=== PATIENT | female | born 1950 | race Hispanic/Latino ===

== ENCOUNTER 2017-06-06 16:29 | Inpatient (IN) | payer BC, OTHER ==
[2017-06-06 16:37] VITALS: BMI 44.8
--- NOTE | 2017-06-06 17:02 | ED PDOC ---
Arrival/HPI - General Chief Complaint: Lower Extremity Problem/Injury Time Seen by Provider: 06/06/17 16:31 Historian: Patient - History of Present Illness Narrative History of Present Illness (Text): 06/06/17 17:01 66 year old female whose past medical history includes chronic leg pain with chronic leg wounds and cellulitis presents to the emergency department with lower extremity pain b/L. She states she was receiving antibiotics at [facility] before going to rehab, from where she was recently released. Patient also reports fatigue, poor appetite, and intermittent diarrhea for the past few weeks. Denies fever, chest pain, shortness of breath, nausea, vomiting, or urinary symptoms. She reports that she is unable to care for herself at this time. Time/Duration: > week Symptom Onset: Gradual Symptom Course: Unchanged Modifying Factors (Text): None Past Medical History - Provider Review Nursing Documentation Reviewed: Yes - Infectious Disease Hx of Infectious Diseases: None - Tetanus Immunization Tetanus Immunization: Unknown - Cardiac Hx Cardiac Disorders: Yes Hx Hypertension: Yes Hx Peripheral Edema: Yes (weeping BLE) - Pulmonary Hx Respiratory Disorders: No - Neurological Hx Neurological Disorder: Yes - HEENT Hx HEENT Disorder: No - Renal Hx Renal Disorder: Yes - Endocrine/Metabolic Hx Endocrine Disorders: Yes Hx Hypothyroidism: Yes - Hematological/Oncological Hx Blood Disorders: Yes Hx AIDS: No - Integumentary Hx Dermatological Disorder: Yes - Musculoskeletal/Rheumatological Hx Musculoskeletal Disorders: Yes Hx Arthritis: Yes Hx Falls: No Hx Fractures: Yes - Gastrointestinal Hx Gastrointestinal Disorders: Yes Hx Gall Bladder Disease: Yes (gallstones) - Genitourinary/Gynecological Hx Genitourinary Disorders: Yes Hx Incontinence: Yes - Psychiatric Hx Psychophysiologic Disorder: Yes Hx Depression: Yes Hx Substance Use: No - Surgical History Hx Cholecystectomy: Yes Other/Comment: hernia repiar - Anesthesia Hx Anesthesia: Yes Hx Anesthesia Reactions: No Hx Malignant Hyperthermia: No - Suicidal Assessment Feels Threatened In Home Enviroment: No Family/Social History - Physician Review Nursing Documentation Reviewed: Yes Family/Social History: Unknown Family HX Smoking Status: Never Smoked Hx Alcohol Use: No Hx Substance Use: No Hx Substance Use Treatment: No Allergies/Home Meds Allergies/Adverse Reactions: Allergies ciprofloxacin [From Cipro] Allergy (Verified 06/06/17 16:40) RASH nubia Allergy (Verified 06/06/17 16:40) RASH latex Allergy (Verified 06/06/17 16:40) RASH Penicillins Allergy (Verified 06/06/17 16:41) RASH Sulfa (Sulfonamide Antibiotics) Allergy (Verified 06/06/17 16:40) RASH vancomycin Allergy (Verified 06/06/17 16:40) RASH roses Allergy (Uncoded 06/06/17 16:40) RASH Home Medications: Home Meds Medication Instructions Recorded Confirmed Gabapentin 200 mg PO BID 06/18/15 06/06/17 HYDROmorphone [Dilaudid] 2 mg PO PRN PRN 06/06/17 06/06/17 traMADol [Ultram] 50 mg PO PRN PRN 06/06/17 06/06/17 Review of Systems - Physician Review All systems were reviewed & negative as marked: Yes - Review of Systems Constitutional: absent: Fevers Respiratory: absent: SOB Cardiovascular: absent: Chest Pain Gastrointestinal: Diarrhea (intermittent for the past few weeks). absent: Nausea, Vomiting Genitourinary Female: absent: Dysuria, Frequency, Hematuria Physical Exam Vital Signs Reviewed: Yes Vital Signs Temp Pulse Resp BP Pulse Ox 06/06/17 19:15 97.6 F 74 16 131/65 100 06/06/17 16:38 98.0 F 76 16 154/77 H 98 Temperature: Afebrile Blood Pressure: Normal Pulse: Regular Respiratory Rate: Normal Appearance: Positive for: Non-Toxic, Other (morbidly obese) Pain Distress: Moderate Mental Status: Positive for: Alert and Oriented X 3 - Systems Exam Head: Present: Atraumatic, Normocephalic Pupils: Present: PERRL Conjunctiva: Present: Normal Mouth: Present: Moist Mucous Membranes Pharnyx: Present: Normal. No: ERYTHEMA, EXUDATE Neck: Present: Normal Range of Motion Respiratory/Chest: Present: Clear to Auscultation, Good Air Exchange. No: Respiratory Distress, Accessory Muscle Use Cardiovascular: Present: Regular Rate and Rhythm, Normal S1, S2. No: Murmurs Abdomen: Present: Normal Bowel Sounds. No: Tenderness, Distention, Peritoneal Signs Back: Present: Normal Inspection Upper Extremity: Present: Normal Inspection. No: Cyanosis, Edema Lower Extremity: Present: Tenderness, Erythema, Other (There are b/L weeping ulcerations of the LE ulcers with warmth). No: Swelling Neurological: Present: GCS=15, CN II-XII Intact, Speech Normal Skin: Present: Warm, Dry, Normal Color. No: Rashes Psychiatric: Present: Alert, Oriented x 3, Normal Insight, Normal Concentration Medical Decision Making ED Course and Treatment: Impression: 66 year old female whose past medical history includes chronic cellulitis presents to the emergency department with lower extremity pain. Differential Diagnosis include but are not limited to: DVT vs. infected ulcers b/L vs osteomyelitis Plan: -- US Duplex LE, Chest X-ray -- Labs -- Reassess and disposition Progress Notes: 06/06/17 20:12 Patient with findings concerning for infected leg wounds or possible osteomyelitis - will need wound/podiatry consult and iv antibiotics and admission. Will also need social work assessment for possible placement. LE dopplers limited but negative for DVT. - Lab Interpretations Lab Results: 06/06/17 16:20 06/06/17 16:20 Lab Results 06/06/17 16:20: Sodium 139, Potassium 4.2, Chloride 102, Carbon Dioxide 25, Anion Gap 16, BUN 20, Creatinine 0.9, Est GFR ( Amer) > 60, Est GFR (Non- Af Amer) > 60, Random Glucose 111 H, Calcium 9.8, Total Bilirubin 0.9, AST 37, ALT 71 H, Alkaline Phosphatase 124, NT-Pro-B Natriuret Pep 113, Total Protein 7.6, Albumin 4.0, Globulin 3.6, Albumin/Globulin Ratio 1.1, Amylase 36, Lipase 16 L 06/06/17 16:20: PT 11.3, INR 1.05, APTT 26.9 06/06/17 16:20: WBC 7.3 D, RBC 4.51, Hgb 13.4, Hct 39.7, MCV 88.0, MCH 29.7, MCHC 33.8, RDW 13.4, Plt Count 312, MPV 10.0, Gran % 72.9 H, Lymph % (Auto) 9.7 L, Atlantic % (Auto) 13.7 H, Eos % (Auto) 3.3, Baso % (Auto) 0.4, Gran # 5.29, Lymph # 0.7 L, Atlantic # 1.0 H, Eos # 0.2, Baso # 0.03 - RAD Interpretation Radiology Orders: 06/06/17 17:00 DUPLEX LOWER EXTRM VEIN BILAT [US] Stat 07/08/17 17:01 CHEST PORTABLE [RAD] Stat - Medication Orders Current Medication Orders: Discontinued Medications Hydromorphone HCl (Dilaudid) 1 mg IVP STAT STA Stop: 06/06/17 17:33 Last Admin: 06/06/17 17:39 Dose: 1 mg - Scribe Statement The provider has reviewed the documentation as recorded by the Armando Good Provider Scribe Attestation: All medical record entries made by the Armando were at my direction and personally dictated by me. I have reviewed the chart and agree that the record accurately reflects my personal performance of the history, physical exam, medical decision making, and the department course for this patient. I have also personally directed, reviewed, and agree with the discharge instructions and disposition. Disposition/Present on Arrival - Present on Arrival Any Indicators Present on Arrival: No History of DVT/PE: No History of Uncontrolled Diabetes: No Urinary Catheter: No History of Decub. Ulcer: No History Surgical Site Infection Following: None - Disposition Have Diagnosis and Disposition been Completed?: Yes Diagnosis: Lymphedema of both lower extremities, Cellulitis Disposition: HOSPITALIZED Disposition Time: 19:50 Patient Plan: Admission Patient Problems: Current Active Problems Problem Status Onset Cellulitis Acute Lymphedema of both lower extremities Acute Condition: FAIR Discharge Instructions (ExitCare): Cellulitis (ED) Referrals: Hung Wagner DO [Primary Care Provider] - Follow up with primary
[2017-06-06] MEDS ORDERED: HYDROmorphone 1 mg/ml ISec IVP STA (17:32)
[2017-06-06 17:57] LABS: ALB/GLOB RATIO 1.1 (1.1-1.8); ALT/SGPT 71 U/L (7-56); AMYLASE 36 U/L (35-125); AST/SGOT 37 U/L (15-39); BLOOD UREA NITROGEN 20 mg/dL (7-21); CALCIUM 9.8 mg/dL (8.4-10.5); GFR AFRICAN-AMERICAN > 60; GFR NON-AFRICAN AMERICAN > 60; LIPASE 16 U/L (23-300)
[2017-06-06 18:05] LABS: B-TYPE NATRIURETIC PEPTIDE 113 pg/mL (0-450)
[2017-06-06 18:28] LABS: BASO # 0.03 K/mm3 (0.0-2.0); BASO % 0.4 % (0.0-3.0); EOS # 0.2 (0.0-0.7); EOS % 3.3 % (1.5-5.0); GRAN # 5.29 (1.4-6.5); GRAN % 72.9 % (50.0-68.0); HEMOGLOBIN 13.4 gm/dL (12.0-16.0); LYMPH # 0.7 (1.2-3.4); LYMPH % 9.7 % (22.0-35.0); MEAN CORPUSCULAR HEMOGLOBIN 29.7 pg (25.0-35.0); MEAN CORPUSCULAR HGB CONC 33.8 g/dl (31.0-37.0); MONO % 13.7 % (1.0-6.0); PLATELET COUNT 312 10^3/uL (120.0-450.0); RBC 4.51 10^6/uL (3.5-6.1); RED CELL DISTRIBUTION WIDTH 13.4 % (11.5-14.5); WHITE BLOOD COUNT 7.3 10^3/ul (4.5-11.0)
[2017-06-06 18:42] LABS: INR 1.05 (0.93-1.08); PARTIAL THROMBOPLASTIN TIME 26.9 Seconds (23.7-30.8); PROTHROMBIN TIME 11.3 Seconds (9.9-11.8)
--- NOTE | 2017-06-06 22:59 | CP.PCM.HP ---
<MARVEL CHILEL - Last Filed: 06/07/17 01:54> History of Present Illness - History of Present Illness History of Present Illness: 66 yo F with pMHx of chronic b/l leg wounds/cellulitis, chronic leg pain, HTN, sciatica, and neuropathy c/o worsening b/l LE pain with sanguineous drainage. Pt states that b/l leg wounds started in 2010 and has since had multiple hospitalizations and rehab stints without resolution of her wounds. Pt states that she lives at home alone and has home health nurses come for wound care, but that they have been coming inconsistently. Pt takes PO dilaudid and tramadol at home for pain. Pt admits to poor appetite, fatigue, and intermittant diarrhea for several weeks. Pt denies n/v/f, CP, SOB, or abdominal pain. PMHx: Chronic b/l LE wounds, cellulitis, HTN, sciatica, neuropathy Surg: cholecystectomy, hernia repair FMHx: DE, CAD Social: denied tobacco, EtOH, or illicit drug use All: Ciprofloxacin, nubia, latex, penicillin, sulfa, vancomycin, roses Present on Admission - Present on Admission Any Indicators Present on Admission: No Review of Systems - Constitutional Constitutional: Fatigue. absent: Fever, Headache, Night Sweats, Weakness - EENT Eyes: absent: Change in Vision, Exophthalmos, Irritation, Photophobia Ears: absent: Abnormal Hearing Nose/Mouth/Throat: absent: Epistaxis, Nasal Congestion, Nasal Discharge - Cardiovascular Cardiovascular: absent: Chest Pain, Dyspnea, Rapid Heart Rate, Slow Heart Rate - Respiratory Respiratory: absent: Cough, Dyspnea, Wheezing - Gastrointestinal Gastrointestinal: Diarrhea. absent: Abdominal Pain, Change in Stool Character, Coffee Ground Emesis, Hematemesis - Genitourinary Genitourinary: absent: Dysuria, Hematuria, Pyuria - Musculoskeletal Musculoskeletal: absent: Neck Pain, Numbness - Integumentary Integumentary: Change in Nails, Erythema, Lesions, Non-Healing Lesions, Skin Pain, Wounds Additional comments: b/l LE - Neurological Neurological: absent: Dizziness, Numbness, Focal Weakness, Headaches, Paresthesias - Psychiatric Psychiatric: absent: Confusion - Endocrine Endocrine: Fatigue - Hematologic/Lymphatic Hematologic: As Per HPI Past Patient History - Infectious Disease Hx of Infectious Diseases: None - Tetanus Immunizations Tetanus Immunization: Unknown - Past Social History Smoking Status: Never Smoked - CARDIAC Hx Cardiac Disorders: Yes Hx Hypertension: Yes Hx Peripheral Edema: Yes (weeping BLE) - PULMONARY Hx Respiratory Disorders: No - NEUROLOGICAL Hx Neurological Disorder: Yes - HEENT Hx HEENT Problems: No - RENAL Hx Chronic Kidney Disease: Yes - ENDOCRINE/METABOLIC Hx Endocrine Disorders: Yes Hx Hypothyroidism: Yes - HEMATOLOGICAL/ONCOLOGICAL Hx Blood Disorders: Yes Hx AIDS: No - INTEGUMENTARY Hx Dermatological Problems: Yes - MUSCULOSKELETAL/RHEUMATOLOGICAL Hx Musculoskeletal Disorders: Yes Hx Arthritis: Yes Hx Falls: No Hx Fractures: Yes - GASTROINTESTINAL Hx Gastrointestinal Disorders: Yes Hx Gall Bladder Disease: Yes (gallstones) - GENITOURINARY/GYNECOLOGICAL Hx Genitourinary Disorders: Yes Hx Incontinence: Yes - PSYCHIATRIC Hx Psychophysiologic Disorder: Yes Hx Depression: Yes Hx Substance Use: No - SURGICAL HISTORY Hx Cholecystectomy: Yes Other/Comment: hernia repiar - ANESTHESIA Hx Anesthesia: Yes Hx Anesthesia Reactions: No Hx Malignant Hyperthermia: No Meds Allergies/Adverse Reactions: Allergies Allergy/AdvReac Type Severity Reaction Status Date / Time ciprofloxacin [From Cipro] Allergy RASH Verified 06/06/17 16:40 nubia Allergy RASH Verified 06/06/17 16:40 latex Allergy RASH Verified 06/06/17 16:40 Penicillins Allergy RASH Verified 06/06/17 16:41 Sulfa (Sulfonamide Allergy RASH Verified 06/06/17 16:40 Antibiotics) vancomycin Allergy RASH Verified 06/06/17 16:40 roses Allergy RASH Uncoded 06/06/17 16:40 Physical Exam - Constitutional Appears: Unkempt - Head Exam Head Exam: ATRAUMATIC, NORMOCEPHALIC - Eye Exam Eye Exam: EOMI, Normal appearance, PERRL - ENT Exam ENT Exam: Mucous Membranes Moist - Neck Exam Neck exam: Negative for: Lymphadenopathy, Tenderness, Thyromegaly - Respiratory Exam Respiratory Exam: Clear to Auscultation Bilateral. absent: Rales, Rhonchi, Wheezes - Cardiovascular Exam Cardiovascular Exam: RRR, +S1, +S2. absent: Gallop, Rubs, Systolic Murmur - GI/Abdominal Exam GI & Abdominal Exam: Soft. absent: Distended, Guarding, Tenderness - Extremities Exam Additional comments: B/l LE below the knee: brown crusting, erythematous wounds, serosanguineous drainage, tenderness, swelling/edema, foul odor - Neurological Exam Neurological exam: Alert, Oriented x3 - Psychiatric Exam Psychiatric exam: Normal Affect - Skin Skin Exam: Erythema Additional comments: b/l LE below the knee brown crusted wound with serosanguinous drainage Results - Vital Signs Recent Vital Signs: Last Vital Signs Temp 97.6 F 06/06/17 19:15 Pulse 77 06/06/17 21:05 Resp 16 06/06/17 21:05 BP 123/65 06/06/17 21:05 Pulse Ox 98 06/06/17 21:05 - Labs Result Diagrams: 06/06/17 16:20 06/06/17 16:20 Assessment & Plan - Assessment and Plan (Free Text) Assessment: 66 yo F with pMHx of chronic b/l LE wounds, HTN, and neuropathy presents with worsening b/l LE leg wounds and pain. Pt will be admitted for b/l LE cellulitis/ chronic leg wounds. 1. Cellultis/chronic leg wounds - b/l LE -ID consulted -Podiatry consulted -[facility]case management consulted -Ciprofloxacin 600 mg IVPB x1 -Defer further Abx therapy to ID due multiple drug allergies -Tramadol 50 PO PRN for breakthrough, then Morphine 4q4 PRN -LE US negative prelim read for DVT -CXR negative prelim read 2. Neuropathy -Continue neurontin 3. HTN -BP stable at this time, no meds indicated -Heart healthy diet, 2 gm Na 4. Hypothyroidism -Continue Synthroid 5. GI/DVT PPx -Lovenox 40 mg SC -Protonix 40 mg PO Pt was seen and discussed in detail with Dr. Riggs. <Nancy Riggs - Last Filed: 06/07/17 02:43> Results - Vital Signs Recent Vital Signs: Last Vital Signs Temp 97.6 F 06/06/17 19:15 Pulse 77 06/06/17 21:05 Resp 16 06/06/17 21:05 BP 123/65 06/06/17 21:05 Pulse Ox 98 06/06/17 21:05 - Labs Result Diagrams: 06/06/17 16:20 06/06/17 16:20 Attending/Attestation - Attestation I have personally seen and examined this patient.: Yes I have fully participated in the care of the patient.: Yes I have reviewed all pertinent clinical information: Yes Notes (Text): 06/07/17 02:43 Patient was seen when she was in bed # 568-02. Agree with history, physical examination, assessment and plan.
[2017-06-07] MEDS: Morphine 4 mg/ml ISec IVP PRN ×2 (01:01→06:40)
--- NOTE | 2017-06-07 05:37 | CP.PCM.PN ---
Subjective - Date & Time of Evaluation Date of Evaluation: 06/07/17 Time of Evaluation: 05:36 - Subjective Subjective: # 22 angiocath was inserted in right hand. Dx:Poor venous access. Objective - Vital Signs/Intake and Output Vital Signs (last 24 hours): Temp Pulse Resp BP Pulse Ox 97.6 F 77 16 123/65 98 06/06/17 19:15 06/06/17 21:05 06/06/17 21:33 06/06/17 21:05 06/06/17 21:05 - Medications Medications: Current Medications Enoxaparin Sodium (Lovenox) 40 mg SC DAILY CEM PRN Reason: Protocol Gabapentin (Neurontin) 200 mg PO BID CEM PRN Reason: Protocol Meropenem 1g/NS 100mL IVPB (Meropenem 1g/Ns 100ml Ivpb) 1 gm in 100 mls @ 100 mls/hr IVPB Q8 CEM PRN Reason: Protocol Stop: 06/14/17 06:01 Linezolid (Zyvox 600mg/300ml D5w) 600 mg in 300 mls @ 200 mls/hr IVPB Q12 CEM PRN Reason: Protocol Stop: 06/14/17 10:01 Levothyroxine Sodium (Synthroid) 25 mcg PO DAILY@0630 [facility] Morphine Sulfate (Morphine) 4 mg IVP Q4H PRN PRN Reason: Pain, moderate (4-7) Last Admin: 06/07/17 01:01 Dose: 4 mg Pantoprazole Sodium (Protonix Ec Tab) 40 mg PO 0600 [facility] - Labs Labs: PT 11.3 Seconds (9.9-11.8) 06/06/17 16:20 INR 1.05 (0.93-1.08) 06/06/17 16:20 APTT 26.9 Seconds (23.7-30.8) 06/06/17 16:20
[2017-06-07] MEDS: Levothyroxine 25 MCG TAB PO SCH (06:11)
[2017-06-07] MEDS: Pantoprazole 40 mg EC Tab PO SCH (06:11)
[2017-06-07] MEDS: Meropenem 1g/NS 100mL IVPB 1 GM/100 ML PIGGYBACK IVPB SCH ×3 (06:11→21:38)
[2017-06-07 07:31] LABS: ALT/SGPT 53 U/L (7-56); AST/SGOT 22 U/L (15-39); BLOOD UREA NITROGEN 18 mg/dL (7-21); CALCIUM 8.9 mg/dL (8.4-10.5); GFR AFRICAN-AMERICAN > 60; GFR NON-AFRICAN AMERICAN > 60
--- NOTE | 2017-06-07 08:55 | RAD ---
HISTORY: LE pain COMPARISON: 09/10/2015 FINDINGS: LUNGS: No active pulmonary disease. PLEURA: No significant pleural effusion identified, no pneumothorax apparent. CARDIOVASCULAR: Normal. OSSEOUS STRUCTURES: No significant abnormalities. VISUALIZED UPPER ABDOMEN: Normal. OTHER FINDINGS: None. IMPRESSION: No active disease.
[2017-06-07 09:04] LABS: HEMOGLOBIN 11.4 gm/dL (12.0-16.0); MEAN CELL VOLUME 89.6 fL (80.0-105.0); MEAN CORPUSCULAR HEMOGLOBIN 28.9 pg (25.0-35.0); MEAN CORPUSCULAR HGB CONC 32.3 g/dl (31.0-37.0); RBC 3.94 10^6/uL (3.5-6.1); WHITE BLOOD COUNT 5.9 10^3/ul (4.5-11.0)
[2017-06-07 09:05] LABS: MEAN PLATELET VOLUME 9.8 fl (7.0-11.0); RED CELL DISTRIBUTION WIDTH 13.4 % (11.5-14.5)
[2017-06-07] MEDS ORDERED: Morphine 4 mg/ml ISec IVP PRN (09:07)
--- NOTE | 2017-06-07 09:24 | CP.PCM.PN ---
Subjective - Date & Time of Evaluation Date of Evaluation: 06/07/17 Time of Evaluation: 08:00 - Subjective Subjective: not sure why CC given to the hospitalist service she has been my patient for years i have done house calls on her back from [address] again for severe tommy lower extremity cellulitis and after 1 week at home it got worse again and ended [place] [facility] [place] Objective - Vital Signs/Intake and Output Vital Signs (last 24 hours): Temp Pulse Resp BP Pulse Ox 98.2 F 75 18 110/57 L 95 06/07/17 07:36 06/07/17 07:36 06/07/17 07:36 06/07/17 07:36 06/07/17 07:36 - Medications Medications: Current Medications Enoxaparin Sodium (Lovenox) 40 mg SC DAILY CEM PRN Reason: Protocol Gabapentin (Neurontin) 200 mg PO BID CEM PRN Reason: Protocol Meropenem 1g/NS 100mL IVPB (Meropenem 1g/Ns 100ml Ivpb) 1 gm in 100 mls @ 100 mls/hr IVPB Q8 [facility]EM PRN Reason: Protocol Stop: 06/14/17 06:01 Last Admin: 06/07/17 06:11 Dose: 100 mls/hr Linezolid (Zyvox 600mg/300ml D5w) 600 mg in 300 mls @ 200 mls/hr IVPB Q12 [facility]EM PRN Reason: Protocol Stop: 06/14/17 10:01 Levothyroxine Sodium (Synthroid) 25 mcg PO DAILY@0630 [facility] Last Admin: 06/07/17 06:11 Dose: 25 mcg Morphine Sulfate (Morphine) 2 mg IVP Q4 PRN PRN Reason: Pain, moderate (4-7) Pantoprazole Sodium (Protonix Ec Tab) 40 mg PO 0600 [facility] Last Admin: 06/07/17 06:11 Dose: 40 mg - Labs Labs: 06/07/17 08:30 06/07/17 06:50 PT 11.3 Seconds (9.9-11.8) 06/06/17 16:20 INR 1.05 (0.93-1.08) 06/06/17 16:20 APTT 26.9 Seconds (23.7-30.8) 06/06/17 16:20 - Constitutional Appears: Unkempt - Head Exam Head Exam: ATRAUMATIC, NORMAL INSPECTION, NORMOCEPHALIC - ENT Exam ENT Exam: Mucous Membranes Moist - Neck Exam Neck Exam: Normal Inspection - Respiratory Exam Respiratory Exam: Decreased Breath Sounds, Clear to Ausculation Bilateral - Cardiovascular Exam Cardiovascular Exam: REGULAR RHYTHM - GI/Abdominal Exam GI & Abdominal Exam: Soft, Normal Bowel Sounds - Extremities Exam Additional comments: severe lower extremity venous stasis cellulitis ulcer oozing - Back Exam Back Exam: NORMAL INSPECTION - Neurological Exam Neurological Exam: Alert, CN II-XII Intact - Psychiatric Exam Psychiatric exam: Normal Affect - Skin Additional comments: severe long standing venous stasis cellulitis crusting redness oozing Assessment and Plan - Assessment and Plan (Free Text) Assessment: severe cellulitis tommy lower extremities venous stasis crusting oozing ulcers Plan: will need aggressive pod care iv abs as per id pain control pt
[2017-06-07] MEDS: Linezolid 600 mg in D5W 300 ml 600 MG/300 ML BAG IVPB SCH ×2 (10:14→22:17)
[2017-06-07] MEDS: Enoxaparin 40 mg Syringe SC SCH (10:15)
--- NOTE | 2017-06-07 12:07 | CP.PCM.CON ---
History of Present Illness - History of Present Illness History of Present Illness: 66 year old female with PMH of Morbid obesity with BMI 45, HTN, Hyperlipidemia, GERD, Depression, chronic lower extremity ulcerations and venous stasis came in to [facility] complaining of pain and swelling in both lower extremities associated with oozing ulcers. She has home health nurses coming to her house for wound care, but the visits have been inconsistent. She has some generalized weakness, decreased appetite, denies fever or chills, no nausea or vomiting, occasional loose bowel movement, no dysuria, no abdominal pain, no headache or dizziness, no chest pain, no SOB, no cough or colds. She denies soaking her legs in water, no animal contacts, no walking barefoot on soil, denies insect bites. Infectious Diseases consult is requested to further evaluate and manage. Review of Systems - Review of Systems All systems: reviewed and no additional remarkable complaints except (as per HPI ) Past Patient History - Infectious Disease Hx of Infectious Diseases: None - Tetanus Immunizations Tetanus Immunization: Unknown - Past Social History Smoking Status: Never Smoked - CARDIAC Hx Cardiac Disorders: Yes Hx Hypertension: Yes Hx Peripheral Edema: Yes (weeping BLE) - PULMONARY Hx Respiratory Disorders: No - NEUROLOGICAL Hx Neurological Disorder: Yes - HEENT Hx HEENT Problems: No - RENAL Hx Chronic Kidney Disease: Yes - ENDOCRINE/METABOLIC Hx Endocrine Disorders: Yes Hx Hypothyroidism: Yes - HEMATOLOGICAL/ONCOLOGICAL Hx Blood Disorders: Yes Hx AIDS: No - INTEGUMENTARY Hx Dermatological Problems: Yes - MUSCULOSKELETAL/RHEUMATOLOGICAL Hx Musculoskeletal Disorders: Yes Hx Arthritis: Yes Hx Falls: No Hx Fractures: Yes - GASTROINTESTINAL Hx Gastrointestinal Disorders: Yes Hx Gall Bladder Disease: Yes (gallstones) - GENITOURINARY/GYNECOLOGICAL Hx Genitourinary Disorders: Yes Hx Incontinence: Yes - PSYCHIATRIC Hx Psychophysiologic Disorder: Yes Hx Depression: Yes Hx Substance Use: No - SURGICAL HISTORY Hx Cholecystectomy: Yes Other/Comment: hernia repiar - ANESTHESIA Hx Anesthesia: Yes Hx Anesthesia Reactions: No Hx Malignant Hyperthermia: No Meds Allergies/Adverse Reactions: Allergies Allergy/AdvReac Type Severity Reaction Status Date / Time ciprofloxacin [From Cipro] Allergy RASH Verified 06/06/17 16:40 nubia Allergy RASH Verified 06/06/17 16:40 latex Allergy RASH Verified 06/06/17 16:40 Penicillins Allergy RASH Verified 06/06/17 16:41 Sulfa (Sulfonamide Allergy RASH Verified 06/06/17 16:40 Antibiotics) vancomycin Allergy RASH Verified 06/06/17 16:40 roses Allergy RASH Uncoded 06/06/17 16:40 - Medications Medications: Current Medications Enoxaparin Sodium (Lovenox) 40 mg SC DAILY CEM PRN Reason: Protocol Gabapentin (Neurontin) 200 mg PO BID CEM PRN Reason: Protocol Clindamycin Phosphate 600 mg/ (Sodium Chloride) 54 mls @ 108 mls/hr IVPB ONCE ONE PRN Reason: Protocol Stop: 06/07/17 05:29 Levothyroxine Sodium (Synthroid) 25 mcg PO DAILY@0630 [facility] Morphine Sulfate (Morphine) 4 mg IVP Q4H PRN PRN Reason: Pain, moderate (4-7) Last Admin: 06/07/17 01:01 Dose: 4 mg Pantoprazole Sodium (Protonix Ec Tab) 40 mg PO 0600 [facility] Tramadol HCl (Ultram) 50 mg PO BID PRN PRN Reason: Pain, moderate (4-7) Physical Exam - Constitutional Appears: Chronically Ill - Head Exam Head Exam: NORMAL INSPECTION - ENT Exam ENT Exam: Mucous Membranes Moist - Neck Exam Neck exam: Negative for: Lymphadenopathy, Meningismus - Respiratory Exam Respiratory Exam: Decreased Breath Sounds - Cardiovascular Exam Cardiovascular Exam: +S1, +S2 - GI/Abdominal Exam GI & Abdominal Exam: Soft. absent: Tenderness - Extremities Exam Additional comments: both lower extremities with chronic ulceration, swelling, with some oozing noted Results - Vital Signs Recent Vital Signs: Last Vital Signs Temp 97.6 F 06/06/17 19:15 Pulse 77 06/06/17 21:05 Resp 16 06/06/17 21:05 BP 123/65 06/06/17 21:05 Pulse Ox 98 06/06/17 21:05 - Labs Result Diagrams: 06/07/17 08:30 06/07/17 06:50 Assessment & Plan - Assessment and Plan (Free Text) Plan: Assessment bilateral lower extremity cellulitis in a patient with chronic venous stasis and ulcerations history of Pseudomonas osteomyelitis in 2012 Morbid obesity with BMI 45 HTN Hyperlipidemia GERD Depression Plan started patient Meropenem and Zyvox pending blood and wound cx; follow up ultrasound of the legs; follow up Podiatry evaluation
[2017-06-07] MEDS: Morphine 2 mg/ml ISec IVP PRN (14:16)
--- NOTE | 2017-06-07 14:37 | CP.PCM.CON ---
<Oz Berrios - Last Filed: 06/07/17 14:33> History of Present Illness - History of Present Illness History of Present Illness: 66 year old female with PMH chronic b/l leg wounds/cellulitis, chronic leg pain , HTN, sciatica, and neuropathy seen at bedside for painful b/l lower extremity cellulitis. Patient states that the wounds have been present since 2010 and that she receives at home nursing care. She has been to the hospital and outpatient rehab facilities multiple times for her wounds without healing. Patient states that her legs are extremely tender to touch and refuses application of lac hydrin ointment at this time. Pt denies any further pedal complaints at this time. Patient denies N/V/F/C/CP/SOB. Review of Systems - Review of Systems Review of Systems: ROS unremarkable outside of HPI Past Patient History - Infectious Disease Hx of Infectious Diseases: None - Tetanus Immunizations Tetanus Immunization: Unknown - Past Social History Smoking Status: Never Smoked - CARDIAC Hx Cardiac Disorders: Yes Hx Hypertension: Yes Hx Peripheral Edema: Yes (weeping BLE) - PULMONARY Hx Respiratory Disorders: No - NEUROLOGICAL Hx Neurological Disorder: Yes - HEENT Hx HEENT Problems: No - RENAL Hx Chronic Kidney Disease: Yes - ENDOCRINE/METABOLIC Hx Endocrine Disorders: Yes Hx Hypothyroidism: Yes - HEMATOLOGICAL/ONCOLOGICAL Hx Blood Disorders: Yes Hx AIDS: No - INTEGUMENTARY Hx Dermatological Problems: Yes - MUSCULOSKELETAL/RHEUMATOLOGICAL Hx Musculoskeletal Disorders: Yes Hx Arthritis: Yes Hx Falls: No Hx Fractures: Yes - GASTROINTESTINAL Hx Gastrointestinal Disorders: Yes Hx Gall Bladder Disease: Yes (gallstones) - GENITOURINARY/GYNECOLOGICAL Hx Genitourinary Disorders: Yes Hx Incontinence: Yes - PSYCHIATRIC Hx Psychophysiologic Disorder: Yes Hx Depression: Yes Hx Substance Use: No - SURGICAL HISTORY Hx Cholecystectomy: Yes Other/Comment: hernia repiar - ANESTHESIA Hx Anesthesia: Yes Hx Anesthesia Reactions: No Hx Malignant Hyperthermia: No Meds Allergies/Adverse Reactions: Allergies Allergy/AdvReac Type Severity Reaction Status Date / Time ciprofloxacin [From Cipro] Allergy RASH Verified 06/06/17 16:40 nubia Allergy RASH Verified 06/06/17 16:40 latex Allergy RASH Verified 06/06/17 16:40 Penicillins Allergy RASH Verified 06/06/17 16:41 Sulfa (Sulfonamide Allergy RASH Verified 06/06/17 16:40 Antibiotics) vancomycin Allergy RASH Verified 06/06/17 16:40 roses Allergy RASH Uncoded 06/06/17 16:40 - Medications Medications: Current Medications Enoxaparin Sodium (Lovenox) 40 mg SC DAILY [facility] PRN Reason: Protocol Last Admin: 06/07/17 10:15 Dose: 40 mg Gabapentin (Neurontin) 200 mg PO BID [facility] PRN Reason: Protocol Last Admin: 06/07/17 10:14 Dose: 200 mg Meropenem 1g/NS 100mL IVPB (Meropenem 1g/Ns 100ml Ivpb) 1 gm in 100 mls @ 100 mls/hr IVPB Q8 [facility] PRN Reason: Protocol Stop: 06/14/17 06:01 Last Admin: 06/07/17 06:11 Dose: 100 mls/hr Linezolid (Zyvox 600mg/300ml D5w) 600 mg in 300 mls @ 200 mls/hr IVPB Q12 [facility] PRN Reason: Protocol Stop: 06/14/17 10:01 Last Admin: 06/07/17 10:14 Dose: 200 mls/hr Lactic Acid (Lac-Hydrin 12% Cream (140 G)) 0 ea TOP QD5 [facility] Levothyroxine Sodium (Synthroid) 25 mcg PO DAILY@0630 [facility] Last Admin: 06/07/17 06:11 Dose: 25 mcg Morphine Sulfate (Morphine) 2 mg IVP Q4 PRN PRN Reason: Pain, moderate (4-7) Last Admin: 06/07/17 14:16 Dose: 2 mg Pantoprazole Sodium (Protonix Ec Tab) 40 mg PO 0600 [facility] Last Admin: 06/07/17 06:11 Dose: 40 mg Physical Exam - Constitutional Appears: Well, Non-toxic - Extremities Exam Additional comments: Lower extremity focused exam: Vasc: DP/PT pulses non-palpable due to edematous nature of LE. CFT < 3 seconds to digits 1-10. Neuro: Epicritic and protective sensation grossly intact b/l Derm: Extensive cellulitis noted to b/l LE from just proximal to knee to distal toes. Sloughing of skin, ulceration and lichenification of skin all noted extensively to b/l LE. Serous drainage is noted to both legs. Erythema noted extensively to both legs. Malodor present. No purulent drainage noted at this time MSK: Extensive POP noted to both legs making dressing changes difficult - Neurological Exam Neurological exam: Alert, Oriented x3 - Psychiatric Exam Psychiatric exam: Normal Affect Results - Vital Signs Recent Vital Signs: Last Vital Signs Temp 98.2 F 06/07/17 07:36 Pulse 75 06/07/17 07:36 Resp 18 06/07/17 07:36 BP 110/57 L 06/07/17 07:36 Pulse Ox 95 06/07/17 07:36 - Labs Result Diagrams: 06/07/17 08:30 06/07/17 06:50 Labs: Laboratory Results - last 24 hr 06/07/17 06/07/17 06/07/17 06:50 06:50 08:30 WBC 5.9 RBC 3.94 Hgb 11.4 L Hct 35.3 L MCV 89.6 MCH 28.9 MCHC 32.3 RDW 13.4 Plt Count 260 MPV 9.8 ESR 48 H Sodium 140 Potassium 3.6 Chloride 106 Carbon Dioxide 27 Anion Gap 11 BUN 18 Creatinine 0.8 Est GFR ( Amer) > 60 Est GFR (Non-Af Amer) > 60 Random Glucose 94 Calcium 8.9 Total Bilirubin 0.5 AST 22 ALT 53 Alkaline Phosphatase 99 C-React Prot High Sens > 15.00 H Total Protein 5.9 Albumin 3.0 Globulin 2.9 Albumin/Globulin Ratio 1.0 L Assessment & Plan - Assessment and Plan (Free Text) Assessment: 66 year old female with painful cellulitis with ulceration to b/l LE Plan: Patient seen and evaluated at bedside Labs, charts and vitals reviewed Plan discussed with attending Dr. Briones Patient refused application of Lac Hydrin due to pain Wound cultures taken Morphine given by nursing in order to carry out dressing changes Legs dressed with xeroform, gauze and kirlix Orders placed for b/l foot xrays and CASSI Continue with abx per ID Podiatry to continue to follow while in house Thank you for this consult, please consult again as needed in future - Date & Time Date: 06/07/17 Time: 14:48 <Maddison Briones - Last Filed: 06/07/17 19:59> Meds - Medications Medications: Current Medications Enoxaparin Sodium (Lovenox) 40 mg SC DAILY [facility] PRN Reason: Protocol Last Admin: 06/07/17 10:15 Dose: 40 mg Gabapentin (Neurontin) 200 mg PO BID [facility] PRN Reason: Protocol Last Admin: 06/07/17 17:10 Dose: 200 mg Meropenem 1g/NS 100mL IVPB (Meropenem 1g/Ns 100ml Ivpb) 1 gm in 100 mls @ 100 mls/hr IVPB Q8 [facility] PRN Reason: Protocol Stop: 06/14/17 06:01 Last Admin: 06/07/17 14:57 Dose: 100 mls/hr Linezolid (Zyvox 600mg/300ml D5w) 600 mg in 300 mls @ 200 mls/hr IVPB Q12 [facility] PRN Reason: Protocol Stop: 06/14/17 10:01 Last Admin: 06/07/17 10:14 Dose: 200 mls/hr Lactic Acid (Lac-Hydrin 12% Cream (140 G)) 0 ea TOP QD5 [facility] Last Admin: 06/07/17 17:09 Dose: 1 applic Levothyroxine Sodium (Synthroid) 25 mcg PO DAILY@0630 [facility] Last Admin: 06/07/17 06:11 Dose: 25 mcg Morphine Sulfate (Morphine) 2 mg IVP Q4 PRN PRN Reason: Pain, moderate (4-7) Last Admin: 06/07/17 14:16 Dose: 2 mg Pantoprazole Sodium (Protonix Ec Tab) 40 mg PO 0600 [facility] Last Admin: 06/07/17 06:11 Dose: 40 mg Results - Vital Signs Recent Vital Signs: Last Vital Signs Temp 98.1 F 06/07/17 17:16 Pulse 66 06/07/17 17:16 Resp 20 06/07/17 17:16 BP 125/50 L 06/07/17 17:16 Pulse Ox 98 06/07/17 17:16 - Labs Result Diagrams: 06/07/17 08:30 06/07/17 06:50 Labs: Laboratory Results - last 24 hr 06/07/17 06/07/17 06/07/17 06:50 06:50 08:30 WBC 5.9 RBC 3.94 Hgb 11.4 L Hct 35.3 L MCV 89.6 MCH 28.9 MCHC 32.3 RDW 13.4 Plt Count 260 MPV 9.8 ESR 48 H Sodium 140 Potassium 3.6 Chloride 106 Carbon Dioxide 27 Anion Gap 11 BUN 18 Creatinine 0.8 Est GFR ( Amer) > 60 Est GFR (Non-Af Amer) > 60 Random Glucose 94 Calcium 8.9 Total Bilirubin 0.5 AST 22 ALT 53 Alkaline Phosphatase 99 C-React Prot High Sens > 15.00 H Total Protein 5.9 Albumin 3.0 Globulin 2.9 Albumin/Globulin Ratio 1.0 L Attending/Attestation - Attestation I have personally seen and examined this patient.: No I have fully participated in the care of the patient.: Yes I have reviewed all pertinent clinical information: Yes Notes (Text): 06/07/17 19:59 I was in contact with the resident while he evaluated and treated the patient and I formulated the plan of care
--- NOTE | 2017-06-07 16:18 | RAD ---
PROCEDURE: Bilateral Feet Radiographs. HISTORY: b/l lower extremity wounds COMPARISON: None. FINDINGS: BONES: Right Foot: There is diffuse bony demineralization of both feet. There is no focal destruction Left Foot: As above JOINTS: Right Foot: Normal. No osteoarthritis. Left Foot: Normal. No osteoarthritis. SOFT TISSUES: Right Foot: Normal. Left Foot: Normal. OTHER FINDINGS: None. IMPRESSION: There is diffuse bony demineralization of both feet. There is no focal destruction
[2017-06-07] MEDS: Ammonium Lactate 12% Cream (140 g) TOP SCH (17:09)
--- NOTE | 2017-06-07 18:53 | US ---
HISTORY: Leg pain and swelling. Evaluate for DVT PHYSICIAN(S): Rogelio Cano MD. TECHNIQUE: Duplex sonography and color-flow Doppler with graded compression were used to evaluate the deep venous systems of both lower extremities. The exam is very limited by body habitus and edema. The inferior femoral veins and tibial veins are not adequately seen. FINDINGS: The visualized deep venous systems of both lower extremities are sonographically normal and compressible. Normal wave forms and augmentation are seen. There is no sonographic evidence for deep venous thrombosis in the visualized segments of both lower extremities. IMPRESSION: No sonographic evidence for deep venous thrombosis in the visualized segments of both lower extremities. Very limited study.
[2017-06-08] MEDS: Meropenem 1g/NS 100mL IVPB 1 GM/100 ML PIGGYBACK IVPB SCH ×3 (05:52→21:47)
[2017-06-08] MEDS: Pantoprazole 40 mg EC Tab PO SCH (05:53)
[2017-06-08] MEDS: Levothyroxine 25 MCG TAB PO SCH ×2 (05:53→05:58)
[2017-06-08 07:26] LABS: ALBUMIN 2.6 g/dL (3.0-4.8); ALT/SGPT 43 U/L (7-56); AST/SGOT 17 U/L (15-39); BLOOD UREA NITROGEN 12 mg/dL (7-21); CALCIUM 8.3 mg/dL (8.4-10.5); GFR AFRICAN-AMERICAN > 60; GFR NON-AFRICAN AMERICAN > 60
--- NOTE | 2017-06-08 07:51 | CP.PCM.PN ---
Subjective - Date & Time of Evaluation Date of Evaluation: 06/08/17 Time of Evaluation: 07:00 - Subjective Subjective: seen in bed slept poor aches and discomfort in legs eats well Objective - Vital Signs/Intake and Output Vital Signs (last 24 hours): Temp Pulse Resp BP Pulse Ox 98.1 F 66 20 125/50 L 98 06/07/17 17:16 06/07/17 17:16 06/07/17 17:16 06/07/17 17:16 06/07/17 17:16 - Medications Medications: Current Medications Enoxaparin Sodium (Lovenox) 40 mg SC DAILY [facility] PRN Reason: Protocol Last Admin: 06/07/17 10:15 Dose: 40 mg Gabapentin (Neurontin) 200 mg PO BID [facility] PRN Reason: Protocol Last Admin: 06/07/17 17:10 Dose: 200 mg Meropenem 1g/NS 100mL IVPB (Meropenem 1g/Ns 100ml Ivpb) 1 gm in 100 mls @ 100 mls/hr IVPB Q8 [facility] PRN Reason: Protocol Stop: 06/14/17 06:01 Last Admin: 06/08/17 05:52 Dose: 100 mls/hr Linezolid (Zyvox 600mg/300ml D5w) 600 mg in 300 mls @ 200 mls/hr IVPB Q12 [facility] PRN Reason: Protocol Stop: 06/14/17 10:01 Last Admin: 06/07/17 22:17 Dose: 200 mls/hr Lactic Acid (Lac-Hydrin 12% Cream (140 G)) 0 ea TOP QD5 [facility] Last Admin: 06/07/17 17:09 Dose: 1 applic Levothyroxine Sodium (Synthroid) 25 mcg PO DAILY@0630 [facility] Last Admin: 06/08/17 05:58 Dose: Not Given Morphine Sulfate (Morphine) 2 mg IVP Q4 PRN PRN Reason: Pain, moderate (4-7) Last Admin: 06/07/17 14:16 Dose: 2 mg Pantoprazole Sodium (Protonix Ec Tab) 40 mg PO 0600 [facility] Last Admin: 06/08/17 05:53 Dose: 40 mg - Labs Labs: 06/07/17 08:30 06/08/17 06:25 PT 11.3 Seconds (9.9-11.8) 06/06/17 16:20 INR 1.05 (0.93-1.08) 06/06/17 16:20 APTT 26.9 Seconds (23.7-30.8) 06/06/17 16:20 - Constitutional Appears: No Acute Distress - Head Exam Head Exam: ATRAUMATIC, NORMAL INSPECTION, NORMOCEPHALIC - Eye Exam Eye Exam: Normal appearance - ENT Exam ENT Exam: Normal Exam - Neck Exam Neck Exam: Normal Inspection - Respiratory Exam Respiratory Exam: Decreased Breath Sounds, Clear to Ausculation Bilateral - Cardiovascular Exam Cardiovascular Exam: REGULAR RHYTHM - GI/Abdominal Exam GI & Abdominal Exam: Soft, Normal Bowel Sounds - Extremities Exam Additional comments: severe venous stasis w/ redness cellulites crusting - Neurological Exam Neurological Exam: Alert, CN II-XII Intact, Oriented x3 - Psychiatric Exam Psychiatric exam: Normal Affect, Normal Mood - Skin Skin Exam: Erythema, Warm Additional comments: severe venous stasis cellulites crusting edema Assessment and Plan - Assessment and Plan (Free Text) Assessment: venous stasis cellulites crusting chf pain P neuropathy hypothyroid Plan: cont w/ iv abs as per id skin and wound care as per pod oob pt checking labs
[2017-06-08 07:53] LABS: HEMOGLOBIN 10.1 gm/dL (12.0-16.0); MEAN CORPUSCULAR HEMOGLOBIN 28.5 pg (25.0-35.0); MEAN PLATELET VOLUME 9.9 fl (7.0-11.0); RBC 3.55 10^6/uL (3.5-6.1); RED CELL DISTRIBUTION WIDTH 13.7 % (11.5-14.5); WHITE BLOOD COUNT 4.4 10^3/ul (4.5-11.0)
[2017-06-08] MEDS: Potassium Chloride 10 mEq ER Tab PO SCH (11:05)
[2017-06-08] MEDS: Enoxaparin 40 mg Syringe SC SCH (11:05)
[2017-06-08] MEDS: Linezolid 600 mg in D5W 300 ml 600 MG/300 ML BAG IVPB SCH ×2 (11:06→22:47)
--- NOTE | 2017-06-08 11:42 | CP.PCM.PN ---
Subjective - Date & Time of Evaluation Date of Evaluation: 06/08/17 Time of Evaluation: 10:55 - Subjective Subjective: Patient still has leg pain, no fevers overnight. Objective - Vital Signs/Intake and Output Vital Signs (last 24 hours): Temp Pulse Resp BP Pulse Ox 98.1 F 66 20 125/50 L 98 06/07/17 17:16 06/07/17 17:16 06/07/17 17:16 06/07/17 17:16 06/07/17 17:16 - Medications Medications: Current Medications Enoxaparin Sodium (Lovenox) 40 mg SC DAILY [facility] PRN Reason: Protocol Last Admin: 06/07/17 10:15 Dose: 40 mg Gabapentin (Neurontin) 200 mg PO BID [facility] PRN Reason: Protocol Last Admin: 06/07/17 17:10 Dose: 200 mg Meropenem 1g/NS 100mL IVPB (Meropenem 1g/Ns 100ml Ivpb) 1 gm in 100 mls @ 100 mls/hr IVPB Q8 [facility] PRN Reason: Protocol Stop: 06/14/17 06:01 Last Admin: 06/08/17 05:52 Dose: 100 mls/hr Linezolid (Zyvox 600mg/300ml D5w) 600 mg in 300 mls @ 200 mls/hr IVPB Q12 [facility] PRN Reason: Protocol Stop: 06/14/17 10:01 Last Admin: 06/07/17 22:17 Dose: 200 mls/hr Lactic Acid (Lac-Hydrin 12% Cream (140 G)) 0 ea TOP QD5 [facility] Last Admin: 06/07/17 17:09 Dose: 1 applic Levothyroxine Sodium (Synthroid) 25 mcg PO DAILY@0630 [facility] Last Admin: 06/08/17 05:58 Dose: Not Given Morphine Sulfate (Morphine) 2 mg IVP Q4 PRN PRN Reason: Pain, moderate (4-7) Last Admin: 06/07/17 14:16 Dose: 2 mg Pantoprazole Sodium (Protonix Ec Tab) 40 mg PO 0600 [facility] Last Admin: 06/08/17 05:53 Dose: 40 mg Potassium Chloride (Klor-Con 10) 10 meq PO BRK [facility] - Labs Labs: 06/08/17 06:25 06/08/17 06:25 PT 11.3 Seconds (9.9-11.8) 07/08/17 16:20 INR 1.05 (0.93-1.08) 06/06/17 16:20 APTT 26.9 Seconds (23.7-30.8) 06/06/17 16:20 - Constitutional Appears: Non-toxic, No Acute Distress - Head Exam Head Exam: NORMAL INSPECTION - ENT Exam ENT Exam: Mucous Membranes Moist - Neck Exam Neck Exam: absent: Lymphadenopathy, Meningismus - Respiratory Exam Respiratory Exam: Decreased Breath Sounds - Cardiovascular Exam Cardiovascular Exam: +S1, +S2 - GI/Abdominal Exam GI & Abdominal Exam: Soft. absent: Tenderness Assessment and Plan - Assessment and Plan (Free Text) Plan: Assessment bilateral lower extremity cellulitis in a patient with chronic venous stasis and ulcerations, growing gram positive cocci and gram negative bacilli history of Pseudomonas osteomyelitis in 2012 Morbid obesity with BMI 45 HTN Hyperlipidemia GERD Depression Plan continue Meropenem and Zyvox day 2 pending identification and sensitivities of the organisms from the wound; follow up ultrasound of the legs; reviewed Podiatry evaluation
--- NOTE | 2017-06-08 11:43 | CP.PCM.PN ---
<Leonora Schmid - Last Filed: 06/08/17 11:39> Subjective - Date & Time of Evaluation Date of Evaluation: 06/08/17 Time of Evaluation: 11:39 - Subjective Subjective: 66 year old female seen at bedside with attending, Dr. Briones for painful b/l lower extremity cellulitis. Patient states that her legs are very tender. She admits that in the past she was using bacitracin to her legs b/l. She denies any n/v/f/c/sob/cp. Objective - Vital Signs/Intake and Output Vital Signs (last 24 hours): Temp Pulse Resp BP Pulse Ox 98.1 F 66 20 125/50 L 98 06/07/17 17:16 06/07/17 17:16 06/07/17 17:16 06/07/17 17:16 06/07/17 17:16 - Medications Medications: Current Medications Enoxaparin Sodium (Lovenox) 40 mg SC DAILY [facility] PRN Reason: Protocol Last Admin: 06/08/17 11:05 Dose: 40 mg Gabapentin (Neurontin) 200 mg PO BID [facility] PRN Reason: Protocol Last Admin: 06/08/17 11:05 Dose: 200 mg Meropenem 1g/NS 100mL IVPB (Meropenem 1g/Ns 100ml Ivpb) 1 gm in 100 mls @ 100 mls/hr IVPB Q8 [facility] PRN Reason: Protocol Stop: 06/14/17 06:01 Last Admin: 06/08/17 05:52 Dose: 100 mls/hr Linezolid (Zyvox 600mg/300ml D5w) 600 mg in 300 mls @ 200 mls/hr IVPB Q12 [facility] PRN Reason: Protocol Stop: 06/14/17 10:01 Last Admin: 06/08/17 11:06 Dose: 200 mls/hr Lactic Acid (Lac-Hydrin 12% Cream (140 G)) 0 ea TOP QD5 [facility] Last Admin: 06/07/17 17:09 Dose: 1 applic Levothyroxine Sodium (Synthroid) 25 mcg PO DAILY@0630 [facility] Last Admin: 06/08/17 05:58 Dose: Not Given Morphine Sulfate (Morphine) 2 mg IVP Q4 PRN PRN Reason: Pain, moderate (4-7) Last Admin: 07/09/17 14:16 Dose: 2 mg Nystatin (Nystop Topical Powder) 0 gm TOP DAILY [facility] Pantoprazole Sodium (Protonix Ec Tab) 40 mg PO 0600 [facility] Last Admin: 06/08/17 05:53 Dose: 40 mg Potassium Chloride (Klor-Con 10) 10 meq PO BRK [facility] Last Admin: 06/08/17 11:05 Dose: 10 meq - Labs Labs: 06/08/17 06:25 06/08/17 06:25 PT 11.3 Seconds (9.9-11.8) 06/06/17 16:20 INR 1.05 (0.93-1.08) 06/06/17 16:20 APTT 26.9 Seconds (23.7-30.8) 06/06/17 16:20 - Constitutional Appears: No Acute Distress - Extremities Exam Additional comments: Lower extremity focused exam: Vasc: DP and PT pulses non-palpable due to LE edema. CFT < 3 seconds to digits 1 -10. Neuro: Gross sensation intact b/l Derm: Extensive cellulitis noted to b/l LE from just proximal to knee to distal toes with superfical ulcerations noted. Skin is macerated to b/l legs. Lichenification of skin all noted extensively to the left foot and ankle. Serous drainage is noted to both legs. Erythema noted extensively to both legs. Malodor present. No purulent drainage noted at this time Ortho: Pain on palpation to LE b/l. - Neurological Exam Neurological Exam: Alert, Awake, Oriented x3 - Psychiatric Exam Psychiatric exam: Normal Affect, Normal Mood Assessment and Plan - Assessment and Plan (Free Text) Assessment: 66 year old female with painful cellulitis with ulceration to b/l LE Plan: Patient examined and evaluated at bedside with attending, Dr. Briones Labs, charts and vitals reviewed;afebrile CASSI read pending Radiograph reviewed- no focal destruction Lotion applied to feet b/l Nystatin powered ordered for legs b/l Legs dressed with non-adherent gauze, ABD and kerlix Continue with abx per ID Podiatry to continue to follow while in house <Maddison Briones - Last Filed: 06/14/17 17:18> Objective - Vital Signs/Intake and Output Vital Signs (last 24 hours): Temp Pulse Resp BP Pulse Ox 98.4 F 66 18 125/65 96 06/11/17 16:00 06/11/17 16:00 06/11/17 16:00 06/11/17 16:00 06/11/17 16:00 - Labs Labs: 06/10/17 07:30 06/10/17 07:30 PT 11.3 Seconds (9.9-11.8) 06/06/17 16:20 INR 1.05 (0.93-1.08) 06/06/17 16:20 APTT 26.9 Seconds (23.7-30.8) 06/06/17 16:20 Attending/Attestation - Attestation I have personally seen and examined this patient.: Yes I have fully participated in the care of the patient.: Yes I have reviewed all pertinent clinical information, including history, physical exam and plan: Yes
[2017-06-08] MEDS: Nystatin 100,000 Units/gm Topical Pow(15 gm) TOP SCH (12:10)
--- NOTE | 2017-06-08 13:41 | US ---
PROCEDURE: Lower extremity AB. HISTORY: Peripheral vascular disease with pain and ulceration PHYSICIAN(S): Rogelio Cano MD. FINDINGS: The resting ABIs are abnormally elevated: , 1.48 and left, 1.44 The ankle and metatarsal PVR waveforms are normal and symmetric. IMPRESSION: 1. The ankle and metatarsal waveforms are normal and symmetric. 2. Abnormally elevated CASSI
[2017-06-08] MEDS: Ammonium Lactate 12% Cream (140 g) TOP SCH (18:05)
[2017-06-08] MEDS: Morphine 2 mg/ml ISec IVP PRN (21:46)
[2017-06-09] MEDS: Meropenem 1g/NS 100mL IVPB 1 GM/100 ML PIGGYBACK IVPB SCH ×3 (06:08→22:17)
[2017-06-09] MEDS: Pantoprazole 40 mg EC Tab PO SCH (06:09)
[2017-06-09] MEDS: Levothyroxine 25 MCG TAB PO SCH (06:09)
[2017-06-09 07:34] LABS: HEMOGLOBIN 10.2 gm/dL (12.0-16.0); MEAN CELL VOLUME 88.8 fL (80.0-105.0); MEAN CORPUSCULAR HEMOGLOBIN 28.5 pg (25.0-35.0); MEAN CORPUSCULAR HGB CONC 32.1 g/dl (31.0-37.0); MEAN PLATELET VOLUME 9.7 fl (7.0-11.0); RBC 3.58 10^6/uL (3.5-6.1); RED CELL DISTRIBUTION WIDTH 13.4 % (11.5-14.5); WHITE BLOOD COUNT 4.3 10^3/ul (4.5-11.0)
[2017-06-09 07:51] LABS: ALB/GLOB RATIO 1.1 (1.1-1.8); ALBUMIN 2.8 g/dL (3.0-4.8); ALT/SGPT 34 U/L (7-56); AST/SGOT 15 U/L (15-39); BLOOD UREA NITROGEN 13 mg/dL (7-21); CALCIUM 8.5 mg/dL (8.4-10.5); GFR AFRICAN-AMERICAN > 60; GFR NON-AFRICAN AMERICAN > 60
--- NOTE | 2017-06-09 08:30 | CP.PCM.PN ---
Subjective - Date & Time of Evaluation Date of Evaluation: 06/09/17 Time of Evaluation: 07:00 - Subjective Subjective: seen in nbed slept fair uncomfortable getting iv abs sat up in bed and dangled feet eats well Objective - Vital Signs/Intake and Output Vital Signs (last 24 hours): Temp Pulse Resp BP Pulse Ox 98.8 F 70 20 127/53 L 98 06/08/17 16:13 06/08/17 16:13 06/08/17 16:13 06/08/17 16:13 06/08/17 16:13 Intake and Output: 06/09/17 06/09/17 06:59 18:59 Intake Total 1080 Balance 1080 - Medications Medications: Current Medications Enoxaparin Sodium (Lovenox) 40 mg SC DAILY [facility] PRN Reason: Protocol Last Admin: 06/08/17 11:05 Dose: 40 mg Gabapentin (Neurontin) 200 mg PO BID [facility] PRN Reason: Protocol Last Admin: 06/08/17 18:05 Dose: 200 mg Meropenem 1g/NS 100mL IVPB (Meropenem 1g/Ns 100ml Ivpb) 1 gm in 100 mls @ 100 mls/hr IVPB Q8 [facility] PRN Reason: Protocol Stop: 06/14/17 06:01 Last Admin: 06/09/17 06:08 Dose: 100 mls/hr Linezolid (Zyvox 600mg/300ml D5w) 600 mg in 300 mls @ 200 mls/hr IVPB Q12 [facility] PRN Reason: Protocol Stop: 06/14/17 10:01 Last Admin: 06/08/17 22:47 Dose: 200 mls/hr Lactic Acid (Lac-Hydrin 12% Cream (140 G)) 0 ea TOP QD5 [facility] Last Admin: 06/08/17 18:05 Dose: 1 applic Levothyroxine Sodium (Synthroid) 25 mcg PO DAILY@0630 [facility] Last Admin: 06/09/17 06:09 Dose: Not Given Morphine Sulfate (Morphine) 2 mg IVP Q4 PRN PRN Reason: Pain, moderate (4-7) Last Admin: 06/08/17 21:46 Dose: 2 mg Nystatin (Nystop Topical Powder) 0 gm TOP DAILY [facility] Last Admin: 06/08/17 12:10 Dose: 1 appful Pantoprazole Sodium (Protonix Ec Tab) 40 mg PO 0600 [facility] Last Admin: 06/09/17 06:09 Dose: 40 mg Potassium Chloride (Klor-Con 10) 10 meq PO BRK [facility] Last Admin: 06/08/17 11:05 Dose: 10 meq - Labs Labs: 06/09/17 06:45 06/09/17 06:45 PT 11.3 Seconds (9.9-11.8) 06/06/17 16:20 INR 1.05 (0.93-1.08) 06/06/17 16:20 APTT 26.9 Seconds (23.7-30.8) 06/06/17 16:20 - Constitutional Appears: No Acute Distress - Head Exam Head Exam: ATRAUMATIC, NORMAL INSPECTION, NORMOCEPHALIC - ENT Exam ENT Exam: Mucous Membranes Moist - Neck Exam Neck Exam: Normal Inspection - Respiratory Exam Respiratory Exam: Clear to Ausculation Bilateral - Cardiovascular Exam Cardiovascular Exam: REGULAR RHYTHM - GI/Abdominal Exam GI & Abdominal Exam: Soft, Normal Bowel Sounds - Extremities Exam Additional comments: +3/4 pe w/ redness crusting all over tommy cellulites - Neurological Exam Neurological Exam: Alert, CN II-XII Intact, Oriented x3 - Psychiatric Exam Psychiatric exam: Normal Affect, Normal Mood - Skin Additional comments: severe cellulites tommy le Assessment and Plan - Assessment and Plan (Free Text) Assessment: tommy le cellulites pneuropathy venous stasis chronic pain hypothyroid Plan: cont w/ tmt and care iv abs pt skin care as per id checking labs tests
[2017-06-09] MEDS: Potassium Chloride 10 mEq ER Tab PO SCH (08:33)
[2017-06-09] MEDS: Enoxaparin 40 mg Syringe SC SCH (09:36)
[2017-06-09] MEDS: Nystatin 100,000 Units/gm Topical Pow(15 gm) TOP SCH (09:36)
--- NOTE | 2017-06-09 11:47 | CP.PCM.PN ---
Subjective - Date & Time of Evaluation Date of Evaluation: 06/09/17 Time of Evaluation: 10:30 - Subjective Subjective: Still with leg pain, no fevers. Objective - Vital Signs/Intake and Output Vital Signs (last 24 hours): Temp Pulse Resp BP Pulse Ox 98.6 F 64 20 137/48 L 97 06/09/17 07:30 06/09/17 07:30 06/09/17 07:30 06/09/17 07:30 06/09/17 07:30 Intake and Output: 06/09/17 06/09/17 06:59 18:59 Intake Total 1080 Balance 1080 - Medications Medications: Current Medications Enoxaparin Sodium (Lovenox) 40 mg SC DAILY [facility] PRN Reason: Protocol Last Admin: 06/08/17 11:05 Dose: 40 mg Gabapentin (Neurontin) 200 mg PO BID [facility] PRN Reason: Protocol Last Admin: 06/08/17 18:05 Dose: 200 mg Meropenem 1g/NS 100mL IVPB (Meropenem 1g/Ns 100ml Ivpb) 1 gm in 100 mls @ 100 mls/hr IVPB Q8 [facility] PRN Reason: Protocol Stop: 06/14/17 06:01 Last Admin: 06/09/17 06:08 Dose: 100 mls/hr Lactic Acid (Lac-Hydrin 12% Cream (140 G)) 0 ea TOP QD5 [facility] Last Admin: 06/08/17 18:05 Dose: 1 applic Levothyroxine Sodium (Synthroid) 25 mcg PO DAILY@0630 [facility] Last Admin: 06/09/17 06:09 Dose: Not Given Morphine Sulfate (Morphine) 2 mg IVP Q4 PRN PRN Reason: Pain, moderate (4-7) Last Admin: 06/08/17 21:46 Dose: 2 mg Nystatin (Nystop Topical Powder) 0 gm TOP DAILY [facility] Last Admin: 06/08/17 12:10 Dose: 1 appful Pantoprazole Sodium (Protonix Ec Tab) 40 mg PO 0600 [facility] Last Admin: 06/09/17 06:09 Dose: 40 mg Potassium Chloride (Klor-Con 10) 10 meq PO BRK [facility] Last Admin: 06/09/17 08:33 Dose: 10 meq - Labs Labs: 06/09/17 06:45 06/09/17 06:45 PT 11.3 Seconds (9.9-11.8) 06/06/17 16:20 INR 1.05 (0.93-1.08) 06/06/17 16:20 APTT 26.9 Seconds (23.7-30.8) 06/06/17 16:20 - Constitutional Appears: Non-toxic, No Acute Distress - Head Exam Head Exam: NORMAL INSPECTION - ENT Exam ENT Exam: Mucous Membranes Moist - Neck Exam Neck Exam: absent: Lymphadenopathy, Meningismus - Respiratory Exam Respiratory Exam: Decreased Breath Sounds - Cardiovascular Exam Cardiovascular Exam: +S1, +S2 - GI/Abdominal Exam GI & Abdominal Exam: Soft. absent: Tenderness Assessment and Plan - Assessment and Plan (Free Text) Plan: Assessment bilateral lower extremity cellulitis in a patient with chronic venous stasis and ulcerations, growing MSSA and Klebsiella history of Pseudomonas osteomyelitis in 2012 Morbid obesity with BMI 45 HTN Hyperlipidemia GERD Depression Plan continue Meropenem and d/c Zyvox day 3 - discussed with Dr. Briones
--- NOTE | 2017-06-09 12:05 | CP.PCM.PN ---
<Leonora Schmid - Last Filed: 06/09/17 12:01> Subjective - Date & Time of Evaluation Date of Evaluation: 06/09/17 Time of Evaluation: 12:01 - Subjective Subjective: 66 year old female seen at bedside for painful b/l lower extremity cellulitis. Patient states that her legs are very tender. Her dressing are intact to her LE B/l with serous drainage. She denies any n/v/f/c/sob/cp. Objective - Vital Signs/Intake and Output Vital Signs (last 24 hours): Temp Pulse Resp BP Pulse Ox 98.6 F 64 20 137/48 L 97 06/09/17 07:30 06/09/17 07:30 06/09/17 07:30 06/09/17 07:30 06/09/17 07:30 Intake and Output: 06/09/17 06/09/17 06:59 18:59 Intake Total 1080 Balance 1080 - Medications Medications: Current Medications Enoxaparin Sodium (Lovenox) 40 mg SC DAILY [facility] PRN Reason: Protocol Last Admin: 06/09/17 09:36 Dose: 40 mg Gabapentin (Neurontin) 200 mg PO BID [facility] PRN Reason: Protocol Last Admin: 06/09/17 09:35 Dose: 200 mg Meropenem 1g/NS 100mL IVPB (Meropenem 1g/Ns 100ml Ivpb) 1 gm in 100 mls @ 100 mls/hr IVPB Q8 [facility] PRN Reason: Protocol Stop: 06/14/17 06:01 Last Admin: 06/09/17 06:08 Dose: 100 mls/hr Lactic Acid (Lac-Hydrin 12% Cream (140 G)) 0 ea TOP QD5 [facility] Last Admin: 06/08/17 18:05 Dose: 1 applic Levothyroxine Sodium (Synthroid) 25 mcg PO DAILY@0630 [facility] Last Admin: 06/09/17 06:09 Dose: Not Given Morphine Sulfate (Morphine) 2 mg IVP Q4 PRN PRN Reason: Pain, moderate (4-7) Last Admin: 06/08/17 21:46 Dose: 2 mg Nystatin (Nystop Topical Powder) 0 gm TOP DAILY [facility] Last Admin: 06/09/17 09:36 Dose: 1 appful Pantoprazole Sodium (Protonix Ec Tab) 40 mg PO 0600 [facility] Last Admin: 06/09/17 06:09 Dose: 40 mg Potassium Chloride (Klor-Con 10) 10 meq PO BRK [facility] Last Admin: 06/09/17 08:33 Dose: 10 meq - Labs Labs: 06/09/17 06:45 06/09/17 06:45 PT 11.3 Seconds (9.9-11.8) 06/06/17 16:20 INR 1.05 (0.93-1.08) 06/06/17 16:20 APTT 26.9 Seconds (23.7-30.8) 06/06/17 16:20 - Constitutional Appears: No Acute Distress - Extremities Exam Additional comments: Lower extremity focused exam: Vasc: DP and PT pulses non-palpable due to LE edema. CFT < 3 seconds to digits 1 -10. Neuro: Gross sensation intact b/l Derm: Extensive cellulitis noted to b/l LE from just proximal to knee to distal toes with superfical ulcerations noted. Skin is mildly macerated to b/l legs. Lichenification of skin all noted extensively to the left foot and ankle. Serous drainage is noted to both legs. Erythema noted extensively to both legs. Moderate malodor present. No purulent drainage noted at this time Ortho: Pain on palpation to LE b/l. - Neurological Exam Neurological Exam: Alert, Awake, Oriented x3 - Psychiatric Exam Psychiatric exam: Normal Affect, Normal Mood Assessment and Plan - Assessment and Plan (Free Text) Assessment: 66 year old female with painful cellulitis with ulceration to b/l LE Plan: Patient examined and evaluated at bedside with attending, Dr. Briones Labs, charts and vitals reviewed;afebrile CASSI IMPRESSION:1. The ankle and metatarsal waveforms are normal and symmetric. 2. Abnormally elevated CASSI Radiograph reviewed- no focal destruction Lotion applied to feet b/l Legs dressed with nystatin powder non-adherent gauze, ABD and kerlix Continue with abx per ID Podiatry to continue to follow while in house <Maddison Briones - Last Filed: 06/14/17 17:20> Objective - Vital Signs/Intake and Output Vital Signs (last 24 hours): Temp Pulse Resp BP Pulse Ox 98.4 F 66 18 125/65 96 06/11/17 16:00 06/11/17 16:00 06/11/17 16:00 06/11/17 16:00 06/11/17 16:00 - Labs Labs: 06/10/17 07:30 06/10/17 07:30 PT 11.3 Seconds (9.9-11.8) 06/06/17 16:20 INR 1.05 (0.93-1.08) 06/06/17 16:20 APTT 26.9 Seconds (23.7-30.8) 06/06/17 16:20 Attending/Attestation - Attestation I have personally seen and examined this patient.: Yes I have fully participated in the care of the patient.: Yes I have reviewed all pertinent clinical information, including history, physical exam and plan: Yes
--- NOTE | 2017-06-09 17:20 | CP.PCM.PN ---
Subjective - Date & Time of Evaluation Date of Evaluation: 06/09/17 Time of Evaluation: 04:15 - Subjective Subjective: pt needs angiocath insertion . Objective - Vital Signs/Intake and Output Vital Signs (last 24 hours): Temp Pulse Resp BP Pulse Ox 98.6 F 64 20 137/48 L 97 06/09/17 07:30 06/09/17 07:30 06/09/17 07:30 06/09/17 07:30 06/09/17 07:30 Intake and Output: 06/09/17 06/09/17 06:59 18:59 Intake Total 1080 780 Balance 1080 780 - Medications Medications: Current Medications Enoxaparin Sodium (Lovenox) 40 mg SC DAILY [facility] PRN Reason: Protocol Last Admin: 06/09/17 09:36 Dose: 40 mg Gabapentin (Neurontin) 200 mg PO BID [facility] PRN Reason: Protocol Last Admin: 06/09/17 09:35 Dose: 200 mg Meropenem 1g/NS 100mL IVPB (Meropenem 1g/Ns 100ml Ivpb) 1 gm in 100 mls @ 100 mls/hr IVPB Q8 [facility] PRN Reason: Protocol Stop: 06/14/17 06:01 Last Admin: 06/09/17 14:15 Dose: 100 mls/hr Lactic Acid (Lac-Hydrin 12% Cream (140 G)) 0 ea TOP QD5 [facility] Last Admin: 06/08/17 18:05 Dose: 1 applic Levothyroxine Sodium (Synthroid) 25 mcg PO DAILY@0630 [facility] Last Admin: 06/09/17 06:09 Dose: Not Given Morphine Sulfate (Morphine) 2 mg IVP Q4 PRN PRN Reason: Pain, moderate (4-7) Last Admin: 06/08/17 21:46 Dose: 2 mg Nystatin (Nystop Topical Powder) 0 gm TOP DAILY [facility] Last Admin: 06/09/17 09:36 Dose: 1 appful Pantoprazole Sodium (Protonix Ec Tab) 40 mg PO 0600 [facility] Last Admin: 06/09/17 06:09 Dose: 40 mg Potassium Chloride (Klor-Con 10) 10 meq PO BRK [facility] Last Admin: 06/09/17 08:33 Dose: 10 meq - Labs Labs: 06/09/17 06:45 06/09/17 06:45 PT 11.3 Seconds (9.9-11.8) 06/06/17 16:20 INR 1.05 (0.93-1.08) 06/06/17 16:20 APTT 26.9 Seconds (23.7-30.8) 06/06/17 16:20 Assessment and Plan - Assessment and Plan (Free Text) Assessment: 24 guage angiocath inserted in rt hand.
[2017-06-09] MEDS: Ammonium Lactate 12% Cream (140 g) TOP SCH (17:33)
[2017-06-09] MEDS: Morphine 2 mg/ml ISec IVP PRN (22:54)
[2017-06-10] MEDS: Meropenem 1g/NS 100mL IVPB 1 GM/100 ML PIGGYBACK IVPB SCH ×3 (05:57→21:06)
[2017-06-10] MEDS: Pantoprazole 40 mg EC Tab PO SCH (05:58)
--- NOTE | 2017-06-10 07:36 | CP.PCM.PN ---
Subjective - Date & Time of Evaluation Date of Evaluation: 06/10/17 Time of Evaluation: 06:00 - Subjective Subjective: seen in bed slept fair uncomfortable not getting oob much discussed w/ her at length importance of pt oob eats well leg pains Objective - Vital Signs/Intake and Output Vital Signs (last 24 hours): Temp Pulse Resp BP Pulse Ox 98.6 F 64 20 137/48 L 97 06/09/17 07:30 06/09/17 07:30 06/09/17 07:30 06/09/17 07:30 06/09/17 07:30 Intake and Output: 06/10/17 06/10/17 06:59 18:59 Intake Total 900 Output Total 4 Balance 896 - Medications Medications: Current Medications Enoxaparin Sodium (Lovenox) 40 mg SC DAILY [facility] PRN Reason: Protocol Last Admin: 06/09/17 09:36 Dose: 40 mg Gabapentin (Neurontin) 200 mg PO BID [facility] PRN Reason: Protocol Last Admin: 06/09/17 17:33 Dose: 200 mg Meropenem 1g/NS 100mL IVPB (Meropenem 1g/Ns 100ml Ivpb) 1 gm in 100 mls @ 100 mls/hr IVPB Q8 [facility] PRN Reason: Protocol Stop: 06/14/17 06:01 Last Admin: 06/10/17 05:57 Dose: 100 mls/hr Lactic Acid (Lac-Hydrin 12% Cream (140 G)) 0 ea TOP QD5 [facility] Last Admin: 06/09/17 17:33 Dose: 1 applic Levothyroxine Sodium (Synthroid) 25 mcg PO DAILY@0630 [facility] Last Admin: 06/09/17 06:09 Dose: Not Given Morphine Sulfate (Morphine) 2 mg IVP Q4 PRN PRN Reason: Pain, moderate (4-7) Last Admin: 06/09/17 22:54 Dose: 2 mg Nystatin (Nystop Topical Powder) 0 gm TOP DAILY [facility] Last Admin: 06/09/17 09:36 Dose: 1 appful Pantoprazole Sodium (Protonix Ec Tab) 40 mg PO 0600 [facility] Last Admin: 06/10/17 05:58 Dose: 40 mg Potassium Chloride (Klor-Con 10) 10 meq PO BRK [facility] Last Admin: 06/09/17 08:33 Dose: 10 meq - Labs Labs: 06/09/17 06:45 06/09/17 06:45 PT 11.3 Seconds (9.9-11.8) 06/06/17 16:20 INR 1.05 (0.93-1.08) 06/06/17 16:20 APTT 26.9 Seconds (23.7-30.8) 06/06/17 16:20 - Constitutional Appears: No Acute Distress - Head Exam Head Exam: NORMAL INSPECTION - Eye Exam Eye Exam: Normal appearance - ENT Exam ENT Exam: Mucous Membranes Moist - Neck Exam Neck Exam: Normal Inspection - Respiratory Exam Respiratory Exam: Decreased Breath Sounds, Clear to Ausculation Bilateral - Cardiovascular Exam Cardiovascular Exam: REGULAR RHYTHM - GI/Abdominal Exam GI & Abdominal Exam: Soft, Normal Bowel Sounds - Extremities Exam Additional comments: severe venous stasis w/ redness cellulites crusting ulcers - Neurological Exam Neurological Exam: Alert, Awake, CN II-XII Intact, Oriented x3 - Psychiatric Exam Psychiatric exam: Flat Affect - Skin Skin Exam: Warm Additional comments: severe cellulites w/ ulcers crusting venous stasis
[2017-06-10 07:44] LABS: HEMOGLOBIN 10.4 gm/dL (12.0-16.0); MEAN CELL VOLUME 89.4 fL (80.0-105.0); MEAN CORPUSCULAR HEMOGLOBIN 28.3 pg (25.0-35.0); MEAN CORPUSCULAR HGB CONC 31.7 g/dl (31.0-37.0); MEAN PLATELET VOLUME 9.7 fl (7.0-11.0); RBC 3.67 10^6/uL (3.5-6.1); RED CELL DISTRIBUTION WIDTH 13.7 % (11.5-14.5); WHITE BLOOD COUNT 4.5 10^3/ul (4.5-11.0)
[2017-06-10 07:55] LABS: ALBUMIN 2.8 g/dL (3.0-4.8); ALT/SGPT 34 U/L (7-56); AST/SGOT 15 U/L (15-39); BLOOD UREA NITROGEN 14 mg/dL (7-21); CALCIUM 8.4 mg/dL (8.4-10.5); GFR AFRICAN-AMERICAN > 60; GFR NON-AFRICAN AMERICAN > 60
[2017-06-10] MEDS: Potassium Chloride 10 mEq ER Tab PO SCH (09:00)
[2017-06-10] MEDS: Enoxaparin 40 mg Syringe SC SCH (09:16)
[2017-06-10] MEDS: Nystatin 100,000 Units/gm Topical Pow(15 gm) TOP SCH (10:00)
--- NOTE | 2017-06-10 11:11 | CP.PCM.PN ---
Subjective - Date & Time of Evaluation Date of Evaluation: 06/10/17 Time of Evaluation: 10:15 - Subjective Subjective: Comfortable, not in distress, afebrile, less pain in the legs. Objective - Vital Signs/Intake and Output Vital Signs (last 24 hours): Temp Pulse Resp BP Pulse Ox 98.6 F 64 20 137/48 L 97 06/09/17 07:30 06/09/17 07:30 06/09/17 07:30 06/09/17 07:30 06/09/17 07:30 Intake and Output: 06/10/17 06/10/17 06:59 18:59 Intake Total 900 Output Total 4 Balance 896 - Medications Medications: Current Medications Enoxaparin Sodium (Lovenox) 40 mg SC DAILY [facility] PRN Reason: Protocol Last Admin: 06/09/17 09:36 Dose: 40 mg Gabapentin (Neurontin) 200 mg PO BID [facility] PRN Reason: Protocol Last Admin: 06/09/17 17:33 Dose: 200 mg Meropenem 1g/NS 100mL IVPB (Meropenem 1g/Ns 100ml Ivpb) 1 gm in 100 mls @ 100 mls/hr IVPB Q8 [facility] PRN Reason: Protocol Stop: 06/14/17 06:01 Last Admin: 06/10/17 05:57 Dose: 100 mls/hr Lactic Acid (Lac-Hydrin 12% Cream (140 G)) 0 ea TOP QD5 [facility] Last Admin: 06/09/17 17:33 Dose: 1 applic Levothyroxine Sodium (Synthroid) 25 mcg PO DAILY@0630 [facility] Last Admin: 06/09/17 06:09 Dose: Not Given Morphine Sulfate (Morphine) 2 mg IVP Q4 PRN PRN Reason: Pain, moderate (4-7) Last Admin: 06/09/17 22:54 Dose: 2 mg Nystatin (Nystop Topical Powder) 0 gm TOP DAILY [facility] Last Admin: 06/09/17 09:36 Dose: 1 appful Pantoprazole Sodium (Protonix Ec Tab) 40 mg PO 0600 [facility] Last Admin: 06/10/17 05:58 Dose: 40 mg Potassium Chloride (Klor-Con 10) 10 meq PO BRK [facility] Last Admin: 06/09/17 08:33 Dose: 10 meq - Labs Labs: 06/10/17 07:30 06/10/17 07:30 PT 11.3 Seconds (9.9-11.8) 06/06/17 16:20 INR 1.05 (0.93-1.08) 06/06/17 16:20 APTT 26.9 Seconds (23.7-30.8) 06/06/17 16:20 - Constitutional Appears: Non-toxic, No Acute Distress - Head Exam Head Exam: NORMAL INSPECTION - ENT Exam ENT Exam: Mucous Membranes Moist - Neck Exam Neck Exam: absent: Meningismus - Respiratory Exam Respiratory Exam: Decreased Breath Sounds - Cardiovascular Exam Cardiovascular Exam: +S1, +S2 - GI/Abdominal Exam GI & Abdominal Exam: Soft. absent: Tenderness - Extremities Exam Additional comments: both legs with dry dressings in place Assessment and Plan - Assessment and Plan (Free Text) Plan: Assessment bilateral lower extremity cellulitis in a patient with chronic venous stasis and ulcerations, growing MSSA and Klebsiella history of Pseudomonas osteomyelitis in 2012 Morbid obesity with BMI 45 HTN Hyperlipidemia GERD Depression Plan continue Meropenem day 4 - should complete 7-10 days of therapy will monitor clinically discussed with Dr. Wagner and Dr. Briones
--- NOTE | 2017-06-10 15:18 | CP.PCM.PN ---
<Leonora Schmid - Last Filed: 06/10/17 15:15> Subjective - Date & Time of Evaluation Date of Evaluation: 06/10/17 Time of Evaluation: 15:15 - Subjective Subjective: 66 year old female seen at bedside for painful b/l lower extremity cellulitis. Patient NAD. Patient states that she feels ok today. Her dressing are intact to her LE B/l with serous drainage. She denies any n/v/f/c/sob/cp. Objective - Vital Signs/Intake and Output Vital Signs (last 24 hours): Temp Pulse Resp BP Pulse Ox 98.5 F 56 L 20 95/34 L 96 06/10/17 07:30 06/10/17 07:30 06/10/17 07:30 06/10/17 07:30 06/10/17 07:30 Intake and Output: 06/10/17 06/10/17 06:59 18:59 Intake Total 900 780 Output Total 4 Balance 896 780 - Medications Medications: Current Medications Enoxaparin Sodium (Lovenox) 40 mg SC DAILY [facility] PRN Reason: Protocol Last Admin: 06/10/17 09:16 Dose: 40 mg Gabapentin (Neurontin) 200 mg PO BID [facility] PRN Reason: Protocol Last Admin: 06/10/17 09:16 Dose: 200 mg Meropenem 1g/NS 100mL IVPB (Meropenem 1g/Ns 100ml Ivpb) 1 gm in 100 mls @ 100 mls/hr IVPB Q8 [facility] PRN Reason: Protocol Stop: 06/14/17 06:01 Last Admin: 06/10/17 13:30 Dose: 100 mls/hr Lactic Acid (Lac-Hydrin 12% Cream (140 G)) 0 ea TOP QD5 [facility] Last Admin: 06/09/17 17:33 Dose: 1 applic Levothyroxine Sodium (Synthroid) 25 mcg PO DAILY@0630 [facility] Last Admin: 06/09/17 06:09 Dose: Not Given Morphine Sulfate (Morphine) 2 mg IVP Q4 PRN PRN Reason: Pain, moderate (4-7) Last Admin: 06/09/17 22:54 Dose: 2 mg Nystatin (Nystop Topical Powder) 0 gm TOP DAILY [facility] Last Admin: 06/10/17 10:00 Dose: 1 appful Pantoprazole Sodium (Protonix Ec Tab) 40 mg PO 0600 [facility] Last Admin: 06/10/17 05:58 Dose: 40 mg Potassium Chloride (Klor-Con 10) 10 meq PO BRK [facility] Last Admin: 06/10/17 09:00 Dose: 10 meq - Labs Labs: 06/10/17 07:30 06/10/17 07:30 PT 11.3 Seconds (9.9-11.8) 06/06/17 16:20 INR 1.05 (0.93-1.08) 06/06/17 16:20 APTT 26.9 Seconds (23.7-30.8) 06/06/17 16:20 - Constitutional Appears: Non-toxic, No Acute Distress - Extremities Exam Additional comments: Lower extremity focused exam: Vasc: DP and PT pulses non-palpable due to LE edema. CFT < 3 seconds to digits 1 -10. Edema noted to b/l LE Neuro: Gross sensation intact b/l Derm: Cellulitis-resolving to b/l LE from the proximal leg to distal toes with superfical ulcerations noted. Lichenification of skin all noted extensively to the left foot and ankle. Serous drainage is noted to both legs. Erythema noted to both legs. Mild malodor present. No purulent drainage noted at this time Ortho: Pain on palpation to LE b/l. - Neurological Exam Neurological Exam: Alert, Awake, Oriented x3 - Psychiatric Exam Psychiatric exam: Normal Affect, Normal Mood Assessment and Plan - Assessment and Plan (Free Text) Assessment: 66 year old female with painful cellulitis with ulceration to b/l LE Plan: Patient examined and evaluated Discussed with attending, Dr. Briones Labs, charts and vitals reviewed;afebrile, WBC 4.5 Lotion applied to feet b/l Legs dressed with nystatin powder non-adherent gauze, ABD and kerlix Continue with abx per ID Podiatry to continue to follow while in house <Maddison Briones - Last Filed: 06/14/17 17:24> Objective - Vital Signs/Intake and Output Vital Signs (last 24 hours): Temp Pulse Resp BP Pulse Ox 98.4 F 66 18 125/65 96 06/11/17 16:00 06/11/17 16:00 06/11/17 16:00 06/11/17 16:00 07/13/17 16:00 - Labs Labs: 06/10/17 07:30 06/10/17 07:30 PT 11.3 Seconds (9.9-11.8) 06/06/17 16:20 INR 1.05 (0.93-1.08) 06/06/17 16:20 APTT 26.9 Seconds (23.7-30.8) 06/06/17 16:20 Attending/Attestation - Attestation I have personally seen and examined this patient.: Yes I have fully participated in the care of the patient.: Yes I have reviewed all pertinent clinical information, including history, physical exam and plan: Yes
[2017-06-10] MEDS: Ammonium Lactate 12% Cream (140 g) TOP SCH (17:34)
[2017-06-10] MEDS: Morphine 2 mg/ml ISec IVP PRN (23:49)
[2017-06-11] MEDS: Morphine 2 mg/ml ISec IVP PRN (05:50)
[2017-06-11] MEDS: Levothyroxine 25 MCG TAB PO SCH (05:51)
[2017-06-11] MEDS: Pantoprazole 40 mg EC Tab PO SCH (05:51)
[2017-06-11] MEDS: Meropenem 1g/NS 100mL IVPB 1 GM/100 ML PIGGYBACK IVPB SCH ×2 (05:51→15:08)
--- NOTE | 2017-06-11 10:00 | CP.PCM.PN ---
<Leonora Schmid - Last Filed: 06/11/17 09:52> Subjective - Date & Time of Evaluation Date of Evaluation: 06/11/17 Time of Evaluation: 09:52 - Subjective Subjective: 66 year old female seen at bedside with attending, Dr. Briones for painful b/l lower extremity cellulitis. Patient states that her legs are very tender. Her dressing are intact to her LE B/l with serous drainage. She denies any n/v/f/c/ sob/cp. Objective - Vital Signs/Intake and Output Vital Signs (last 24 hours): Temp Pulse Resp BP Pulse Ox 98.1 F 64 21 126/54 L 100 06/11/17 07:42 06/11/17 07:42 06/11/17 07:42 06/11/17 07:42 06/11/17 07:42 Intake and Output: 06/11/17 06/11/17 06:59 18:59 Intake Total 2270 240 Output Total 0 Balance 2270 240 - Medications Medications: Current Medications Enoxaparin Sodium (Lovenox) 40 mg SC DAILY [facility] PRN Reason: Protocol Last Admin: 06/10/17 09:16 Dose: 40 mg Gabapentin (Neurontin) 200 mg PO BID [facility] PRN Reason: Protocol Last Admin: 06/10/17 17:34 Dose: 200 mg Meropenem 1g/NS 100mL IVPB (Meropenem 1g/Ns 100ml Ivpb) 1 gm in 100 mls @ 100 mls/hr IVPB Q8 [facility] PRN Reason: Protocol Stop: 06/14/17 06:01 Last Admin: 06/11/17 05:51 Dose: 100 mls/hr Lactic Acid (Lac-Hydrin 12% Cream (140 G)) 0 ea TOP QD5 [facility] Last Admin: 06/10/17 17:34 Dose: 1 applic Levothyroxine Sodium (Synthroid) 25 mcg PO DAILY@0630 [facility] Last Admin: 06/11/17 05:51 Dose: Not Given Nystatin (Nystop Topical Powder) 0 gm TOP DAILY [facility] Last Admin: 06/10/17 10:00 Dose: 1 appful Pantoprazole Sodium (Protonix Ec Tab) 40 mg PO 0600 [facility] Last Admin: 06/11/17 05:51 Dose: Not Given Potassium Chloride (Klor-Con 10) 10 meq PO BRK [facility] Last Admin: 06/10/17 09:00 Dose: 10 meq - Labs Labs: 06/10/17 07:30 06/10/17 07:30 PT 11.3 Seconds (9.9-11.8) 06/06/17 16:20 INR 1.05 (0.93-1.08) 06/06/17 16:20 APTT 26.9 Seconds (23.7-30.8) 06/06/17 16:20 - Constitutional Appears: Non-toxic, No Acute Distress - Extremities Exam Additional comments: Lower extremity focused exam: Vasc: DP and PT pulses non-palpable due to LE edema. CFT < 3 seconds to digits 1 -10. Neuro: Gross sensation intact b/l Derm: Cellulitis- resolving noted to b/l LE from just proximal to knee to distal toes with superfical ulcerations noted. Skin is dry, maceration has resolved. Lichenification of skin all noted extensively to the left foot and ankle. Serous drainage is noted to both legs. Erythema noted extensively to both legs. Moderate malodor present. No purulent drainage noted at this time Ortho: Pain on palpation to LE b/l. - Neurological Exam Neurological Exam: Alert, Awake, Oriented x3 - Psychiatric Exam Psychiatric exam: Normal Affect, Normal Mood Assessment and Plan - Assessment and Plan (Free Text) Assessment: 66 year old female with painful cellulitis with ulceration to b/l LE Plan: Patient examined and evaluated at bedside with attending, Dr. Broines Labs, charts and vitals reviewed;afebrile Lotion applied to feet b/l Legs dressed with non-adherent gauze, ABD and kerlix Continue with abx per ID Patient is stable for D/C per podiatry patient will need VNA for home dressing changes Podiatry to continue to follow while in house <Maddison Briones - Last Filed: 06/14/17 17:29> Objective - Vital Signs/Intake and Output Vital Signs (last 24 hours): Temp Pulse Resp BP Pulse Ox 98.4 F 66 18 125/65 96 06/11/17 16:00 06/11/17 16:00 06/11/17 16:00 06/11/17 16:00 06/11/17 16:00 - Labs Labs: 06/10/17 07:30 06/10/17 07:30 PT 11.3 Seconds (9.9-11.8) 06/06/17 16:20 INR 1.05 (0.93-1.08) 06/06/17 16:20 APTT 26.9 Seconds (23.7-30.8) 06/06/17 16:20 Attending/Attestation - Attestation I have personally seen and examined this patient.: Yes I have fully participated in the care of the patient.: Yes I have reviewed all pertinent clinical information, including history, physical exam and plan: Yes
[2017-06-11] MEDS: Enoxaparin 40 mg Syringe SC SCH (10:25)
[2017-06-11] MEDS: Potassium Chloride 10 mEq ER Tab PO SCH (10:26)
[2017-06-11] MEDS: Nystatin 100,000 Units/gm Topical Pow(15 gm) TOP SCH (10:26)
[2017-06-11 17:29] VITALS: BP 125/65; PULSE 66; RESP 18; TEMP 98.4; O2SAT 96
--- NOTE | 2017-06-12 09:14 | PN ---
SUBJECTIVE: The patient is seen earlier this morning. No fevers. No chills. The patient was seen in 568. PHYSICAL EXAMINATION VITAL SIGNS: Temperature is 98, blood pressure is 120/50, respiratory rate 21, heart rate of 56. HEENT: Unremarkable. NECK: Supple. HEART: Normal S1, S2. LUNGS: Decreased breath sounds. ABDOMEN: Soft. LABORATORY DATA: Examination reveals a white count of 4.5, hemoglobin of 10, sed rate is 48. Chemistry reveals BUN of 14, creatinine of 0.7. Microbiology reveals the leg culture is Staph aureus and Klebsiella pneumoniae. The blood cultures are no growth after 4 days. The Klebsiella is a relatively sensitive organism, pansensitive. Staph aureus is oxacillin-sensitive Staph aureus. MEDICATIONS: Review of the orders reveals the patient to be on meropenem. ASSESSMENT AND PLAN: A 66-year-old female with bilateral lower extremity cellulitis with a sensitive Staph aureus and sensitive Klebsiella, venostasis and ulceration, currently on meropenem day #5, will complete 7 to 10 days of therapy and case discussed with Dr. Briones. Giles Acosta MD
--- NOTE | 2017-06-12 09:17 | PN ---
SUBJECTIVE: I saw her resting comfortably in bed. She tells me she did not sleep well last night because of pain in the legs, just uncomfortable. She is eating. She is not doing much in therapy. She is getting IV antibiotics. She is being seen by Infectious Disease, Surgery, and Podiatry. PHYSICAL EXAMINATION VITAL SIGNS: 98.1 temp, 64 pulse, 126/54 blood pressure, 21 respiratory rate and 100% O2 sat on room air. HEENT: Head is atraumatic and normocephalic. Throat is moist. NECK: Supple. CARDIOPULMONARY: Heart is regular rate. LUNGS: Decrease breath sounds bilaterally, but clear to auscultation. ABDOMEN: Soft and nontender. Positive bowel sounds. Morbidly obese. EXTREMITIES: Extremities are wrapped, they are cellulitic, they are edematous with +1/4 pitting edema. There is crusting, redness, ulcers, and cellulitis. LABORATORY DATA: She has 4.5 white count, 10.4 hemoglobin, and 32.8 hematocrit, with 245 platelets. INR is 1.05. She has 141 sodium, potassium is 4, BUN is 14, creatinine is 0.7, GFR is greater than 60, sodium is 101, calcium is 3.4. AST is 15, ALT is 34, alkaline phosphatase is 87, and total protein is 5.6. ASSESSMENT AND PLAN: She has Klebsiella pneumoniae, Staphylococcus aureus in the wound. She is being seen by Infectious Disease, Surgery, and Podiatry. She has bilateral lower extremity cellulitis, chronic venous stasis with ulcerations growing methicillin-resistant Staphylococcus aureus and Klebsiella. She is 7 to 10 days of Merrem IV, I will discuss with case management if we could send her to a EMMA or a TCU to finish up the antibiotics before she goes home. I will check her labs, continue aggressive treatment and care. I asked her to get out of bed to chair and get physical therapy so she can start walking and not lose any more strength. We will continue with aggressive treatment and care. Hung Wagner DO
== END 2017-06-11 17:40 | DRG 603 ==
LOC: ED 16:29 → ERH 20:15 → 5RNO 23:46
PROVIDERS: ADMIT Internal Medicine; ATTEND Family Medicine
DX: L03.115 Cellulitis of right lower limb (principal); L97.819 Non-pressure chronic ulcer of other part of right lower leg with unspecified severity; I10 Essential (primary) hypertension; L97.829 Non-pressure chronic ulcer of other part of left lower leg with unspecified severity; Z68.42 Body mass index [BMI] 45.0-49.9, adult; L03.116 Cellulitis of left lower limb; G62.9 Polyneuropathy, unspecified; M54.30 Sciatica, unspecified side; K21.9 Gastro-esophageal reflux disease without esophagitis; F32.9 Major depressive disorder, single episode, unspecified; E78.5 Hyperlipidemia, unspecified; E66.01 Morbid (severe) obesity due to excess calories; I87.8 Other specified disorders of veins; E03.9 Hypothyroidism, unspecified; A49.01 Methicillin susceptible Staphylococcus aureus infection, unspecified site; B96.1 Klebsiella pneumoniae [K. pneumoniae] as the cause of diseases classified elsewhere; Z88.0 Allergy status to penicillin; Z88.2 Allergy status to sulfonamides; Z88.3 Allergy status to other anti-infective agents; Z91.040 Latex allergy status

== ENCOUNTER 2017-08-31 14:10 | Inpatient (IN) | payer BC, OTHER ==
[2017-08-31 14:11] VITALS: BMI 44.8
[2017-08-31] MEDS ORDERED: Meropenem 1g/NS 100mL IVPB 1 GM/100 ML PIGGYBACK IVPB STA (14:41)
--- NOTE | 2017-08-31 14:54 | ED PDOC ---
Arrival/HPI - General Chief Complaint: Lower Extremity Problem/Injury Time Seen by Provider: 08/31/17 14:32 Historian: Patient - History of Present Illness Narrative History of Present Illness (Text): 08/31/17 14:56 A 66 year old female, whose past medical history includes bilateral lower extremity cellulitis, presents to the emergency department complaining of worsening bilateral lower extremity redness, swelling and pain. Patient denies any other complaints at this time. Symptom Onset: Sudden Symptom Course: Unchanged Activities at Onset: Rest Context: Home Past Medical History - Provider Review Nursing Documentation Reviewed: Yes - Infectious Disease Hx of Infectious Diseases: None - Tetanus Immunization Tetanus Immunization: Unknown - Cardiac Hx Cardiac Disorders: Yes Hx Hypertension: Yes - Pulmonary Hx Respiratory Disorders: No - Neurological Hx Neurological Disorder: Yes - HEENT Hx HEENT Disorder: No - Renal Hx Renal Disorder: Yes - Endocrine/Metabolic Hx Hypothyroidism: Yes - Hematological/Oncological Hx Blood Disorders: Yes Hx AIDS: No - Integumentary Hx Dermatological Disorder: Yes - Musculoskeletal/Rheumatological Hx Arthritis: Yes - Gastrointestinal Hx Gastrointestinal Disorders: Yes Hx Gall Bladder Disease: Yes (gallstones) - Genitourinary/Gynecological Hx Genitourinary Disorders: Yes Hx Incontinence: Yes - Psychiatric Hx Psychophysiologic Disorder: Yes Hx Depression: Yes Hx Substance Use: No - Surgical History Hx Cholecystectomy: Yes Other/Comment: hernia repiar - Anesthesia Hx Anesthesia: Yes Hx Anesthesia Reactions: No Hx Malignant Hyperthermia: No - Suicidal Assessment Feels Threatened In Home Enviroment: No Family/Social History - Physician Review Nursing Documentation Reviewed: Yes Family/Social History: No Known Family HX Smoking Status: Never Smoked Hx Alcohol Use: No Hx Substance Use: No Hx Substance Use Treatment: No Allergies/Home Meds Allergies/Adverse Reactions: Allergies ciprofloxacin [From Cipro] Allergy (Verified 06/06/17 16:40) RASH nubia Allergy (Verified 06/06/17 16:40) RASH latex Allergy (Verified 06/06/17 16:40) RASH Penicillins Allergy (Verified 06/06/17 16:41) RASH Sulfa (Sulfonamide Antibiotics) Allergy (Verified 06/06/17 16:40) RASH vancomycin Allergy (Verified 06/06/17 16:40) RASH roses Allergy (Uncoded 06/06/17 16:40) RASH Home Medications: Home Meds Medication Instructions Recorded Confirmed Gabapentin 200 mg PO BID 06/18/15 06/06/17 HYDROmorphone [Dilaudid] 2 mg PO PRN PRN 06/06/17 06/06/17 traMADol [Ultram] 50 mg PO PRN PRN 06/06/17 06/06/17 Review of Systems - Physician Review All systems were reviewed & negative as marked: Yes Physical Exam - Physical Exam Narrative Physical Exam (Text): 08/31/17 14:55 - Review of Systems Constitutional: Normal. absent: Fatigue, Weight Change, Fevers Eyes: Normal ENT: denies sore throat, denies tristhmus Respiratory: Normal. absent: SOB, Cough, Sputum Cardiovascular: absent: Chest Pain, Palpitations, Syncope Gastrointestinal: Normal. absent: Abdominal Pain, Diarrhea, Nausea, Vomiting Genitourinary: Normal. absent: Dysuria, Frequency, Hematuria Musculoskeletal: bilateral lower extremity pain. absent: Arthralgias, Back Pain , Neck Pain Skin: bilateral lower extremity redness, swelling Neurological: absent: Focal Weakness Endocrine: Normal Hemo/Lymphatic: Normal Psychiatric: No suicidal or homicidal ideations Physical exam Patient appears age appropriate in no distress, speaking full sentences without difficulty - Systems Exam Head: Present: Atraumatic, Normocephalic Pupils: Present: PERRL Extroacular Muscles: Present: EOMI Conjunctiva: Present: Normal Mouth: Present: Moist Mucous Membranes Neck: Present: Normal Range of Motion. No: MIDLINE TENDERNESS, Paraspinal Tenderness Respiratory/Chest: Present: Clear to Auscultation, Good Air Exchange. No: Respiratory Distress, Accessory Muscle Use, Tachypneic Cardiovascular: Present: Regular Rate and Rhythm, Normal S1, S2, Peripheal Pulses Present. No: Murmurs Abdomen: Present: Normal Bowel Sounds. No: Tenderness, Distention, Peritoneal Signs, Rebound, Guarding Back: Present: Normal Inspection. No: Midline Tenderness, Paraspinal Tenderness Upper Extremity: Present: Normal Inspection. No: Cyanosis, Edema Lower Extremity: Present: bilateral lower extremity with foul smelling cellulitic changes, drainage, and weeping. No asymmetry Neurological: Present: GCS=15, Speech Normal, cranial nerves II through XII fully intact with no cerebellar abnormality, neurosensory fully intact. No focal neurological deficits. Skin: Present: Warm, Dry, Normal Color. No: Rashes Lymphatic: Present: OX3, NI, NC Psychiatric: Present: Alert, Oriented x 3, Normal Insight, Normal Concentration Vital Signs Reviewed: Yes Vital Signs Temp Pulse Resp Pulse Ox 08/31/17 14:15 97.4 F L 95 H 20 95 Temperature: Afebrile Pulse: Regular Respiratory Rate: Normal Appearance: Positive for: Well-Appearing, Non-Toxic, Comfortable Pain Distress: None Mental Status: Positive for: Alert and Oriented X 3 Medical Decision Making ED Course and Treatment: 08/31/17 14:51 Impression: A 66 year old female with bilateral lower extremity redness, swelling and pain. On physical exam, patient has bilateral lower extremity with foul smelling cellulitic changes, drainage, and weeping. Plan: -- EKG -- chest xray -- labs -- Meropenem Prior Visits: Notes and results from previous visits were reviewed. Patient was last seen in the emergency department on 06/06/17 for evaluation of bilateral lower extremity pain. Patient was admitted for lower extremity cellulitis. Patient has multiple antibiotic allergies as per previous ID note, patient was given meropenem. Progress Notes: 08/31/17 16:19 pt in no distress, agrees with being admitted to the hospital dw Dr. Wagner, accepted pt to his service, with Miguel Briones and Dave on consult - Lab Interpretations Lab Results: 08/31/17 15:25 08/31/17 15:25 Lab Results 08/31/17 15:25: Sodium 144, Potassium 4.3, Chloride 105, Carbon Dioxide 28, Anion Gap 15, BUN 28 H, Creatinine 0.9, Est GFR ( Amer) > 60, Est GFR ( Non-Af Amer) > 60, Random Glucose 130 H, Calcium 10.1, Total Bilirubin 0.8, AST 23, ALT 34, Alkaline Phosphatase 139 H, Total Protein 6.8, Albumin 3.7, Globulin 3.0, Albumin/Globulin Ratio 1.2 08/31/17 15:25: PT 12.2 H, INR 1.13 H, APTT 33.3 H 08/31/17 15:25: WBC 11.0 D, RBC 4.59, Hgb 13.2, Hct 39.9, MCV 86.9, MCH 28.8, MCHC 33.1, RDW 14.0, Plt Count 332, MPV 9.8, Gran % 81.4 H, Lymph % (Auto) 6.0 L , Ector % (Auto) 12.3 H, Eos % (Auto) 0.2 L, Baso % (Auto) 0.1, Gran # 8.91 H, Lymph # 0.7 L, Ector # 1.4 H, Eos # 0.0, Baso # 0.01 I have reviewed the lab results: Yes - RAD Interpretation Radiology Orders: 08/31/17 14:38 CHEST PORTABLE [RAD] Stat - EKG Interpretation Interpreted by ED Physician: Yes Type: 12 lead EKG - Medication Orders Current Medication Orders: Discontinued Medications Meropenem 1g/NS 100mL IVPB (Meropenem 1g/Ns 100ml Ivpb) 1 gm in 100 mls @ 100 mls/hr IVPB STAT STA PRN Reason: Protocol Stop: 08/31/17 15:40 Last Admin: 08/31/17 15:32 Dose: 100 mls/hr eMAR Start Stop Document 08/31/17 15:32 NH (Rec: 08/31/17 15:32 CO [id number]) Intravenous Solution Start Date 08/31/17 Start Time 15:32 End Date 08/31/17 End time 16:32 Total Infusion Time 60 - Scribe Statement The provider has reviewed the documentation as recorded by the Armando Webb Provider Scribe Attestation: All medical record entries made by the Scribsteffi were at my direction and personally dictated by me. I have reviewed the chart and agree that the record accurately reflects my personal performance of the history, physical exam, medical decision making, and the department course for this patient. I have also personally directed, reviewed, and agree with the discharge instructions and disposition. Disposition/Present on Arrival - Present on Arrival Any Indicators Present on Arrival: No History of DVT/PE: No History of Uncontrolled Diabetes: No Urinary Catheter: No History of Decub. Ulcer: No History Surgical Site Infection Following: None - Disposition Have Diagnosis and Disposition been Completed?: Yes Diagnosis: Cellulitis Disposition: HOSPITALIZED Disposition Time: 16:20 Patient Plan: Admission Condition: FAIR Discharge Instructions (ExitCare): Cellulitis (ED) Forms: [employer] ([place]i)
--- NOTE | 2017-08-31 15:13 | RAD ---
HISTORY: cough COMPARISON: No prior. FINDINGS: LUNGS: No active pulmonary disease. PLEURA: No significant pleural effusion identified, no pneumothorax apparent. CARDIOVASCULAR: Normal. OSSEOUS STRUCTURES: No significant abnormalities. VISUALIZED UPPER ABDOMEN: Normal. OTHER FINDINGS: None. IMPRESSION: No active disease.
[2017-08-31 15:53] LABS: BASO # 0.01 K/mm3 (0.0-2.0); BASO % 0.1 % (0.0-3.0); EOS % 0.2 % (1.5-5.0); GRAN # 8.91 (1.4-6.5); GRAN % 81.4 % (50.0-68.0); HEMATOCRIT 39.9 % (36.0-48.0); LYMPH # 0.7 (1.2-3.4); MEAN CELL VOLUME 86.9 fl (80.0-105.0); MEAN CORPUSCULAR HEMOGLOBIN 28.8 pg (25.0-35.0); MEAN CORPUSCULAR HGB CONC 33.1 g/dl (31.0-37.0); MEAN PLATELET VOLUME 9.8 fl (7.0-11.0); MONO # 1.4 (0.1-0.6); MONO % 12.3 % (1.0-6.0)
[2017-08-31 15:56] LABS: ALB/GLOB RATIO 1.2 (1.1-1.8); ALKALINE PHOSPHATASE 139 U/L (38-126); ALT/SGPT 34 U/L (7-56); AST/SGOT 23 U/L (14-36); BILIRUBIN,TOTAL 0.8 mg/dL (0.2-1.3); BLOOD UREA NITROGEN 28 mg/dL (7-21); CALCIUM 10.1 mg/dL (8.4-10.5); CARBON DIOXIDE 28 mmol/L (21-33); CHLORIDE 105 mmol/L (98-107); GFR AFRICAN-AMERICAN > 60; GLUCOSE,RANDOM 130 mg/dL (70-110); POTASSIUM 4.3 mmol/L (3.6-5.0); SODIUM 144 mmol/L (132-148); TOTAL PROTEIN 6.8 g/dL (5.8-8.3)
[2017-08-31 15:58] LABS: INR 1.13 (0.93-1.08); PARTIAL THROMBOPLASTIN TIME 33.3 Seconds (23.7-30.8)
[2017-08-31] MEDS: Morphine 2 mg/ml ISec IVP PRN (21:29)
--- NOTE | 2017-09-01 01:11 | CP.PCM.PN ---
Subjective - Date & Time of Evaluation Date of Evaluation: 09/01/17 Time of Evaluation: 01:10 - Subjective Subjective: Patient was seen at bedside. She complained of both legs burning pain. She received morphine 2 mg IV, still has burning pain. Has no other complaints. Medical record was reviewed. This 66 year old white woman was admitted with both legs swelling, Has PMH of HTN, arthritis, obesity, depression, cholelithiasis, cholecystectomy , herniorrhaphy. Objective - Vital Signs/Intake and Output Vital Signs (last 24 hours): Temp Pulse Resp BP Pulse Ox 97.4 F L 99 H 20 130/76 98 08/31/17 14:15 08/31/17 17:48 08/31/17 20:47 08/31/17 17:48 08/31/17 17:48 Intake and Output: 08/31/17 09/01/17 18:59 06:59 Intake Total 240 Balance 240 - Medications Medications: Current Medications Enoxaparin Sodium (Lovenox) 40 mg SC DAILY CEM PRN Reason: Protocol Gabapentin (Neurontin) 300 mg PO STAT CEM PRN Reason: Protocol Last Admin: 08/31/17 18:19 Dose: 300 mg Meropenem 1g/NS 100mL IVPB (Meropenem 1g/Ns 100ml Ivpb) 1 gm in 100 mls @ 100 mls/hr IVPB Q8 CEM PRN Reason: Protocol Stop: 09/08/17 06:01 Linezolid (Zyvox 600mg/300ml D5w) 600 mg in 300 mls @ 200 mls/hr IVPB Q12 CEM PRN Reason: Protocol Stop: 09/08/17 10:01 Morphine Sulfate (Morphine) 2 mg IVP Q6H PRN PRN Reason: Pain, moderate (4-7) Last Admin: 08/31/17 21:29 Dose: 2 mg Ondansetron HCl (Zofran Inj) 4 mg IVP Q6H PRN PRN Reason: Nausea/Vomiting - Labs Labs: PT 12.2 Seconds (9.9-11.8) H 08/31/17 15:25 INR 1.13 (0.93-1.08) H 08/31/17 15:25 APTT 33.3 Seconds (23.7-30.8) H 08/31/17 15:25 Laboratory Last Values WBC 11.0 10^3/ul (4.5-11.0) D 08/31/17 15:25 RBC 4.59 10^6/uL (3.5-6.1) 08/31/17 15:25 Hgb 13.2 g/dL (12.0-16.0) 08/31/17 15:25 Hct 39.9 % (36.0-48.0) 08/31/17 15:25 MCV 86.9 fl (80.0-105.0) 08/31/17 15:25 MCH 28.8 pg (25.0-35.0) 08/31/17 15:25 MCHC 33.1 g/dl (31.0-37.0) 08/31/17 15:25 RDW 14.0 % (11.5-14.5) 08/31/17 15:25 Plt Count 332 10^3/uL (120.0-450.0) 08/31/17 15:25 MPV 9.8 fl (7.0-11.0) 08/31/17 15:25 Gran % 81.4 % (50.0-68.0) H 08/31/17 15:25 Lymph % (Auto) 6.0 % (22.0-35.0) L 08/31/17 15:25 Swift % (Auto) 12.3 % (1.0-6.0) H 08/31/17 15:25 Eos % (Auto) 0.2 % (1.5-5.0) L 08/31/17 15:25 Baso % (Auto) 0.1 % (0.0-3.0) 08/31/17 15:25 Gran # 8.91 (1.4-6.5) H 08/31/17 15:25 Lymph # 0.7 (1.2-3.4) L 08/31/17 15:25 Swift # 1.4 (0.1-0.6) H 08/31/17 15:25 Eos # 0.0 (0.0-0.7) 08/31/17 15:25 Baso # 0.01 K/mm3 (0.0-2.0) 08/31/17 15:25 PT 12.2 Seconds (9.9-11.8) H 08/31/17 15:25 INR 1.13 (0.93-1.08) H 08/31/17 15:25 APTT 33.3 Seconds (23.7-30.8) H 08/31/17 15:25 Sodium 144 mmol/L (132-148) 08/31/17 15:25 Potassium 4.3 mmol/L (3.6-5.0) 08/31/17 15:25 Chloride 105 mmol/L (98-107) 08/31/17 15:25 Carbon Dioxide 28 mmol/L (21-33) 08/31/17 15:25 Anion Gap 15 (10-20) 08/31/17 15:25 BUN 28 mg/dL (7-21) H 08/31/17 15:25 Creatinine 0.9 mg/dL (0.5-1.4) 08/31/17 15:25 Est GFR ( Amer) > 60 08/31/17 15:25 Est GFR (Non-Af Amer) > 60 08/31/17 15:25 Random Glucose 130 mg/dL (70-110) H 08/31/17 15:25 Calcium 10.1 mg/dL (8.4-10.5) 08/31/17 15:25 Total Bilirubin 0.8 mg/dL (0.2-1.3) 08/31/17 15:25 AST 23 U/L (14-36) 08/31/17 15:25 ALT 34 U/L (7-56) 08/31/17 15:25 Alkaline Phosphatase 139 U/L (38-126) H 08/31/17 15:25 Total Protein 6.8 g/dL (5.8-8.3) 08/31/17 15:25 Albumin 3.7 g/dL (3.0-4.8) 08/31/17 15:25 Globulin 3.0 gm/dL 08/31/17 15:25 Albumin/Globulin Ratio 1.2 (1.1-1.8) 08/31/17 15:25 - Constitutional Appears: Well - Head Exam Head Exam: ATRAUMATIC, NORMAL INSPECTION, NORMOCEPHALIC Additional comments: Obese, not in distress. - Eye Exam Eye Exam: Normal appearance - ENT Exam ENT Exam: Normal External Ear Exam - Neck Exam Neck Exam: Normal Inspection - Respiratory Exam Respiratory Exam: NORMAL BREATHING PATTERN - Cardiovascular Exam Cardiovascular Exam: absent: JVD - GI/Abdominal Exam GI & Abdominal Exam: absent: Distended - Rectal Exam Rectal Exam: Deferred - Exam Additional comments: Deferred. - Extremities Exam Additional comments: Both legs swollen, erythematous. - Back Exam Back Exam: NORMAL INSPECTION - Neurological Exam Neurological Exam: Alert, Oriented x3 - Psychiatric Exam Psychiatric exam: Normal Affect, Normal Mood - Skin Additional comments: Legs skin, red, legs swollen. Assessment and Plan - Assessment and Plan (Free Text) Assessment: Bilateral leg cellulitis. Hypertension. Obesity. Arthritis. Plan: Toradol 30 mg IV stat. Continue present management.
[2017-09-01] MEDS: Meropenem 1g/NS 100mL IVPB 1 GM/100 ML PIGGYBACK IVPB SCH ×3 (06:28→21:24)
[2017-09-01] MEDS: Morphine 2 mg/ml ISec IVP PRN ×3 (08:16→19:14)
[2017-09-01 09:35] LABS: ALB/GLOB RATIO 1.1 (1.1-1.8); ALKALINE PHOSPHATASE 121 U/L (38-126); ALT/SGPT 32 U/L (7-56); AST/SGOT 26 U/L (14-36); BILIRUBIN,TOTAL 0.8 mg/dL (0.2-1.3); BLOOD UREA NITROGEN 27 mg/dL (7-21); CALCIUM 9.5 mg/dL (8.4-10.5); CARBON DIOXIDE 29 mmol/L (21-33); CHLORIDE 107 mmol/L (98-107); GFR AFRICAN-AMERICAN > 60; GLUCOSE,RANDOM 80 mg/dL (70-110); POTASSIUM 3.8 mmol/L (3.6-5.0); SODIUM 145 mmol/L (132-148); TOTAL PROTEIN 6.8 g/dL (5.8-8.3)
--- NOTE | 2017-09-01 09:44 | CARD ---
APPROVED REPORT EKG Measurement Heart [id number] <Conclusion> Normal sinus rhythm Nonspecific ST abnormality Abnormal ECG
--- NOTE | 2017-09-01 10:29 | CP.PCM.CON ---
<Liam Nelson - Last Filed: 09/01/17 10:19> History of Present Illness - History of Present Illness History of Present Illness: 66 year old female with PMH of morbid obesity, chronic painful leg wounds/ cellulitis, HTN, sciatica, and neuropathy was consulted for painful bilaterally wounds and cellulitis. She is seen at bedside alert and oriented. She appears to be in distress secondary to the painful bilaterally lower extremities. She describes the pain in her bilaterally legs as a burning pain. She reports her left heels being sensitive as well. She denies n/v/sob/cp/chills or f. Review of Systems - Review of Systems Review of Systems: except HPI Past Patient History - Infectious Disease Hx of Infectious Diseases: None - Tetanus Immunizations Tetanus Immunization: Unknown - Past Social History Smoking Status: Never Smoked - CARDIAC Hx Cardiac Disorders: Yes Hx Hypertension: Yes - PULMONARY Hx Respiratory Disorders: No - NEUROLOGICAL Hx Neurological Disorder: No - HEENT Hx HEENT Problems: No - RENAL Hx Chronic Kidney Disease: Yes - ENDOCRINE/METABOLIC Hx Hypothyroidism: Yes - HEMATOLOGICAL/ONCOLOGICAL Hx Anemia: Yes - INTEGUMENTARY Hx Dermatological Problems: Yes (cellulities to the bilateral lower extremities since 2010) - MUSCULOSKELETAL/RHEUMATOLOGICAL Hx Musculoskeletal Disorders: Yes (neuropathy) Hx Arthritis: Yes Hx Falls: Yes Hx Unsteady Gait: Yes - GASTROINTESTINAL Hx Gastrointestinal Disorders: Yes Hx Gall Bladder Disease: Yes (gallstones) - GENITOURINARY/GYNECOLOGICAL Hx Incontinence: Yes - PSYCHIATRIC Hx Psychophysiologic Disorder: Yes Hx Depression: Yes - SURGICAL HISTORY Hx Cholecystectomy: Yes Other/Comment: hernia repair - ANESTHESIA Hx Anesthesia: Yes Hx Anesthesia Reactions: No Hx Malignant Hyperthermia: No Meds Allergies/Adverse Reactions: Allergies Allergy/AdvReac Type Severity Reaction Status Date / Time ciprofloxacin [From Cipro] Allergy RASH Verified 06/06/17 16:40 nubia Allergy RASH Verified 06/06/17 16:40 latex Allergy RASH Verified 06/06/17 16:40 Penicillins Allergy RASH Verified 06/06/17 16:41 Sulfa (Sulfonamide Allergy RASH Verified 06/06/17 16:40 Antibiotics) vancomycin Allergy RASH Verified 06/06/17 16:40 roses Allergy RASH Uncoded 06/06/17 16:40 - Medications Medications: Current Medications Enoxaparin Sodium (Lovenox) 40 mg SC DAILY CEM PRN Reason: Protocol Furosemide (Lasix) 40 mg IVP DAILY CEM Gabapentin (Neurontin) 300 mg PO STAT CEM PRN Reason: Protocol Last Admin: 08/31/17 18:19 Dose: 300 mg Meropenem 1g/NS 100mL IVPB (Meropenem 1g/Ns 100ml Ivpb) 1 gm in 100 mls @ 100 mls/hr IVPB Q8 CEM PRN Reason: Protocol Stop: 09/08/17 06:01 Last Admin: 09/01/17 06:28 Dose: 100 mls/hr Linezolid (Zyvox 600mg/300ml D5w) 600 mg in 300 mls @ 200 mls/hr IVPB Q12 CEM PRN Reason: Protocol Stop: 09/08/17 10:01 Morphine Sulfate (Morphine) 2 mg IVP Q3H PRN PRN Reason: Pain, moderate (4-7) Nystatin (Nystop Topical Powder) 0 gm TOP BID CEM Ondansetron HCl (Zofran Inj) 4 mg IVP Q6H PRN PRN Reason: Nausea/Vomiting Tramadol HCl (Ultram) 50 mg PO Q6 PRN PRN Reason: Pain, moderate (4-7) Last Admin: 09/01/17 08:46 Dose: 50 mg Physical Exam - Constitutional Appears: Well, Non-toxic - Extremities Exam Additional comments: Vasc: DP and PT pulses non-palpable due to LE edema. CFT < 3 seconds to digits 1 -10, temperature gradient WNL Neuro: Gross sensation diminished b/l Derm: Venous stasis changes noted to the lower extremity with lichenification of skin all noted extensively to the left foot and ankle. Serous drainage is noted to lower extremity. Erythema noted extensively to both legs. Mild malodor present. No purulent drainage. Ortho: Severe pain on palpation to LE b/l. - Neurological Exam Neurological exam: Alert, Oriented x3 - Psychiatric Exam Psychiatric exam: Flat Affect, Normal Mood Results - Vital Signs Recent Vital Signs: Last Vital Signs Temp 98.7 F 09/01/17 07:30 Pulse 84 09/01/17 07:30 Resp 20 09/01/17 07:30 BP 130/60 09/01/17 07:30 Pulse Ox 95 09/01/17 07:30 - Labs Result Diagrams: 08/31/17 15:25 09/01/17 08:00 Labs: Laboratory Results - last 24 hr 09/01/17 09/01/17 06:39 08:00 ESR 89 H Sodium 145 Potassium 3.8 Chloride 107 Carbon Dioxide 29 Anion Gap 13 BUN 27 H Creatinine 0.9 Est GFR ( Amer) > 60 Est GFR (Non-Af Amer) > 60 Random Glucose 80 Calcium 9.5 Total Bilirubin 0.8 AST 26 ALT 32 Alkaline Phosphatase 121 Total Protein 6.8 Albumin 3.5 Globulin 3.3 Albumin/Globulin Ratio 1.1 Assessment & Plan - Assessment and Plan (Free Text) Assessment: 66 year old female with painful cellulitis with ulceration to b/l LE Plan: Patient seen and evaluated at bedside with attending Dr. Marinelli Labs, charts and vitals reviewed (afebrile, WBC=11) LE cleansed with saline and dressed with adaptic, gauze, ABD, and kerlix. Wound culture taken- pending results Continue with abx per ID Continue with pain management per primary team Podiatry to continue to follow while in house <Ton Marinelli - Last Filed: 09/02/17 07:35> Meds - Medications Medications: Current Medications Enoxaparin Sodium (Lovenox) 40 mg SC DAILY CEM PRN Reason: Protocol Last Admin: 09/01/17 10:41 Dose: 40 mg Furosemide (Lasix) 40 mg IVP DAILY [facility] Last Admin: 09/01/17 10:41 Dose: 40 mg Gabapentin (Neurontin) 300 mg PO STAT CEM PRN Reason: Protocol Last Admin: 09/01/17 17:23 Dose: 300 mg Meropenem 1g/NS 100mL IVPB (Meropenem 1g/Ns 100ml Ivpb) 1 gm in 100 mls @ 100 mls/hr IVPB Q8 CEM PRN Reason: Protocol Stop: 09/08/17 06:01 Last Admin: 09/02/17 06:12 Dose: 100 mls/hr Linezolid (Zyvox 600mg/300ml D5w) 600 mg in 300 mls @ 200 mls/hr IVPB Q12 CEM PRN Reason: Protocol Stop: 09/08/17 10:01 Last Admin: 09/01/17 22:43 Dose: 200 mls/hr Morphine Sulfate (Morphine) 2 mg IVP Q3H PRN PRN Reason: Pain, moderate (4-7) Last Admin: 09/01/17 19:14 Dose: 2 mg Nystatin (Nystop Topical Powder) 0 gm TOP BID CEM Last Admin: 09/01/17 17:24 Dose: 1 applic Ondansetron HCl (Zofran Inj) 4 mg IVP Q6H PRN PRN Reason: Nausea/Vomiting Tramadol HCl (Ultram) 50 mg PO Q6 PRN PRN Reason: Pain, moderate (4-7) Last Admin: 09/01/17 14:26 Dose: 50 mg Results - Vital Signs Recent Vital Signs: Last Vital Signs Temp 98.1 F 09/02/17 00:00 Pulse 73 09/02/17 00:00 Resp 20 09/02/17 00:00 BP 127/54 L 09/02/17 00:00 Pulse Ox 99 09/02/17 00:00 - Labs Result Diagrams: 09/02/17 06:36 09/02/17 06:36 Labs: Laboratory Results - last 24 hr 09/01/17 09/01/17 09/02/17 06:39 08:00 06:36 WBC 5.1 D RBC 3.65 Hgb 10.2 L D Hct 31.7 L MCV 86.8 MCH 27.9 MCHC 32.2 RDW 14.2 Plt Count 251 MPV 9.4 ESR 89 H Sodium 145 Potassium 3.8 Chloride 107 Carbon Dioxide 29 Anion Gap 13 BUN 27 H Creatinine 0.9 Est GFR ( Amer) > 60 Est GFR (Non-Af Amer) > 60 Random Glucose 80 Calcium 9.5 Total Bilirubin 0.8 AST 26 ALT 32 Alkaline Phosphatase 121 Total Protein 6.8 Albumin 3.5 Globulin 3.3 Albumin/Globulin Ratio 1.1 09/02/17 06:36 WBC RBC Hgb Hct MCV MCH MCHC RDW Plt Count MPV ESR Sodium 140 Potassium 3.4 L Chloride 103 Carbon Dioxide 30 Anion Gap 10 BUN 19 Creatinine 0.8 Est GFR ( Amer) > 60 Est GFR (Non-Af Amer) > 60 Random Glucose 101 Calcium 8.1 L Total Bilirubin 0.4 AST 20 ALT 34 Alkaline Phosphatase 94 Total Protein 5.5 L Albumin 2.7 L Globulin 2.8 Albumin/Globulin Ratio 1.0 L Attending/Attestation - Attestation I have personally seen and examined this patient.: Yes I have fully participated in the care of the patient.: Yes I have reviewed all pertinent clinical information: Yes
[2017-09-01] MEDS: Linezolid 600 mg in D5W 300 ml 600 MG/300 ML BAG IVPB SCH ×2 (10:40→22:43)
[2017-09-01] MEDS: Enoxaparin 40 mg Syringe SC SCH (10:41)
[2017-09-01] MEDS: Nystatin 100,000 Units/gm Topical Pow(15 gm) TOP SCH ×2 (10:42→17:24)
--- NOTE | 2017-09-01 18:49 | HP ---
HISTORY OF PRESENT ILLNESS: I know Luci very well from house calls and multiple admissions and subacute rehabilitations. She is a 66-year-old white female comes in with worsening leg cellulitis. She has been on IV antibiotics numerous times. It has been so bad down to the bone. It is now topical, but still red, inflamed and painful, difficult for her to walk, it is bilateral and with swelling. She tells me she was taking her medications at home and it just got worse. PAST MEDICAL HISTORY: She has hypertension. She has renal disease, hypothyroidism. She has chronic cellulitis of both lower extremities with venostasis. She has arthritis. She has gallstones. Incontinence of urine. She has depression, anxiety. She has cholecystectomy, hernia repair, multiple I&Ds of the lower extremity. FAMILY HISTORY: Hypertension and diabetes in the family. SOCIAL HISTORY: Never smoked. No alcohol. No drugs. ALLERGIES: SHE HAS ALLERGIES TO CIPRO, ERNIE, LATEX, PENICILLIN, SULFA, VANCOMYCIN AND ROSES. MEDICATIONS: She takes gabapentin, hydromorphone and tramadol at home. REVIEW OF SYSTEMS: She sees a patient management doctor also. No acute vision or hearing changes. No sore throat. No chest pain or palpitations. No shortness of breath or coughing. No sputum. No abdominal pain. No nausea, vomiting, constipation or diarrhea, but bilateral leg swelling, redness and inflammation. Not feeling well, got worse, could not stand or walk anymore with weakness. PHYSICAL EXAMINATION: VITAL SIGNS: She has a 98.6 temperature, 86 pulse, 130/57 blood pressure, 20 respiratory rate, 97% O2 sat on room air. HEENT: Her head is atraumatic, normocephalic. Extraocular muscles are intact. Throat is dry. NECK: Supple. HEART: Regular rate. Normal S1 and S2. LUNGS: Decreased breath sounds, but clear to auscultation. Poor inspiration. ABDOMEN: Soft, nontender. Positive bowel sounds. No guarding. No rebound. No CVA tenderness. Morbidly obese. EXTREMITIES: +4/4 pitting edema bilaterally. There is odor, redness, swelling and leg cellulitis of the foot all the way up to the knee. I saw her 2 to 3 weeks ago, it was healed, it was good, it looked good, was not so swollen and no redness, so a big change in 2 to 3 weeks from last time I saw her at her house. NEUROLOGIC: GCS is 15. Cranial nerves II through XII grossly intact. SKIN: Warm and dry. Alert and oriented x3. Thyroid midline. No palpable appreciable lymphadenopathy. LABORATORY DATA: She has 11 white count, 30.2 hemoglobin, 39.9 hematocrit with 332 platelets, INR is 1.13. She has 144 sodium, potassium 4.3, BUN 20, creatinine is 0.9. GFR is greater than 60. Sugar is 130. Calcium is 10.1. Total bilirubin is 0.8. AST is 23. ALT is 34. Alkaline phosphatase 139. Total protein 6.0. Albumin 3.7. Globulin 3.0. IMPRESSION AND PLAN: She will have consults with infectious disease and podiatry. She will be on IV Lasix, Lovenox, Merrem IV, morphine for pain, gabapentin, nystatin powder, tramadol, Zofran, and Zyvox. We will check her labs, physical therapy, continue with aggressive treatment and care for bilateral cellulitis. Hung Wagner DO
--- NOTE | 2017-09-01 21:57 | CON ---
CHIEF COMPLAINT: Lower extremity infection. HISTORY OF PRESENT ILLNESS: This is a 66-year-old female, who has past medical history significant for morbid obesity with BMI of 45, multiple hospitalization, hypertension, coronary artery disease, neuropathy, arthritis, hernia repair, cholecystectomy, varicose vein surgery, and who has had a history of MRSA of her lower extremity cellulitis. The patient also had a history of group G strep bacteremia. WAS ALLERGIC TO PENICILLIN, CIPRO, SULFA, AND VANCOMYCIN. Was admitted now in this admission with a diagnosis of cellulitis, infectious disease consultation requested. The patient was seen in the emergency room Dr. Sammy Oliva and was admitted with a diagnosis of cellulitis. REVIEW OF SYSTEMS: Reveals a low grade fevers. No chills. No nausea or vomiting. No chest pain. No abdominal pain, diarrhea or constipation. PAST MEDICAL HISTORY: Significant for morbid obesity with BMI of 45, hypertension, coronary artery disease, neuropathy, arthritis, MRSA of the lower extremities, and group G strep bacteremia. MEDICATIONS: At home reveals and gabapentin. PHYSICAL EXAMINATION: GENERAL: The patient is in bed. VITAL SIGNS: Temperature of 98, blood pressure is 130/60, respiratory rate is noted to be 20 and heart rate was up to 99. Examination of the blood pressure was 130/57 earlier. HEENT: Unremarkable. NECK: Supple. LUNGS: Decreased breath sounds. HEART: Normal S1 and S2. ABDOMEN: Soft, nontender. LOWER EXTREMITIES: When examined with Dr. Marinelli, significant erythema and edema in both bilateral lower extremities and exposed skin, chronic changes also present with acute changes. LABORATORY DATA: White count of 11,000, hemoglobin of 13 and platelets of 332. Sed rate is 89, coagulation is noted. BUN of 28, creatinine of 0.9. C-reactive protein is greater than 15. Microbiology reveals that the patient did have group G strep in the blood in previous admissions. The patient has Klebsiella pneumoniae species from May, and Staphylococcus aureus which is sensitive staph also from May. The patient had a chest x-ray, showed no active disease. Medications at home are reviewed. 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 Currently, we will treat the patient with Zyvox and meropenem pending culture results and workup results underlying osteomyelitis, vascular disease, and peripheral vascular disease. We will follow with you. Giles Acosta MD
[2017-09-02] MEDS: Meropenem 1g/NS 100mL IVPB 1 GM/100 ML PIGGYBACK IVPB SCH ×3 (06:12→21:30)
[2017-09-02 06:52] LABS: HEMATOCRIT 31.7 % (36.0-48.0); MEAN CELL VOLUME 86.8 fl (80.0-105.0); MEAN CORPUSCULAR HEMOGLOBIN 27.9 pg (25.0-35.0); MEAN CORPUSCULAR HGB CONC 32.2 g/dl (31.0-37.0); MEAN PLATELET VOLUME 9.4 fl (7.0-11.0); RED CELL DISTRIBUTION WIDTH 14.2 % (11.5-14.5); WHITE BLOOD COUNT 5.1 10^3/ul (4.5-11.0)
[2017-09-02 07:16] LABS: ALKALINE PHOSPHATASE 94 U/L (38-126); ALT/SGPT 34 U/L (7-56); AST/SGOT 20 U/L (14-36); BILIRUBIN,TOTAL 0.4 mg/dL (0.2-1.3); BLOOD UREA NITROGEN 19 mg/dL (7-21); CALCIUM 8.1 mg/dL (8.4-10.5); CARBON DIOXIDE 30 mmol/L (21-33); CHLORIDE 103 mmol/L (98-107); GFR AFRICAN-AMERICAN > 60; GLUCOSE,RANDOM 101 mg/dL (70-110); POTASSIUM 3.4 mmol/L (3.6-5.0); SODIUM 140 mmol/L (132-148); TOTAL PROTEIN 5.5 g/dL (5.8-8.3)
[2017-09-02] MEDS: Linezolid 600 mg in D5W 300 ml 600 MG/300 ML BAG IVPB SCH ×2 (09:31→22:42)
[2017-09-02] MEDS: Enoxaparin 40 mg Syringe SC SCH (09:31)
[2017-09-02] MEDS: Nystatin 100,000 Units/gm Topical Pow(15 gm) TOP SCH ×2 (09:34→17:25)
[2017-09-02] MEDS: Morphine 2 mg/ml ISec IVP PRN ×3 (09:46→20:38)
--- NOTE | 2017-09-02 11:01 | CP.PCM.PN ---
<Liam Nelson - Last Filed: 09/02/17 10:57> Subjective - Date & Time of Evaluation Date of Evaluation: 09/02/17 Time of Evaluation: 10:57 - Subjective Subjective: Podiatry Progress note for Dr. Marinelli 66 year old female with PMH of morbid obesity, chronic painful leg wounds/ cellulitis, HTN, sciatica, and neuropathy was consulted for painful bilaterally wounds and cellulitis. She is seen at bedside alert and oriented. She is in less distress today during dressing change. She was given dose of pain medication. She describes the pain in her bilaterally legs as a burning pain. She denies n/v/sob/cp/chills or f. Objective - Vital Signs/Intake and Output Vital Signs (last 24 hours): Temp Pulse Resp BP Pulse Ox 98.2 F 77 20 119/77 96 09/02/17 07:00 09/02/17 07:00 09/02/17 07:00 09/02/17 09:32 09/02/17 07:00 Intake and Output: 09/02/17 09/02/17 06:59 18:59 Intake Total 800 Balance 800 - Medications Medications: Current Medications Enoxaparin Sodium (Lovenox) 40 mg SC DAILY [facility] PRN Reason: Protocol Last Admin: 09/02/17 09:31 Dose: 40 mg Furosemide (Lasix) 40 mg IVP DAILY [facility] Last Admin: 09/02/17 09:32 Dose: 40 mg Gabapentin (Neurontin) 300 mg PO STAT [facility] PRN Reason: Protocol Last Admin: 09/01/17 17:23 Dose: 300 mg Meropenem 1g/NS 100mL IVPB (Meropenem 1g/Ns 100ml Ivpb) 1 gm in 100 mls @ 100 mls/hr IVPB Q8 [facility] PRN Reason: Protocol Stop: 09/08/17 06:01 Last Admin: 09/02/17 06:12 Dose: 100 mls/hr Linezolid (Zyvox 600mg/300ml D5w) 600 mg in 300 mls @ 200 mls/hr IVPB Q12 [facility] PRN Reason: Protocol Stop: 09/08/17 10:01 Last Admin: 09/02/17 09:31 Dose: 200 mls/hr Morphine Sulfate (Morphine) 2 mg IVP Q3H PRN PRN Reason: Pain, moderate (4-7) Last Admin: 09/02/17 09:46 Dose: 2 mg Nystatin (Nystop Topical Powder) 0 gm TOP BID [facility] Last Admin: 09/02/17 09:34 Dose: 1 applic Ondansetron HCl (Zofran Inj) 4 mg IVP Q6H PRN PRN Reason: Nausea/Vomiting Tramadol HCl (Ultram) 50 mg PO Q6 PRN PRN Reason: Pain, moderate (4-7) Last Admin: 09/02/17 10:38 Dose: 50 mg - Labs Labs: 09/02/17 06:36 09/02/17 06:36 PT 12.2 Seconds (9.9-11.8) H 08/31/17 15:25 INR 1.13 (0.93-1.08) H 08/31/17 15:25 APTT 33.3 Seconds (23.7-30.8) H 08/31/17 15:25 - Constitutional Appears: Well, Non-toxic - Extremities Exam Additional comments: Vasc: DP and PT pulses non-palpable due to LE edema. CFT < 3 seconds to digits 1 -10, temperature gradient WNL Neuro: Gross sensation diminished b/l Derm: Venous stasis changes noted to the lower extremity with lichenification of skin all noted extensively to the left foot and ankle. Serous drainage is noted to lower extremity. Erythema noted extensively to both legs. Mild malodor present. No purulent drainage. Ortho: Severe pain on palpation to LE b/l. - Neurological Exam Neurological Exam: Alert, Awake, Oriented x3 - Psychiatric Exam Psychiatric exam: Normal Affect, Normal Mood Assessment and Plan - Assessment and Plan (Free Text) Assessment: 66 year old female with painful cellulitis with ulceration to b/l LE Plan: Patient seen and evaluated at bedside with attending Dr. Marinelli Labs, charts and vitals reviewed (afebrile, WBC trending down =5.1 from 11.0 ) LE cleansed with saline and dressed with adaptic, gauze, ABD, and kerlix. Wound culture taken- pending results Continue with abx per ID Continue with pain management per primary team Patient is stable per podiatry Podiatry to continue to follow while in house Patient will followup in wound care once discharged <Ton Marinelli - Last Filed: 09/03/17 08:41> Objective - Vital Signs/Intake and Output Vital Signs (last 24 hours): Temp Pulse Resp BP Pulse Ox 98.1 F 69 20 115/41 L 99 09/03/17 07:26 09/03/17 07:26 09/03/17 07:26 09/03/17 07:26 09/03/17 07:26 Intake and Output: 09/03/17 09/03/17 06:59 18:59 Intake Total 1140 Balance 1140 - Medications Medications: Current Medications Enoxaparin Sodium (Lovenox) 40 mg SC DAILY [facility] PRN Reason: Protocol Last Admin: 09/02/17 09:31 Dose: 40 mg Furosemide (Lasix) 40 mg IVP DAILY [facility] Last Admin: 09/02/17 09:32 Dose: 40 mg Gabapentin (Neurontin) 300 mg PO TID [facility] PRN Reason: Protocol Last Admin: 09/02/17 17:58 Dose: 300 mg Meropenem 1g/NS 100mL IVPB (Meropenem 1g/Ns 100ml Ivpb) 1 gm in 100 mls @ 100 mls/hr IVPB Q8 [facility] PRN Reason: Protocol Stop: 09/08/17 06:01 Last Admin: 09/03/17 05:52 Dose: 100 mls/hr Linezolid (Zyvox 600mg/300ml D5w) 600 mg in 300 mls @ 200 mls/hr IVPB Q12 [facility] PRN Reason: Protocol Stop: 09/08/17 10:01 Last Admin: 09/02/17 22:42 Dose: 200 mls/hr Morphine Sulfate (Morphine) 2 mg IVP Q3H PRN PRN Reason: Pain, moderate (4-7) Last Admin: 09/03/17 01:53 Dose: 2 mg Nystatin (Nystop Topical Powder) 0 gm TOP BID [facility] Last Admin: 09/02/17 17:25 Dose: 1 applic Ondansetron HCl (Zofran Inj) 4 mg IVP Q6H PRN PRN Reason: Nausea/Vomiting Tramadol HCl (Ultram) 50 mg PO Q6 PRN PRN Reason: Pain, moderate (4-7) Last Admin: 09/02/17 17:24 Dose: 50 mg - Labs Labs: 09/03/17 06:00 09/03/17 06:00 PT 12.2 Seconds (9.9-11.8) H 08/31/17 15:25 INR 1.13 (0.93-1.08) H 08/31/17 15:25 APTT 33.3 Seconds (23.7-30.8) H 08/31/17 15:25 Attending/Attestation - Attestation I have personally seen and examined this patient.: Yes I have fully participated in the care of the patient.: Yes I have reviewed all pertinent clinical information, including history, physical exam and plan: Yes
--- NOTE | 2017-09-02 12:34 | PN ---
SUBJECTIVE: I saw the patient resting comfortably this morning in bed. She does not have much pain. She is sleeping well. She is eating okay. She tells me she does not want to leave [facility] or [facility] for rehab and further care. She is on Lasix IV, Lovenox, Merrem IV, morphine, Neurontin, nystatin powder, Ultram, Zofran, and Zyvox. PHYSICAL EXAMINATION: VITAL SIGNS: 98.1 temp, 73 pulse, 127/54 blood pressure, 20 respiratory rate, 99% O2 sat on room air. HEENT: Head is atraumatic and normocephalic. HEART: Regular rate. LUNGS: Decreased breath sounds with poor inspiration, but clear. ABDOMEN: Morbidly obese, soft, nontender, positive bowel sounds. EXTREMITIES: +4/4 pitting edema with scaling, redness, and ulcerations to the lower extremities with cellulitis and infection. LABORATORY DATA: She has 5.1 white count, 10.2 hemoglobin, 31.7 hematocrit with 251 platelets. She has a 140 sodium and potassium is 3.4, I replaced potassium. She has a 103 chloride; BUN is 19, creatinine 0.8, better; GFR is greater than 60; sugar is 101. Calcium is 8.1. Total bili is 0.4, AST is 20, ALT is 34, alk phos is 94. C-reactive protein is greater than 15, total protein is 5.5. ASSESSMENT AND PLAN: She has been seen by infectious disease and podiatry. She is on IV antibiotics, could be underlying osteomyelitis, we will see. Chest x-ray was normal. Also seen by podiatry, he is doing some cleansing of the wounds, he will see if he has to have I and D done and hopefully, she can go to a subacute rehab after 3 days here in the hospital. She is here for bad cellulitis and ulcers of the lower extremity without osteomyelitis. Hung Wagner DO
--- NOTE | 2017-09-02 15:45 | PN ---
DATE: 09/02/2017 SUBJECTIVE: The patient is seen early this morning. No fevers and no chills. PHYSICAL EXAMINATION: VITAL SIGNS: Temperature is 98, blood pressure is 119/70, respiratory rate of 16. HEENT: Unremarkable. NECK: Supple. LUNGS: Decreased breath sounds. HEART: Normal S1 and S2. ABDOMEN: Soft and nontender. LABORATORY EXAMINATION: Reveals a white count of 5.1, hemoglobin of 10 and chemistries reveals a BUN of 19, creatinine of 0.8. Microbiology reveals a Staphylococcus aureus and a Gram-negative junior from the culture. Review of orders reveals the patient to be on meropenem and Zyvox. ASSESSMENT AND PLAN: A 66-year-old with morbid obesity, body mass index of 45; hypertension; coronary artery disease; neuropathy; arthritis; methicillin-resistant Staphylococcus aureus of lower extremities by history, group G strep, bacteremia by history, lower extremity cellulitis and currently on Zyvox and meropenem. We are waiting for identification of sensitivity, should rule out underlying osteomyelitis. Giles Acosta MD
[2017-09-03] MEDS: Morphine 2 mg/ml ISec IVP PRN ×3 (01:53→21:01)
[2017-09-03] MEDS: Meropenem 1g/NS 100mL IVPB 1 GM/100 ML PIGGYBACK IVPB SCH ×3 (05:52→21:02)
[2017-09-03 06:31] LABS: HEMATOCRIT 32.7 % (36.0-48.0); MEAN CELL VOLUME 86.5 fl (80.0-105.0); MEAN CORPUSCULAR HGB CONC 32.4 g/dl (31.0-37.0); MEAN PLATELET VOLUME 9.5 fl (7.0-11.0); RED CELL DISTRIBUTION WIDTH 14.2 % (11.5-14.5); WHITE BLOOD COUNT 5.1 10^3/ul (4.5-11.0)
[2017-09-03 06:49] LABS: ALB/GLOB RATIO 0.9 (1.1-1.8); ALKALINE PHOSPHATASE 101 U/L (38-126); ALT/SGPT 33 U/L (7-56); AST/SGOT 20 U/L (14-36); BILIRUBIN,TOTAL 0.4 mg/dL (0.2-1.3); BLOOD UREA NITROGEN 14 mg/dL (7-21); CALCIUM 8.1 mg/dL (8.4-10.5); CARBON DIOXIDE 32 mmol/L (21-33); CHLORIDE 97 mmol/L (95-110); GFR AFRICAN-AMERICAN > 60; GLUCOSE,RANDOM 103 mg/dL (70-110); POTASSIUM 3.5 mmol/L (3.6-5.0); SODIUM 136 mmol/L (132-148); TOTAL PROTEIN 5.9 g/dL (5.8-8.3)
[2017-09-03] MEDS: Enoxaparin 40 mg Syringe SC SCH (09:49)
[2017-09-03] MEDS: Linezolid 600 mg in D5W 300 ml 600 MG/300 ML BAG IVPB SCH ×2 (09:50→21:02)
[2017-09-03] MEDS: Nystatin 100,000 Units/gm Topical Pow(15 gm) TOP SCH ×2 (09:57→17:12)
--- NOTE | 2017-09-03 09:57 | CP.PCM.PN ---
<Liam Nelson - Last Filed: 09/03/17 09:53> Subjective - Date & Time of Evaluation Date of Evaluation: 09/03/17 Time of Evaluation: 09:54 - Subjective Subjective: Podiatry Progress note for Dr. Marinelli 66 year old female with PMH of morbid obesity, chronic painful leg wounds/ cellulitis, HTN, sciatica, and neuropathy was consulted for painful bilaterally wounds and cellulitis. She is seen at bedside alert and oriented. She is in less distress today during dressing change. Patient was given dose of Morphine prior to dressing changes. She is tolerating dressing changes. She describes the pain in her bilaterally legs as a burning pain. Today she reports pain to her heels bilaterally. She denies n/v/sob/cp/chills or f. Objective - Vital Signs/Intake and Output Vital Signs (last 24 hours): Temp Pulse Resp BP Pulse Ox 98.1 F 69 20 115/41 L 99 09/03/17 07:26 09/03/17 07:26 09/03/17 07:26 09/03/17 07:26 09/03/17 07:26 Intake and Output: 09/03/17 09/03/17 06:59 18:59 Intake Total 1140 Balance 1140 - Medications Medications: Current Medications Enoxaparin Sodium (Lovenox) 40 mg SC DAILY [facility] PRN Reason: Protocol Last Admin: 09/02/17 09:31 Dose: 40 mg Furosemide (Lasix) 40 mg IVP DAILY [facility] Last Admin: 09/02/17 09:32 Dose: 40 mg Gabapentin (Neurontin) 300 mg PO TID [facility] PRN Reason: Protocol Last Admin: 09/02/17 17:58 Dose: 300 mg Meropenem 1g/NS 100mL IVPB (Meropenem 1g/Ns 100ml Ivpb) 1 gm in 100 mls @ 100 mls/hr IVPB Q8 [facility] PRN Reason: Protocol Stop: 09/08/17 06:01 Last Admin: 09/03/17 05:52 Dose: 100 mls/hr Linezolid (Zyvox 600mg/300ml D5w) 600 mg in 300 mls @ 200 mls/hr IVPB Q12 [facility] PRN Reason: Protocol Stop: 09/08/17 10:01 Last Admin: 09/02/17 22:42 Dose: 200 mls/hr Morphine Sulfate (Morphine) 2 mg IVP Q3H PRN PRN Reason: Pain, moderate (4-7) Last Admin: 09/03/17 01:53 Dose: 2 mg Nystatin (Nystop Topical Powder) 0 gm TOP BID [facility] Last Admin: 09/02/17 17:25 Dose: 1 applic Ondansetron HCl (Zofran Inj) 4 mg IVP Q6H PRN PRN Reason: Nausea/Vomiting Tramadol HCl (Ultram) 50 mg PO Q6 PRN PRN Reason: Pain, moderate (4-7) Last Admin: 09/02/17 17:24 Dose: 50 mg - Labs Labs: 09/03/17 06:00 09/03/17 06:00 PT 12.2 Seconds (9.9-11.8) H 08/31/17 15:25 INR 1.13 (0.93-1.08) H 08/31/17 15:25 APTT 33.3 Seconds (23.7-30.8) H 08/31/17 15:25 - Constitutional Appears: Well, Non-toxic, No Acute Distress - Extremities Exam Additional comments: Vasc: DP and PT pulses non-palpable due to LE edema. CFT < 3 seconds to digits 1 -10, temperature gradient WNL Neuro: Gross sensation diminished b/l Derm: Venous stasis changes noted to the lower extremity with lichenification of skin all noted extensively to the left foot and ankle. Serous drainage is noted to lower extremity. Erythema noted extensively to both legs, improving. Mild malodor present. No purulent drainage. Posterior heel no deep tissue injury , no ulcerations, no erythema to the heels bilaterally. Ortho: Severe pain on palpation to LE b/l. - Neurological Exam Neurological Exam: Awake, Oriented x3 - Psychiatric Exam Psychiatric exam: Flat Affect, Normal Mood Assessment and Plan - Assessment and Plan (Free Text) Assessment: 66 year old female with painful cellulitis with ulceration to b/l LE Plan: Patient seen and evaluated at bedside with attending Dr. Marinelli Labs, charts and vitals reviewed (afebrile, absent leukocytosis) LE cleansed with saline and dressed with adaptic, gauze, ABD, and kerlix. Wound culture results- + MRSA and Proteus Mirabilis Continue with abx per ID Continue with pain management per primary team Patient is stable per podiatry Podiatry to continue to follow while in house <Ton Marinelli - Last Filed: 09/06/17 11:24> Objective - Vital Signs/Intake and Output Vital Signs (last 24 hours): Temp Pulse Resp BP Pulse Ox 98.9 F 71 20 133/78 98 09/06/17 07:38 09/06/17 07:38 09/06/17 07:38 09/06/17 11:01 09/06/17 07:38 Intake and Output: 09/06/17 09/06/17 06:59 18:59 Intake Total 1620 Output Total 500 Balance 1120 - Medications Medications: Current Medications Enoxaparin Sodium (Lovenox) 40 mg SC DAILY [facility] PRN Reason: Protocol Last Admin: 09/06/17 10:52 Dose: 40 mg Furosemide (Lasix) 40 mg IVP DAILY [facility] Last Admin: 09/06/17 11:01 Dose: 40 mg Gabapentin (Neurontin) 300 mg PO TID [facility] PRN Reason: Protocol Last Admin: 09/06/17 10:52 Dose: 300 mg Meropenem 1g/NS 100mL IVPB (Meropenem 1g/Ns 100ml Ivpb) 1 gm in 100 mls @ 100 mls/hr IVPB Q8 [facility] PRN Reason: Protocol Stop: 09/08/17 06:01 Last Admin: 09/06/17 06:10 Dose: 100 mls/hr Linezolid (Zyvox 600mg/300ml D5w) 600 mg in 300 mls @ 200 mls/hr IVPB Q12 [facility] PRN Reason: Protocol Stop: 09/08/17 10:01 Last Admin: 09/06/17 10:53 Dose: 200 mls/hr Morphine Sulfate (Morphine) 2 mg IVP Q3H PRN PRN Reason: Pain, moderate (4-7) Last Admin: 09/05/17 16:44 Dose: 2 mg Nystatin (Nystop Topical Powder) 0 gm TOP BID [facility] Last Admin: 09/06/17 10:53 Dose: 1 applic Ondansetron HCl (Zofran Inj) 4 mg IVP Q6H PRN PRN Reason: Nausea/Vomiting Last Admin: 09/06/17 11:00 Dose: 4 mg Tramadol HCl (Ultram) 50 mg PO Q6 PRN PRN Reason: Pain, moderate (4-7) Last Admin: 09/05/17 11:34 Dose: 50 mg - Labs Labs: 09/04/17 06:30 09/04/17 06:30 PT 12.2 Seconds (9.9-11.8) H 08/31/17 15:25 INR 1.13 (0.93-1.08) H 08/31/17 15:25 APTT 33.3 Seconds (23.7-30.8) H 08/31/17 15:25 Attending/Attestation - Attestation I have personally seen and examined this patient.: Yes I have fully participated in the care of the patient.: Yes I have reviewed all pertinent clinical information, including history, physical exam and plan: Yes
--- NOTE | 2017-09-03 16:31 | PN ---
SUBJECTIVE: The patient seen in bed, in no acute distress, nontoxic. No fevers, no chills. PHYSICAL EXAMINATION VITAL SIGNS: Temperature is 98, blood pressure is 115/40, respiratory rate of 16. HEENT: Unremarkable. NECK: Supple. LUNGS: Have decreased breath sounds. HEART: Normal S1 and S2. ABDOMEN: Soft and nontender. LABORATORY EXAMINATION: Reveals a white count of 5.1, hemoglobin of 10, platelets of 274, coagulation is noted. Chemistry reveals a BUN of 14, creatinine of 0.7, C-reactive protein is greater than 15. Right leg, MRSA and Proteus mirabilis. ASSESSMENT AND PLAN: A 66-year-old with morbid obesity, BMI of 45; hypertension; coronary artery disease; neuropathy; arthritis; methicillin-resistant Staphylococcus aureus of lower extremities; also history of group G strep, bacteremia; history of lower extremity cellulitis, currently on Zyvox and meropenem. Microbiology reveals the patient has methicillin-resistant Staphylococcus aureus and Proteus. The Proteus is resistant to ceftriaxone, sensitive to meropenem and resistant to Cipro, resistant to cefepime, no ESBL was done, although it is a significantly resistant Proteus, methicillin-resistant Staphylococcus aureus ALEJANDRA for vancomycin is one. We will continue with Zyvox and meropenem. Case discussed with PMD. Giles Acosta MD
--- NOTE | 2017-09-03 19:12 | CON ---
HISTORY OF PRESENT ILLNESS: The patient is a 66-year-old female with not known previous psychiatric history. The patient has multiple medical issues. The patient was admitted to the medical side for bilateral lower extremity cellulitis. Psych consult was called for evaluation of mood symptoms as well as medical team raised concern about the patient depression and crying spells. The patient was seen and examined today. The patient presented to have flat affect, was tearful during the interview. The patient said that all immediate family members . She feels very lonely, hopeless and depressed. The patient said that time that she feels helpless and hopeless. The patient had passive wish to be and join her family, but denied any intent or plan to kill herself. The patient said that she does not feel anxious. She has difficulty to fall asleep and to stay asleep. The patient denied hearing voices, denied seeing things. Denied paranoid ideation. The patient denied any manic episode. The patient denied history of being evaluated by psychiatrist in the past. The patient denied history of suicidal attempt. PHYSICAL EXAMINATION: VITAL SIGNS: Stable. Temperature 98.1, pulse is 69, blood pressure 115/40, respirations 20 and oxygen saturations 99. MEDICATIONS: Reviewed. The patient is on Lovenox, Lasix, Neurontin, Zyvox, meropenem, morphine, Nystatin, ondansetron, and Ultram. LABORATORY DATA: Labs reviewed. Hemoglobin and hematocrit 10.6 and 32.7. Coagulation reviewed. Chemistry reviewed. Potassium was 3.5. AST and ALT within normal limits. C-reactive protein more than 15. Microbiology showed methicillin-resistant Staphylococcus aureus and Proteus mirabilis on the wound culture, the patient is in contact isolation right now. MENTAL STATUS EXAMINATION: The patient presented to be obese, much older than her chronological age, was tearful, flat affect. Mood described as depressed, "I miss my family." Affect was mood congruent. Thought process, the patient goal directed. Thought content, the patient denied visual, auditory, or tactile hallucinations. Denied paranoid ideation. The patient denied thoughts of harming herself or others, but has passive wish to be , severe hopelessness and helplessness. Insight and judgment are limited. Impulses are well controlled. IMPRESSION: Rule out major depressive disorder, rule out mood disorder due to general medical condition. The patient has multiple medical issues. The patient was found to have methicillin-resistant Staphylococcus aureus and Proteus mirabilis in her lower extremity wound. The patient has obesity and the patient has lower extremity cellulitis. PLAN: This process description writer offered the patient to start antidepressant, the patient became defensive, tearful, said that she does not want to take any medication in addition to what she has right now. This process description writer offered different medication. Risks, benefits, and alternatives explained to the patient, but the patient did not want to hear about that, became tearful and this process description writer terminated the interview. This process description writer will attempt to speak to the patient and advise about current medication, but this process description writer doubtful about successful of the interview. Whatever reason, the patient feels very resistant about medications. Meanwhile, supportive therapy was provided. We will follow up and advise accordingly. Should you have any questions, give me a call back. Thank you very much. Chuyita Rivera MD
--- NOTE | 2017-09-03 19:51 | DS ---
PROGRESS NOTE/DISCHARGE SUMMARY She is on lots of IV antibiotics, getting lots of good skin care to the wounds. Question is can she be discharged to a subacute rehab or further facility for further treatment. She is on Lasix, Lovenox, Merrem, morphine, Neurontin, nystatin topical powder, Ultram, Zofran, and Zyvox. She is uncomfortable in bed. The legs are itchy and painful and they change symptoms depending on the hour, but they are definitely, I think, starting to improve. PHYSICAL EXAMINATION: VITAL SIGNS: She has 98.1 temperature, 69 pulse, 115/41 blood pressure, 20 respirations rate, 99% O2 saturation on room air. HEENT: Head is atraumatic, normocephalic. HEART: Regular rate. LUNGS: Decreased breath sounds, poor inspiration, but clear. ABDOMEN: Morbidly obese, soft, nontender. EXTREMITIES: Have bandages and they are still oozing, but they are definitely less swollen and itchy. LABORATORY DATA: She has a 5.1 white count, 10.6 hemoglobin, 32.7 hematocrit with 274 platelets. She has 136 sodium, potassium 3.5, we will give her K-rider today. She has a BUN of 14, creatinine 0.7, much better than when she came in. GFR is greater than 62. Sugars 103. Calcium is 8.1, total bilirubin is 0.4. AST is 20, ALT is 32, alkaline phosphatase 101, and total protein is 5.9. ASSESSMENT AND PLAN: To be seen by Podiatry and Infectious Disease, start on antibiotics. She has hypertension, coronary artery disease, morbidly obese, neuropathy, arthritis, methicillin-resistant Staphylococcus aureus of lower extremities, group G streptococcus bacteremia by history, cellulitis. I am hoping we could possibility get her to a facility to continue this treatment. We will see what social research assistant and insurance would let us do. She is on Lasix, Lovenox, Merrem, morphine, gabapentin, nystatin, potassium, Ultram, Zofran, and Zyvox. Hung Wagner DO
[2017-09-04] MEDS: Meropenem 1g/NS 100mL IVPB 1 GM/100 ML PIGGYBACK IVPB SCH ×3 (05:46→23:24)
[2017-09-04 07:10] LABS: HEMATOCRIT 33.2 % (36.0-48.0); MEAN CELL VOLUME 86.9 fl (80.0-105.0); MEAN CORPUSCULAR HEMOGLOBIN 28.3 pg (25.0-35.0); MEAN CORPUSCULAR HGB CONC 32.5 g/dl (31.0-37.0); MEAN PLATELET VOLUME 9.2 fl (7.0-11.0); RED CELL DISTRIBUTION WIDTH 14.2 % (11.5-14.5)
[2017-09-04 07:24] LABS: ALKALINE PHOSPHATASE 102 U/L (38-126); ALT/SGPT 26 U/L (7-56); AST/SGOT 17 U/L (14-36); BILIRUBIN,TOTAL 0.2 mg/dL (0.2-1.3); BLOOD UREA NITROGEN 11 mg/dL (7-21); CALCIUM 8.3 mg/dL (8.4-10.5); CARBON DIOXIDE 34 mmol/L (21-33); CHLORIDE 100 mmol/L (98-107); GFR AFRICAN-AMERICAN > 60; GLUCOSE,RANDOM 112 mg/dL (70-110); POTASSIUM 3.7 mmol/L (3.6-5.0); SODIUM 139 mmol/L (132-148); TOTAL PROTEIN 5.9 g/dL (5.8-8.3)
[2017-09-04] MEDS: Morphine 2 mg/ml ISec IVP PRN (09:12)
[2017-09-04] MEDS: Enoxaparin 40 mg Syringe SC SCH (10:07)
[2017-09-04] MEDS: Linezolid 600 mg in D5W 300 ml 600 MG/300 ML BAG IVPB SCH ×2 (10:08→23:24)
--- NOTE | 2017-09-04 10:12 | PN ---
FOLLOWUP NOTE DATE: SUBJECTIVE: The patient is a 66-year-old female who was admitted for lower extremity cellulitis. Psych consult was called for evaluation of depressive symptoms. This patient was seen initially yesterday. Please see initial consultation note. The patient refused to be on any antidepressant because she does not want to take many medications. Despite the fact that this news writer educated the patient about benefits of the medications, the patient refused to take it. This news writer followed up on the patient today. The patient presented with improved mood, was not tearful, observed eating with a good appetite. This news writer educated the patient in case of the worsening of the symptoms or in case of suicidal ideation, she needs to call 911. I just bring herself back to the hospital. She verbalized understanding. The patient denied any thoughts of killing herself or others. OBJECTIVE: VITAL SIGNS: Stable. Temperature 98.4, pulse 71, blood pressure 129/53, respirations 20 and oxygen saturation is 95. MEDICATIONS: Reviewed. Lovenox, Lasix, Neurontin 300 mg three times a day, Zyvox, meropenem, morphine, nystatin, Zofran, tramadol. LABORATORY DATA: Reviewed most recent from today. Hemoglobin and hematocrit 10.8 and 33.2. Coagulation reviewed. Chemistry reviewed. Seems to be within normal limits. Albumin is 2.9. Microbiology showed wound culture positive for MRSA and Proteus mirabilis. MENTAL STATUS EXAMINATION: The patient presented to be alert and oriented, pleasant, cooperative, intermittent eye contact. Speech was under productive, low volume. Mood described as "I am depressed." Affect was constricted. Mood congruent. Thought process coherent and goal directed. Thought content, the patient denied visual or tactile hallucinations. Denied paranoid ideation. The patient denied thoughts of harming herself or others. The patient does not present to be psychotic. Insight and judgment fair. Impulses are well controlled. IMPRESSION: Rule out major depressive disorder, rule out mood disorder due to general medical condition, rule out adjustment disorder with depressed and anxious mood. PLAN: Continue current management. This news writer provided the patient with emotional support and empathic listening. This news writer offered the patient psychotropic medication for depression and insomnia. The patient refused to take any other medications than she is taking right now. The patient contracted for safety. The patient denied thoughts of harming herself or others. The patient was considered to pose no imminent danger to self or others. The patient was educated about safety plan and in case of the worsening of the symptoms, bring herself back to the hospital. The patient verbalized understanding. This news writer will sign off. Should you have any questions, give me a call back. Chuyita Rivera MD
--- NOTE | 2017-09-04 10:38 | CP.PCM.PN ---
<Liam Nelson - Last Filed: 09/04/17 10:34> Subjective - Date & Time of Evaluation Date of Evaluation: 09/04/17 Time of Evaluation: 10:34 - Subjective Subjective: Podiatry Progress note for Dr. Marinelli 66 year old female with PMH of morbid obesity, chronic painful leg wounds/ cellulitis, HTN, sciatica, and neuropathy was consulted for painful bilaterally wounds and cellulitis. Patient is alert and oriented. Patient was given stat dose of Morphine prior to dressing change. She describes the pain in her bilaterally legs as a burning pain. She reports the pain being less and she feels much better today,Today she reports pain to her heels bilaterally. She denies n/v/sob/cp/chills or f. Objective - Vital Signs/Intake and Output Vital Signs (last 24 hours): Temp Pulse Resp BP Pulse Ox 98.4 F 71 20 129/53 L 95 09/04/17 07:30 09/04/17 07:30 09/04/17 07:30 09/04/17 10:01 09/04/17 07:30 Intake and Output: 09/04/17 09/04/17 06:59 18:59 Intake Total 480 Output Total 1150 Balance -670 - Medications Medications: Current Medications Enoxaparin Sodium (Lovenox) 40 mg SC DAILY [facility] PRN Reason: Protocol Last Admin: 09/04/17 10:07 Dose: 40 mg Furosemide (Lasix) 40 mg IVP DAILY [facility] Last Admin: 09/04/17 10:01 Dose: 40 mg Gabapentin (Neurontin) 300 mg PO TID [facility] PRN Reason: Protocol Last Admin: 09/04/17 10:05 Dose: 300 mg Meropenem 1g/NS 100mL IVPB (Meropenem 1g/Ns 100ml Ivpb) 1 gm in 100 mls @ 100 mls/hr IVPB Q8 [facility] PRN Reason: Protocol Stop: 09/08/17 06:01 Last Admin: 09/04/17 05:46 Dose: 100 mls/hr Linezolid (Zyvox 600mg/300ml D5w) 600 mg in 300 mls @ 200 mls/hr IVPB Q12 [facility] PRN Reason: Protocol Stop: 09/08/17 10:01 Last Admin: 09/04/17 10:08 Dose: 200 mls/hr Morphine Sulfate (Morphine) 2 mg IVP Q3H PRN PRN Reason: Pain, moderate (4-7) Last Admin: 09/04/17 09:12 Dose: 2 mg Nystatin (Nystop Topical Powder) 0 gm TOP BID [facility] Last Admin: 09/03/17 17:12 Dose: 1 applic Ondansetron HCl (Zofran Inj) 4 mg IVP Q6H PRN PRN Reason: Nausea/Vomiting Tramadol HCl (Ultram) 50 mg PO Q6 PRN PRN Reason: Pain, moderate (4-7) Last Admin: 09/04/17 05:55 Dose: 50 mg - Labs Labs: 09/04/17 06:30 09/04/17 06:30 PT 12.2 Seconds (9.9-11.8) H 08/31/17 15:25 INR 1.13 (0.93-1.08) H 08/31/17 15:25 APTT 33.3 Seconds (23.7-30.8) H 08/31/17 15:25 - Constitutional Appears: Well, Non-toxic, No Acute Distress - Extremities Exam Additional comments: Vasc: DP and PT pulses non-palpable due to LE edema. CFT < 3 seconds to digits 1 -10, temperature gradient WNL Neuro: Gross sensation diminished b/l Derm: Venous stasis changes noted to the lower extremity with lichenification of skin all noted extensively to the left foot and ankle, improving. Serous sangious drainage is noted to lower extremity bilaterally. Erythema noted extensively to both legs, improving. Mild malodor present. No purulent drainage. Posterior heel no deep tissue injury, no ulcerations, no erythema to the heels bilaterally. Ortho: Severe pain on palpation to LE b/l. - Neurological Exam Neurological Exam: Alert, Awake, Oriented x3 - Psychiatric Exam Psychiatric exam: Flat Affect, Normal Mood Assessment and Plan - Assessment and Plan (Free Text) Assessment: 66 year old female with painful cellulitis with ulceration to b/l LE Plan: Patient seen and evaluated at bedside Labs, charts and vitals reviewed (afebrile, absent leukocytosis) Discussed plan in detail with attending Dr. Yves CHILEL cleansed with saline and dressed with adaptic, maxosorb, gauze, ABD, and kerlix. Wound culture results- + MRSA and Proteus Mirabilis Continue with abx per ID Continue with pain management per primary team Patient is stable per podiatry Podiatry to continue to follow while in house <Ton Marinelli - Last Filed: 09/06/17 11:26> Objective - Vital Signs/Intake and Output Vital Signs (last 24 hours): Temp Pulse Resp BP Pulse Ox 98.9 F 71 20 133/78 98 09/06/17 07:38 09/06/17 07:38 09/06/17 07:38 09/06/17 11:01 09/06/17 07:38 Intake and Output: 09/06/17 09/06/17 06:59 18:59 Intake Total 1620 Output Total 500 Balance 1120 - Medications Medications: Current Medications Enoxaparin Sodium (Lovenox) 40 mg SC DAILY [facility] PRN Reason: Protocol Last Admin: 09/06/17 10:52 Dose: 40 mg Furosemide (Lasix) 40 mg IVP DAILY [facility] Last Admin: 09/06/17 11:01 Dose: 40 mg Gabapentin (Neurontin) 300 mg PO TID [facility] PRN Reason: Protocol Last Admin: 09/06/17 10:52 Dose: 300 mg Meropenem 1g/NS 100mL IVPB (Meropenem 1g/Ns 100ml Ivpb) 1 gm in 100 mls @ 100 mls/hr IVPB Q8 [facility] PRN Reason: Protocol Stop: 09/08/17 06:01 Last Admin: 09/06/17 06:10 Dose: 100 mls/hr Linezolid (Zyvox 600mg/300ml D5w) 600 mg in 300 mls @ 200 mls/hr IVPB Q12 [facility] PRN Reason: Protocol Stop: 09/08/17 10:01 Last Admin: 09/06/17 10:53 Dose: 200 mls/hr Morphine Sulfate (Morphine) 2 mg IVP Q3H PRN PRN Reason: Pain, moderate (4-7) Last Admin: 09/05/17 16:44 Dose: 2 mg Nystatin (Nystop Topical Powder) 0 gm TOP BID [facility] Last Admin: 09/06/17 10:53 Dose: 1 applic Ondansetron HCl (Zofran Inj) 4 mg IVP Q6H PRN PRN Reason: Nausea/Vomiting Last Admin: 09/06/17 11:00 Dose: 4 mg Tramadol HCl (Ultram) 50 mg PO Q6 PRN PRN Reason: Pain, moderate (4-7) Last Admin: 09/05/17 11:34 Dose: 50 mg - Labs Labs: 09/04/17 06:30 09/04/17 06:30 PT 12.2 Seconds (9.9-11.8) H 08/31/17 15:25 INR 1.13 (0.93-1.08) H 08/31/17 15:25 APTT 33.3 Seconds (23.7-30.8) H 08/31/17 15:25 Attending/Attestation - Attestation I have personally seen and examined this patient.: Yes I have fully participated in the care of the patient.: Yes I have reviewed all pertinent clinical information, including history, physical exam and plan: Yes
[2017-09-04] MEDS: Nystatin 100,000 Units/gm Topical Pow(15 gm) TOP SCH ×2 (14:17→18:16)
--- NOTE | 2017-09-04 18:12 | CP.PCM.PN ---
Subjective - Date & Time of Evaluation Date of Evaluation: 09/04/17 Time of Evaluation: 11:50 - Subjective Subjective: Comfortable, not in distress, afebrile. Objective - Vital Signs/Intake and Output Vital Signs (last 24 hours): Temp Pulse Resp BP Pulse Ox 98.4 F 71 20 129/53 L 95 09/04/17 07:30 09/04/17 07:30 09/04/17 07:30 09/04/17 10:01 09/04/17 07:30 Intake and Output: 09/04/17 09/04/17 06:59 18:59 Intake Total 480 Output Total 1150 Balance -670 - Medications Medications: Current Medications Enoxaparin Sodium (Lovenox) 40 mg SC DAILY [facility] PRN Reason: Protocol Last Admin: 09/04/17 10:07 Dose: 40 mg Furosemide (Lasix) 40 mg IVP DAILY [facility] Last Admin: 09/04/17 10:01 Dose: 40 mg Gabapentin (Neurontin) 300 mg PO TID [facility] PRN Reason: Protocol Last Admin: 09/04/17 10:05 Dose: 300 mg Meropenem 1g/NS 100mL IVPB (Meropenem 1g/Ns 100ml Ivpb) 1 gm in 100 mls @ 100 mls/hr IVPB Q8 [facility] PRN Reason: Protocol Stop: 09/08/17 06:01 Last Admin: 09/04/17 05:46 Dose: 100 mls/hr Linezolid (Zyvox 600mg/300ml D5w) 600 mg in 300 mls @ 200 mls/hr IVPB Q12 [facility] PRN Reason: Protocol Stop: 09/08/17 10:01 Last Admin: 09/04/17 10:08 Dose: 200 mls/hr Morphine Sulfate (Morphine) 2 mg IVP Q3H PRN PRN Reason: Pain, moderate (4-7) Last Admin: 09/04/17 09:12 Dose: 2 mg Nystatin (Nystop Topical Powder) 0 gm TOP BID [facility] Last Admin: 09/03/17 17:12 Dose: 1 applic Ondansetron HCl (Zofran Inj) 4 mg IVP Q6H PRN PRN Reason: Nausea/Vomiting Tramadol HCl (Ultram) 50 mg PO Q6 PRN PRN Reason: Pain, moderate (4-7) Last Admin: 09/04/17 05:55 Dose: 50 mg - Labs Labs: 09/04/17 06:30 09/04/17 06:30 PT 12.2 Seconds (9.9-11.8) H 08/31/17 15:25 INR 1.13 (0.93-1.08) H 08/31/17 15:25 APTT 33.3 Seconds (23.7-30.8) H 08/31/17 15:25 - Constitutional Appears: Non-toxic, No Acute Distress - Head Exam Head Exam: NORMAL INSPECTION - Neck Exam Neck Exam: absent: Meningismus - Respiratory Exam Respiratory Exam: Decreased Breath Sounds - Cardiovascular Exam Cardiovascular Exam: +S1, +S2 - GI/Abdominal Exam GI & Abdominal Exam: Soft. 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 Wagner
[2017-09-05] MEDS: Meropenem 1g/NS 100mL IVPB 1 GM/100 ML PIGGYBACK IVPB SCH ×3 (05:43→21:46)
--- NOTE | 2017-09-05 08:18 | CP.PCM.PN ---
Subjective - Date & Time of Evaluation Date of Evaluation: 09/05/17 Time of Evaluation: 08:40 Objective - Vital Signs/Intake and Output Vital Signs (last 24 hours): Temp Pulse Resp BP Pulse Ox 98.4 F 73 18 125/53 L 94 L 09/05/17 07:53 09/05/17 07:53 09/05/17 07:53 09/05/17 07:53 09/05/17 07:53 Intake and Output: 09/05/17 09/05/17 06:59 18:59 Intake Total 1120 Output Total 600 Balance 520 - Medications Medications: Current Medications Enoxaparin Sodium (Lovenox) 40 mg SC DAILY [facility] PRN Reason: Protocol Last Admin: 09/04/17 10:07 Dose: 40 mg Furosemide (Lasix) 40 mg IVP DAILY [facility] Last Admin: 09/04/17 10:01 Dose: 40 mg Gabapentin (Neurontin) 300 mg PO TID [facility] PRN Reason: Protocol Last Admin: 09/04/17 18:16 Dose: 300 mg Meropenem 1g/NS 100mL IVPB (Meropenem 1g/Ns 100ml Ivpb) 1 gm in 100 mls @ 100 mls/hr IVPB Q8 [facility] PRN Reason: Protocol Stop: 09/08/17 06:01 Last Admin: 09/05/17 05:43 Dose: 100 mls/hr Linezolid (Zyvox 600mg/300ml D5w) 600 mg in 300 mls @ 200 mls/hr IVPB Q12 [facility] PRN Reason: Protocol Stop: 09/08/17 10:01 Last Admin: 09/04/17 23:24 Dose: 200 mls/hr Morphine Sulfate (Morphine) 2 mg IVP Q3H PRN PRN Reason: Pain, moderate (4-7) Last Admin: 09/04/17 09:12 Dose: 2 mg Nystatin (Nystop Topical Powder) 0 gm TOP BID [facility] Last Admin: 09/04/17 18:16 Dose: 1 applic Ondansetron HCl (Zofran Inj) 4 mg IVP Q6H PRN PRN Reason: Nausea/Vomiting Tramadol HCl (Ultram) 50 mg PO Q6 PRN PRN Reason: Pain, moderate (4-7) Last Admin: 09/04/17 05:55 Dose: 50 mg - Labs Labs: 09/04/17 06:30 09/04/17 06:30 PT 12.2 Seconds (9.9-11.8) H 08/31/17 15:25 INR 1.13 (0.93-1.08) H 08/31/17 15:25 APTT 33.3 Seconds (23.7-30.8) H 08/31/17 15:25
--- NOTE | 2017-09-05 10:28 | RAD ---
PROCEDURE: Radiographs of the right tibia and fibula. HISTORY: Please take high tib-fib to r/o OM COMPARISON: None available. TECHNIQUE: Frontal and lateral views obtained. FINDINGS: BONES: No evidence of osteomyelitis. JOINT SPACES: Unremarkable. OTHER FINDINGS: Diffuse lower extremity edema. IMPRESSION: Diffuse, fairly extensive Soft tissue swelling without acute articular or osseous abnormality. Please note: No preliminary report/ innterpretation of this examination provided by emergency department personnel.
[2017-09-05] MEDS: Enoxaparin 40 mg Syringe SC SCH (11:34)
[2017-09-05] MEDS: Linezolid 600 mg in D5W 300 ml 600 MG/300 ML BAG IVPB SCH ×2 (11:36→22:49)
[2017-09-05] MEDS: Nystatin 100,000 Units/gm Topical Pow(15 gm) TOP SCH ×2 (11:36→17:34)
--- NOTE | 2017-09-05 13:11 | NM ---
PROCEDURE: Whole Body Bone Scan HISTORY: rule out osteomyelitis of right leg COMPARISON: September 05, 2017. TECHNIQUE: Following administration of 25.0 miCu of Tc MDP multiplanar whole body images were obtained. FINDINGS: Flow component: Symmetrical flow to the ankles and feet Blood pool component: Intense accumulation of uptake left tibial plateau region and both patella Delayed images at 3:00: Retention of radionuclide left tibial plateau and lateral joint space region IMPRESSION: 1. No evidence of acute osseous process with respect to both ankles and feet. 2. Accumulation and retention of radionuclide in the left tibial plateau proximal tibial region. No plain film correlates are identified. 3. Diffuse bilateral lower extremity edema right lower extremity compared to the left.
--- NOTE | 2017-09-05 14:40 | CP.PCM.PN ---
Subjective - Date & Time of Evaluation Date of Evaluation: 09/05/17 Time of Evaluation: 12:00 - Subjective Subjective: No fevers, still with pain in the legs. Objective - Vital Signs/Intake and Output Vital Signs (last 24 hours): Temp Pulse Resp BP Pulse Ox 98.4 F 73 18 125/53 L 94 L 09/05/17 07:53 09/05/17 07:53 09/05/17 07:53 09/05/17 07:53 09/05/17 07:53 Intake and Output: 09/05/17 09/05/17 06:59 18:59 Intake Total 1120 Output Total 600 Balance 520 - Medications Medications: Current Medications Enoxaparin Sodium (Lovenox) 40 mg SC DAILY [facility] PRN Reason: Protocol Last Admin: 09/04/17 10:07 Dose: 40 mg Furosemide (Lasix) 40 mg IVP DAILY [facility] Last Admin: 09/04/17 10:01 Dose: 40 mg Gabapentin (Neurontin) 300 mg PO TID [facility] PRN Reason: Protocol Last Admin: 09/04/17 18:16 Dose: 300 mg Meropenem 1g/NS 100mL IVPB (Meropenem 1g/Ns 100ml Ivpb) 1 gm in 100 mls @ 100 mls/hr IVPB Q8 [facility] PRN Reason: Protocol Stop: 09/08/17 06:01 Last Admin: 09/05/17 05:43 Dose: 100 mls/hr Linezolid (Zyvox 600mg/300ml D5w) 600 mg in 300 mls @ 200 mls/hr IVPB Q12 [facility] PRN Reason: Protocol Stop: 09/08/17 10:01 Last Admin: 09/04/17 23:24 Dose: 200 mls/hr Morphine Sulfate (Morphine) 2 mg IVP Q3H PRN PRN Reason: Pain, moderate (4-7) Last Admin: 09/04/17 09:12 Dose: 2 mg Nystatin (Nystop Topical Powder) 0 gm TOP BID [facility] Last Admin: 09/04/17 18:16 Dose: 1 applic Ondansetron HCl (Zofran Inj) 4 mg IVP Q6H PRN PRN Reason: Nausea/Vomiting Tramadol HCl (Ultram) 50 mg PO Q6 PRN PRN Reason: Pain, moderate (4-7) Last Admin: 09/04/17 05:55 Dose: 50 mg - Labs Labs: 09/04/17 06:30 09/04/17 06:30 PT 12.2 Seconds (9.9-11.8) H 08/31/17 15:25 INR 1.13 (0.93-1.08) H 08/31/17 15:25 APTT 33.3 Seconds (23.7-30.8) H 08/31/17 15:25 - Constitutional Appears: Non-toxic, No Acute Distress - Head Exam Head Exam: NORMAL INSPECTION - ENT Exam ENT Exam: Mucous Membranes Moist - Neck Exam Neck Exam: absent: Meningismus - Respiratory Exam Respiratory Exam: Decreased Breath Sounds - Cardiovascular Exam Cardiovascular Exam: +S1, +S2 - GI/Abdominal Exam GI & Abdominal Exam: Soft. 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 Wagner previously
[2017-09-05] MEDS: Morphine 2 mg/ml ISec IVP PRN (16:44)
[2017-09-06 00:45] VITALS: RESP 20
[2017-09-06] MEDS: Meropenem 1g/NS 100mL IVPB 1 GM/100 ML PIGGYBACK IVPB SCH ×3 (06:10→21:08)
[2017-09-06] MEDS: Enoxaparin 40 mg Syringe SC SCH (10:52)
[2017-09-06] MEDS: Nystatin 100,000 Units/gm Topical Pow(15 gm) TOP SCH ×2 (10:53→18:12)
[2017-09-06] MEDS: Linezolid 600 mg in D5W 300 ml 600 MG/300 ML BAG IVPB SCH ×2 (10:53→22:54)
[2017-09-06] MEDS: Morphine 2 mg/ml ISec IVP PRN ×2 (12:20→21:41)
--- NOTE | 2017-09-06 17:26 | CP.PCM.PN ---
Subjective - Date & Time of Evaluation Date of Evaluation: 09/06/17 Time of Evaluation: 11:40 - Subjective Subjective: Still with pain in the legs, no fevers overnight. Objective - Vital Signs/Intake and Output Vital Signs (last 24 hours): Temp Pulse Resp BP Pulse Ox 98.9 F 71 20 145/90 98 09/06/17 07:38 09/06/17 07:38 09/06/17 07:38 09/06/17 07:38 09/06/17 07:38 Intake and Output: 09/06/17 09/06/17 06:59 18:59 Intake Total 1620 Output Total 500 Balance 1120 - Medications Medications: Current Medications Enoxaparin Sodium (Lovenox) 40 mg SC DAILY [facility] PRN Reason: Protocol Last Admin: 09/05/17 11:34 Dose: 40 mg Furosemide (Lasix) 40 mg IVP DAILY [facility] Last Admin: 09/05/17 11:37 Dose: 40 mg Gabapentin (Neurontin) 300 mg PO TID [facility] PRN Reason: Protocol Last Admin: 09/05/17 17:34 Dose: 300 mg Meropenem 1g/NS 100mL IVPB (Meropenem 1g/Ns 100ml Ivpb) 1 gm in 100 mls @ 100 mls/hr IVPB Q8 [facility] PRN Reason: Protocol Stop: 09/08/17 06:01 Last Admin: 09/06/17 06:10 Dose: 100 mls/hr Linezolid (Zyvox 600mg/300ml D5w) 600 mg in 300 mls @ 200 mls/hr IVPB Q12 [facility] PRN Reason: Protocol Stop: 09/08/17 10:01 Last Admin: 09/05/17 22:49 Dose: 200 mls/hr Morphine Sulfate (Morphine) 2 mg IVP Q3H PRN PRN Reason: Pain, moderate (4-7) Last Admin: 09/05/17 16:44 Dose: 2 mg Nystatin (Nystop Topical Powder) 0 gm TOP BID [facility] Last Admin: 09/05/17 17:34 Dose: 1 applic Ondansetron HCl (Zofran Inj) 4 mg IVP Q6H PRN PRN Reason: Nausea/Vomiting Tramadol HCl (Ultram) 50 mg PO Q6 PRN PRN Reason: Pain, moderate (4-7) Last Admin: 09/05/17 11:34 Dose: 50 mg - Labs Labs: 09/04/17 06:30 09/04/17 06:30 PT 12.2 Seconds (9.9-11.8) H 08/31/17 15:25 INR 1.13 (0.93-1.08) H 08/31/17 15:25 APTT 33.3 Seconds (23.7-30.8) H 08/31/17 15:25 - Constitutional Appears: Non-toxic, No Acute Distress - Head Exam Head Exam: NORMAL INSPECTION - ENT Exam ENT Exam: Mucous Membranes Moist - Neck Exam Neck Exam: absent: Meningismus - Respiratory Exam Respiratory Exam: Decreased Breath Sounds - Cardiovascular Exam Cardiovascular Exam: +S1, +S2 - GI/Abdominal Exam GI & Abdominal Exam: Soft. 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 Wagner previously
--- NOTE | 2017-09-06 19:06 | CP.PCM.PN ---
<Rosa Miller - Last Filed: 09/06/17 19:03> Subjective - Date & Time of Evaluation Date of Evaluation: 09/06/17 Time of Evaluation: 12:30 - Subjective Subjective: Podiatry Progress note for Dr. Marinelli 66 year old female with PMH of morbid obesity, chronic painful leg wounds/ cellulitis, HTN, sciatica, and neuropathy was consulted for painful bilaterally wounds and cellulitis. Patient is alert and oriented. Patient was given stat dose of Morphine prior to dressing change. She describes the pain in her bilaterally legs as a burning pain. She reports the leg pain is lower than previos week, though she still has focal pain to both her heels. She denies n/v/ sob/cp/chills or f. Objective - Vital Signs/Intake and Output Vital Signs (last 24 hours): Temp Pulse Resp BP Pulse Ox 98.2 F 67 20 116/60 90 L 09/06/17 16:14 09/06/17 16:14 09/06/17 16:14 09/06/17 16:14 09/06/17 16:14 Intake and Output: 09/06/17 09/07/17 18:59 06:59 Intake Total 650 Output Total 1400 Balance -750 - Medications Medications: Current Medications Enoxaparin Sodium (Lovenox) 40 mg SC DAILY [facility] PRN Reason: Protocol Last Admin: 09/06/17 10:52 Dose: 40 mg Furosemide (Lasix) 40 mg IVP DAILY [facility] Last Admin: 09/06/17 11:01 Dose: 40 mg Gabapentin (Neurontin) 300 mg PO TID [facility] PRN Reason: Protocol Last Admin: 09/06/17 18:15 Dose: 300 mg Meropenem 1g/NS 100mL IVPB (Meropenem 1g/Ns 100ml Ivpb) 1 gm in 100 mls @ 100 mls/hr IVPB Q8 [facility] PRN Reason: Protocol Stop: 09/08/17 06:01 Last Admin: 09/06/17 15:00 Dose: 100 mls/hr Linezolid (Zyvox 600mg/300ml D5w) 600 mg in 300 mls @ 200 mls/hr IVPB Q12 [facility] PRN Reason: Protocol Stop: 09/08/17 10:01 Last Admin: 09/06/17 10:53 Dose: 200 mls/hr Morphine Sulfate (Morphine) 2 mg IVP Q3H PRN PRN Reason: Pain, moderate (4-7) Last Admin: 09/06/17 12:20 Dose: 2 mg Nystatin (Nystop Topical Powder) 0 gm TOP BID [facility] Last Admin: 09/06/17 18:12 Dose: 1 applic Ondansetron HCl (Zofran Inj) 4 mg IVP Q6H PRN PRN Reason: Nausea/Vomiting Last Admin: 09/06/17 11:00 Dose: 4 mg Tramadol HCl (Ultram) 50 mg PO Q6 PRN PRN Reason: Pain, moderate (4-7) Last Admin: 09/05/17 11:34 Dose: 50 mg - Labs Labs: 09/04/17 06:30 09/04/17 06:30 PT 12.2 Seconds (9.9-11.8) H 08/31/17 15:25 INR 1.13 (0.93-1.08) H 08/31/17 15:25 APTT 33.3 Seconds (23.7-30.8) H 08/31/17 15:25 - Constitutional Appears: Well, Non-toxic, No Acute Distress - Extremities Exam Additional comments: Vasc: DP and PT pulses non-palpable due to LE edema. CFT < 3 seconds to digits 1 -10, temperature gradient WNL Neuro: Gross sensation diminished b/l Derm: Venous stasis changes noted to the lower extremity with lichenification of skin all noted extensively to the left foot and ankle, improving. Mild serous sangious drainage is noted to lower extremity bilaterally. Erythema noted extensively to both legs, improving. Mild malodor present. No purulent drainage. Posterior heel no deep tissue injury, no ulcerations, no erythema to the heels bilaterally. Ortho: Severe pain on palpation to LE b/l. Assessment and Plan - Assessment and Plan (Free Text) Assessment: 66 year old female with painful cellulitis with venous stasis ulcerations to b/ l LE Plan: Patient seen and evaluated at bedside Labs, charts and vitals reviewed (afebrile, absent leukocytosis) Discussed plan in detail with attending Dr. Yves HCILEL cleansed with saline and dressed with adaptic, maxosorb, gauze, ABD, and kerlix. Wound culture results- + MRSA and Proteus Mirabilis Continue with abx per ID Continue with pain management per primary team Patient is stable per podiatry Podiatry to continue to follow while in house <Ton Marinelli - Last Filed: 09/07/17 09:36> Objective - Vital Signs/Intake and Output Vital Signs (last 24 hours): Temp Pulse Resp BP Pulse Ox 97.9 F 88 20 158/88 H 97 09/07/17 07:30 09/07/17 07:30 09/07/17 07:30 09/07/17 09:18 09/07/17 07:30 Intake and Output: 09/07/17 09/07/17 06:59 18:59 Intake Total 840 Output Total 500 Balance 340 - Medications Medications: Current Medications Enoxaparin Sodium (Lovenox) 40 mg SC DAILY [facility] PRN Reason: Protocol Last Admin: 09/07/17 09:18 Dose: 40 mg Furosemide (Lasix) 40 mg IVP DAILY [facility] Last Admin: 09/07/17 09:18 Dose: 40 mg Gabapentin (Neurontin) 300 mg PO TID [facility] PRN Reason: Protocol Last Admin: 09/07/17 09:19 Dose: 300 mg Meropenem 1g/NS 100mL IVPB (Meropenem 1g/Ns 100ml Ivpb) 1 gm in 100 mls @ 100 mls/hr IVPB Q8 [facility] PRN Reason: Protocol Stop: 09/08/17 06:01 Last Admin: 09/07/17 06:50 Dose: 100 mls/hr Linezolid (Zyvox 600mg/300ml D5w) 600 mg in 300 mls @ 200 mls/hr IVPB Q12 [facility] PRN Reason: Protocol Stop: 09/08/17 10:01 Last Admin: 09/07/17 09:19 Dose: 200 mls/hr Morphine Sulfate (Morphine) 2 mg IVP Q3H PRN PRN Reason: Pain, moderate (4-7) Last Admin: 09/07/17 09:16 Dose: 2 mg Nystatin (Nystop Topical Powder) 0 gm TOP BID [facility] Last Admin: 09/07/17 09:19 Dose: 1 applic Ondansetron HCl (Zofran Inj) 4 mg IVP Q6H PRN PRN Reason: Nausea/Vomiting Last Admin: 09/07/17 09:18 Dose: 4 mg Tramadol HCl (Ultram) 50 mg PO Q6 PRN PRN Reason: Pain, moderate (4-7) Last Admin: 09/05/17 11:34 Dose: 50 mg - Labs Labs: 09/04/17 06:30 09/04/17 06:30 PT 12.2 Seconds (9.9-11.8) H 08/31/17 15:25 INR 1.13 (0.93-1.08) H 08/31/17 15:25 APTT 33.3 Seconds (23.7-30.8) H 08/31/17 15:25 Attending/Attestation - Attestation I have personally seen and examined this patient.: Yes I have fully participated in the care of the patient.: Yes I have reviewed all pertinent clinical information, including history, physical exam and plan: Yes
[2017-09-07] MEDS: Meropenem 1g/NS 100mL IVPB 1 GM/100 ML PIGGYBACK IVPB SCH ×3 (06:50→21:04)
--- NOTE | 2017-09-07 08:30 | PN ---
HISTORY OF PRESENT ILLNESS: She is resting comfortably in bed, still in some pain, but she is improving. She is currently on Lasix, Lovenox, Merrem, morphine, gabapentin, nystatin powder, potassium replacement, Ultram and Zofran. PHYSICAL EXAMINATION: VITAL SIGNS: Her vital signs are 98.4 temperature, 71 pulse, 129/52 blood pressure, 20 respiratory rate and 95% O2 sat on room air. HEENT: Head is atraumatic, normocephalic. Throat is moist. NECK: Supple. HEART: Regular rate. LUNGS: Decreased breath sounds, but clear. ABDOMEN: Soft, obese and nontender. EXTREMITIES: Wrapped up with definitely less swelling. Less inflammation and less smell. LABORATORY DATA: She has 5 white count, 10.8 hemoglobin, 33.2 hematocrit and 277 platelets. She has 139 sodium, potassium 3.7, BUN is 11, creatinine 0.7, much better. GFR is greater than 60 and sugar is 112. Calcium is 8.3. Total bilirubin is 0.2. AST is 17, ALT is 26, alkaline phosphatase is 102, and total protein is 5.9. She is being seen by Psychiatry, Infectious Disease and Podiatry. She is on IV antibiotic and hopefully we will know from Infectious Disease today how long she will need to be on the antibiotics. If it can be a week, I am hoping to get her to TCU. If it is longer, then we are going to have to get her to a subacute rehab at [facility] or [facility]. Recommendation is between So, we will see how she does with the Infectious Disease plan of IV antibiotics and we will take it from there, I am hoping to discharge her though today. Hung Wagner DO MTDD
[2017-09-07] MEDS: Morphine 2 mg/ml ISec IVP PRN (09:16)
[2017-09-07] MEDS: Enoxaparin 40 mg Syringe SC SCH (09:18)
[2017-09-07] MEDS: Nystatin 100,000 Units/gm Topical Pow(15 gm) TOP SCH ×2 (09:19→18:00)
[2017-09-07] MEDS: Linezolid 600 mg in D5W 300 ml 600 MG/300 ML BAG IVPB SCH ×2 (09:19→22:05)
--- NOTE | 2017-09-07 10:06 | CP.PCM.CON ---
Addendum entered and electronically signed by Liam Nelson DPM 09/07/17 10:08 : PLEASE DISREGARD "CONSULT NOTE". THIS IS MEANT TO BE A PROGRESS NOTE. THANK YOU Original Note: <Liam Nelson - Last Filed: 09/07/17 10:04> History of Present Illness - History of Present Illness History of Present Illness: Podiatry Progress note for Dr. Marinelli 66 year old female with PMH of morbid obesity, chronic painful leg wounds/ cellulitis, HTN, sciatica, and neuropathy was consulted for painful bilaterally wounds and cellulitis. Patient is alert and oriented. Patient was given stat dose of Morphine prior to dressing change. She describes the pain in her bilaterally legs as a burning pain. She reports the leg pain is lower than previos week, though she still has focal pain to both her heels. She denies n/v/ sob/cp/chills or f. Past Patient History - Infectious Disease Hx of Infectious Diseases: None - Tetanus Immunizations Tetanus Immunization: Unknown - Past Social History Smoking Status: Never Smoked - CARDIAC Hx Cardiac Disorders: Yes Hx Hypercholesterolemia: Yes Hx Hypertension: Yes - PULMONARY Hx Respiratory Disorders: No - NEUROLOGICAL Hx Neurological Disorder: No - HEENT Hx HEENT Problems: No - RENAL Hx Chronic Kidney Disease: Yes - ENDOCRINE/METABOLIC Hx Hypothyroidism: Yes - HEMATOLOGICAL/ONCOLOGICAL Hx Anemia: Yes - INTEGUMENTARY Hx Dermatological Problems: Yes (cellulities to the bilateral lower extremities since 2010) - MUSCULOSKELETAL/RHEUMATOLOGICAL Hx Arthritis: Yes - GASTROINTESTINAL Hx Gastrointestinal Disorders: Yes Hx Gall Bladder Disease: Yes (gallstones) - GENITOURINARY/GYNECOLOGICAL Hx Incontinence: Yes - PSYCHIATRIC Hx Psychophysiologic Disorder: Yes Hx Depression: Yes - SURGICAL HISTORY Hx Cholecystectomy: Yes Other/Comment: hernia repair - ANESTHESIA Hx Anesthesia: Yes Hx Anesthesia Reactions: No Hx Malignant Hyperthermia: No Meds Allergies/Adverse Reactions: Allergies Allergy/AdvReac Type Severity Reaction Status Date / Time ciprofloxacin [From Cipro] Allergy RASH Verified 06/06/17 16:40 nubia Allergy RASH Verified 06/06/17 16:40 latex Allergy RASH Verified 06/06/17 16:40 Penicillins Allergy RASH Verified 06/06/17 16:41 Sulfa (Sulfonamide Allergy RASH Verified 06/06/17 16:40 Antibiotics) vancomycin Allergy RASH Verified 06/06/17 16:40 roses Allergy RASH Uncoded 07/08/17 16:40 - Medications Medications: Current Medications Enoxaparin Sodium (Lovenox) 40 mg SC DAILY [facility] PRN Reason: Protocol Last Admin: 09/07/17 09:18 Dose: 40 mg Furosemide (Lasix) 40 mg IVP DAILY [facility] Last Admin: 09/07/17 09:18 Dose: 40 mg Gabapentin (Neurontin) 300 mg PO TID [facility] PRN Reason: Protocol Last Admin: 09/07/17 09:19 Dose: 300 mg Meropenem 1g/NS 100mL IVPB (Meropenem 1g/Ns 100ml Ivpb) 1 gm in 100 mls @ 100 mls/hr IVPB Q8 [facility] PRN Reason: Protocol Stop: 09/08/17 06:01 Last Admin: 09/07/17 06:50 Dose: 100 mls/hr Linezolid (Zyvox 600mg/300ml D5w) 600 mg in 300 mls @ 200 mls/hr IVPB Q12 [facility] PRN Reason: Protocol Stop: 09/08/17 10:01 Last Admin: 09/07/17 09:19 Dose: 200 mls/hr Morphine Sulfate (Morphine) 2 mg IVP Q3H PRN PRN Reason: Pain, moderate (4-7) Last Admin: 09/07/17 09:16 Dose: 2 mg Nystatin (Nystop Topical Powder) 0 gm TOP BID [facility] Last Admin: 09/07/17 09:19 Dose: 1 applic Ondansetron HCl (Zofran Inj) 4 mg IVP Q6H PRN PRN Reason: Nausea/Vomiting Last Admin: 09/07/17 09:18 Dose: 4 mg Tramadol HCl (Ultram) 50 mg PO Q6 PRN PRN Reason: Pain, moderate (4-7) Last Admin: 09/05/17 11:34 Dose: 50 mg Physical Exam - Constitutional Appears: Well, Non-toxic - Extremities Exam Additional comments: Vasc: DP and PT pulses non-palpable due to LE edema. CFT < 3 seconds to digits 1 -10, temperature gradient WNL Neuro: Gross sensation diminished b/l Derm: Venous stasis changes noted to the lower extremity with lichenification of skin all noted extensively to the left foot and ankle, improving. Mild serous sangious drainage is noted to lower extremity bilaterally. Erythema noted extensively to both legs, improving. Mild malodor present. No purulent drainage. Posterior heel no deep tissue injury, no ulcerations, no erythema to the heels bilaterally. Ortho: Severe pain on palpation to LE b/l. - Neurological Exam Neurological exam: Alert, Oriented x3 - Psychiatric Exam Psychiatric exam: Normal Affect, Normal Mood Results - Vital Signs Recent Vital Signs: Last Vital Signs Temp 97.9 F 09/07/17 07:30 Pulse 88 09/07/17 07:30 Resp 20 09/07/17 07:30 BP 158/88 H 09/07/17 09:18 Pulse Ox 97 09/07/17 07:30 - Labs Result Diagrams: 09/04/17 06:30 09/04/17 06:30 Assessment & Plan - Assessment and Plan (Free Text) Assessment: 66 year old female with painful cellulitis with venous stasis ulcerations to b/ l LE Plan: Patient seen and evaluated at bedside Labs, charts and vitals reviewed (afebrile, absent leukocytosis) Discussed plan in detail with attending Dr. Marinelli LE cleansed with saline and dressed with adaptic, gauze, ABD, and kerlix. Wound culture results- + MRSA and Proteus Mirabilis Continue with abx per ID Continue with pain management per primary team Patient is stable per podiatry Podiatry to continue to follow while in house <Ton Marinelli - Last Filed: 09/08/17 09:19> Meds - Medications Medications: Current Medications Enoxaparin Sodium (Lovenox) 40 mg SC DAILY [facility] PRN Reason: Protocol Last Admin: 09/07/17 09:18 Dose: 40 mg Furosemide (Lasix) 40 mg IVP DAILY [facility] Last Admin: 09/07/17 09:18 Dose: 40 mg Gabapentin (Neurontin) 300 mg PO TID [facility] PRN Reason: Protocol Last Admin: 09/07/17 17:13 Dose: 300 mg Linezolid (Zyvox 600mg/300ml D5w) 600 mg in 300 mls @ 200 mls/hr IVPB Q12 [facility] PRN Reason: Protocol Stop: 09/08/17 10:01 Last Admin: 09/07/17 22:05 Dose: 200 mls/hr Nystatin (Nystop Topical Powder) 0 gm TOP BID [facility] Last Admin: 09/07/17 18:00 Dose: 1 applic Ondansetron HCl (Zofran Inj) 4 mg IVP Q6H PRN PRN Reason: Nausea/Vomiting Last Admin: 09/07/17 09:18 Dose: 4 mg Tramadol HCl (Ultram) 50 mg PO Q6 PRN PRN Reason: Pain, moderate (4-7) Last Admin: 09/05/17 11:34 Dose: 50 mg Results - Vital Signs Recent Vital Signs: Last Vital Signs Temp 98.6 F 09/08/17 07:30 Pulse 63 09/08/17 07:30 Resp 20 09/08/17 07:30 BP 133/54 L 09/08/17 07:30 Pulse Ox 94 L 09/08/17 07:30 - Labs Result Diagrams: 09/08/17 07:10 09/08/17 07:10 Labs: Laboratory Results - last 24 hr 09/08/17 09/08/17 07:10 07:10 WBC 4.9 RBC 3.88 Hgb 10.9 L Hct 33.9 L MCV 87.4 MCH 28.1 MCHC 32.2 RDW 14.2 Plt Count 304 MPV 8.9 Gran % 51.5 Lymph % (Auto) 24.1 [place] % (Auto) 16.0 H Eos % (Auto) 8.0 H Baso % (Auto) 0.4 Gran # 2.52 Lymph # 1.2 [place] # 0.8 H Eos # 0.4 Baso # 0.02 Sodium 140 Potassium 3.9 Chloride 99 Carbon Dioxide 36 H Anion Gap 9 L BUN 13 Creatinine 0.8 Est GFR ( Amer) > 60 Est GFR (Non-Af Amer) > 60 Random Glucose 103 Calcium 9.0 Total Bilirubin 0.3 AST 26 ALT 34 Alkaline Phosphatase 99 Total Protein 6.0 Albumin 3.0 Globulin 3.1 Albumin/Globulin Ratio 1.0 L Attending/Attestation - Attestation I have personally seen and examined this patient.: Yes I have fully participated in the care of the patient.: Yes I have reviewed all pertinent clinical information: Yes
--- NOTE | 2017-09-07 13:45 | PN ---
SUBJECTIVE: The patient is seen and examined. She is currently tolerating IV antibiotics. Lying in bed. She states that she still has pain bilaterally; however, no chest pain, no shortness of breath, no nausea, no vomiting. PHYSICAL EXAMINATION: VITAL SIGNS: Blood pressure currently is 158/88, pulse rate of 88, temperature is 97.8, and O2 saturation is 99%. HEENT: Normocephalic and atraumatic. Pale conjunctivae. Anicteric sclerae. NECK: No JVD. No thyromegaly. CARDIOVASCULAR: Regular rate and rhythm. S1 and S2 appreciated. LUNGS: Bilateral air entry is positive. No wheezes or rhonchi. ABDOMEN: Nondistended and nontender. Positive bowel sounds. EXTREMITIES: Positive continued changes to the skin; however, the patient's legs are wrapped at this point, so I am unable to actually see and evaluate. LABORATORY DATA: WBC of 5.0, hemoglobin of 10.8, hematocrit of 33.8, and platelets of 277. Chemistry within normal limits except for a BUN of 9, which is on the low side. ASSESSMENT: 1. Bilateral cellulitis. 2. Hypertension. 3. Anemia. PLAN: At this time, we will continue her wound care treatment that she is receiving with the ditcher operator as well as IV Lasix. She is on IV antibiotics at this point as well as tramadol and Neurontin, and we will continue her Lovenox and work to get the patient over to the TCU. Kimo Biswas MD
--- NOTE | 2017-09-07 15:35 | CP.PCM.PN ---
Subjective - Date & Time of Evaluation Date of Evaluation: 09/07/17 Time of Evaluation: 11:40 - Subjective Subjective: Still having pain in the legs, no fevers overnight. Objective - Vital Signs/Intake and Output Vital Signs (last 24 hours): Temp Pulse Resp BP Pulse Ox 97.9 F 88 20 158/88 H 97 09/07/17 07:30 09/07/17 07:30 09/07/17 07:30 09/07/17 07:30 09/07/17 07:30 Intake and Output: 09/07/17 09/07/17 06:59 18:59 Intake Total 840 Output Total 500 Balance 340 - Medications Medications: Current Medications Enoxaparin Sodium (Lovenox) 40 mg SC DAILY [facility] PRN Reason: Protocol Last Admin: 09/06/17 10:52 Dose: 40 mg Furosemide (Lasix) 40 mg IVP DAILY [facility] Last Admin: 09/06/17 11:01 Dose: 40 mg Gabapentin (Neurontin) 300 mg PO TID [facility] PRN Reason: Protocol Last Admin: 09/06/17 18:15 Dose: 300 mg Meropenem 1g/NS 100mL IVPB (Meropenem 1g/Ns 100ml Ivpb) 1 gm in 100 mls @ 100 mls/hr IVPB Q8 [facility] PRN Reason: Protocol Stop: 09/08/17 06:01 Last Admin: 09/07/17 06:50 Dose: 100 mls/hr Linezolid (Zyvox 600mg/300ml D5w) 600 mg in 300 mls @ 200 mls/hr IVPB Q12 [facility] PRN Reason: Protocol Stop: 09/08/17 10:01 Last Admin: 09/06/17 22:54 Dose: 200 mls/hr Morphine Sulfate (Morphine) 2 mg IVP Q3H PRN PRN Reason: Pain, moderate (4-7) Last Admin: 09/06/17 21:41 Dose: 2 mg Nystatin (Nystop Topical Powder) 0 gm TOP BID [facility] Last Admin: 09/06/17 18:12 Dose: 1 applic Ondansetron HCl (Zofran Inj) 4 mg IVP Q6H PRN PRN Reason: Nausea/Vomiting Last Admin: 09/06/17 11:00 Dose: 4 mg Tramadol HCl (Ultram) 50 mg PO Q6 PRN PRN Reason: Pain, moderate (4-7) Last Admin: 09/05/17 11:34 Dose: 50 mg - Labs Labs: 09/04/17 06:30 09/04/17 06:30 PT 12.2 Seconds (9.9-11.8) H 08/31/17 15:25 INR 1.13 (0.93-1.08) H 08/31/17 15:25 APTT 33.3 Seconds (23.7-30.8) H 08/31/17 15:25 - Constitutional Appears: Non-toxic, No Acute Distress - Head Exam Head Exam: NORMAL INSPECTION - ENT Exam ENT Exam: Mucous Membranes Moist - Neck Exam Neck Exam: absent: Meningismus - Respiratory Exam Respiratory Exam: Decreased Breath Sounds - Cardiovascular Exam Cardiovascular Exam: +S1, +S2 - GI/Abdominal Exam GI & Abdominal Exam: Soft. absent: Tenderness - Extremities Exam Additional comments: both legs with dressings in place Assessment and Plan - Assessment and Plan (Free Text) Plan: Assessment right leg skin and skin structure infection with MRSA and multidrug-resistant PRoteus, no evidence of osteomyelitis on bone scan history of bilateral lower extremity cellulitis in a patient with chronic venous stasis and ulcerations, grew MSSA and Klebsiella history of Pseudomonas osteomyelitis in 2013 Morbid obesity with BMI 45 HTN Hyperlipidemia GERD Depression Plan continue Zyvox and Meropenem day 7 - should complete up to 2 weeks of antibiotics will continue to monitor clinically
[2017-09-08] MEDS: Meropenem 1g/NS 100mL IVPB 1 GM/100 ML PIGGYBACK IVPB SCH (05:34)
[2017-09-08 07:15] LABS: BASO # 0.02 K/mm3 (0.0-2.0); BASO % 0.4 % (0.0-3.0); EOS # 0.4 (0.0-0.7); GRAN # 2.52 (1.4-6.5); GRAN % 51.5 % (50.0-68.0); HEMATOCRIT 33.9 % (36.0-48.0); LYMPH # 1.2 (1.2-3.4); LYMPH % 24.1 % (22.0-35.0); MEAN CELL VOLUME 87.4 fl (80.0-105.0); MEAN CORPUSCULAR HEMOGLOBIN 28.1 pg (25.0-35.0); MEAN CORPUSCULAR HGB CONC 32.2 g/dl (31.0-37.0); MEAN PLATELET VOLUME 8.9 fl (7.0-11.0); MONO # 0.8 (0.1-0.6); RED CELL DISTRIBUTION WIDTH 14.2 % (11.5-14.5); WHITE BLOOD COUNT 4.9 10^3/ul (4.5-11.0)
[2017-09-08 07:23] LABS: ALKALINE PHOSPHATASE 99 U/L (38-126); ALT/SGPT 34 U/L (7-56); AST/SGOT 26 U/L (14-36); BILIRUBIN,TOTAL 0.3 mg/dL (0.2-1.3); BLOOD UREA NITROGEN 13 mg/dL (7-21); CARBON DIOXIDE 36 mmol/L (21-33); CHLORIDE 99 mmol/L (95-110); GFR AFRICAN-AMERICAN > 60; GLUCOSE,RANDOM 103 mg/dL (70-110); POTASSIUM 3.9 mmol/L (3.6-5.0); SODIUM 140 mmol/L (132-148)
[2017-09-08 07:42] VITALS: PULSE 63; TEMP 98.6; O2SAT 94
[2017-09-08] MEDS: Enoxaparin 40 mg Syringe SC SCH (10:05)
[2017-09-08 10:11] VITALS: BP 120/63
[2017-09-08] MEDS: Linezolid 600 mg in D5W 300 ml 600 MG/300 ML BAG IVPB SCH (10:33)
[2017-09-08] MEDS: Nystatin 100,000 Units/gm Topical Pow(15 gm) TOP SCH (10:55)
[2017-09-08] MEDS ORDERED: Linezolid 600 mg in D5W 300 ml 600 MG/300 ML BAG IVPB SCH (11:17)
--- NOTE | 2017-09-08 13:16 | PN ---
SUBJECTIVE: She is resting in bed. She is alert. She has got bad cellulitis of both lower extremities with skin issues and infection, on IV antibiotics and needs two more weeks of IV antibiotics and will need physical therapy and will be heading to any subacute rehab that will take her. She is being seen by Infectious Disease, Podiatry, Psychiatry, Vascular. PHYSICAL EXAMINATION: VITAL SIGNS: Vital signs are 98.6 temperature, 63 pulse, 133/54 blood pressure, 20 respiratory rate, 94% O2 saturation on room air. HEENT: Head is atraumatic, normocephalic. HEART: Regular rate. LUNGS: Clear to auscultation. ABDOMEN: Soft, obese, nontender. EXTREMITIES: A +2/4 pitting edema, all wrapped up with cellulitis and excoriation. MEDICATIONS: She is on Lasix, Lovenox, Neurontin, nystatin, Ultram, Zofran, and Zyvox IV. LABORATORY DATA: She has 140 sodium, 3.9 potassium, 13 BUN, creatinine 0.8, GFR is greater than 60, sugar 103, calcium 9. Total bilirubin is 0.3. AST is 26, ALT is 34, alkaline phosphatase 99, total protein is 6. White count is 4.9, hemoglobin 10.9, hematocrit 33.9 and platelets 304. ASSESSMENT AND PLAN: She is being seen by Infectious Disease and Podiatry. Hopefully, we can get her to a subacute rehab for physical therapy and IV antibiotics for her cellulitis and her inability to walk. Hugn Wagner DO
[2017-09-08] MEDS ORDERED: Meropenem 1g/NS 100mL IVPB 1 GM/100 ML PIGGYBACK IVPB SCH (14:00)
--- NOTE | 2017-09-08 14:03 | PN ---
DATE: 09/08/2017 SUBJECTIVE: The patient seen in 574, bed 1 early this morning. No fevers and no chills. PHYSICAL EXAMINATION: VITAL SIGNS: On exam, temperature is 98, blood pressure is 130/50, respiratory rate of 20, heart rate of 63. HEENT: Examination of HEENT is unremarkable. NECK: Supple. LUNGS: Have decreased breath sounds. HEART: Normal S1 and S2. ABDOMEN: Soft, nontender. LABORATORY EXAMINATION: Reveals a white count of 4.9, hemoglobin of 10, platelets of 304 and chemistries reveals a BUN of 13, creatinine of 0.8. Microbiology reveals the right leg with MRSA and Proteus mirabilis and sensitivity is noted. ASSESSMENT AND PLAN: A 66-year-old with right leg skin and skin soft tissue infection with multidrug resistant Proteus, no evidence of osteomyelitis on bone scan and on day #8 of Zyvox and meropenem and review of orders reveals meropenem and Zyvox has been discontinued by pharmacy. We will follow with you. Giles Acosta MD
--- NOTE | 2017-09-08 14:21 | CP.PCM.PN ---
<Liam Nelson - Last Filed: 09/08/17 14:17> Subjective - Date & Time of Evaluation Date of Evaluation: 09/08/17 Time of Evaluation: 14:17 - Subjective Subjective: Podiatry Progress note for Dr. Marinelli 66 year old female with PMH of morbid obesity, chronic painful leg wounds/ cellulitis, HTN, sciatica, and neuropathy was consulted for painful bilaterally wounds and cellulitis. Patient is alert and oriented. Patient was given Tramadol prior to dressing changes. She describes the pain in her bilaterally legs as a burning pain. She reports the leg pain is lower than previous week, though she still has focal pain to both her heels. She denies n/v/sob/cp/chills or f. Objective - Vital Signs/Intake and Output Vital Signs (last 24 hours): Temp Pulse Resp BP Pulse Ox 98.6 F 63 20 120/63 94 L 09/08/17 07:30 09/08/17 07:30 09/08/17 07:30 09/08/17 10:06 09/08/17 07:30 Intake and Output: 09/08/17 09/08/17 06:59 18:59 Intake Total 840 Output Total 352 Balance 488 - Medications Medications: Current Medications Doxycycline Hyclate (Doryx) 100 mg PO Q12 CEM PRN Reason: Protocol Stop: 09/15/17 22:01 Enoxaparin Sodium (Lovenox) 40 mg SC DAILY CEM PRN Reason: Protocol Last Admin: 09/08/17 10:05 Dose: 40 mg Furosemide (Lasix) 40 mg IVP DAILY CEM Last Admin: 09/08/17 10:06 Dose: 40 mg Gabapentin (Neurontin) 300 mg PO TID CEM PRN Reason: Protocol Last Admin: 09/08/17 10:05 Dose: 300 mg Meropenem 1g/NS 100mL IVPB (Meropenem 1g/Ns 100ml Ivpb) 1 gm in 100 mls @ 100 mls/hr IVPB Q8 CEM PRN Reason: Protocol Stop: 09/15/17 14:01 Nystatin (Nystop Topical Powder) 0 gm TOP BID CEM Last Admin: 09/08/17 10:55 Dose: 1 applic Ondansetron HCl (Zofran Inj) 4 mg IVP Q6H PRN PRN Reason: Nausea/Vomiting Last Admin: 09/07/17 09:18 Dose: 4 mg Tramadol HCl (Ultram) 50 mg PO Q6 PRN PRN Reason: Pain, moderate (4-7) Last Admin: 09/08/17 13:55 Dose: 50 mg - Labs Labs: 09/08/17 07:10 09/08/17 07:10 PT 12.2 Seconds (9.9-11.8) H 08/31/17 15:25 INR 1.13 (0.93-1.08) H 08/31/17 15:25 APTT 33.3 Seconds (23.7-30.8) H 08/31/17 15:25 - Constitutional Appears: Well, Non-toxic, No Acute Distress - Extremities Exam Additional comments: Vasc: DP and PT pulses non-palpable due to LE edema. CFT < 3 seconds to digits 1 -10, temperature gradient WNL Neuro: Gross sensation diminished b/l Derm: Venous stasis changes noted to the lower extremity with lichenification of skin all noted extensively to the left foot and ankle, significantly improved. Mild serous sangious drainage is noted to lower extremity bilaterally. Erythema noted extensively to both legs, improving. Mild malodor present. No purulent drainage. Posterior heel no deep tissue injury, no ulcerations, no erythema to the heels bilaterally. Ortho: Severe pain on palpation to LE b/l. - Neurological Exam Neurological Exam: Alert, Awake, Oriented x3 - Psychiatric Exam Psychiatric exam: Normal Affect, Normal Mood Assessment and Plan - Assessment and Plan (Free Text) Assessment: 66 year old female with painful cellulitis with venous stasis ulcerations to b/ l LE, improving Plan: Patient seen and evaluated at bedside Labs, charts and vitals reviewed (afebrile, absent leukocytosis WBC=4.9) Discussed plan in detail with attending Dr. Marinelli LE cleansed with saline and dressed with adaptic, gauze, ABD, and kerlix. Wound culture results- + MRSA and Proteus Mirabilis Continue with abx per ID Continue with pain management per primary team Patient is stable per podiatry Podiatry to continue to follow while in house <Ton Marinelli - Last Filed: 09/08/17 17:19> Objective - Vital Signs/Intake and Output Vital Signs (last 24 hours): Temp Pulse Resp BP Pulse Ox 98.6 F 63 20 120/63 94 L 09/08/17 07:30 09/08/17 07:30 09/08/17 07:30 09/08/17 10:06 09/08/17 07:30 Intake and Output: 09/08/17 09/08/17 06:59 18:59 Intake Total 840 480 Output Total 352 Balance 488 480 - Medications Medications: Current Medications Doxycycline Hyclate (Doryx) 100 mg PO Q12 CEM PRN Reason: Protocol Stop: 09/15/17 22:01 Enoxaparin Sodium (Lovenox) 40 mg SC DAILY CEM PRN Reason: Protocol Last Admin: 09/08/17 10:05 Dose: 40 mg Furosemide (Lasix) 40 mg IVP DAILY [facility] Last Admin: 09/08/17 10:06 Dose: 40 mg Gabapentin (Neurontin) 300 mg PO TID CEM PRN Reason: Protocol Last Admin: 09/08/17 14:17 Dose: 300 mg Meropenem 1g/NS 100mL IVPB (Meropenem 1g/Ns 100ml Ivpb) 1 gm in 100 mls @ 100 mls/hr IVPB Q8 CEM PRN Reason: Protocol Stop: 09/15/17 14:01 Last Admin: 09/08/17 14:17 Dose: 100 mls/hr Nystatin (Nystop Topical Powder) 0 gm TOP BID CEM Last Admin: 09/08/17 10:55 Dose: 1 applic Ondansetron HCl (Zofran Inj) 4 mg IVP Q6H PRN PRN Reason: Nausea/Vomiting Last Admin: 09/07/17 09:18 Dose: 4 mg Tramadol HCl (Ultram) 50 mg PO Q6 PRN PRN Reason: Pain, moderate (4-7) Last Admin: 09/08/17 13:55 Dose: 50 mg - Labs Labs: 09/08/17 07:10 09/08/17 07:10 PT 12.2 Seconds (9.9-11.8) H 08/31/17 15:25 INR 1.13 (0.93-1.08) H 08/31/17 15:25 APTT 33.3 Seconds (23.7-30.8) H 08/31/17 15:25 Attending/Attestation - Attestation I have personally seen and examined this patient.: Yes I have fully participated in the care of the patient.: Yes I have reviewed all pertinent clinical information, including history, physical exam and plan: Yes
== END 2017-09-08 18:20 | DRG 603 ==
LOC: ED 14:10 → ERH 16:20 → 5RNO 18:55 → 5RSO 09-05 19:13
PROVIDERS: ADMIT Family Medicine; ATTEND Family Medicine
DX: L03.115 Cellulitis of right lower limb (principal); L03.116 Cellulitis of left lower limb; L97.829 Non-pressure chronic ulcer of other part of left lower leg with unspecified severity; L97.819 Non-pressure chronic ulcer of other part of right lower leg with unspecified severity; Z68.42 Body mass index [BMI] 45.0-49.9, adult; I10 Essential (primary) hypertension; B95.62 Methicillin resistant Staphylococcus aureus infection as the cause of diseases classified elsewhere; B96.4 Proteus (mirabilis) (morganii) as the cause of diseases classified elsewhere; M19.90 Unspecified osteoarthritis, unspecified site; E66.01 Morbid (severe) obesity due to excess calories; I25.10 Atherosclerotic heart disease of native coronary artery without angina pectoris; E03.9 Hypothyroidism, unspecified; G62.9 Polyneuropathy, unspecified; I87.8 Other specified disorders of veins; E78.5 Hyperlipidemia, unspecified; K21.9 Gastro-esophageal reflux disease without esophagitis; F32.9 Major depressive disorder, single episode, unspecified; D64.9 Anemia, unspecified; Z16.24 Resistance to multiple antibiotics; Z88.0 Allergy status to penicillin; Z88.2 Allergy status to sulfonamides

== ENCOUNTER 2018-10-08 10:59 | Inpatient (IN) | payer MEDICARE, OTHER ==
[2018-10-08 11:27] VITALS: BMI 36.6
[2018-10-08] MEDS ORDERED: Morphine 2 mg/ml ISec IVP STA ×2 (11:36→19:18)
--- NOTE | 2018-10-08 12:03 | CP.PCM.CON ---
<Sylvia Camejo - Last Filed: 10/08/18 12:20> History of Present Illness - History of Present Illness History of Present Illness: Infectious Disease Consult for Brice Ochoa PGY3 This is a 67yo female with past medical history of obesity, HTN, CAD, PVD, cellulitis of LE + for MRSA, peripheral neuropathy for LE pain, swelling, for several weeks. She was given an antibiotic as outpatient by PMD, but does not remember the name. Patient states she has been having pain in those legs for a long time. In ED, patient was found to have maggots living in her legs. She denies chest pain, shortness of breath, nausea/vomiting/diarrhea, fever/chills, dysuria or hematuria. Past medical history: obesity, HTN, CAD, PVD, cellulitis of LE + for MRSA, peripheral neuropathy Past surgical history: cholecystectomy, hernia repair Home meds: Reviewed Allergies: Cipro-rash, PCN-rash, Vanco-rash Social history: Denies EtOH, drug or tobacco use Review of Systems - Review of Systems All systems: reviewed and no additional remarkable complaints except Review of Systems: 12 point ROS reviewed as per HPI and is otherwise negative. Past Patient History - Infectious Disease Hx of Infectious Diseases: None - Tetanus Immunizations Tetanus Immunization: Unknown - Past Social History Smoking Status: Never Smoked - CARDIAC Hx Cardiac Disorders: Yes Hx Hypercholesterolemia: Yes Hx Hypertension: Yes - PULMONARY Hx Respiratory Disorders: No - NEUROLOGICAL Hx Neurological Disorder: No - HEENT Hx HEENT Problems: No - RENAL Hx Chronic Kidney Disease: Yes - ENDOCRINE/METABOLIC Hx Hypothyroidism: Yes - HEMATOLOGICAL/ONCOLOGICAL Hx Anemia: Yes - INTEGUMENTARY Hx Dermatological Problems: Yes (cellulities to the bilateral lower extremities since 2010) - MUSCULOSKELETAL/RHEUMATOLOGICAL Hx Arthritis: Yes - GASTROINTESTINAL Hx Gastrointestinal Disorders: Yes Hx Gall Bladder Disease: Yes (gallstones) - GENITOURINARY/GYNECOLOGICAL Hx Incontinence: Yes - PSYCHIATRIC Hx Psychophysiologic Disorder: Yes Hx Depression: Yes - SURGICAL HISTORY Hx Cholecystectomy: Yes Other/Comment: hernia repair - ANESTHESIA Hx Anesthesia: Yes Hx Anesthesia Reactions: No Hx Malignant Hyperthermia: No Meds Allergies/Adverse Reactions: Allergies Allergy/AdvReac Type Severity Reaction Status Date / Time ciprofloxacin [From Cipro] Allergy RASH Verified 10/08/18 19:20 nubia Allergy RASH Verified 10/08/18 19:20 latex Allergy RASH Verified 10/08/18 19:20 Penicillins Allergy RASH Verified 10/08/18 19:20 Sulfa (Sulfonamide Allergy RASH Verified 10/08/18 19:20 Antibiotics) vancomycin Allergy RASH Verified 10/08/18 19:20 roses Allergy RASH Uncoded 10/08/18 19:20 - Medications Medications: Current Medications Sodium Chloride (Sodium Chloride 0.9%) 1,000 mls @ 100 mls/hr IV .Q10H CEM Physical Exam - Constitutional Appears: No Acute Distress - Head Exam Head Exam: ATRAUMATIC, NORMAL INSPECTION, NORMOCEPHALIC - Eye Exam Eye Exam: Normal appearance, PERRL Pupil Exam: NORMAL ACCOMODATION, PERRL - ENT Exam ENT Exam: Mucous Membranes Moist - Respiratory Exam Respiratory Exam: Clear to Auscultation Bilateral, NORMAL BREATHING PATTERN. absent: Rales, Rhonchi, Wheezes - Cardiovascular Exam Cardiovascular Exam: REGULAR RHYTHM, +S1, +S2. absent: Gallop, Rubs, Systolic Murmur - GI/Abdominal Exam GI & Abdominal Exam: Normal Bowel Sounds, Soft. absent: Mass, Rebound, Rigid, Tenderness - Extremities Exam Additional comments: diffuse bilateral leg swelling with crusting, purulent drainage and maggots. - Neurological Exam Neurological exam: Alert, CN II-XII Intact - Psychiatric Exam Psychiatric exam: Normal Affect, Normal Mood - Skin Skin Exam: Dry, Warm Results - Vital Signs Recent Vital Signs: Last Vital Signs Temp 98.1 F 10/08/18 11:00 Pulse 94 H 10/08/18 11:00 Resp 18 10/08/18 11:00 BP 152/62 H 10/08/18 11:00 Pulse Ox 100 10/08/18 11:00 Assessment & Plan - Assessment and Plan (Free Text) Assessment: 1. Bilateral LE purulent cellulitis - + for MRSA in past - multiple antibiotic allergies causing rash 2. HTN 3. CAD 4. Obesity 5. Peripheral neuropathy Plan: Recommend to obtain XR of bilateral LE to r/o osteo. Previous cultures reviewed. Will start Merrem and Zyvox. Wound cultures pending. Septic work up pending. Podiatry on consult. Will need debridement. Case seen, discussed and reviewed with Dr. Rizzo. Brice Camejo PGY3 <Andrea Rizzo - Last Filed: 10/08/18 21:57> Meds - Medications Medications: Current Medications Gabapentin (Neurontin) 600 mg PO TID CEM; Protocol Last Admin: 10/08/18 16:26 Dose: 600 mg Sodium Chloride (Sodium Chloride 0.9%) 1,000 mls @ 100 mls/hr IV .Q10H CEM Last Admin: 10/08/18 12:57 Dose: 100 mls/hr Meropenem (Merrem Iv 1 Gm Premix) 1 gm in 50 mls @ 100 mls/hr IVPB Q8 CEM; Protocol Stop: 10/15/18 22:01 Linezolid (Zyvox 600mg/300ml D5w) 600 mg in 300 mls @ 200 mls/hr IVPB Q12 CEM; Protocol Stop: 10/15/18 22:01 Morphine Sulfate (Morphine) 2 mg IVP Q4 PRN PRN Reason: Pain, moderate (4-7) Last Admin: 10/08/18 16:54 Dose: 2 mg Results - Vital Signs Recent Vital Signs: Last Vital Signs Temp 98 F 10/08/18 16:33 Pulse 84 10/08/18 16:33 Resp 17 10/08/18 19:21 BP 115/68 10/08/18 16:33 Pulse Ox 100 10/08/18 16:33 - Labs Result Diagrams: 10/08/18 12:51 10/08/18 12:51 Labs: Laboratory Results - last 24 hr 10/08/18 10/08/18 12:51 12:51 WBC 7.0 RBC 4.33 Hgb 11.7 L Hct 36.6 MCV 84.5 MCH 27.0 MCHC 32.0 RDW 14.7 H Plt Count 379 MPV 9.0 Gran % 77.3 H Lymph % (Auto) 10.0 L [place] % (Auto) 11.0 H Eos % (Auto) 1.3 L Baso % (Auto) 0.4 Gran # 5.42 Lymph # (Auto) 0.7 L [place] # (Auto) 0.8 H Eos # (Auto) 0.1 Baso # (Auto) 0.03 Sodium 144 Potassium 3.9 Chloride 108 H Carbon Dioxide 29 Anion Gap 12 BUN 17 Creatinine 0.7 Est GFR ( Amer) > 60 Est GFR (Non-Af Amer) > 60 Random Glucose 115 H Calcium 10.1 Total Bilirubin 0.4 AST 27 ALT 22 Alkaline Phosphatase 116 Lactate Dehydrogenase 304 L Total Creatine Kinase 70 Troponin I < 0.01 D Total Protein 8.1 Albumin 3.9 Globulin 4.2 Albumin/Globulin Ratio 0.9 L Assessment & Plan - Assessment and Plan (Free Text) Plan: Infectious Diseases Attending Physician Attestation Patient seen and examined, discussed with medical assistant. I have reviewed the patient's history of present illness, past medical, family and social histories, personal history, physical exam, lab findings and imaging studies. I agree with the above findings, assessment and plan. In addition, we have started Zvox and Merrem for this patient with lower extremity skin and skin structure infection . Patient with history of drug resistant bacteria from previous wounds. Follow up xray of the legs. Follow up Podiatry evaluation and further plans.
[2018-10-08] MEDS ORDERED: Linezolid 600 mg in D5W 300 ml 600 MG/300 ML BAG IVPB STA (12:09)
[2018-10-08] MEDS ORDERED: MEROPENEM 500 MG in NS 500 MG/50 ML BAG IVPB STA (12:25)
--- NOTE | 2018-10-08 12:34 | ED PDOC ---
Arrival/HPI - General Historian: Patient, Caregiver - History of Present Illness Narrative History of Present Illness (Text): This is a 67 year old female with PMH of bilateral lower extremity cellulitis, osteomyelitis, venous stasis, hypertension, depression, obesity who was BIBA due worsening pain, swelling, and warmth to the bilateral lower extremities for the past month. Pt has refused a dressing change to the bilateral lower extremities due to pain due to application of medihoney. She presents with her resident caregiver, who states that the lower extremities have had increased oozing lately. EMS stated that they noticed maggots coming from the dressing. Pt denies trauma to the legs, fever, chills, chest pain, sob, abdominal pain, weakness. PMD: Ariella Wagner PMH: bilateral lower extremity cellulitis, osteomyelitis, venous stasis, hypertension, depression, obesity PSH: hernia repair Meds: see MAR Allx: see MAR Time/Duration: > week Symptom Onset: Gradual Symptom Course: Worsening Quality: Other (pinching in the bilateral heels, with increased swelling and redness) <Rodger Cervantes - Last Filed: 10/08/18 20:13> <Rik Hughes DO - Last Filed: 10/08/18 20:20> - General Chief Complaint: Upper Extremity Problem/Injury Time Seen by Provider: 10/08/18 11:15 Past Medical History - Provider Review Nursing Documentation Reviewed: Yes - Infectious Disease Hx of Infectious Diseases: None - Tetanus Immunization Tetanus Immunization: Unknown - Cardiac Hx Cardiac Disorders: Yes Hx Hypertension: Yes - Pulmonary Hx Respiratory Disorders: No - Neurological Hx Neurological Disorder: No - HEENT Hx HEENT Disorder: No - Renal Hx Renal Disorder: Yes - Endocrine/Metabolic Hx Hypothyroidism: Yes - Hematological/Oncological Hx Anemia: Yes - Integumentary Hx Dermatological Disorder: Yes (cellulities to the bilateral lower extremities since 2010) - Musculoskeletal/Rheumatological Hx Arthritis: Yes - Gastrointestinal Hx Gastrointestinal Disorders: Yes Hx Gall Bladder Disease: Yes (gallstones) - Genitourinary/Gynecological Hx Incontinence: Yes - Psychiatric Hx Psychophysiologic Disorder: Yes Hx Depression: Yes Hx Substance Use: No - Surgical History Hx Cholecystectomy: Yes Other/Comment: hernia repair - Anesthesia Hx Anesthesia: Yes Hx Anesthesia Reactions: No Hx Malignant Hyperthermia: No - Suicidal Assessment Feels Threatened In Home Enviroment: No <Rodger Cervantes - Last Filed: 10/08/18 20:13> Family/Social History - Physician Review Nursing Documentation Reviewed: Yes Family/Social History: Unknown Family HX Smoking Status: Never Smoked Hx Alcohol Use: No Hx Substance Use: No Hx Substance Use Treatment: No <Rodger Cervantes - Last Filed: 10/08/18 20:13> Allergies/Home Meds <Rodger Cervantes - Last Filed: 10/08/18 20:13> <Rik Hughes DO - Last Filed: 10/08/18 20:20> Allergies/Adverse Reactions: Allergies ciprofloxacin [From Cipro] Allergy (Verified 10/08/18 19:20) RASH nubia Allergy (Verified 10/08/18 19:20) RASH latex Allergy (Verified 10/08/18 19:20) RASH Penicillins Allergy (Verified 10/08/18 19:20) RASH Sulfa (Sulfonamide Antibiotics) Allergy (Verified 10/08/18 19:20) RASH vancomycin Allergy (Verified 10/08/18 19:20) RASH roses Allergy (Uncoded 10/08/18 19:20) RASH Home Medications: Home Meds Medication Instructions Recorded Confirmed traMADol [Ultram] 100 mg PO PRN PRN 06/06/17 10/08/18 Fentanyl [Duragesic Patch] 1 each TOP PRN PRN 10/08/18 10/08/18 Gabapentin [Neurontin] 600 mg PO TID 10/08/18 10/08/18 Meclizine [Meclizine*] 25 mg PO DAILY 10/08/18 10/08/18 Meloxicam [Mobic] 7.5 mg PO DAILY 10/08/18 10/08/18 Review of Systems - Review of Systems Constitutional: Normal Eyes: Normal ENT: Normal Respiratory: Normal Cardiovascular: Normal Gastrointestinal: Normal Genitourinary Female: Normal Musculoskeletal: Normal Skin: Cellulitis (bilateral lower extremities) Neurological: Dizziness (pt's gabapentin dose was recently increased, pt reports dizzines from that) Endocrine: Normal Hemo/Lymphatic: Normal Psychiatric: Anxiety, Depression <Rodger Cervantes - Last Filed: 10/08/18 20:13> Physical Exam Vital Signs Reviewed: Yes Vital Signs Temp Pulse Resp BP Pulse Ox 10/08/18 11:00 98.1 F 94 H 18 152/62 H 100 Temperature: Afebrile Blood Pressure: Hypertensive Pulse: Regular Respiratory Rate: Normal Appearance: Positive for: Non-Toxic, Unkept, Uncomfortable Pain Distress: Moderate Mental Status: Positive for: Alert and Oriented X 3 - Systems Exam Head: Present: Atraumatic, Normocephalic Pupils: Present: PERRL Extroacular Muscles: Present: EOMI Mouth: Present: Moist Mucous Membranes Respiratory/Chest: Present: Clear to Auscultation Cardiovascular: Present: Regular Rate and Rhythm, Normal S1, S2. No: Tachycardic Abdomen: Present: Normal Bowel Sounds. No: Tenderness, Distention, Peritoneal Signs, Rebound, Guarding Upper Extremity: Present: Normal Inspection, NORMAL PULSES. No: Edema Lower Extremity: Present: Swelling (bilateral lower extremity swelling, with redness, TTP, venous stasis changes; dressing with oozing serous material, malodorous, small maggots noted on dressing), Capillary Refill < 2 s (in all toes). No: Temperature Abnormalties Neurological: Present: GCS=15 Skin: Present: Erythematous (see lower extremity examination). No: Cold, Pale Psychiatric: Present: Alert, Oriented x 3, Anxious <Rodger Cervantes - Last Filed: 10/08/18 20:13> Vital Signs Temp Pulse Resp BP Pulse Ox 10/08/18 11:00 98.1 F 94 H 18 152/62 H 100 <Rik Hughes DO - Last Filed: 10/08/18 20:20> Medical Decision Making ED Course and Treatment: 10/08/18 12:40 CBC, CMP, blood cultures, bilateral tibia/fibula x-rays, cardiac isomers, EKG. Morphine for pain, NS IVF bolus 1 L Attending discussed the case with Dr. Wagner who will accept the patient. Dr. Wagner requests Dr. Acosta and Dr. Briones for ID and Podiatry, respectively Attending discussed the case with resident for ID, who requests Linezolid and Meropenem. Antibiotics orders as per recommendations of ID. - EKG Interpretation EKG Interpretation (Text): EKG shows nsr at 96, nonspecific STTW changes; QTc is 469, IA is 150; as read by Emergency department attending Interpreted by ED Physician: Yes - Medication Orders Current Medication Orders: Sodium Chloride (Sodium Chloride 0.9%) 1,000 mls @ 100 mls/hr IV .Q10H CEM Linezolid (Zyvox 600mg/300ml D5w) 600 mg in 300 mls @ 200 mls/hr IVPB STAT STA; Protocol Stop: 10/08/18 13:38 Discontinued Medications Morphine Sulfate (Morphine) 2 mg IVP STAT STA Stop: 10/08/18 11:37 <Rodger Cervantes - Last Filed: 10/08/18 20:13> ED Course and Treatment: 10/08/18 12:57 67 year old female presenting to the emergency room for pain and swelling to bilateral lower extremities. In agreement with resident note, which includes further HPI details. Patient was seen and evaluated with resident, came up with plan and treatment together. - Lab Interpretations Lab Results: 10/08/18 12:51 10/08/18 12:51 Lab Results 10/08/18 12:51: WBC 7.0, RBC 4.33, Hgb 11.7 L, Hct 36.6, MCV 84.5, MCH 27.0, MCHC 32.0, RDW 14.7 H, Plt Count 379, MPV 9.0, Gran % 77.3 H, Lymph % (Auto) 10.0 L, [place] % (Auto) 11.0 H, Eos % (Auto) 1.3 L, Baso % (Auto) 0.4, Gran # 5.42, Lymph # (Auto) 0.7 L, [place] # (Auto) 0.8 H, Eos # (Auto) 0.1, Baso # (Auto) 0.03 10/08/18 12:51: Sodium 144, Potassium 3.9, Chloride 108 H, Carbon Dioxide 29, Anion Gap 12, BUN 17, Creatinine 0.7, Est GFR ( Amer) > 60, Est GFR (Non- Af Amer) > 60, Random Glucose 115 H, Calcium 10.1, Total Bilirubin 0.4, AST 27, ALT 22, Alkaline Phosphatase 116, Lactate Dehydrogenase 304 L, Total Creatine Kinase 70, Troponin I < 0.01 D, Total Protein 8.1, Albumin 3.9, Globulin 4.2, Albumin/Globulin Ratio 0.9 L - RAD Interpretation Radiology Orders: 10/08/18 12:33 TIBIA FIBULA BI [RAD] Routine - Medication Orders Current Medication Orders: Sodium Chloride (Sodium Chloride 0.9%) 1,000 mls @ 100 mls/hr IV .Q10H CEM Last Admin: 10/08/18 12:57 Dose: 100 mls/hr eMAR Start Stop Document 10/08/18 12:57 LA (Rec: 10/08/18 12:57 LA [id number]) Intravenous Solution Start Date 10/08/18 Start Time 12:57 Meropenem (Merrem Iv 1 Gm Premix) 1 gm in 50 mls @ 100 mls/hr IVPB Q8 CEM; Protocol Stop: 10/15/18 22:01 Linezolid (Zyvox 600mg/300ml D5w) 600 mg in 300 mls @ 200 mls/hr IVPB Q12 CEM; Protocol Stop: 10/15/18 22:01 Discontinued Medications Linezolid (Zyvox 600mg/300ml D5w) 600 mg in 300 mls @ 200 mls/hr IVPB STAT STA; Protocol Stop: 10/08/18 13:38 Last Admin: 10/08/18 14:24 Dose: 200 mls/hr eMAR Start Stop Document 10/08/18 14:24 LA (Rec: 10/08/18 14:24 [id number]) Intravenous Solution Start Date 10/08/18 Start Time 14:24 End Date 10/08/18 End time 15:54 Total Infusion Time 90 Meropenem/Sodium Chloride (Merrem Iv 500 Mg/Ns 50 Ml) 500 mg in 50 mls @ 100 mls/hr IVPB STAT STA; Protocol Stop: 10/08/18 12:54 Last Admin: 10/08/18 12:56 Dose: 100 mls/hr eMAR Start Stop Document 10/08/18 12:56 LA (Rec: 10/08/18 12:57 [id number]) Intravenous Solution Start Date 10/08/18 Start Time 12:56 End Date 10/08/18 End time 13:26 Total Infusion Time 30 Morphine Sulfate (Morphine) 2 mg IVP STAT STA Stop: 10/08/18 11:37 Last Admin: 10/08/18 12:48 Dose: 2 mg MAR Pain Assessment Document 10/08/18 12:48 LA (Rec: 10/08/18 12:56 [place] [facility] [place]-ER-20) Pain Reassessment Is this a pain reassessment? No Sleep Is patient sleeping during reassessment? No Presence of Pain Presence of Pain Yes Pain Scale Used Protocol: PSCALES Pain Scale Used Numeric Description Pain Behavior Crying IVP Administration Document 10/08/18 12:48 LA (Rec: 10/08/18 12:56 LA [facility] [place]-ER-20) Charges for Administration # of IVP Administrations 1 <Rik Hughes DO - Last Filed: 10/08/18 20:20> - PA / INSPECTOR PAWNSHOP DETAIL / Resident Statement / has reviewed & agrees with the documentation as recorded. / has examined the patient and agrees with the treatment plan. - Scribe Statement The provider has reviewed the documentation as recorded by the Scribsteffi Hollingsworth All medical record entries made by the Scribe were at my direction and personally dictated by me. I have reviewed the chart and agree that the record accurately reflects my personal performance of the history, physical exam, medical decision making, and the department course for this patient. I have also personally directed, reviewed, and agree with the discharge instructions and disposition. <Rik Hughes DO - Last Filed: 10/08/18 20:20> Disposition/Present on Arrival - Present on Arrival Any Indicators Present on Arrival: No History of DVT/PE: No History of Uncontrolled Diabetes: No Urinary Catheter: No History Surgical Site Infection Following: None - Disposition Have Diagnosis and Disposition been Completed?: Yes Disposition Time: 13:32 Isolation: Contact Patient Plan: Admission (med/surg) <Rodger Cervantes - Last Filed: 10/08/18 20:13> - Disposition Disposition Time: 11:45 <Rik Hughes DO - Last Filed: 10/08/18 20:20> - Disposition Diagnosis: Cellulitis, Lymphedema of both lower extremities, Stasis edema with ulcer of both lower extremities Disposition: HOSPITALIZED Patient Problems: Current Active Problems Problem Status Onset Cellulitis Acute Stasis edema with ulcer of both lower extremities Acute Lymphedema of both lower extremities Acute Condition: FAIR
[2018-10-08] MEDS: Sodium Chloride 0.9% 1,000 ML IV SCH ×2 (12:57→23:14)
[2018-10-08 13:13] LABS: BASO # 0.03 K/mm3 (0.0-2.0); BASO % 0.4 % (0.0-3.0); EOS # 0.1 (0.0-0.7); EOS % 1.3 % (1.5-5.0); GRAN # 5.42 (1.4-6.5); GRAN % 77.3 % (50.0-68.0); HEMOGLOBIN 11.7 g/dL (12.0-16.0); LYMPH # 0.7 (1.2-3.4); MEAN CELL VOLUME 84.5 fl (80.0-105.0); MONO # 0.8 (0.1-0.6); RBC 4.33 10^6/uL (3.5-6.1); RED CELL DISTRIBUTION WIDTH 14.7 % (11.5-14.5)
[2018-10-08 13:24] LABS: ALB/GLOB RATIO 0.9 (1.1-1.8); ALBUMIN 3.9 g/dL (3.0-4.8); ALT/SGPT 22 U/L (7-56); AST/SGOT 27 U/L (14-36); BLOOD UREA NITROGEN 17 mg/dL (7-21); CALCIUM 10.1 mg/dL (8.4-10.5); GFR NON-AFRICAN AMERICAN > 60
[2018-10-08 13:36] LABS: TROPONIN I < 0.01 ng/mL
--- NOTE | 2018-10-08 15:28 | CARD ---
APPROVED REPORT Date of service: 10/08/2018 EKG Measurement Heart [id number] <Conclusion> Poor data quality, interpretation may be adversely affected Normal sinus rhythm with sinus arrhythmia Nonspecific ST and T wave abnormality
[2018-10-08] MEDS: Morphine 2 mg/ml ISec IVP PRN (16:54)
[2018-10-08] MEDS ORDERED: Influenza Vaccine 60 mcg/0.5 mL SYR (4YR UP) IM ONE (20:11)
[2018-10-08] MEDS ORDERED: Pneumococcal 23-Valent Vaccine IM ONE (20:11)
--- NOTE | 2018-10-08 21:15 | CP.PCM.CON ---
History of Present Illness - History of Present Illness History of Present Illness: General Surgery Consult Note for Dr. Watson 67 year old female, past medical history of peripheral neuropathy, HTN, CAD, PVD, and MRSA of the lower extremities, presents with bilateral lower extremity cellulitis, ulcerations, with soft tissue necrosis and underlying maggots. General surgery was consulted to address the status of her current dressings which had not been changed by her home health nurse since 09/22/18. Patient sta henri she refused metahoney because it burned leading to a prolonged period of unchanged dressings. Patient is relatively bed bound and house bound due to her leg wounds. Presented to the ED today because her legs were becoming extremely tender. She denies fever, chills, nausea, vomiting, diarrhea, SOB, chest pain, abdominal pain, or urinary symptoms. PMH: see above PSH: cholecystectomy, ventral hernia repair x2 Soc: Denies tobacco, alcohol drugs ALL: cipro, sulfa, vanco, pcns, latex, nubia Meds: See MAR Supervisor Rolling Room: Dr. Briones Review of Systems - Constitutional Constitutional: absent: Chills, Fever - EENT Eyes: absent: Blurred Vision, Change in Vision - Cardiovascular Cardiovascular: absent: Chest Pain, Dyspnea - Respiratory Respiratory: absent: Cough, Dyspnea - Gastrointestinal Gastrointestinal: absent: Abdominal Pain, Diarrhea, Nausea, Vomiting - Genitourinary Genitourinary: absent: Change in Urinary Stream, Difficulty Urinating - Musculoskeletal Musculoskeletal: Limited Range of Motion, Tingling - Integumentary Integumentary: Bleeding Lesions, Change in Nails, Change in Pigmentation, Changing Lesions, Erythema, Lesions, Non-Healing Lesions, Rash, Skin Pain, Skin Ulcer, Swelling, Wounds - Neurological Neurological: absent: Confusion, Dizziness - Psychiatric Psychiatric: Anxiety. absent: Depression Past Patient History - Infectious Disease Hx of Infectious Diseases: None - Tetanus Immunizations Tetanus Immunization: Unknown - Past Social History Smoking Status: Never Smoked - CARDIAC Hx Cardiac Disorders: Yes Hx Hypertension: Yes - PULMONARY Hx Respiratory Disorders: No - NEUROLOGICAL Hx Neurological Disorder: No - HEENT Hx HEENT Problems: No - RENAL Hx Chronic Kidney Disease: Yes - ENDOCRINE/METABOLIC Hx Hypothyroidism: Yes - HEMATOLOGICAL/ONCOLOGICAL Hx Anemia: Yes - INTEGUMENTARY Hx Dermatological Problems: Yes (cellulities to the bilateral lower extremities since 2010) - MUSCULOSKELETAL/RHEUMATOLOGICAL Hx Arthritis: Yes - GASTROINTESTINAL Hx Gastrointestinal Disorders: Yes Hx Gall Bladder Disease: Yes (gallstones) - GENITOURINARY/GYNECOLOGICAL Hx Incontinence: Yes - PSYCHIATRIC Hx Psychophysiologic Disorder: Yes Hx Depression: Yes Hx Substance Use: No - SURGICAL HISTORY Hx Cholecystectomy: Yes Other/Comment: hernia repair - ANESTHESIA Hx Anesthesia: Yes Hx Anesthesia Reactions: No Hx Malignant Hyperthermia: No Meds Allergies/Adverse Reactions: Allergies Allergy/AdvReac Type Severity Reaction Status Date / Time ciprofloxacin [From Cipro] Allergy RASH Verified 10/08/18 19:20 nubia Allergy RASH Verified 10/08/18 19:20 latex Allergy RASH Verified 10/08/18 19:20 Penicillins Allergy RASH Verified 10/08/18 19:20 Sulfa (Sulfonamide Allergy RASH Verified 10/08/18 19:20 Antibiotics) vancomycin Allergy RASH Verified 10/08/18 19:20 roses Allergy RASH Uncoded 10/08/18 19:20 - Medications Medications: Current Medications Gabapentin (Neurontin) 600 mg PO TID CEM; Protocol Last Admin: 10/08/18 16:26 Dose: 600 mg Sodium Chloride (Sodium Chloride 0.9%) 1,000 mls @ 100 mls/hr IV .Q10H CEM Last Admin: 10/08/18 12:57 Dose: 100 mls/hr Meropenem (Merrem Iv 1 Gm Premix) 1 gm in 50 mls @ 100 mls/hr IVPB Q8 CEM; Protocol Stop: 10/15/18 22:01 Linezolid (Zyvox 600mg/300ml D5w) 600 mg in 300 mls @ 200 mls/hr IVPB Q12 CEM; Protocol Stop: 10/15/18 22:01 Morphine Sulfate (Morphine) 2 mg IVP Q4 PRN PRN Reason: Pain, moderate (4-7) Last Admin: 10/08/18 16:54 Dose: 2 mg Physical Exam - Constitutional Appears: Well, No Acute Distress, Unkempt - Head Exam Head Exam: ATRAUMATIC, NORMAL INSPECTION, NORMOCEPHALIC - Eye Exam Eye Exam: EOMI - ENT Exam ENT Exam: Mucous Membranes Dry - Respiratory Exam Respiratory Exam: NORMAL BREATHING PATTERN. absent: Accessory Muscle Use - Cardiovascular Exam Cardiovascular Exam: REGULAR RHYTHM - GI/Abdominal Exam GI & Abdominal Exam: Normal Bowel Sounds, Soft. absent: Tenderness - Expanded Lower Extremities Exam Left Lower Leg Exam: erythema, swelling, tenderness Ankle exam: swelling, tenderness Foot/Toe exam: erythema, nail avulsion - Neurological Exam Neurological exam: Alert, Oriented x3 - Psychiatric Exam Psychiatric exam: Anxious - Skin Additional comments: extensive lower extremity ulcerations with purulent discharge and maggots and soft tissue necrosis bilaterally/circumferential up to the knee tender to palpation, erythematous, excoriations present, edematous Results - Vital Signs Recent Vital Signs: Last Vital Signs Temp 98 F 10/08/18 16:33 Pulse 84 10/08/18 16:33 Resp 17 10/08/18 19:21 BP 115/68 10/08/18 16:33 Pulse Ox 100 10/08/18 16:33 - Labs Result Diagrams: 10/08/18 12:51 10/08/18 12:51 Labs: Laboratory Results - last 24 hr 10/08/18 10/08/18 12:51 12:51 WBC 7.0 RBC 4.33 Hgb 11.7 L Hct 36.6 MCV 84.5 MCH 27.0 MCHC 32.0 RDW 14.7 H Plt Count 379 MPV 9.0 Gran % 77.3 H Lymph % (Auto) 10.0 L Walker % (Auto) 11.0 H Eos % (Auto) 1.3 L Baso % (Auto) 0.4 Gran # 5.42 Lymph # (Auto) 0.7 L Walker # (Auto) 0.8 H Eos # (Auto) 0.1 Baso # (Auto) 0.03 Sodium 144 Potassium 3.9 Chloride 108 H Carbon Dioxide 29 Anion Gap 12 BUN 17 Creatinine 0.7 Est GFR ( Amer) > 60 Est GFR (Non-Af Amer) > 60 Random Glucose 115 H Calcium 10.1 Total Bilirubin 0.4 AST 27 ALT 22 Alkaline Phosphatase 116 Lactate Dehydrogenase 304 L Total Creatine Kinase 70 Troponin I < 0.01 D Total Protein 8.1 Albumin 3.9 Globulin 4.2 Albumin/Globulin Ratio 0.9 L Assessment & Plan - Assessment and Plan (Free Text) Assessment: 67F w/ extensive soft tissue ulcerations and necrosis in the lower extremities bilaterally Plan: Local wound care with hydrogen peroxide and irrigation with normal saline Xeroform gauze with kerlex and BIANKA bandages applied Podiatry will continue local wound care and dressing changes Further medical management per primary team No surgical intervention at this time Further recommendations per Dr. Walter Lamar PGY1
--- NOTE | 2018-10-08 21:26 | CP.PCM.CON ---
History of Present Illness - History of Present Illness History of Present Illness: Podiatry consult notes for attending Dr. Briones: 67 year old female patient with PMH of morbid obesity, chronic painful leg wounds/cellulitis, HTN, sciatica, and neuropathy seen and evaluated in the bedside for Stasis dermatitis, Maggots infestations, ulcerations and infection to b/l LE. Patient looks in discomfort in the bed. She is AAO X 3. Patient states that she has the leg edema and ulceration problem since 2010. She states that she went through multiple surgeries for her legs (grafts). She states that she used to follow up with Dr. Padilla in the wound care center but now she is following up with Dr. Marinelli who does home visits for her. patient states that she last saw him 3 weeks ago where her applied b/l leg dressing to her for her leg edema and ulcerations. She states that she lost to follow up since then. She states that the lady who helps her with the house came finally and when she saw her legs with maggots on it and smell the bad odor she told her to go to the ED. Patient states that she has sever tingling, numbness and burning sensations ain her legs due to her neuropathy. She denies any other pedal complaint at this time. She denies any sob/cp/chills or f. But she had episode of N/V yesterday PMH: morbid obesity, chronic painful leg wounds/cellulitis, HTN, sciatica, and neuropathyseen and evaluated in the bedside for Stasis dermatitis, Maggots infestations, ulcerations and infection to b/l LE. PSH: Hernioplasty. Cholecystectomy and LE grafts. Allergies: Ciprofloxacin, Kamila, Penicillins, Latex, Sulfa, Vancomycin and Roses allergy. Social HxL: Denies smokng, EtOH use and Illicit drug use Review of Systems - Review of Systems Review of Systems: As per HPI - Constitutional Constitutional: As Per HPI Past Patient History - Infectious Disease Hx of Infectious Diseases: None - Tetanus Immunizations Tetanus Immunization: Unknown - Past Social History Smoking Status: Never Smoked - CARDIAC Hx Cardiac Disorders: Yes Hx Hypertension: Yes - PULMONARY Hx Respiratory Disorders: No - NEUROLOGICAL Hx Neurological Disorder: No - HEENT Hx HEENT Problems: No - RENAL Hx Chronic Kidney Disease: Yes - ENDOCRINE/METABOLIC Hx Hypothyroidism: Yes - HEMATOLOGICAL/ONCOLOGICAL Hx Anemia: Yes - INTEGUMENTARY Hx Dermatological Problems: Yes (cellulities to the bilateral lower extremities since 2010) - MUSCULOSKELETAL/RHEUMATOLOGICAL Hx Arthritis: Yes - GASTROINTESTINAL Hx Gastrointestinal Disorders: Yes Hx Gall Bladder Disease: Yes (gallstones) - GENITOURINARY/GYNECOLOGICAL Hx Incontinence: Yes - PSYCHIATRIC Hx Psychophysiologic Disorder: Yes Hx Depression: Yes Hx Substance Use: No - SURGICAL HISTORY Hx Cholecystectomy: Yes Other/Comment: hernia repair - ANESTHESIA Hx Anesthesia: Yes Hx Anesthesia Reactions: No Hx Malignant Hyperthermia: No Meds Allergies/Adverse Reactions: Allergies Allergy/AdvReac Type Severity Reaction Status Date / Time ciprofloxacin [From Cipro] Allergy RASH Verified 10/08/18 19:20 kamila Allergy RASH Verified 10/08/18 19:20 latex Allergy RASH Verified 10/08/18 19:20 Penicillins Allergy RASH Verified 10/08/18 19:20 Sulfa (Sulfonamide Allergy RASH Verified 10/08/18 19:20 Antibiotics) vancomycin Allergy RASH Verified 10/08/18 19:20 roses Allergy RASH Uncoded 10/08/18 19:20 - Medications Medications: Current Medications Gabapentin (Neurontin) 600 mg PO TID CEM; Protocol Last Admin: 10/08/18 16:26 Dose: 600 mg Sodium Chloride (Sodium Chloride 0.9%) 1,000 mls @ 100 mls/hr IV .Q10H CEM Last Admin: 10/08/18 12:57 Dose: 100 mls/hr Meropenem (Merrem Iv 1 Gm Premix) 1 gm in 50 mls @ 100 mls/hr IVPB Q8 CEM; Protocol Stop: 10/15/18 22:01 Linezolid (Zyvox 600mg/300ml D5w) 600 mg in 300 mls @ 200 mls/hr IVPB Q12 CEM; Protocol Stop: 10/15/18 22:01 Morphine Sulfate (Morphine) 2 mg IVP Q4 PRN PRN Reason: Pain, moderate (4-7) Last Admin: 10/08/18 16:54 Dose: 2 mg Physical Exam - Constitutional Appears: No Acute Distress - Head Exam Head Exam: ATRAUMATIC, NORMOCEPHALIC - Extremities Exam Additional comments: B/L LE focused exam: Vasc: DP/PT pulses non-palpable due to LE edema. cap refill < 3 seconds to all digits, temperature gradient warm to warm. +3 edema on the right side and +2 pitting edema on the left side. Neuro: Gross and protective sensation diminished b/l Derm: Venous stasis changes noted to the lower extremity with lichenification of skin all noted extensively from the knee down to the left foot and ankle and wart like skin changes overlying it b/l. Multiple scattered superficial ulcerations noted b/l both anteriorly and posteriorly the largest is [id number] cm. This ulcer present in the R lower leg and the base is 100% necrotic. Sever malodor noted. Mild scattered patches of erythema noted. mild scattered serous and purulent drainage noted. Scattered farrows present along the leg b/l. Maggots noted allover the leg b/l. MSK: Severe pain on palpation to LE b/l. Couldn't assess muscle power and ROM of the joints due to guarding - Neurological Exam Neurological exam: Alert, Oriented x3 - Psychiatric Exam Psychiatric exam: Anxious Results - Vital Signs Recent Vital Signs: Last Vital Signs Temp 98 F 10/08/18 16:33 Pulse 84 10/08/18 16:33 Resp 17 10/08/18 19:21 BP 115/68 10/08/18 16:33 Pulse Ox 100 10/08/18 16:33 - Labs Result Diagrams: 10/08/18 12:51 10/08/18 12:51 Labs: Laboratory Results - last 24 hr 10/08/18 10/08/18 12:51 12:51 WBC 7.0 RBC 4.33 Hgb 11.7 L Hct 36.6 MCV 84.5 MCH 27.0 MCHC 32.0 RDW 14.7 H Plt Count 379 MPV 9.0 Gran % 77.3 H Lymph % (Auto) 10.0 L Imperial % (Auto) 11.0 H Eos % (Auto) 1.3 L Baso % (Auto) 0.4 Gran # 5.42 Lymph # (Auto) 0.7 L Imperial # (Auto) 0.8 H Eos # (Auto) 0.1 Baso # (Auto) 0.03 Sodium 144 Potassium 3.9 Chloride 108 H Carbon Dioxide 29 Anion Gap 12 BUN 17 Creatinine 0.7 Est GFR ( Amer) > 60 Est GFR (Non-Af Amer) > 60 Random Glucose 115 H Calcium 10.1 Total Bilirubin 0.4 AST 27 ALT 22 Alkaline Phosphatase 116 Lactate Dehydrogenase 304 L Total Creatine Kinase 70 Troponin I < 0.01 D Total Protein 8.1 Albumin 3.9 Globulin 4.2 Albumin/Globulin Ratio 0.9 L Assessment & Plan - Assessment and Plan (Free Text) Assessment: 67 year old female patient seen and evaluated in the bedside for Stasis dermatitis, Maggots infestations, ulcerations and infection to b/l LE Plan: Patient seen and evaluated at bedside Plan discussed in details with attending Dr. Briones. Labs, charts and vitals reviewed (afebrile, WBC=7) B/L Tib-fibula X-ray reviewed: Massive soft tissue swelling, Osteopenia and no other bone anomalies Wound culture taken and sent to lab- pending results ID consulted; Recommendations appreciated Ordered CASSI/PVR b/l Ordred bone scan to R/O Osteomyelitis. Ordered venous duplex b/l LE cleansed with peroxide and saline then dressed with xeroform gauze, ABD, and kerlix. Patient is on Zyvox 600 mg Q12 IV Continue with pain management per primary team Podiatry to continue to follow while in house - Date & Time Date: 10/08/18 Time: 21:27
[2018-10-08] MEDS: Meropenem IV 1 gm in NS 1 GM/50 ML BAG IVPB SCH (23:13)
[2018-10-08] MEDS: Linezolid 600 mg in D5W 300 ml 600 MG/300 ML BAG IVPB SCH (23:15)
--- NOTE | 2018-10-09 07:54 | HP ---
DATE OF EXAM: 10/08/2018 HISTORY OF PRESENT ILLNESS: I have known Luci for many years. She is in and out of the hospital numerous times. I have been doing house calls on her, I have not done a house call on her in the past month or so. She has not seen anybody in the home, no visiting nurses came, and now she has not had her wound bandages removed or changed in the past 3 weeks. She has not called anybody to help with this. There is a very bad smell. I have been telling her to go to the emergency room for a while now, at least 2 weeks, and she has been refusing. When friends have called and told us that there is a smell and oozing from her legs, and she would not go, finally get to a point where there is too much pain, even though she is on a Duragesic patch. This is a 67-year-old female with a past medical history of bilateral lower extremity cellulitis, necrosis, osteomyelitis, venous stasis, hypertension, depression and obesity with pain, who has been noncompliant over the past 5-6 years, on and off with antibiotics and care, who came in by ambulance with worsening pain, swelling, odor. Even the application of Medihoney made it painful, increasing oozing, and now she is in the ER. PAST MEDICAL HISTORY: She has a past medical history of bilateral lower leg cellulitis, osteomyelitis, venous stasis, hypertension, depression, obesity. She had a hernia repair and multiple debridements of the lower extremities. She is morbidly obese, hypertension, renal insufficiency, hypothyroid. She is dealing with cellulitis since 2010. She has arthritis, gallstone history, incontinence, depression, hernia repair. FAMILY HISTORY: Hypertension, diabetes in the family. SOCIAL HISTORY: No smoking. No drinking. No drugs. ALLERGIES: TO CIPRO, ERNIE, LATEX, PENICILLIN, SULFA, VANCOMYCIN. MEDICATIONS: She is on tramadol, Duragesic patch, Neurontin, meclizine, Mobic, on and off with antibiotics at home. REVIEW OF SYSTEMS: No acute vision or hearing changes. No shortness of breath or cough. No chest pain or palpitations. No nausea, vomiting, constipation, diarrhea. Incontinent of urine. She has cellulitis of both lower extremities, very edematous. She has dizziness. Her gabapentin was increased due to pain in lower extremities. She is anxious, depressed. PHYSICAL EXAMINATION: GENERAL: She is alert, in pain, uncomfortable, moderate distress, odor from the legs. Alert and oriented x3. VITAL SIGNS: She has a 98.1 temperature, 94 pulse, 18 respiratory rate, 152/62 blood pressure, 100% O2 sat. HEENT: Head is atraumatic, normocephalic. Extraocular muscles are intact. Pupils reactive to light and accommodation. Membranes are moist. NECK: Supple. HEART: Regular rate. Normal S1, S2. LUNGS: Decreased breath sounds bilaterally, but clear to auscultation. ABDOMEN: Soft, nontender. Positive bowel sounds. No guarding, rebound or CVA tenderness. EXTREMITIES: Have +4/4 pitting edema, swelling in bilateral lower extremities, redness, stasis dermatitis changes, oozing serous material, malodorous, small maggots noted on the dressing. NEUROLOGIC: GCS is 15. Cranial nerves II-XII grossly intact. Erythematous lower extremities. Anxious. LABORATORY DATA: She had multiple tests done in the ER. She has 144 sodium, potassium 3.9, BUN 17, creatinine 0.7, GFR is greater than 60, sugar is 115, calcium is 10.1, total bili is 0.4. AST is 27, ALT is 22, alk phos 116. Lactate dehydrogenase is 204, total creatine kinase is 70. Troponin-I is less than 0.01, total protein is 8.1, albumin is 3.9 and globulin is 4.2. White count is 7, hemoglobin 11.7, hematocrit 36.6, platelets of 379. She has a tib-fib that is pending. An EKG that shows normal sinus rhythm, sinus arrhythmia. She has consults already from Podiatry, Infectious Disease, and Surgery. This will need to be debrided, IV antibiotics. She is in very bad trouble with bilateral lower extremities cellulitis, maggot infestation, oozing, necrosis. She is on Zyvox, IV fluids, Neurontin, morphine for pain, Merrem IV. Hopefully, she will improve. Hung Wagner DO
[2018-10-09] MEDS: Morphine 2 mg/ml ISec IVP PRN (09:55)
--- NOTE | 2018-10-09 10:43 | RAD ---
Date of service: 10/08/2018 PROCEDURE: Radiographs of the bilateral Tibiae and Fibulae. HISTORY: r/o osteo COMPARISON: None available. TECHNIQUE: Frontal and lateral views obtained. FINDINGS: BONES: RIGHT TIBIA: No fracture or destructive lesion. Severe diffuse bone demineralization. LEFT TIBIA: No fracture. There are several lucencies in the distal tibia. Severe diffuse bone demineralization. JOINT SPACES: RIGHT TIBIA: Normal. LEFT TIBIA: Normal. SOFT TISSUES: RIGHT TIBIA: Mild periarticular soft tissue swelling. LEFT TIBIA: Moderate periarticular soft tissue swelling. OTHER FINDINGS: None. IMPRESSION: Diffuse bone demineralization. No radiographic evidence for right sided osteomyelitis. If there is a persistent clinical concern, correlation with MRI is recommended Several lucencies in the distal left tibia are nonspecific and could be related to osteoporosis however osteomyelitis cannot be excluded given severe periarticular soft tissue swelling which likely represents cellulitis. Correlation with MRI is recommended for further.
[2018-10-09] MEDS: Linezolid 600 mg in D5W 300 ml 600 MG/300 ML BAG IVPB SCH ×2 (11:30→22:18)
--- NOTE | 2018-10-09 12:09 | CP.PCM.PN ---
Subjective - Date & Time of Evaluation Date of Evaluation: 10/09/18 Time of Evaluation: 12:02 - Subjective Subjective: Podiatry progress notes for attending Dr. Briones: 67 year old female patient y seen and evaluated in the bedside for Stasis dermatitis, Maggots infestations, ulcerations and infection to b/l LE. Patient was resting in the bed and NAD today. She is AAO X 3. Patient states that she still has the sever burning pain specially when someone touches her legs and feet. She denies any other pedal complaint at this time. She denies any ov ernight sob/cp/chills/n/v or f. Objective - Vital Signs/Intake and Output Vital Signs (last 24 hours): Temp Pulse Resp BP Pulse Ox 99.5 F 78 18 133/96 H 97 10/09/18 06:00 10/09/18 06:00 10/09/18 06:00 10/09/18 06:00 10/09/18 06:00 - Medications Medications: Current Medications Gabapentin (Neurontin) 600 mg PO TID CEM; Protocol Last Admin: 10/08/18 16:26 Dose: 600 mg Sodium Chloride (Sodium Chloride 0.9%) 1,000 mls @ 100 mls/hr IV .Q10H CEM Last Admin: 10/08/18 23:14 Dose: 100 mls/hr Meropenem (Merrem Iv 1 Gm Premix) 1 gm in 50 mls @ 100 mls/hr IVPB Q8 CEM; Protocol Stop: 10/15/18 22:01 Last Admin: 10/08/18 23:13 Dose: 100 mls/hr Linezolid (Zyvox 600mg/300ml D5w) 600 mg in 300 mls @ 200 mls/hr IVPB Q12 CEM; Protocol Stop: 10/15/18 22:01 Last Admin: 10/08/18 23:15 Dose: 200 mls/hr Morphine Sulfate (Morphine) 2 mg IVP Q4 PRN PRN Reason: Pain, moderate (4-7) Last Admin: 10/09/18 09:55 Dose: 2 mg - Labs Labs: 10/08/18 12:51 10/08/18 12:51 - Constitutional Appears: Well, Non-toxic, No Acute Distress - Head Exam Head Exam: ATRAUMATIC, NORMOCEPHALIC - Extremities Exam Additional comments: B/L LE focused exam: Vasc: DP/PT pulses non-palpable due to LE edema. cap refill < 3 seconds to all digits, temperature gradient warm to warm. +3 edema on the right side and +2 pitting edema on the left side. Neuro: Gross and protective sensation diminished b/l Derm: Venous stasis changes noted to the lower extremity with lichenification of skin all noted extensively from the knee down to the left foot and ankle and wart like skin changes overlying it b/l. Multiple scattered superficial ulcerations noted b/l both anteriorly and posteriorly the largest is [id number]. This ulcer present in the R lower leg and the base is 100% necrotic. Malodor noted but less sever than yesterday. Mild scattered patches of erythema noted. mild scattered serous and purulent drainage noted. Scattered farrows present along the leg b/l. No Maggots noted today leg b/l. MSK: Severe pain on palpation to LE b/l specially at the heel L > R. Couldn't assess muscle power and ROM of the joints due to guarding and pain. - Neurological Exam Neurological Exam: Alert, Awake, Oriented x3 Assessment and Plan - Assessment and Plan (Free Text) Assessment: 67 year old female patient seen and evaluated in the bedside for Stasis dermatitis, Maggots infestations, ulcerations and infection to b/l LE Plan: Patient seen and evaluated at bedside Plan discussed in details with attending Dr. Briones. Labs, charts and vitals reviewed afebrile, WBC=7 (10/08) B/L Tib-fibula X-ray reviewed: Massive soft tissue swelling, Osteopenia B/L and several spots of radiolucincies noted on the L side might be due to osteopenia or due to osteomyelitis Wound culture taken and sent to lab- pending results ID consulted; Recommendations appreciated Ordered CASSI/PVR b/l. Patient went today to ultrasound but couldn't be done. Ordred bone scan to R/O Osteomyelitis. Ordered venous duplex b/l. Patient went today to ultrasound but couldn't be done. LE cleansed with peroxide and saline then dressed with xeroform gauze, ABD, and kerlix. Patient is on Zyvox 600 mg Q12 IV. Ordered multipodus boot. Patient to stay in the boot while she is on bed. Continue with pain management per primary team. Podiatry to continue to follow up the patient while in house
[2018-10-09] MEDS: Meropenem IV 1 gm in NS 1 GM/50 ML BAG IVPB SCH (13:41)
--- NOTE | 2018-10-09 14:55 | CP.PCM.PN ---
Subjective - Date & Time of Evaluation Date of Evaluation: 10/09/18 Time of Evaluation: 12:50 - Subjective Subjective: Comfortable in bed, no fevers but still having pain in the legs, no nausea, no diarrhea. Objective - Vital Signs/Intake and Output Vital Signs (last 24 hours): Temp Pulse Resp BP Pulse Ox 98 F 84 17 115/68 100 10/08/18 16:33 10/08/18 16:33 10/08/18 19:21 10/08/18 16:33 10/08/18 16:33 - Medications Medications: Current Medications Gabapentin (Neurontin) 600 mg PO TID CEM; Protocol Last Admin: 10/08/18 16:26 Dose: 600 mg Sodium Chloride (Sodium Chloride 0.9%) 1,000 mls @ 100 mls/hr IV .Q10H CEM Last Admin: 10/08/18 12:57 Dose: 100 mls/hr Meropenem (Merrem Iv 1 Gm Premix) 1 gm in 50 mls @ 100 mls/hr IVPB Q8 CEM; Protocol Stop: 10/15/18 22:01 Linezolid (Zyvox 600mg/300ml D5w) 600 mg in 300 mls @ 200 mls/hr IVPB Q12 CEM; Protocol Stop: 10/15/18 22:01 Morphine Sulfate (Morphine) 2 mg IVP Q4 PRN PRN Reason: Pain, moderate (4-7) Last Admin: 10/08/18 16:54 Dose: 2 mg - Labs Labs: 10/08/18 12:51 10/08/18 12:51 - Constitutional Appears: Chronically Ill - Head Exam Head Exam: NORMAL INSPECTION - Respiratory Exam Respiratory Exam: Decreased Breath Sounds - Cardiovascular Exam Cardiovascular Exam: +S1, +S2 - GI/Abdominal Exam GI & Abdominal Exam: Soft. 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
[2018-10-09] MEDS: Enoxaparin 40 mg Syringe SC SCH (17:52)
--- NOTE | 2018-10-09 21:01 | PN ---
DATE: 10/09/2018 SUBJECTIVE: I saw her last night and admitted her due to being a poor compliant patient. I do house calls on her. She has not had her legs checked or rewrapped. The same bandages have been on for 3 weeks that is very foul smelling. There are maggots in the wounds. There are wounds and possible gangrene in there with Podiatry and Surgery consults to debride these legs. Also, IV antibiotics by Infectious Disease, Merrem, morphine, Neurontin, IV fluid, and Zyvox. She is uncomfortable. She tells me the leg are burning. She is on pain medications that help. PHYSICAL EXAMINATION: VITAL SIGNS: She has a 99.5 temp, 133/96 blood pressure, 78 pulse, 18 respiratory rate, 97% O2 sat on room air. HEENT: Head is atraumatic, normocephalic. HEART: Regular rate. LUNGS: Decreased breath sounds but clear. ABDOMEN: Soft, obese, nontender. Positive bowel sounds. EXTREMITIES: Wrapped, extremely edematous. She is going to get some Lasix. She is on IV antibiotics. She has to have them checked up by Infectious Disease, Surgery, and Podiatry. LABORATORY DATA: She has a 7 white count, 11.7 hemoglobin, 36.6 hematocrit with 379 platelets. Sodium 144, potassium 3.9, BUN 17, creatinine 0.7, GFR is greater than 60, sugar is 115, calcium is 10.1. Total bili is 0.4, AST is 27, ALT is 22, alk phos 116, lactate dehydrogenase is 304, total creatinine kinase is 70, troponin I is less than 0.01, total protein is 8.1. ASSESSMENT AND PLAN: They are extremely oozing allover with swelling and stasis dermatitis, maggots infestation, ulcerations, infections, possible gangrene in there too that need to be debrided. They are very bad shaped. There was a tibia fibula x-ray, which shows diffuse bone demineralization. No evidence of osteomyelitis that was on the right, but on the left, osteomyelitis cannot be excluded. She might have osteomyelitis in the left leg. We could check her labs tomorrow. Continue with the aggressive treatment and care and debridement and antibiotics and hopefully she will improve. She might need to go for 6 weeks of IV antibiotics. I will discuss that with Infectious Disease. She is here for severe cellulitis, ulcers, foul-smelling maggot infestation, ulcers, may be some gangrene. Hung Wagner DO
[2018-10-09] MEDS: Sodium Chloride 0.9% 1,000 ML IV SCH (22:22)
[2018-10-10] MEDS: Meropenem IV 1 gm in NS 1 GM/50 ML BAG IVPB SCH ×5 (01:47→21:50)
[2018-10-10] MEDS: Morphine 2 mg/ml ISec IVP PRN (06:26)
[2018-10-10 08:14] LABS: HEMOGLOBIN 9.2 g/dL (12.0-16.0); MEAN CELL VOLUME 84.9 fl (80.0-105.0); MEAN CORPUSCULAR HEMOGLOBIN 26.3 pg (25.0-35.0); MEAN PLATELET VOLUME 9.3 fl (7.0-11.0); RBC 3.5 10^6/uL (3.5-6.1); RED CELL DISTRIBUTION WIDTH 15.2 % (11.5-14.5); WHITE BLOOD COUNT 6.7 10^3/uL (4.5-11.0)
[2018-10-10 08:55] LABS: ALB/GLOB RATIO 0.8 (1.1-1.8); ALBUMIN 2.4 g/dL (3.0-4.8); ALT/SGPT 23 U/L (7-56); AST/SGOT 16 U/L (14-36); BLOOD UREA NITROGEN 10 mg/dL (7-21); CALCIUM 8.1 mg/dL (8.4-10.5); GFR NON-AFRICAN AMERICAN > 60
[2018-10-10] MEDS: Enoxaparin 40 mg Syringe SC SCH (08:59)
[2018-10-10] MEDS: Linezolid 600 mg in D5W 300 ml 600 MG/300 ML BAG IVPB SCH ×2 (08:59→21:56)
[2018-10-10] MEDS ORDERED: Potassium Chloride 20 mEq ER Tab PO ONE (10:29)
[2018-10-10] MEDS: Morphine 2 mg/ml ISec IVP SCH ×4 (11:37→21:45)
--- NOTE | 2018-10-10 12:05 | CP.PCM.PN ---
Subjective - Date & Time of Evaluation Date of Evaluation: 10/10/18 Time of Evaluation: 11:57 - Subjective Subjective: Podiatry progress notes for attending Dr. Briones: 67 year old female patient seen and evaluated in the bedside for Stasis dermatitis, Maggots infestations, ulcerations and infection to b/l LE. Patient was resting in the bed and NAD today. She is AAO X 3. Patient states that she still has sever burning pain specially when someone touches her legs and feet. Patient states that she couldn't sleep last night due to her burning pain. She denies any other pedal complaint at this time. She denies any overnight sob/cp/chills/n/v or f. Objective - Vital Signs/Intake and Output Vital Signs (last 24 hours): Temp Pulse Resp BP Pulse Ox 99.6 F 69 18 122/52 L 94 L 10/10/18 06:00 10/10/18 06:00 10/10/18 06:00 10/10/18 11:36 10/10/18 06:00 Intake and Output: 10/10/18 10/10/18 06:59 18:59 Intake Total 240 Balance 240 - Medications Medications: Current Medications Enoxaparin Sodium (Lovenox) 40 mg SC DAILY CEM; Protocol Last Admin: 10/10/18 08:59 Dose: 40 mg Furosemide (Lasix) 20 mg IVP DAILY CEM Gabapentin (Neurontin) 600 mg PO QID CEM; Protocol Meropenem (Merrem Iv 1 Gm Premix) 1 gm in 50 mls @ 100 mls/hr IVPB Q8 CEM; Protocol Stop: 10/15/18 22:01 Last Admin: 10/10/18 06:27 Dose: 100 mls/hr Linezolid (Zyvox 600mg/300ml D5w) 600 mg in 300 mls @ 200 mls/hr IVPB Q12 CEM; Protocol Stop: 10/15/18 22:01 Last Admin: 10/10/18 08:59 Dose: 200 mls/hr Sodium Chloride (Sodium Chloride 0.9%) 1,000 mls @ 60 mls/hr IV .[id number] CEM Morphine Sulfate (Morphine) 2 mg IVP Q3 CEM Last Admin: 10/10/18 11:37 Dose: 2 mg - Labs Labs: 10/10/18 07:00 10/10/18 07:00 - Constitutional Appears: No Acute Distress - Head Exam Head Exam: ATRAUMATIC, NORMOCEPHALIC - Extremities Exam Additional comments: B/L LE focused exam: Vasc: DP/PT pulses non-palpable due to LE edema. cap refill < 3 seconds to all digits, temperature gradient warm to warm. +3 edema on the right side and +2 pitting edema on the left side. Neuro: Gross and protective sensation diminished b/l Derm: Venous stasis changes noted to the lower extremity with lichenification of skin all noted extensively from the knee down to the left foot and ankle and wart like skin changes overlying it b/l. Multiple scattered superficial ulc erations noted b/l both anteriorly and posteriorly the largest is [id number]. This ulcer present in the R lower leg and the base is 100% necrotic. another ulcer measures [id number] noted to the R upper leg. Malodor noted but less sever than yesterday. Mild scattered patches of erythema noted. mild scattered serous and purulent drainage noted. Scattered farrows present along the leg b/l. No Maggots noted today leg b/l. MSK: Severe pain on palpation to LE b/l specially at the heel L > R. Couldn't assess muscle power and ROM of the joints due to guarding and pain. - Neurological Exam Neurological Exam: Alert, Awake, Oriented x3 Assessment and Plan - Assessment and Plan (Free Text) Assessment: 67 year old female patient seen and evaluated in the bedside for Stasis dermatitis, Maggots infestations, ulcerations and infection to b/l LE Plan: Patient seen and evaluated at bedside Plan discussed in details with attending Dr. Briones. Labs, charts and vitals reviewed afebrile, WBC 6.7 B/L Tib-fibula X-ray reviewed: Massive soft tissue swelling, Osteopenia B/L and several spots of radiolucincies noted on the L side might be due to osteopenia or due to osteomyelitis. Wound culture Preliminary results: R leg : Gram negative rods and gram positive cocci. L leg : Gram negative rods, Gram negative rods #2 and gram positive cocci ID consulted; Recommendations appreciated Ordered CASSI/PVR b/l. Patient went yesterday to ultrasound but couldn't be done. Ordered bone scan to R/O Osteomyelitis. Ordered venous duplex b/l. Patient went yesterday to ultrasound but couldn't be done. LE cleansed with peroxide and saline then dressed with xeroform gauze, ABD, and kerlix. Patient is on Zyvox 600 mg Q12 IV, Meropinim 500 mg Q8 IV. Continue Abx as per primary team. Patient to continue staying in the multipodus boot while she is on bed. Continue with pain management per primary team. Podiatry to continue to follow up the patient while in house
--- NOTE | 2018-10-10 13:41 | CP.PCM.PN ---
Subjective - Date & Time of Evaluation Date of Evaluation: 10/10/18 Time of Evaluation: 12:00 - Subjective Subjective: Afebrile, not in distress but still with pain in the legs. Objective - Vital Signs/Intake and Output Vital Signs (last 24 hours): Temp Pulse Resp BP Pulse Ox 99.5 F 78 18 133/96 H 97 10/09/18 06:00 10/09/18 06:00 10/09/18 06:00 10/09/18 06:00 10/09/18 06:00 - Medications Medications: Current Medications Enoxaparin Sodium (Lovenox) 40 mg SC DAILY CEM; Protocol Furosemide (Lasix) 40 mg IVP DAILY CEM Gabapentin (Neurontin) 600 mg PO TID CEM; Protocol Last Admin: 10/09/18 13:41 Dose: 600 mg Sodium Chloride (Sodium Chloride 0.9%) 1,000 mls @ 100 mls/hr IV .Q10H CEM Last Admin: 10/08/18 23:14 Dose: 100 mls/hr Meropenem (Merrem Iv 1 Gm Premix) 1 gm in 50 mls @ 100 mls/hr IVPB Q8 CEM; Protocol Stop: 10/15/18 22:01 Last Admin: 10/09/18 13:41 Dose: 100 mls/hr Linezolid (Zyvox 600mg/300ml D5w) 600 mg in 300 mls @ 200 mls/hr IVPB Q12 CEM; Protocol Stop: 10/15/18 22:01 Last Admin: 10/09/18 11:30 Dose: 200 mls/hr Morphine Sulfate (Morphine) 2 mg IVP Q4 PRN PRN Reason: Pain, moderate (4-7) Last Admin: 10/09/18 09:55 Dose: 2 mg - Labs Labs: 10/08/18 12:51 10/08/18 12:51 - Constitutional Appears: Chronically Ill - Head Exam Head Exam: NORMAL INSPECTION - Respiratory Exam Respiratory Exam: Decreased Breath Sounds - Cardiovascular Exam Cardiovascular Exam: +S1, +S2 - GI/Abdominal Exam GI & Abdominal Exam: Soft. 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
[2018-10-10] MEDS: Sodium Chloride 0.9% 1,000 ML IV SCH (14:50)
[2018-10-11] MEDS: Morphine 2 mg/ml ISec IVP SCH ×7 (00:46→21:38)
[2018-10-11] MEDS: Sodium Chloride 0.9% 1,000 ML IV SCH ×2 (04:00→21:39)
[2018-10-11] MEDS: Meropenem IV 1 gm in NS 1 GM/50 ML BAG IVPB SCH ×3 (05:42→21:37)
[2018-10-11 07:53] LABS: HEMOGLOBIN 9.2 g/dL (12.0-16.0); MEAN CELL VOLUME 85.6 fl (80.0-105.0); MEAN CORPUSCULAR HEMOGLOBIN 26.4 pg (25.0-35.0); MEAN CORPUSCULAR HGB CONC 30.9 g/dl (31.0-37.0); MEAN PLATELET VOLUME 9.3 fl (7.0-11.0); RBC 3.48 10^6/uL (3.5-6.1); RED CELL DISTRIBUTION WIDTH 15.2 % (11.5-14.5); WHITE BLOOD COUNT 4.6 10^3/uL (4.5-11.0)
[2018-10-11 08:01] LABS: ALB/GLOB RATIO 0.8 (1.1-1.8); ALBUMIN 2.4 g/dL (3.0-4.8); ALT/SGPT 21 U/L (7-56); AST/SGOT 18 U/L (14-36); BLOOD UREA NITROGEN 11 mg/dL (7-21); CALCIUM 7.9 mg/dL (8.4-10.5); GFR NON-AFRICAN AMERICAN > 60
--- NOTE | 2018-10-11 08:39 | PN ---
DATE: 10/10/2018 SUBJECTIVE: I saw Luci resting in bed. She has been having a wound strain, she has excruciating pain, I am witnessing this as a bandage legs. I think the Lasix helped a lot. She wants her legs down to have the size edema. She is on IV antibiotics. They are trying to change the bandage and treat the wounds of her lower extremities. It is possible she is having osteomyelitis in that bones of the left leg. There is a bone scan ordered. She is on IV antibiotics and I am to increase the pain medications, I am going to probably decrease the Lasix. She is in pain despite local given. PHYSICAL EXAMINATION: GENERAL: She is crying. There is a very bad odor in the room from the legs and maggots are found in the legs. VITAL SIGNS: She has 99.6 temperature, 69 pulse, 122/52 blood pressure, 18 respiratory rate, 94% O2 sat on room air. HEENT: Head is atraumatic, normocephalic. HEART: Regular rate. LUNGS: Decreased breath sounds but clear. ABDOMEN: Soft, obese, nontender. EXTREMITIES: Still swollen, although they have the being wrapped. They are oozing and they are excoriated and might need to do an I and D of the legs the bad tissue. MEDICATIONS: She is potassium replacement for low potassium. We dropped the Lasix to 20 from 40 IV. She is on Lovenox; Merrem IV; morphine, I increased it to every 3 from every 4. I increased the gabapentin from 600 t.i.d. to 600 four times a day from the burning. IV fluids and Zyvox. I will decrease the IV fluid rate down to 60 mL an hour from 100. LABORATORY DATA: She has 138 sodium; potassium is 3.3, we replaced potassium; BUN 10; creatinine 0.7; GFR is greater than 60; sugar is 110. Calcium is 8.1, total bili is 0.3, AST is 16, ALT is 23, alk phos is 79, total protein is 5.5. White count is 6.7, hemoglobin 9.2, hematocrit 29.7, platelets of 251,000. She has Gram-negative rods, Gram-positive cocci and Gram-stain. ASSESSMENT AND PLAN: She is being seen by Infectious Disease, Podiatry, Surgery. I am hoping that she will improve. Luci Rodriguez has got severe cellulitis with ulcers, maggots, odor, possible gangrene and osteomyelitis of the lower extremities. Hung Wagner DO MTDYana
--- NOTE | 2018-10-11 09:24 | PN ---
DATE: 10/11/2018 SUBJECTIVE: I saw her this morning. She slept fairly well. Pain is still there, may be a little bit better. Also the odor in the room is much better. I am hoping that this means that the antibiotic is starting to work and she is starting to heal. MEDICATIONS: She is currently on Lasix, Lovenox, Merrem IV, morphine, Neurontin, IV fluids and Zyvox IV. PHYSICAL EXAMINATION: VITAL SIGNS: She has a 98.3 temp, 67 pulse, 114/48 blood pressure, 20 respiratory rate, 94% O2 sat on room air. HEENT: Head is atraumatic, normocephalic. HEART: Regular rate. LUNGS: Decreased breath sounds, but clear. ABDOMEN: Soft, obese, nontender. EXTREMITY: Both legs are wrapped. I could tell that she diuresed fairly well. They are not as swollen. There is very little ordered today, which is good. She had odor for the first couple of days, also a little bit less pain. Hopefully, this will continue and she will continue to improve. The oozing is also maybe a little bit better. We will see what Surgery and Podiatry have to say and we will continue with the antibiotics as per Infectious Disease. LABORATORY DATA: She has had a 4.6 white count, 9.2 hemoglobin, 29.8 hematocrit with 238 platelets. 139 sodium, potassium 3.6, BUN 11, creatinine 0.8, GFR is greater than 60, sugar is 104, calcium is 7.9, total bili is 0.2, AST is 18, ALT is 21, alk phos 72, total protein is 5.5. It grew up gram-negative rods, Streptococcus. ASSESSMENT AND PLAN: Being seen by Infectious Disease, Podiatry and surgery. We will continue aggressive treatment and care and skin care. Severe cellulitis and ulcers and necrotic tissue to the both lower extremities and possible osteomyelitis. Awaiting a bone scan. Hung Wagner DO [facility]
[2018-10-11] MEDS: Enoxaparin 40 mg Syringe SC SCH (09:37)
[2018-10-11] MEDS: Linezolid 600 mg in D5W 300 ml 600 MG/300 ML BAG IVPB SCH ×2 (09:39→21:38)
--- NOTE | 2018-10-11 11:31 | CP.PCM.PN ---
Subjective - Date & Time of Evaluation Date of Evaluation: 10/11/18 Time of Evaluation: 11:28 - Subjective Subjective: Podiatry progress note for Dr. Briones 67 yo female seen and evaluated at bedside with Dr. Briones. States she is in pain today but notes improvement since admission. Denies N/V/F/C/SOB/CP and denies any acute events overnight. States that the backs of her legs are the most painful where she has ulcerations. Objective - Vital Signs/Intake and Output Vital Signs (last 24 hours): Temp Pulse Resp BP Pulse Ox 98.3 F 65 20 112/50 L 96 10/11/18 06:00 10/11/18 06:00 10/11/18 06:00 10/11/18 09:36 10/11/18 06:00 Intake and Output: 10/11/18 10/11/18 06:59 18:59 Intake Total 240 Balance 240 - Medications Medications: Current Medications Clotrimazole (Lotrimin 1%) 10 gm TOP BID CEM Enoxaparin Sodium (Lovenox) 40 mg SC DAILY CEM; Protocol Last Admin: 10/11/18 09:37 Dose: 40 mg Furosemide (Lasix) 20 mg IVP DAILY CEM Last Admin: 10/11/18 09:36 Dose: Not Given Gabapentin (Neurontin) 600 mg PO QID CEM; Protocol Last Admin: 10/11/18 09:39 Dose: 600 mg Meropenem (Merrem Iv 1 Gm Premix) 1 gm in 50 mls @ 100 mls/hr IVPB Q8 CEM; Protocol Stop: 10/15/18 22:01 Last Admin: 10/11/18 05:42 Dose: 100 mls/hr Linezolid (Zyvox 600mg/300ml D5w) 600 mg in 300 mls @ 200 mls/hr IVPB Q12 CEM; Protocol Stop: 10/15/18 22:01 Last Admin: 10/11/18 09:39 Dose: 200 mls/hr Sodium Chloride (Sodium Chloride 0.9%) 1,000 mls @ 60 mls/hr IV .[id number] CEM Last Admin: 10/11/18 04:00 Dose: 60 mls/hr Morphine Sulfate (Morphine) 2 mg IVP Q3 CEM Last Admin: 10/11/18 11:20 Dose: 2 mg Multi-Ingredient Cream (Hydrocerin Cream) 10 ea TOP BID CEM - Labs Labs: 10/11/18 07:20 10/11/18 07:20 - Constitutional Appears: Well, Non-toxic, No Acute Distress - Head Exam Head Exam: ATRAUMATIC, NORMOCEPHALIC - Extremities Exam Additional comments: B/L LE focused exam: Vasc: DP/PT pulses non-palpable due to LE edema. cap refill < 3 seconds to all digits, temperature gradient warm to warm. +3 edema on the right side and +2 pitting edema on the left side. Neuro: Gross and protective sensation diminished b/l Derm: Venous stasis changes noted to the lower extremity with lichenification of skin all noted extensively from the knee down to the left foot and ankle and wart like skin changes overlying it b/l. Multiple scattered superficial ulcera tions noted b/l both anteriorly and posteriorly the largest is [id number]. This ulcer present in the R lower leg and the base is 100% necrotic. Malodor noted but less sever than yesterday. Mild scattered patches of erythema noted. mild scattered serous and purulent drainage noted. Scattered farrows present along the leg b/l MSK: Severe pain on palpation to LE b/l specially at the heel L > R. Couldn't assess muscle power and ROM of the joints due to guarding and pain. - Neurological Exam Neurological Exam: Alert, Awake, Oriented x3 - Psychiatric Exam Psychiatric exam: Normal Affect, Normal Mood Assessment and Plan - Assessment and Plan (Free Text) Assessment: 67 yo female with stasis dermatitis, maggot infestation, and infected ulceration to b/l lower extermities Plan: Patient seen and evaluated at bedside with Dr. Briones Plan discussed in details with attending Dr. Briones. Labs, charts and vitals reviewed: afebrile, absent leukocytosis B/L Tib-fibula X-ray reviewed: Massive soft tissue swelling, Osteopenia B/L and several spots of radiolucincies noted on the L side might be due to osteopenia or due to osteomyelitis Wound cx - Right: providencia rettgeri, group G strep; Left: provedencia rettgeri, group G strep, gram neg junior ID consulted; Recommendations appreciated Ordred bone scan to R/O Osteomyelitis. LE cleansed with peroxide and saline then dressed with xeroform gauze, ABD, and kerlix. Eucerin and lotrimin topical cream ordered Patient is on Zyvox 600 mg Q12 IV. Multipodus boots on at all times while in bed Continue with pain management per primary team Podiatry to continue to follow while in house
--- NOTE | 2018-10-11 17:09 | CP.PCM.PN ---
Subjective - Date & Time of Evaluation Date of Evaluation: 10/11/18 Time of Evaluation: 11:00 - Subjective Subjective: Legs feel a little better, no fevers. Objective - Vital Signs/Intake and Output Vital Signs (last 24 hours): Temp Pulse Resp BP Pulse Ox 99.6 F 69 18 122/52 L 94 L 10/10/18 06:00 10/10/18 06:00 10/10/18 06:00 10/10/18 11:36 10/10/18 06:00 Intake and Output: 10/10/18 10/10/18 06:59 18:59 Intake Total 240 Balance 240 - Medications Medications: Current Medications Enoxaparin Sodium (Lovenox) 40 mg SC DAILY CEM; Protocol Last Admin: 10/10/18 08:59 Dose: 40 mg Furosemide (Lasix) 20 mg IVP DAILY CEM Gabapentin (Neurontin) 600 mg PO QID CEM; Protocol Last Admin: 10/10/18 13:10 Dose: 600 mg Meropenem (Merrem Iv 1 Gm Premix) 1 gm in 50 mls @ 100 mls/hr IVPB Q8 CEM; Protocol Stop: 10/15/18 22:01 Last Admin: 10/10/18 13:10 Dose: 100 mls/hr Linezolid (Zyvox 600mg/300ml D5w) 600 mg in 300 mls @ 200 mls/hr IVPB Q12 CEM; Protocol Stop: 10/15/18 22:01 Last Admin: 10/10/18 08:59 Dose: 200 mls/hr Sodium Chloride (Sodium Chloride 0.9%) 1,000 mls @ 60 mls/hr IV .[id number] CEM Morphine Sulfate (Morphine) 2 mg IVP Q3 CEM Last Admin: 10/10/18 11:37 Dose: 2 mg - Labs Labs: 10/10/18 07:00 10/10/18 07:00 - Constitutional Appears: Chronically Ill - Head Exam Head Exam: NORMAL INSPECTION - Respiratory Exam Respiratory Exam: Decreased Breath Sounds - Cardiovascular Exam Cardiovascular Exam: +S1, +S2 - GI/Abdominal Exam GI & Abdominal Exam: Soft. 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 Briones and they will continue local wound care will continue to monitor clinically
--- NOTE | 2018-10-11 17:48 | NM ---
Date of service: 10/11/2018 PROCEDURE: Three-phase bone Scan HISTORY: B/L LE edema and infection, R/O OM. COMPARISON: 09/05/2017 three-phase bone scan attention ankles and feet. 10/08/2018 bilateral tibia and fibula. TECHNIQUE: Following administration of 25.8 miCu of Tc MDP three-phase bone scan performed. FINDINGS: Flow component: Symmetrical flow to the lower extremities. Blood pool component: Increased accumulation in soft tissues of both lower extremities from the knees to the feet. Delayed images at 3:00: Focus of increased uptake in the proximal left tibia, there is no plain film correlate on recent radiographs. This finding was not identified on the prior study. Other findings: Incompletely visualized findings in the tibial plateau region on the left IMPRESSION: Negative study for acute osseous process. Findings consistent with cellulitis. Nonspecific finding in the proximal left tibia.
[2018-10-11] MEDS: Hydrocerin(120 gm) TOP SCH (17:53)
[2018-10-11] MEDS ORDERED: Hydrocerin(120 gm) TOP SCH (18:00)
[2018-10-11] MEDS ORDERED: Clotrimazole 1% Cream(30 gm) TOP SCH (18:00)
--- NOTE | 2018-10-11 18:19 | US ---
HISTORY: Leg pain and swelling. Evaluate for DVT PHYSICIAN(S): Rogelio Cano MD. TECHNIQUE: Duplex sonography and color-flow Doppler with graded compression were used to evaluate the deep venous systems of both lower extremities. This is extremely limited study due to body habitus, edema, and pain. The lower femoral veins and tibial veins are not well seen. FINDINGS: The visualized deep venous systems of both lower extremities are sonographically normal and compressible. Normal wave forms and augmentation are seen. There is no sonographic evidence for deep venous thrombosis in the visualized segments of both lower extremities. IMPRESSION: No sonographic evidence for deep venous thrombosis in the visualized segments of both lower extremities. Very limited study.
[2018-10-11] MEDS: Clotrimazole 1% Cream(30 gm) TOP SCH (21:39)
[2018-10-12] MEDS: Morphine 2 mg/ml ISec IVP SCH ×2 (05:19→05:20)
[2018-10-12] MEDS: Meropenem IV 1 gm in NS 1 GM/50 ML BAG IVPB SCH ×3 (05:20→22:21)
--- NOTE | 2018-10-12 07:18 | CP.PCM.PN ---
<Sylvia Camejo - Last Filed: 10/12/18 11:14> Subjective - Date & Time of Evaluation Date of Evaluation: 10/12/18 Time of Evaluation: 07:00 - Subjective Subjective: Infectious Disease Progress note for Brice Ochoa PGY3 Patient seen and examined at bedside. She has no complaints at this time. She remains afebrile. Objective - Vital Signs/Intake and Output Vital Signs (last 24 hours): Temp Pulse Resp BP Pulse Ox 98.9 F 62 18 104/53 L 96 10/11/18 22:31 10/11/18 22:31 10/11/18 22:31 10/11/18 22:31 10/11/18 22:31 - Medications Medications: Current Medications Clotrimazole (Lotrimin 1%) 0 gm TOP BID [facility] Last Admin: 10/11/18 21:39 Dose: 1 applic Enoxaparin Sodium (Lovenox) 40 mg SC DAILY [facility]; Protocol Last Admin: 10/11/18 09:37 Dose: 40 mg Furosemide (Lasix) 20 mg IVP DAILY [facility] Last Admin: 10/11/18 09:36 Dose: Not Given Gabapentin (Neurontin) 600 mg PO QID [facility]; Protocol Last Admin: 10/11/18 21:38 Dose: 600 mg Meropenem (Merrem Iv 1 Gm Premix) 1 gm in 50 mls @ 100 mls/hr IVPB Q8 [facility]; Protocol Stop: 10/15/18 22:01 Last Admin: 10/12/18 05:20 Dose: 100 mls/hr Linezolid (Zyvox 600mg/300ml D5w) 600 mg in 300 mls @ 200 mls/hr IVPB Q12 [facility]; Protocol Stop: 10/15/18 22:01 Last Admin: 10/11/18 21:38 Dose: 200 mls/hr Sodium Chloride (Sodium Chloride 0.9%) 1,000 mls @ 60 mls/hr IV .[id number] [facility] Last Admin: 10/11/18 21:39 Dose: 60 mls/hr Morphine Sulfate (Morphine) 2 mg IVP Q3 [facility] Last Admin: 10/12/18 05:20 Dose: Not Given Multi-Ingredient Cream (Hydrocerin Cream) 0 ea TOP BID [facility] Last Admin: 10/11/18 17:53 Dose: 1 applic - Labs Labs: 10/11/18 07:20 10/11/18 07:20 - Constitutional Appears: No Acute Distress - Head Exam Head Exam: ATRAUMATIC, NORMAL INSPECTION, NORMOCEPHALIC - Eye Exam Eye Exam: Normal appearance, PERRL Pupil Exam: NORMAL ACCOMODATION, PERRL - ENT Exam ENT Exam: Mucous Membranes Moist - Respiratory Exam Respiratory Exam: Clear to Ausculation Bilateral, NORMAL BREATHING PATTERN. absent: Rales, Rhonchi, Wheezes - Cardiovascular Exam Cardiovascular Exam: REGULAR RHYTHM, +S1, +S2. absent: Gallop, Rubs, Murmur - GI/Abdominal Exam GI & Abdominal Exam: Soft, Normal Bowel Sounds. absent: Rigid, Tenderness, Mass, Rebound - Extremities Exam Extremities Exam: Pedal Edema Additional comments: bilateral crusting and swelling of LE with drainage - Neurological Exam Neurological Exam: Alert, Awake, CN II-XII Intact - Psychiatric Exam Psychiatric exam: Normal Affect, Normal Mood - Skin Skin Exam: Dry, Warm Assessment and Plan - Assessment and Plan (Free Text) Assessment: 1. Bilateral LE purulent cellulitis - + for group g strep, pseudomonas, and provendicia - multiple antibiotic allergies causing rash 2. Hx of R LE cellulitis + MRSA and multidrug resistant proteus 3. Hx of bilateral cellulitis + for MSSA and Klebisella 4. Hx of pseudomonas osteomyelitis in 5. HTN 6. CAD 7. Obesity 8. Peripheral neuropathy Plan: Cultures reviewed. Awaiting final sensitivity of all species identified. Bone scan negative for osteo bilaterally. Continue Zyvox and Merrem day #5. Continue wound care with podiatry. Will continue to monitor clinically Case seen, discussed and reviewed with Dr. So Camejo PGY3 <Andrea Rizzo - Last Filed: 10/12/18 19:53> Objective - Vital Signs/Intake and Output Vital Signs (last 24 hours): Temp Pulse Resp BP Pulse Ox 98.7 F 64 18 116/51 L 98 10/12/18 14:00 10/12/18 14:00 10/12/18 14:00 10/12/18 14:00 10/12/18 14:00 - Medications Medications: Current Medications Clotrimazole (Lotrimin 1%) 0 gm TOP BID [facility] Last Admin: 10/12/18 17:20 Dose: 1 applic Enoxaparin Sodium (Lovenox) 40 mg SC DAILY [facility]; Protocol Last Admin: 10/12/18 12:57 Dose: 40 mg Furosemide (Lasix) 20 mg IVP DAILY [facility] Last Admin: 10/12/18 13:04 Dose: Not Given Gabapentin (Neurontin) 600 mg PO QID [facility]; Protocol Last Admin: 10/12/18 17:20 Dose: 600 mg Meropenem (Merrem Iv 1 Gm Premix) 1 gm in 50 mls @ 100 mls/hr IVPB Q8 [facility]; Protocol Stop: 10/15/18 22:01 Last Admin: 10/12/18 13:05 Dose: 100 mls/hr Linezolid (Zyvox 600mg/300ml D5w) 600 mg in 300 mls @ 200 mls/hr IVPB Q12 [facility]; Protocol Stop: 10/15/18 22:01 Last Admin: 10/12/18 12:55 Dose: 200 mls/hr Sodium Chloride (Sodium Chloride 0.9%) 1,000 mls @ 60 mls/hr IV .[id number] [facility] Last Admin: 10/11/18 21:39 Dose: 60 mls/hr Morphine Sulfate (Morphine) 2 mg IVP Q4H PRN PRN Reason: Pain, moderate (4-7) Last Admin: 10/12/18 17:21 Dose: 2 mg Multi-Ingredient Cream (Hydrocerin Cream) 0 ea TOP BID [facility] Last Admin: 10/12/18 17:21 Dose: 1 applic - Labs Labs: 10/11/18 07:20 10/11/18 07:20 Assessment and Plan - Assessment and Plan (Free Text) Plan: Infectious Diseases Attending Physician Attestation Patient seen and examined, discussed with biomedical engineering technologist. I have reviewed the patient's history of present illness, past medical, family and social histories, personal history, physical exam, lab findings and imaging studies. I agree with the above findings, assessment and plan. In addition, continue Zyvox an Merrem Merrem for this patient with bilateral lower extremity skin / skin structure infection with necrosis. Follow up final cx results. Will need up to 2 weeks of antibiotics.
--- NOTE | 2018-10-12 10:50 | PN ---
DATE: 10/12/2018 SUBJECTIVE: She is doing a little bit better. She is more motivated today. She wants to get up and walk and get her legs fixed up, so I am happy about that. Less pain. She is on Hydrocerin cream, Lasix IV at 20 mg, Lotrimin cream, Lovenox, Merrem IV, morphine as pain, Neurontin, IV fluids and Zyvox. I definitely see an improvement, there is less smell, there is less swelling. PHYSICAL EXAMINATION: VITAL SIGNS: She has a 98.9 temperature, 62 pulse, 104/53 blood pressure, 18 respiratory rate and 96% O2 sat on room air. HEENT: Head is atraumatic and normocephalic. Throat is moist. NECK: Supple. HEART: Regular rate. LUNGS: Decreased breath sounds but clear. ABDOMEN: Soft and nontender. Positive bowel sounds. Obese. No guarding, no rebound or CVA tenderness. EXTREMITIES: Both lower extremities are wrapped with bandages, but they are much less swollen. No odor and I do think it is starting to improve with antibiotics. LABORATORY DATA: She has a 4.6 white count, 9.2 hemoglobin, 29.8 hematocrit with 238,000 platelets. Sodium 139, potassium 3.6, BUN 11, creatinine 0.8, GFR is greater than 60, sugars 104, calcium is 7.9, total bili is 0.2, AST is 18, ALT is 21 and alk phos 72. C-reactive protein was high, greater than 15 and total protein is 5.5. There is a bone scan which is negative. So the next plan is where do we send her to and how long does she needs the IV antibiotics for. For discharge planning, she is being seen by Infectious Disease and I will wait and talk to them about the length of time she needs the antibiotics. She will need skin care. On the chart it will be TCU versus Physical therapy has not seen her yet. I will reorder physical therapy for the recommendation and will see which way we can work for discharge planning now that there is no osteomyelitis. She is here for bilateral leg cellulitis. As per Infectious Disease, we will continue aggressive treatment and care for bilateral lower extremity cellulitis which has got some maggots when she came in with foul odor, ulcerations, excoriations and venous stasis. Hung Wagner DO Psychiatric # [id number] [place]
--- NOTE | 2018-10-12 11:36 | CP.PCM.PN ---
<Jose Aguila - Last Filed: 10/12/18 16:03> Subjective - Date & Time of Evaluation Date of Evaluation: 10/12/18 Time of Evaluation: 11:32 - Subjective Subjective: Podiatry progress note for Dr. Marinelli 67 yo seen and evaluated at bedside. Resting comfortably. No acute events overnight. States her legs are mildly painful and that they have improved on pain scale since admission. Denies N/V/F/C/SOB/CP and has no other pedal c omplaints today. Objective - Vital Signs/Intake and Output Vital Signs (last 24 hours): Temp Pulse Resp BP Pulse Ox 98.3 F 63 20 109/50 L 96 10/12/18 06:00 10/12/18 06:00 10/12/18 06:00 10/12/18 06:00 10/12/18 06:00 - Medications Medications: Current Medications Clotrimazole (Lotrimin 1%) 0 gm TOP BID [facility] Last Admin: 10/11/18 21:39 Dose: 1 applic Enoxaparin Sodium (Lovenox) 40 mg SC DAILY [facility]; Protocol Last Admin: 10/11/18 09:37 Dose: 40 mg Furosemide (Lasix) 20 mg IVP DAILY [facility] Last Admin: 10/11/18 09:36 Dose: Not Given Gabapentin (Neurontin) 600 mg PO QID [facility]; Protocol Last Admin: 10/11/18 21:38 Dose: 600 mg Meropenem (Merrem Iv 1 Gm Premix) 1 gm in 50 mls @ 100 mls/hr IVPB Q8 [facility]; Protocol Stop: 10/15/18 22:01 Last Admin: 10/12/18 05:20 Dose: 100 mls/hr Linezolid (Zyvox 600mg/300ml D5w) 600 mg in 300 mls @ 200 mls/hr IVPB Q12 [facility]; Protocol Stop: 10/15/18 22:01 Last Admin: 10/11/18 21:38 Dose: 200 mls/hr Sodium Chloride (Sodium Chloride 0.9%) 1,000 mls @ 60 mls/hr IV .[id number] [facility] Last Admin: 10/11/18 21:39 Dose: 60 mls/hr Morphine Sulfate (Morphine) 2 mg IVP Q3 [facility] Last Admin: 10/12/18 05:20 Dose: Not Given Multi-Ingredient Cream (Hydrocerin Cream) 0 ea TOP BID [facility] Last Admin: 10/11/18 17:53 Dose: 1 applic - Labs Labs: 10/11/18 07:20 10/11/18 07:20 - Constitutional Appears: Well, Non-toxic, No Acute Distress - Head Exam Head Exam: ATRAUMATIC, NORMOCEPHALIC - Extremities Exam Additional comments: B/L LE focused exam: Vasc: DP/PT pulses non-palpable due to LE edema. cap refill < 3 seconds to all digits, temperature gradient warm to warm. +3 edema on the right side and +2 pitting edema on the left side. Neuro: Gross and protective sensation diminished b/l Derm: Venous stasis changes noted to the lower extremity with lichenification of skin all noted extensively from the knee down to the left foot and ankle and wart like skin changes overlying it b/l. Multiple scattered superficial ulcerations noted b/l both anteriorly and posteriorly the largest is [id number], present in the R lower leg and the base is 100% necrotic. Malodor improving since admission. Mild scattered patches of erythema noted. mild scattered serous and purulent drainage noted. Scattered farrows present along the leg b/l MSK: Severe pain on palpation to LE b/l specially at the heel L > R. Couldn't assess muscle power and ROM of the joints due to guarding and pain. - Neurological Exam Neurological Exam: Alert, Awake, Oriented x3 - Psychiatric Exam Psychiatric exam: Normal Affect, Normal Mood Assessment and Plan - Assessment and Plan (Free Text) Assessment: 67 yo female with stasis dermatitis, maggot infestation, and infected ulceration to b/l lower extermities Plan: Patient seen and evaluated at bedside Plan discussed in details with attending Dr. Marinelli Labs, charts and vitals reviewed: afebrile, absent leukocytosis B/L Tib-fibula X-ray reviewed: Massive soft tissue swelling, Osteopenia B/L and several spots of radiolucincies noted on the L side might be due to osteopenia or due to osteomyelitis Wound cx - Right: providencia rettgeri, group G strep; Left: provedencia rettgeri, group G strep, gram neg junior ID consulted - Recommendations appreciated Bone scan - negative for acute osseous process LE cleansed with peroxide and saline, eucerin cream and nystatin powder applied b/l, then dressed with xeroform gauze, ABD, and kerlix. Patient is on Zyvox 600 mg Q12 IV, meropenem Q8 IV Multipodus boots on at all times while in bed Continue with pain management per primary team Patient stable for transfer to [facility], will need daily dressing changes and local wound care Podiatry to continue to follow while in house <Ton Marinelli - Last Filed: 10/13/18 09:41> Objective - Vital Signs/Intake and Output Vital Signs (last 24 hours): Temp Pulse Resp BP Pulse Ox 98.2 F 65 20 124/50 L 97 10/13/18 06:00 10/13/18 06:00 10/13/18 06:00 10/13/18 06:00 10/13/18 06:00 Intake and Output: 10/13/18 10/13/18 06:59 18:59 Intake Total 240 Balance 240 - Medications Medications: Current Medications Clotrimazole (Lotrimin 1%) 0 gm TOP BID [facility] Last Admin: 10/12/18 17:20 Dose: 1 applic Enoxaparin Sodium (Lovenox) 40 mg SC DAILY [facility]; Protocol Last Admin: 10/12/18 12:57 Dose: 40 mg Furosemide (Lasix) 20 mg IVP DAILY [facility] Last Admin: 10/12/18 13:04 Dose: Not Given Gabapentin (Neurontin) 600 mg PO QID [facility]; Protocol Last Admin: 10/12/18 22:20 Dose: 600 mg Meropenem (Merrem Iv 1 Gm Premix) 1 gm in 50 mls @ 100 mls/hr IVPB Q8 [facility]; Protocol Stop: 10/15/18 22:01 Last Admin: 10/13/18 05:04 Dose: 100 mls/hr Linezolid (Zyvox 600mg/300ml D5w) 600 mg in 300 mls @ 200 mls/hr IVPB Q12 [facility]; Protocol Stop: 10/15/18 22:01 Last Admin: 10/12/18 22:21 Dose: 200 mls/hr Sodium Chloride (Sodium Chloride 0.9%) 1,000 mls @ 60 mls/hr IV .[id number] [facility] Last Admin: 10/11/18 21:39 Dose: 60 mls/hr Morphine Sulfate (Morphine) 2 mg IVP Q4H PRN PRN Reason: Pain, moderate (4-7) Last Admin: 10/12/18 22:19 Dose: 2 mg Multi-Ingredient Cream (Hydrocerin Cream) 0 ea TOP BID [facility] Last Admin: 10/12/18 17:21 Dose: 1 applic - Labs Labs: 10/11/18 07:20 10/11/18 07:20 Attending/Attestation - Attestation I have personally seen and examined this patient.: Yes I have fully participated in the care of the patient.: Yes I have reviewed all pertinent clinical information, including history, physical exam and plan: Yes
[2018-10-12] MEDS: Linezolid 600 mg in D5W 300 ml 600 MG/300 ML BAG IVPB SCH ×2 (12:55→22:21)
[2018-10-12] MEDS: Enoxaparin 40 mg Syringe SC SCH (12:57)
[2018-10-12] MEDS: Clotrimazole 1% Cream(30 gm) TOP SCH ×2 (13:04→17:20)
[2018-10-12] MEDS: Hydrocerin(120 gm) TOP SCH ×2 (13:05→17:21)
[2018-10-12] MEDS: Morphine 2 mg/ml ISec IVP PRN ×2 (17:21→22:19)
[2018-10-12 22:31] VITALS: RESP 20
[2018-10-13] MEDS: Meropenem IV 1 gm in NS 1 GM/50 ML BAG IVPB SCH ×2 (05:04→13:37)
--- NOTE | 2018-10-13 07:04 | CP.PCM.PN ---
<Sylvia Camejo - Last Filed: 10/13/18 10:35> Subjective - Date & Time of Evaluation Date of Evaluation: 10/13/18 Time of Evaluation: 07:00 - Subjective Subjective: Infectious Disease Progress note for Brice Ochoa PGY3 Patient seen and examined at bedside. Patient is afebrile and resting comfortably in bed. She has no complaints at this time. Objective - Vital Signs/Intake and Output Vital Signs (last 24 hours): Temp Pulse Resp BP Pulse Ox 98.6 F 67 20 128/56 L 94 L 10/12/18 22:29 10/12/18 22:29 10/12/18 22:29 10/12/18 22:29 10/12/18 22:29 - Medications Medications: Current Medications Clotrimazole (Lotrimin 1%) 0 gm TOP BID [facility] Last Admin: 10/12/18 17:20 Dose: 1 applic Enoxaparin Sodium (Lovenox) 40 mg SC DAILY [facility]; Protocol Last Admin: 10/12/18 12:57 Dose: 40 mg Furosemide (Lasix) 20 mg IVP DAILY [facility] Last Admin: 10/12/18 13:04 Dose: Not Given Gabapentin (Neurontin) 600 mg PO QID [facility]; Protocol Last Admin: 10/12/18 22:20 Dose: 600 mg Meropenem (Merrem Iv 1 Gm Premix) 1 gm in 50 mls @ 100 mls/hr IVPB Q8 [facility]; Protocol Stop: 10/15/18 22:01 Last Admin: 10/13/18 05:04 Dose: 100 mls/hr Linezolid (Zyvox 600mg/300ml D5w) 600 mg in 300 mls @ 200 mls/hr IVPB Q12 [facility]; Protocol Stop: 10/15/18 22:01 Last Admin: 10/12/18 22:21 Dose: 200 mls/hr Sodium Chloride (Sodium Chloride 0.9%) 1,000 mls @ 60 mls/hr IV .[id number] [facility] Last Admin: 10/11/18 21:39 Dose: 60 mls/hr Morphine Sulfate (Morphine) 2 mg IVP Q4H PRN PRN Reason: Pain, moderate (4-7) Last Admin: 10/12/18 22:19 Dose: 2 mg Multi-Ingredient Cream (Hydrocerin Cream) 0 ea TOP BID [facility] Last Admin: 10/12/18 17:21 Dose: 1 applic - Labs Labs: 10/11/18 07:20 10/11/18 07:20 - Constitutional Appears: No Acute Distress - Head Exam Head Exam: ATRAUMATIC, NORMAL INSPECTION, NORMOCEPHALIC - Eye Exam Eye Exam: Normal appearance, PERRL Pupil Exam: NORMAL ACCOMODATION, PERRL - ENT Exam ENT Exam: Mucous Membranes Moist - Neck Exam Neck Exam: Normal Inspection - Respiratory Exam Respiratory Exam: Clear to Ausculation Bilateral, NORMAL BREATHING PATTERN. absent: Rales, Rhonchi, Wheezes - Cardiovascular Exam Cardiovascular Exam: REGULAR RHYTHM, +S1, +S2. absent: Gallop, Rubs, Murmur - GI/Abdominal Exam GI & Abdominal Exam: Soft, Normal Bowel Sounds. absent: Rigid, Tenderness, Mass, Rebound - Extremities Exam Extremities Exam: absent: Calf Tenderness, Pedal Edema Additional comments: bilateral crusting and swelling of LE with drainage - Neurological Exam Neurological Exam: Alert, Awake, CN II-XII Intact, Oriented x3 - Psychiatric Exam Psychiatric exam: Normal Affect, Normal Mood - Skin Skin Exam: Dry, Warm Assessment and Plan - Assessment and Plan (Free Text) Assessment: 1. Bilateral LE purulent cellulitis - + for group g strep, pseudomonas, and provendicia - multiple antibiotic allergies causing rash 2. Hx of R LE cellulitis + MRSA and multidrug resistant proteus 3. Hx of bilateral cellulitis + for MSSA and Klebisella 4. Hx of pseudomonas osteomyelitis in 5. HTN 6. CAD 7. Obesity 8. Peripheral neuropathy Plan: Continue Merrem #6. Will d/c Zyvox. Patient will need to complete 2 weeks of IV antibiotics. Bone scan negative for osteomyelitis. Continue local wound care and recommend to continue to follow up with podiatry. Will continue to monitor clinically. Case seen, discussed and reviewed with Dr. So Camejo PGY3 <Andrea Rizzo - Last Filed: 10/13/18 17:25> Objective - Vital Signs/Intake and Output Vital Signs (last 24 hours): Temp Pulse Resp BP Pulse Ox 98.0 F 60 20 118/49 L 97 10/13/18 14:38 10/13/18 14:38 10/13/18 14:38 10/13/18 14:38 10/13/18 14:38 Intake and Output: 10/13/18 10/13/18 06:59 18:59 Intake Total 240 Balance 240 - Medications Medications: Current Medications Clotrimazole (Lotrimin 1%) 0 gm TOP BID [facility] Last Admin: 10/13/18 10:35 Dose: 1 applic Enoxaparin Sodium (Lovenox) 40 mg SC DAILY [facility]; Protocol Last Admin: 10/13/18 10:34 Dose: 40 mg Furosemide (Lasix) 20 mg IVP DAILY [facility] Last Admin: 10/13/18 10:35 Dose: 20 mg Gabapentin (Neurontin) 600 mg PO QID [facility]; Protocol Last Admin: 10/13/18 13:36 Dose: 600 mg Meropenem (Merrem Iv 1 Gm Premix) 1 gm in 50 mls @ 100 mls/hr IVPB Q8 [facility]; Protocol Stop: 10/15/18 22:01 Last Admin: 10/13/18 13:37 Dose: 100 mls/hr Sodium Chloride (Sodium Chloride 0.9%) 1,000 mls @ 60 mls/hr IV .[id number] [facility] Last Admin: 10/13/18 13:38 Dose: 60 mls/hr Morphine Sulfate (Morphine) 2 mg IVP Q4H PRN PRN Reason: Pain, moderate (4-7) Last Admin: 10/12/18 22:19 Dose: 2 mg Multi-Ingredient Cream (Hydrocerin Cream) 0 ea TOP BID [facility] Last Admin: 10/13/18 10:35 Dose: 1 applic - Labs Labs: 10/11/18 07:20 10/11/18 07:20 Assessment and Plan - Assessment and Plan (Free Text) Plan: Infectious Diseases Attending Physician Attestation Patient seen and examined, discussed with hospital medical assistant. I have reviewed the patient's history of present illness, past medical, family and social histories, personal history, physical exam, lab findings and imaging studies. I agree with the above findings, assessment and plan. In addition, continue Merrem for this patient with bilateral lower extremity skin and skin structure infection with necrosis. Continue local wound care as per Podiatry. Will need 10-14 days of antibiotics (day 6 today).
[2018-10-13 07:54] VITALS: O2SAT 97
--- NOTE | 2018-10-13 09:10 | DS ---
HISTORY OF PRESENT ILLNESS: She came in with very bad cellulitis, edema, infection of both lower extremities with maggots and excoriation. She is currently on Hydrocerin cream, Lasix, Lotrisone cream, Lovenox, Merrem IV, morphine for pain, Neurontin, IV fluids. She is off the Zyvox right now. PHYSICAL EXAMINATION: VITAL SIGNS: She has a 98.2 temperature, 65 pulse, 124/50 blood pressure, 20 respiratory rate, 97% O2 sat on room air. HEENT: Head is atraumatic, normocephalic. HEART: Heart is regular rate with decreased breath sounds but clear. ABDOMEN: Soft, obese, nontender. EXTREMITIES: Both extremities are wrapped in bandages. They do look half as swelling when she came in, maybe a +1, +2/4 right now. She was huge when she came. The odor is now gone. No more smelling of the lower extremities. HOSPITAL COURSE: She is going to go today to [facility] for continued IV antibiotics and skin care. She showed Providencia rettgeri, Pseudomonas fluorescens and group D Streptococcus in the Gram stain. She was seen by Infectious Disease, Podiatry Surgery. She will have a bone scan. We are looking for osteomyelitis and it showed negative, so she will be on IV antibiotics I think for 2 more weeks as per Infectious Disease at [facility], also physical therapy. When she comes home, she knows to give me a call. I will continue doing house calls on her. Hopefully, she will be receptive to home nursing and care and home physical therapy and wound care. She is very noncompliant and that is how she got into this predicament. She understands that she will be discharged today. Hung Wagner DO
[2018-10-13] MEDS: Enoxaparin 40 mg Syringe SC SCH (10:34)
[2018-10-13] MEDS: Hydrocerin(120 gm) TOP SCH (10:35)
[2018-10-13] MEDS: Clotrimazole 1% Cream(30 gm) TOP SCH (10:35)
[2018-10-13] MEDS: Sodium Chloride 0.9% 1,000 ML IV SCH (13:38)
[2018-10-13 14:39] VITALS: BP 118/49; PULSE 60; TEMP 98
== END 2018-10-13 18:03 | DRG 603 ==
LOC: ED 10:59 → ERH 13:32 → 5RNO 17:21
PROVIDERS: ADMIT Family Medicine; ATTEND Family Medicine
DX: L03.116 Cellulitis of left lower limb (principal); L97.919 Non-pressure chronic ulcer of unspecified part of right lower leg with unspecified severity; L97.929 Non-pressure chronic ulcer of unspecified part of left lower leg with unspecified severity; B87.0 Cutaneous myiasis; L03.115 Cellulitis of right lower limb; B95.4 Other streptococcus as the cause of diseases classified elsewhere; B96.5 Pseudomonas (aeruginosa) (mallei) (pseudomallei) as the cause of diseases classified elsewhere; I12.9 Hypertensive chronic kidney disease with stage 1 through stage 4 chronic kidney disease, or unspecified chronic kidney disease; N18.9 Chronic kidney disease, unspecified; I73.9 Peripheral vascular disease, unspecified; I87.2 Venous insufficiency (chronic) (peripheral); I25.10 Atherosclerotic heart disease of native coronary artery without angina pectoris; G62.9 Polyneuropathy, unspecified; E03.9 Hypothyroidism, unspecified; I87.8 Other specified disorders of veins; I89.0 Lymphedema, not elsewhere classified; E78.00 Pure hypercholesterolemia, unspecified; F32.9 Major depressive disorder, single episode, unspecified; K21.9 Gastro-esophageal reflux disease without esophagitis; E78.5 Hyperlipidemia, unspecified; E66.01 Morbid (severe) obesity due to excess calories; Z68.36 Body mass index [BMI] 36.0-36.9, adult; Z74.01 Bed confinement status; Z91.19 Patient's noncompliance with other medical treatment and regimen; Z88.2 Allergy status to sulfonamides; Z88.0 Allergy status to penicillin; Z91.040 Latex allergy status

== ENCOUNTER 2018-12-12 22:38 | Inpatient (IN) | payer MEDICARE, OTHER ==
--- NOTE | 2018-12-12 23:00 | ED PDOC ---
Arrival/HPI - General Time Seen by Provider: 12/12/18 22:43 Historian: Patient - History of Present Illness Narrative History of Present Illness (Text): 12/12/18 22:59 Luci Rodriguez is a 68 year old female, whose past medical history includes bilateral lower extremity cellulitis with multiple debridements of the lower extremities, osteomyelitis, venous stasis, hypertension, depression, renal insufficiency, hypothyroidism, and obesity, who presents to the Emergency department brought in by EMS for bilateral lower extremity and left heel wound. Patient states she slid down while at home a few days prior and injured the back of her left heel. Patient now complaining of bilateral lower extremity pain and an open wound to the left heel with associated pain and some bleeding. Patient also notes some ulcers to the right lower extremity. Patient denies any fever, chills, chest pain, shortness of breath, nausea, vomiting, headache, dizziness, or any other complaints. Symptom Onset: Gradual Symptom Course: Unchanged Activities at Onset: Light Context: Home Past Medical History - Provider Review Nursing Documentation Reviewed: Yes - Infectious Disease Hx of Infectious Diseases: None - Tetanus Immunization Tetanus Immunization: Unknown - Cardiac Hx Cardiac Disorders: Yes Hx Hypertension: Yes - Pulmonary Hx Respiratory Disorders: No - Neurological Hx Neurological Disorder: No - HEENT Hx HEENT Disorder: No - Renal Hx Renal Disorder: Yes - Endocrine/Metabolic Hx Hypothyroidism: Yes - Hematological/Oncological Hx Anemia: Yes - Integumentary Hx Dermatological Disorder: Yes (cellulities to the bilateral lower extremities since 2010) - Musculoskeletal/Rheumatological Hx Arthritis: Yes - Gastrointestinal Hx Gastrointestinal Disorders: Yes Hx Gall Bladder Disease: Yes (gallstones) - Genitourinary/Gynecological Hx Incontinence: Yes - Psychiatric Hx Psychophysiologic Disorder: Yes Hx Depression: Yes Hx Substance Use: No - Surgical History Hx Cholecystectomy: Yes Other/Comment: hernia repair - Anesthesia Hx Anesthesia: Yes Hx Anesthesia Reactions: No Hx Malignant Hyperthermia: No - Suicidal Assessment Feels Threatened In Home Enviroment: No Family/Social History - Physician Review Nursing Documentation Reviewed: Yes Family/Social History: Unknown Family HX Smoking Status: Never Smoked Hx Alcohol Use: No Hx Substance Use: No Hx Substance Use Treatment: No Allergies/Home Meds Allergies/Adverse Reactions: Allergies ciprofloxacin [From Cipro] Allergy (Verified 12/12/18 23:13) RASH nubia Allergy (Verified 12/12/18 23:13) RASH latex Allergy (Verified 12/12/18 23:13) RASH Penicillins Allergy (Verified 12/12/18 23:13) RASH Sulfa (Sulfonamide Antibiotics) Allergy (Verified 12/12/18 23:13) RASH vancomycin Allergy (Verified 12/12/18 23:13) RASH roses Allergy (Uncoded 12/12/18 23:13) RASH Home Medications: Home Meds Medication Instructions Recorded Confirmed Meloxicam [Mobic] 7.5 mg PO DAILY 10/08/18 12/12/18 RX: Gabapentin [Neurontin] 600 mg PO TID 10/08/18 12/12/18 RX: Meclizine [Meclizine*] 25 mg PO DAILY 10/08/18 12/12/18 RX: Morphine [Morphine Immediate 2 mg PO PRN PRN 12/12/18 12/12/18 Release Tab] Review of Systems - Physician Review All systems were reviewed & negative as marked: Yes - Review of Systems Constitutional: Normal. absent: Fevers Eyes: Normal ENT: Normal Respiratory: Normal. absent: SOB, Cough Cardiovascular: Normal. absent: Chest Pain Gastrointestinal: Normal. absent: Abdominal Pain, Diarrhea, Nausea, Vomiting Genitourinary Female: Normal. absent: Dysuria, Frequency, Hematuria, Urine Output Changes Musculoskeletal: Normal. absent: Back Pain, Neck Pain Skin: Ulcer (+wound to left heel, +bilateral lower extremity pain) Neurological: Normal. absent: Headache, Dizziness Endocrine: Normal Hemo/Lymphatic: Normal Psychiatric: Normal Physical Exam Vital Signs Reviewed: Yes Temperature: Afebrile Blood Pressure: Normal Pulse: Regular Respiratory Rate: Normal Appearance: Positive for: Well-Appearing, Non-Toxic, Comfortable Pain Distress: None Mental Status: Positive for: Alert and Oriented X 3 - Systems Exam Head: Present: Atraumatic, Normocephalic Pupils: Present: PERRL Extroacular Muscles: Present: EOMI Conjunctiva: Present: Normal Mouth: Present: Moist Mucous Membranes Neck: Present: Normal Range of Motion Respiratory/Chest: Present: Clear to Auscultation, Good Air Exchange. No: Res piratory Distress, Accessory Muscle Use Cardiovascular: Present: Regular Rate and Rhythm, Normal S1, S2. No: Murmurs Abdomen: No: Tenderness, Distention, Peritoneal Signs Back: Present: Normal Inspection Upper Extremity: Present: Normal Inspection. No: Cyanosis, Edema Lower Extremity: Present: Erythema (Erythema to bilateral lower extremities with skin avulsion of the left heel, few scattered ulceration of the right lower leg), Other (extensive lichenfication of bilateral lower extremities) Neurological: Present: GCS=15, CN II-XII Intact, Speech Normal Skin: Present: Warm, Dry, Normal Color. No: Rashes Psychiatric: Present: Alert, Oriented x 3, Normal Insight, Normal Concentration Medical Decision Making ED Course and Treatment: 12/12/18 22:59 Impression: 68 year old female complaining of bilateral lower extremity pain, left heel open wound, and some ulcers to the right lower extremity. Plan: -- Labs, blood cultures, wound cultures/gram stain -- Merrem -- Reassess and disposition Prior Visits: Notes and results from previous visits were reviewed. Progress Notes: Wounds were covered in Bacitracin and sterile gauze. 12/13/18 01:[address] Wagner, who is aware and agrees with plan. Accepts pt in to his service. Pt will go to [facility] observation for cellulitis and skin avulsion. Requests Dr. Marinelli and Dr. Acosta on consult. - Lab Interpretations I have reviewed the lab results: Yes - Scribe Statement The provider has reviewed the documentation as recorded by the Armando Sheth Provider Scribe Attestation: All medical record entries made by the Scribe were at my direction and personally dictated by me. I have reviewed the chart and agree that the record accurately reflects my personal performance of the history, physical exam, medical decision making, and the department course for this patient. I have also personally directed, reviewed, and agree with the discharge instructions and disposition. Disposition/Present on Arrival - Present on Arrival Any Indicators Present on Arrival: No History of DVT/PE: No History of Uncontrolled Diabetes: No Urinary Catheter: No History of Decub. Ulcer: No History Surgical Site Infection Following: None - Disposition Have Diagnosis and Disposition been Completed?: Yes Diagnosis: Cellulitis, Avulsion of skin of left foot, Stasis edema with ulcer of both lower extremities Disposition: HOSPITALIZED Disposition Time: 01:45 Patient Problems: Current Active Problems Problem Status Onset Avulsion of skin of left foot Acute Cellulitis Acute Stasis edema with ulcer of both lower extremities Acute Condition: STABLE
[2018-12-12] MEDS ORDERED: Meropenem IV 1 gm in NS 1 GM/50 ML BAG IVPB ONE (23:18)
[2018-12-12] MEDS ORDERED: Linezolid 600 mg in D5W 300 ml 600 MG/300 ML BAG IVPB ONE (23:45)
[2018-12-13] MEDS ORDERED: Morphine 2 mg/ml ISec IVP STA (00:28)
[2018-12-13 00:33] LABS: MEAN CELL VOLUME 84.3 fl (80.0-105.0); MEAN PLATELET VOLUME 9.8 fl (7.0-11.0); RBC 4.6 10^6/uL (3.5-6.1); RED CELL DISTRIBUTION WIDTH 16.5 % (11.5-14.5); WHITE BLOOD COUNT 9.1 10^3/uL (4.5-11.0)
[2018-12-13 00:45] LABS: ALB/GLOB RATIO 1.1 (1.1-1.8); ALBUMIN 3.7 g/dL (3.0-4.8); ALT/SGPT 33 U/L (7-56); AST/SGOT 16 U/L (14-36); BLOOD UREA NITROGEN 19 mg/dL (7-21); CALCIUM 9.9 mg/dL (8.4-10.5); GFR NON-AFRICAN AMERICAN > 60; HEMOGLOBIN 12.4 g/dL (12.0-16.0)
[2018-12-13 05:11] VITALS: BMI 40.7
[2018-12-13] MEDS ORDERED: Morphine 2 mg/ml ISec IVP SCH (07:00)
[2018-12-13] MEDS ORDERED: Morphine 2 mg/ml ISec IVP PRN ×2 (07:03→10:40)
--- NOTE | 2018-12-13 10:05 | CP.PCM.APN ---
Subjective - Date & Time of Evaluation Date of Evaluation: 12/13/18 Time of Evaluation: 09:45 - Subjective Subjective: Pt seen and examined at bedside. C/O pain on bilateral lower extremities. In no respiratory distress. Objective - Vital Signs/Intake and Output Vital Signs (last 24 hours): Temp Pulse Resp BP Pulse Ox 98.1 F 70 18 118/56 L 94 L 12/13/18 06:00 12/13/18 06:00 12/13/18 06:00 12/13/18 06:00 12/13/18 06:00 - Medications Medications: Current Medications Diphenhydramine HCl (Benadryl) 25 mg PO Q6 PRN PRN Reason: Itching / Pruritus Gabapentin (Neurontin) 600 mg PO TID [facility]; Protocol Last Admin: 12/13/18 09:14 Dose: 600 mg Meclizine HCl (Antivert) 25 mg PO DAILY [facility] Last Admin: 12/13/18 09:14 Dose: 25 mg Morphine Sulfate (Morphine) 1 mg IVP Q3H PRN PRN Reason: Pain, moderate (4-7) Last Admin: 12/13/18 09:14 Dose: 1 mg Tramadol HCl (Ultram) 50 mg PO Q6 PRN PRN Reason: Pain, moderate (4-7) - Labs Labs: 12/12/18 23:40 12/12/18 23:40 - Constitutional Appears: Well, No Acute Distress - Head Exam Head Exam: ATRAUMATIC, NORMOCEPHALIC - Eye Exam Eye Exam: Normal appearance - ENT Exam ENT Exam: Normal Exam - Neck Exam Neck Exam: Full ROM - Respiratory Exam Respiratory Exam: Clear to Ausculation Bilateral, NORMAL BREATHING PATTERN - Cardiovascular Exam Cardiovascular Exam: REGULAR RHYTHM, +S1, +S2 - GI/Abdominal Exam GI & Abdominal Exam: Soft, Normal Bowel Sounds - Rectal Exam Rectal Exam: Deferred - Extremities Exam Additional comments: bilateral lower extremities with scaling/discoloration. L calf and heel w/ ulcer. - Neurological Exam Neurological Exam: Alert, Awake, Oriented x3 Assessment and Plan - Assessment and Plan (Free Text) Assessment: Pt is a 68 y.o. female w/ pmhx of bilateral lower extremity cellulitis with multiple debridements of the lower extremities, osteomyelitis, venous stasis, hypertension, depression, renal insufficiency, hypothyroidism, and obesity who was brought in by EMS for bilateral lower extremity/left heel wound w/ pain & bleeding. Plan: Wound care per podiatry recs ID and Podiatry on consult Meds per MAR Physical therapy pending Will continue to follow
[2018-12-13] MEDS: Morphine 2 mg/ml ISec IVP PRN ×2 (10:55→18:31)
--- NOTE | 2018-12-13 14:06 | CP.PCM.CON ---
<Abhinav Todd - Last Filed: 12/13/18 14:10> History of Present Illness - History of Present Illness History of Present Illness: ID Consult Note 67 year old female with past medical history of HTN, CAD, PVD, obesity and multiple admissions for cellulitis presents to the hospital for 3 day history of worsening bilateral leg pain and swelling. Patient states she slipped getting out of bed and hit her left heel. Patient states her pain has been mainly in the left leg. She states she stopped following with her network admin due to changes in her insurance. Patient states pain medication at home did not help her symptoms. Patient denies chest pain, shortness of breath, nausea, vomiting, diarrhea, fever, chills, dysuria. Medical Hx: HTN, CAD, PVD, obesity and multiple admissions for cellulitisy Surgical Hx: Cholecystectomy, hernia repair Social Hx: Denies alcohol, tobacco, or illicit drug use Medications: Reviewed, as per MAR Allergies: Ciprofloxacin, Penicillin, Vancomycin. All cause rash Review of Systems - Review of Systems Review of Systems: 12 point ROS as per HPI, otherwise negative Past Patient History - Infectious Disease Hx of Infectious Diseases: None - Tetanus Immunizations Tetanus Immunization: Unknown - Past Social History Smoking Status: Never Smoked - CARDIAC Hx Cardiac Disorders: Yes Hx Angina: No Hx Cardia Arrhythmia: No Hx Circulatory Problems: No Hx Congestive Heart Failure: No Hx Heart Murmur: No Hx Heart Transplant: No Hx Hypercholesterolemia: No Hx Hypertension: Yes Hx Internal Defibrillator: No Hx Mitral Valve Prolapse: No Hx Pacemaker: No Hx Peripheral Edema: No Hx Peripheral Vascular Disease: No - PULMONARY Hx Respiratory Disorders: No Hx Asthma: No Hx Bronchitis: No Hx Chronic Obstructive Pulmonary Disease (COPD): No Hx Emphysema: No Hx Pneumonia: No Hx Respiratory Aspiration: No Hx Respiratory Tract Infection: No Hx Sleep Apnea: No Hx Tuberculosis: No - NEUROLOGICAL Hx Neurological Disorder: No Hx Alzheimer's Disease: No HX Cerebrovascular Accident: No Hx Dementia: No Hx Dizziness: Yes Hx Meningitis: No Hx Migraine: No Hx Parkinson's Disease: No Hx Seizures: No Hx Transient Ischemic Attacks (TIA): No - HEENT Hx HEENT Problems: No Hx Blind: No Hx Cataracts: No Hx Deafness: No Hx Difficulty Chewing: No Hx Epistaxis: No Hx Glaucoma: No Hx Macular Degeneration: No - RENAL Hx Chronic Kidney Disease: Yes Hx Dialysis: No Hx Kidney Stones: No Hx Neurogenic Bladder: No Hx Pyelonephritis: No Hx Renal (Kidney) Cancer: No Hx Renal Failure: No - ENDOCRINE/METABOLIC Hx Endocrine Disorders: No Hx Adrenal Cancer: No Hx Diabetes Insipidus: No Hx Diabetes Mellitus Type 1: No Hx Diabetes Mellitus Type 2: No Hx Hyperthyroidism: No Hx Hypothyroidism: Yes Hx Systemic Lupus Erythematosus: No - HEMATOLOGICAL/ONCOLOGICAL Hx Blood Disorders: No Hx AIDS: No Hx Anemia: Yes Hx Cancer: No Hx Chemotherapy: No Hx Cirrhosis: No Hx Hemophilia: No Hx Hepatitis A: No Hx Hepatitis B: No Hx Hepatitis C: No Hx Human Immunodeficiency Virus (HIV): No Hx Metastesis: No Hx Shingles: No Hx Sickle Cell Disease: No Hx Unexplained Bleeding: No - INTEGUMENTARY Hx Dermatological Problems: Yes (cellulities to the bilateral lower extremities since 2010) Hx Basil Cell: No Hx Eczema: No Hx Melanoma: No Hx Psoriasis: No Hx Squamous Cell: No - MUSCULOSKELETAL/RHEUMATOLOGICAL Hx Musculoskeletal Disorders: No Hx Arthritis: Yes Hx Back Pain: No Hx Degenerative Joint Disease: No Hx Falls: Yes (Recent fall on 12/10) Hx Fractures: No Hx Gout: No Hx Herniated Disk: No Hx Myasthenia Gravis: No Hx Osteoarthritis: No Hx Osteomyelitis: No Hx Osteoporosis: No Hx Rhabdomyolysis: No Hx Spinal Stenosis: No Hx Unsteady Gait: No - GASTROINTESTINAL Hx Gastrointestinal Disorders: Yes Hx Colostomy: No Hx Crohn's Disease: No Hx Diverticulitis: No Hx Gall Bladder Disease: Yes (gallstones) Hx Gastroesophageal Reflux: No Hx Ileostomy: No Hx Liver Failure: No Hx Pancreatitis: No HX Swallowing Problems: No Hx Ulcer: No - GENITOURINARY/GYNECOLOGICAL Hx Genitourinary Disorders: No Hx Hematuria: No Hx Incontinence: Yes Hx Sexually Transmitted Disorders: No Hx Urinary Tract Infection: No - PSYCHIATRIC Hx Psychophysiologic Disorder: Yes Hx Anxiety: Yes Hx Bipolar Disorder: No Hx Depression: Yes Hx Emotional Abuse: No Hx Hallucinations: No Hx Panic Symptoms: No Hx Paranoia: No Hx Post Traumatic Stress Disorder: No Hx Psychosis: No Hx Physical Abuse: No Hx Schizophrenia: No Hx Sexual Abuse: No - SURGICAL HISTORY Hx Surgeries: Yes Hx Amputation: No Hx Appendectomy: No Hx Cardiac Catheterization: No Hx Cholecystectomy: Yes Hx Coronary Stent: No Hx Gastric Bypass Surgery: No Hx Hysterectomy: No Hx Joint Replacement: No Hx Kidney Transplant: No Hx Liver Transplant: No Hx Mastectomy: No Hx Musculoskeletal Surgery: No Hx Open Heart Surgery: No Hx Orthopedic Surgery: No Hx Splenectomy: No Hx Valve Replacement: No Other/Comment: hernia repair - ANESTHESIA Hx Anesthesia: Yes Hx Anesthesia Reactions: No Hx Malignant Hyperthermia: No Meds Allergies/Adverse Reactions: Allergies Allergy/AdvReac Type Severity Reaction Status Date / Time ciprofloxacin [From Cipro] Allergy RASH Verified 12/12/18 23:13 nubia Allergy RASH Verified 12/12/18 23:13 latex Allergy RASH Verified 12/12/18 23:13 Penicillins Allergy RASH Verified 12/12/18 23:13 Sulfa (Sulfonamide Allergy RASH Verified 12/12/18 23:13 Antibiotics) vancomycin Allergy RASH Verified 12/12/18 23:13 roses Allergy RASH Uncoded 12/12/18 23:13 - Medications Medications: Current Medications Diphenhydramine HCl (Benadryl) 25 mg PO Q6 PRN PRN Reason: Itching / Pruritus Gabapentin (Neurontin) 600 mg PO TID [facility]; Protocol Last Admin: 12/13/18 13:27 Dose: 600 mg Meclizine HCl (Antivert) 25 mg PO DAILY [facility] Last Admin: 12/13/18 09:14 Dose: 25 mg Morphine Sulfate (Morphine) 2 mg IVP Q3 PRN PRN Reason: Pain, severe (8-10) Last Admin: 12/13/18 10:55 Dose: 2 mg Tramadol HCl (Ultram) 50 mg PO Q6 PRN PRN Reason: Pain, moderate (4-7) Last Admin: 12/13/18 10:02 Dose: 50 mg Physical Exam - Constitutional Appears: Non-toxic, No Acute Distress - Head Exam Head Exam: ATRAUMATIC, NORMAL INSPECTION, NORMOCEPHALIC - ENT Exam ENT Exam: Mucous Membranes Moist - Respiratory Exam Respiratory Exam: Decreased Breath Sounds, NORMAL BREATHING PATTERN - Cardiovascular Exam Cardiovascular Exam: RRR, +S1, +S2 - GI/Abdominal Exam GI & Abdominal Exam: Normal Bowel Sounds, Soft. absent: Tenderness - Extremities Exam Additional comments: B/l lower extremities bandage to the knees. Erythematous and +1 edema - Neurological Exam Neurological exam: Alert, CN II-XII Intact, Oriented x3 - Psychiatric Exam Psychiatric exam: Normal Affect, Normal Mood - Skin Skin Exam: Intact, Normal Color, Warm Results - Vital Signs Recent Vital Signs: Last Vital Signs Temp 98.1 F 12/13/18 06:00 Pulse 70 12/13/18 06:00 Resp 18 12/13/18 06:00 BP 118/56 L 12/13/18 06:00 Pulse Ox 94 L 12/13/18 06:00 - Labs Result Diagrams: 12/12/18 23:40 12/12/18 23:40 Labs: Laboratory Results - last 24 hr 12/12/18 12/12/18 23:40 23:40 WBC 9.1 D RBC 4.60 Hgb 12.4 D Hct 38.8 MCV 84.3 MCH 27.0 MCHC 32.0 RDW 16.5 H Plt Count 458 H MPV 9.8 Sodium 143 Potassium 4.3 Chloride 110 H Carbon Dioxide 25 Anion Gap 12 BUN 19 Creatinine 0.8 Est GFR ( Amer) > 60 Est GFR (Non-Af Amer) > 60 Random Glucose 94 Calcium 9.9 Total Bilirubin 0.4 AST 16 ALT 33 Alkaline Phosphatase 102 Total Protein 7.3 Albumin 3.7 Globulin 3.5 Albumin/Globulin Ratio 1.1 Assessment & Plan - Assessment and Plan (Free Text) Plan: B/l lower extremity cellulitis Hx of HTN Hx of CAD Hx of purulent cellulitis positive for Group G strep, Pseudomonas, and Providencia Hx of Morbid Obesity Hx of Peripheral vascular disease Plan: Patient received dose of Merrem and Vancomycin in the ED. Will continue to monitor off of antibiotics at this time. Patient is afebrile with no leukocytosis. Patient will require a deep wound culture and will make recommendations based on results. Continue local wound care. Continue current medical regimen. Peyton, PGY-3 <Andrea Rizzo S - Last Filed: 12/13/18 18:12> Meds - Medications Medications: Current Medications Diphenhydramine HCl (Benadryl) 25 mg PO Q6 PRN PRN Reason: Itching / Pruritus Gabapentin (Neurontin) 600 mg PO TID [facility]; Protocol Last Admin: 12/13/18 13:27 Dose: 600 mg Lactic Acid (Lac-Hydrin 12% Cream (140 G)) 0 ea TOP Q1 CEM Meclizine HCl (Antivert) 25 mg PO DAILY [facility] Last Admin: 12/13/18 09:14 Dose: 25 mg Morphine Sulfate (Morphine) 2 mg IVP Q3 PRN PRN Reason: Pain, severe (8-10) Last Admin: 12/13/18 10:55 Dose: 2 mg Tramadol HCl (Ultram) 50 mg PO Q6 PRN PRN Reason: Pain, moderate (4-7) Last Admin: 12/13/18 10:02 Dose: 50 mg Results - Vital Signs Recent Vital Signs: Last Vital Signs Temp 98.5 F 12/13/18 14:00 Pulse 76 12/13/18 14:00 Resp 18 12/13/18 14:00 BP 129/58 L 12/13/18 14:00 Pulse Ox 93 L 12/13/18 14:00 - Labs Result Diagrams: 12/12/18 23:40 12/12/18 23:40 Labs: Laboratory Results - last 24 hr 12/12/18 12/12/18 23:40 23:40 WBC 9.1 D RBC 4.60 Hgb 12.4 D Hct 38.8 MCV 84.3 MCH 27.0 MCHC 32.0 RDW 16.5 H Plt Count 458 H MPV 9.8 Sodium 143 Potassium 4.3 Chloride 110 H Carbon Dioxide 25 Anion Gap 12 BUN 19 Creatinine 0.8 Est GFR ( Amer) > 60 Est GFR (Non-Af Amer) > 60 Random Glucose 94 Calcium 9.9 Total Bilirubin 0.4 AST 16 ALT 33 Alkaline Phosphatase 102 Total Protein 7.3 Albumin 3.7 Globulin 3.5 Albumin/Globulin Ratio 1.1 Assessment & Plan - Assessment and Plan (Free Text) Plan: Infectious diseases Attending Physician Attestation Patient seen and examined, discussed with medical research assistant. I have reviewed the patient's history of present illness, past medical, social, personal and family histories, pertinent physical exam findings, course so far in this hospital admission, pertinent laboratory and imaging results. I agree with the above findings, assessment and plan. In addition, hold off on antibiotics until we get deep cultures in this patient with bilateral lower extremity chronic wounds.
--- NOTE | 2018-12-13 14:26 | CP.PCM.CON ---
History of Present Illness - History of Present Illness History of Present Illness: Podiatry consult note for Dr. couch/ Hemanth marinelli 66 year old female with PMH of morbid obesity, chronic painful leg wounds/cellulitis, HTN, sciatica, and neuropathy was consulted for painful bilaterally wounds and cellulitis. She is seen at bedside alert and oriented. She appears to be in distress secondary to the painful bilaterally lower extremities. She describes the pain in her bilaterally legs as a burning pain. She reports her left heels being sensitive as well. She denies n/v/sob/cp/chills or f. Past Patient History - Infectious Disease Hx of Infectious Diseases: None - Tetanus Immunizations Tetanus Immunization: Unknown - Past Social History Smoking Status: Never Smoked - CARDIAC Hx Cardiac Disorders: Yes Hx Angina: No Hx Cardia Arrhythmia: No Hx Circulatory Problems: No Hx Congestive Heart Failure: No Hx Heart Murmur: No Hx Heart Transplant: No Hx Hypercholesterolemia: No Hx Hypertension: Yes Hx Internal Defibrillator: No Hx Mitral Valve Prolapse: No Hx Pacemaker: No Hx Peripheral Edema: No Hx Peripheral Vascular Disease: No - PULMONARY Hx Respiratory Disorders: No Hx Asthma: No Hx Bronchitis: No Hx Chronic Obstructive Pulmonary Disease (COPD): No Hx Emphysema: No Hx Pneumonia: No Hx Respiratory Aspiration: No Hx Respiratory Tract Infection: No Hx Sleep Apnea: No Hx Tuberculosis: No - NEUROLOGICAL Hx Neurological Disorder: No Hx Alzheimer's Disease: No HX Cerebrovascular Accident: No Hx Dementia: No Hx Dizziness: Yes Hx Meningitis: No Hx Migraine: No Hx Parkinson's Disease: No Hx Seizures: No Hx Transient Ischemic Attacks (TIA): No - HEENT Hx HEENT Problems: No Hx Blind: No Hx Cataracts: No Hx Deafness: No Hx Difficulty Chewing: No Hx Epistaxis: No Hx Glaucoma: No Hx Macular Degeneration: No - RENAL Hx Chronic Kidney Disease: Yes Hx Dialysis: No Hx Kidney Stones: No Hx Neurogenic Bladder: No Hx Pyelonephritis: No Hx Renal (Kidney) Cancer: No Hx Renal Failure: No - ENDOCRINE/METABOLIC Hx Endocrine Disorders: No Hx Adrenal Cancer: No Hx Diabetes Insipidus: No Hx Diabetes Mellitus Type 1: No Hx Diabetes Mellitus Type 2: No Hx Hyperthyroidism: No Hx Hypothyroidism: Yes Hx Systemic Lupus Erythematosus: No - HEMATOLOGICAL/ONCOLOGICAL Hx Blood Disorders: No Hx AIDS: No Hx Anemia: Yes Hx Cancer: No Hx Chemotherapy: No Hx Cirrhosis: No Hx Hemophilia: No Hx Hepatitis A: No Hx Hepatitis B: No Hx Hepatitis C: No Hx Human Immunodeficiency Virus (HIV): No Hx Metastesis: No Hx Shingles: No Hx Sickle Cell Disease: No Hx Unexplained Bleeding: No - INTEGUMENTARY Hx Dermatological Problems: Yes (cellulities to the bilateral lower extremities since 2010) Hx Basil Cell: No Hx Eczema: No Hx Melanoma: No Hx Psoriasis: No Hx Squamous Cell: No - MUSCULOSKELETAL/RHEUMATOLOGICAL Hx Musculoskeletal Disorders: No Hx Arthritis: Yes Hx Back Pain: No Hx Degenerative Joint Disease: No Hx Falls: Yes (Recent fall on 12/10) Hx Fractures: No Hx Gout: No Hx Herniated Disk: No Hx Myasthenia Gravis: No Hx Osteoarthritis: No Hx Osteomyelitis: No Hx Osteoporosis: No Hx Rhabdomyolysis: No Hx Spinal Stenosis: No Hx Unsteady Gait: No - GASTROINTESTINAL Hx Gastrointestinal Disorders: Yes Hx Colostomy: No Hx Crohn's Disease: No Hx Diverticulitis: No Hx Gall Bladder Disease: Yes (gallstones) Hx Gastroesophageal Reflux: No Hx Ileostomy: No Hx Liver Failure: No Hx Pancreatitis: No HX Swallowing Problems: No Hx Ulcer: No - GENITOURINARY/GYNECOLOGICAL Hx Genitourinary Disorders: No Hx Hematuria: No Hx Incontinence: Yes Hx Sexually Transmitted Disorders: No Hx Urinary Tract Infection: No - PSYCHIATRIC Hx Psychophysiologic Disorder: Yes Hx Anxiety: Yes Hx Bipolar Disorder: No Hx Depression: Yes Hx Emotional Abuse: No Hx Hallucinations: No Hx Panic Symptoms: No Hx Paranoia: No Hx Post Traumatic Stress Disorder: No Hx Psychosis: No Hx Physical Abuse: No Hx Schizophrenia: No Hx Sexual Abuse: No - SURGICAL HISTORY Hx Surgeries: Yes Hx Amputation: No Hx Appendectomy: No Hx Cardiac Catheterization: No Hx Cholecystectomy: Yes Hx Coronary Stent: No Hx Gastric Bypass Surgery: No Hx Hysterectomy: No Hx Joint Replacement: No Hx Kidney Transplant: No Hx Liver Transplant: No Hx Mastectomy: No Hx Musculoskeletal Surgery: No Hx Open Heart Surgery: No Hx Orthopedic Surgery: No Hx Splenectomy: No Hx Valve Replacement: No Other/Comment: hernia repair - ANESTHESIA Hx Anesthesia: Yes Hx Anesthesia Reactions: No Hx Malignant Hyperthermia: No Meds Allergies/Adverse Reactions: Allergies Allergy/AdvReac Type Severity Reaction Status Date / Time ciprofloxacin [From Cipro] Allergy RASH Verified 12/12/18 23:13 nubia Allergy RASH Verified 12/12/18 23:13 latex Allergy RASH Verified 12/12/18 23:13 Penicillins Allergy RASH Verified 12/12/18 23:13 Sulfa (Sulfonamide Allergy RASH Verified 12/12/18 23:13 Antibiotics) vancomycin Allergy RASH Verified 12/12/18 23:13 roses Allergy RASH Uncoded 12/12/18 23:13 - Medications Medications: Current Medications Diphenhydramine HCl (Benadryl) 25 mg PO Q6 PRN PRN Reason: Itching / Pruritus Gabapentin (Neurontin) 600 mg PO TID [facility]; Protocol Last Admin: 12/13/18 13:27 Dose: 600 mg Meclizine HCl (Antivert) 25 mg PO DAILY [facility] Last Admin: 12/13/18 09:14 Dose: 25 mg Morphine Sulfate (Morphine) 2 mg IVP Q3 PRN PRN Reason: Pain, severe (8-10) Last Admin: 12/13/18 10:55 Dose: 2 mg Tramadol HCl (Ultram) 50 mg PO Q6 PRN PRN Reason: Pain, moderate (4-7) Last Admin: 12/13/18 10:02 Dose: 50 mg Physical Exam - Constitutional Appears: Well, Non-toxic - Head Exam Head Exam: ATRAUMATIC, NORMOCEPHALIC - Eye Exam Eye Exam: Normal appearance Pupil Exam: NORMAL ACCOMODATION - ENT Exam ENT Exam: Mucous Membranes Moist - Respiratory Exam Respiratory Exam: NORMAL BREATHING PATTERN - Extremities Exam Additional comments: Vasc: DP and PT pulses non-palpable due to LE edema. CFT < 3 seconds x10, temperature gradient WNL Neuro: Gross sensation diminished b/l Derm: Venous stasis changes noted to the lower extremity with lichenification of skin all noted extensively to the left foot and ankle. Serous drainage is noted to lower extremity from posterior aspect of b/l leg. Erythema noted extensively to both legs. Mild malodor present. No purulent drainage. Multiple superficial ulcerations noted to b/l legs Superficial ulceration noted to the left heel with fibrogranular base, no tunneling or tracking noted, no probe tob one. Ortho: Severe pain on palpation to LE b/l. - Neurological Exam Neurological exam: Alert, Oriented x3 - Psychiatric Exam Psychiatric exam: Normal Affect Results - Vital Signs Recent Vital Signs: Last Vital Signs Temp 98.1 F 12/13/18 06:00 Pulse 70 12/13/18 06:00 Resp 18 12/13/18 06:00 BP 118/56 L 12/13/18 06:00 Pulse Ox 94 L 12/13/18 06:00 - Labs Result Diagrams: 12/12/18 23:40 12/12/18 23:40 Labs: Laboratory Results - last 24 hr 12/12/18 12/12/18 23:40 23:40 WBC 9.1 D RBC 4.60 Hgb 12.4 D Hct 38.8 MCV 84.3 MCH 27.0 MCHC 32.0 RDW 16.5 H Plt Count 458 H MPV 9.8 Sodium 143 Potassium 4.3 Chloride 110 H Carbon Dioxide 25 Anion Gap 12 BUN 19 Creatinine 0.8 Est GFR ( Amer) > 60 Est GFR (Non-Af Amer) > 60 Random Glucose 94 Calcium 9.9 Total Bilirubin 0.4 AST 16 ALT 33 Alkaline Phosphatase 102 Total Protein 7.3 Albumin 3.7 Globulin 3.5 Albumin/Globulin Ratio 1.1 Assessment & Plan - Assessment and Plan (Free Text) Assessment: 66 year old female with painful cellulitis with ulceration to b/l LE Plan: Patient seen and evaluated at bedside with attending Dr. Marinelli Labs, charts and vitals reviewed (afebrile, WBC=11) LE cleansed with saline and dressed with adaptic, gauze, ABD, and kerlix. Wound cultures pending Continue with abx per ID Patient to be in multipodus boots at all times Lac-hydrin ordered; to be applied while daily dressing changes Continue with pain management per primary team Podiatry to continue to follow while in house
[2018-12-13] MEDS ORDERED: Ammonium Lactate 12% Cream (140 g) TOP SCH (14:45)
--- NOTE | 2018-12-13 16:13 | HP ---
DATE OF EXAM: 12/13/2018 HISTORY OF PRESENT ILLNESS: She was sent to the emergency room by her caregiver with bilateral lower extremity redness, oozing, bleeding. By the caregiver, they could not stop the bleeding at home she is a 68-year-old white female I have known for years with chronic lower extremity cellulitis and ulcers, multiple debridements and hospitalizations, osteomyelitis, venous stasis, hypertension, depression, renal insufficiency, hypothyroid, and obesity who is now back again with cellulitis also of the lower extremities. She will be on IV antibiotics. She will be seen by Podiatry and Infectious Diseases. PAST MEDICAL HISTORY: She has renal disorders, hypothyroidism, anemia, history of cellulitis to bilateral lower extremities since 2010, arthritis, gallstones, GERD, incontinence, depression. PAST SURGICAL HISTORY: She has had hernia repair, cholecystectomy. FAMILY HISTORY: Unknown. SOCIAL HISTORY: Never smoked. No alcohol, no drugs. ALLERGIES: CIPRO, ERNIE, LATEX, PENICILLIN, SULFA, VANCOMYCIN, ROSES. MEDICATIONS: She is taking Mobic, Neurontin, meclizine. She morphine immediate-release tabs - last hospitalization that I was not involved in. REVIEW OF SYSTEMS: No acute vision or hearing changes. No shortness of breath, no cough, no chest pain, no palpitations, no sore throat. No nausea, vomiting, constipation, diarrhea. No problems urinating. She is incontinent. She is having pains throughout her body. She has wounds to the lower heel and bilateral lower extremity ulcers and oozing and pains. No headache, no dizziness. She understands why she is here. She is very upset that she is back in the hospital. PHYSICAL EXAMINATION VITAL SIGNS: She has 98.1 temperature, 70 pulse, 118/66 blood pressure, 18 respiratory rate, 94% O2 sat on room air. HEENT: Head is atraumatic, normocephalic. Extraocular muscles intact. Pupils equal, reactive to light and accommodation. HEART: Regular rate. LUNGS: Decreased breath sounds, though clear to auscultation. ABDOMEN: Soft, nontender. Positive bowel sounds. No guarding, no rebound, no CVA tenderness. EXTREMITIES: There is erythema in bilateral lower extremities. SKIN: Ulcers and excoriations and venous stasis. NEUROLOGIC: GCS is 15. Cranial nerves II through XII are grossly intact. Alert and oriented x3. LABORATORY DATA: She has 9.1 white count, 12.4 hemoglobin, 38.8 hematocrit with platelets. Sodium 142, potassium 4.3, BUN 19, creatinine 0.8. GFR greater than 60. Sugar is 94, calcium is 9.9. Total bili is 0.4, AST is 16, ALT is 13, alkaline phosphatase 102, total protein 7.3. ASSESSMENT AND PLAN: She will have consults with Infectious Diseases and Podiatry. She will be on possibly Merrem and Zyvox, she got that in the emergency room, some pain medications. Physical therapy, out of bed to chair and checking her labs. Hung Wagner DO MTDD
[2018-12-13] MEDS: Linezolid 600 mg in D5W 300 ml 600 MG/300 ML BAG IVPB SCH (21:39)
[2018-12-14 07:26] LABS: HEMOGLOBIN 9.7 g/dL (12.0-16.0); MEAN CELL VOLUME 84.9 fl (80.0-105.0); MEAN CORPUSCULAR HEMOGLOBIN 26.2 pg (25.0-35.0); MEAN CORPUSCULAR HGB CONC 30.9 g/dl (31.0-37.0); MEAN PLATELET VOLUME 9.1 fl (7.0-11.0); RBC 3.7 10^6/uL (3.5-6.1); RED CELL DISTRIBUTION WIDTH 16.6 % (11.5-14.5); WHITE BLOOD COUNT 5.6 10^3/uL (4.5-11.0)
[2018-12-14 07:50] LABS: ALB/GLOB RATIO 0.9 (1.1-1.8); ALBUMIN 2.8 g/dL (3.0-4.8); ALT/SGPT 21 U/L (7-56); AST/SGOT 16 U/L (14-36); BLOOD UREA NITROGEN 20 mg/dL (7-21); CALCIUM 8.4 mg/dL (8.4-10.5); GFR NON-AFRICAN AMERICAN > 60
[2018-12-14] MEDS: Linezolid 600 mg in D5W 300 ml 600 MG/300 ML BAG IVPB SCH ×2 (09:56→21:23)
--- NOTE | 2018-12-14 12:05 | CP.PCM.APN ---
Subjective - Date & Time of Evaluation Date of Evaluation: 12/14/18 Time of Evaluation: 10:15 - Subjective Subjective: Pt seen and examined at bedside. In no acute distress. Objective - Vital Signs/Intake and Output Vital Signs (last 24 hours): Temp Pulse Resp BP Pulse Ox 98.3 F 67 20 124/67 96 12/14/18 07:00 12/14/18 07:00 12/14/18 07:00 12/14/18 07:00 12/14/18 07:00 Intake and Output: 12/14/18 12/14/18 06:59 18:59 Intake Total 480 Balance 480 - Medications Medications: Current Medications Diphenhydramine HCl (Benadryl) 25 mg PO Q6 PRN PRN Reason: Itching / Pruritus Gabapentin (Neurontin) 600 mg PO TID [facility]; Protocol Last Admin: 12/14/18 09:56 Dose: 600 mg Linezolid (Zyvox 600mg/300ml D5w) 600 mg in 300 mls @ 200 mls/hr IVPB Q12 [facility]; Protocol Stop: 12/20/18 22:01 Last Admin: 12/14/18 09:56 Dose: 200 mls/hr Lactic Acid (Lac-Hydrin 12% Cream (140 G)) 0 ea TOP Q1 [facility] Meclizine HCl (Antivert) 25 mg PO DAILY [facility] Last Admin: 12/14/18 09:56 Dose: 25 mg Morphine Sulfate (Morphine) 2 mg IVP Q3 PRN PRN Reason: Pain, severe (8-10) Last Admin: 12/13/18 18:31 Dose: 2 mg - Labs Labs: 12/14/18 07:00 12/14/18 07:00 - Constitutional Appears: Well, No Acute Distress - Eye Exam Eye Exam: Normal appearance - Neck Exam Neck Exam: Full ROM - Respiratory Exam Respiratory Exam: Clear to Ausculation Bilateral, NORMAL BREATHING PATTERN - Cardiovascular Exam Cardiovascular Exam: REGULAR RHYTHM, +S1, +S2 - GI/Abdominal Exam GI & Abdominal Exam: Soft, Normal Bowel Sounds - Rectal Exam Rectal Exam: Deferred - Extremities Exam Additional comments: b/l lower ext with lichenification/scaling/discoloration - Neurological Exam Neurological Exam: Alert, Awake, Oriented x3 Assessment and Plan - Assessment and Plan (Free Text) Assessment: Pt is a 68 y.o. female admitted for b/l lower ext cellulitis. D/W Podiatry, no indication for deep tissue culture at this time & will need to continue local wound care. Plan: On Zyvox (need total of 7 days per ID) ID and podiatry on consult Meds per MAR Physical therapy SW/CM dc planning Will continue to follow
--- NOTE | 2018-12-14 12:12 | CP.PCM.PN ---
<Betzy Andrea - Last Filed: 12/14/18 15:07> Subjective - Date & Time of Evaluation Date of Evaluation: 12/14/18 Time of Evaluation: 12:06 - Subjective Subjective: Podiatry progress note for Dr. couch/ Hemanth marinelli 66 year old female with PMH of morbid obesity, chronic painful leg wounds/cellulitis, HTN, sciatica, and neuropathy seen at bedside for painful bilaterally wounds and cellulitis. She is seen at bedside alert and oriented. She appears to be in distress secondary to the painful bilaterally lower extremities. Denies acute overnight events. Denies any other pedal complains She denies n/v/sob/cp/chills or f. Objective - Vital Signs/Intake and Output Vital Signs (last 24 hours): Temp Pulse Resp BP Pulse Ox 98.3 F 67 20 124/67 96 12/14/18 07:00 12/14/18 07:00 12/14/18 07:00 12/14/18 07:00 12/14/18 07:00 Intake and Output: 12/14/18 12/14/18 06:59 18:59 Intake Total 480 Balance 480 - Medications Medications: Current Medications Diphenhydramine HCl (Benadryl) 25 mg PO Q6 PRN PRN Reason: Itching / Pruritus Gabapentin (Neurontin) 600 mg PO TID [facility]; Protocol Last Admin: 12/14/18 09:56 Dose: 600 mg Linezolid (Zyvox 600mg/300ml D5w) 600 mg in 300 mls @ 200 mls/hr IVPB Q12 [facility]; Protocol Stop: 12/20/18 22:01 Last Admin: 12/14/18 09:56 Dose: 200 mls/hr Lactic Acid (Lac-Hydrin 12% Cream (140 G)) 0 ea TOP Q1 [facility] Meclizine HCl (Antivert) 25 mg PO DAILY [facility] Last Admin: 12/14/18 09:56 Dose: 25 mg Morphine Sulfate (Morphine) 2 mg IVP Q3 PRN PRN Reason: Pain, severe (8-10) Last Admin: 12/13/18 18:31 Dose: 2 mg - Labs Labs: 12/14/18 07:00 12/14/18 07:00 - Constitutional Appears: Well, Non-toxic, No Acute Distress - Head Exam Head Exam: ATRAUMATIC, NORMOCEPHALIC - Eye Exam Eye Exam: Normal appearance Pupil Exam: NORMAL ACCOMODATION - ENT Exam ENT Exam: Mucous Membranes Moist - Cardiovascular Exam Cardiovascular Exam: REGULAR RHYTHM - Extremities Exam Additional comments: Vasc: DP and PT pulses non-palpable due to LE edema. CFT < 3 seconds x10, tempe rature gradient WNL Neuro: Gross sensation diminished b/l Derm: Venous stasis changes noted to the lower extremity with lichenification of skin all noted extensively to the left foot and ankle. Serous drainage is noted to lower extremity from posterior aspect of b/l leg. Erythema noted extensively to both legs. Mild malodor present. No purulent drainage. Multiple superficial ulcerations noted to b/l legs Superficial ulceration noted to the left heel with fibrogranular base, no tunneling or tracking noted, no probe tob one. Ortho: Severe pain on palpation to LE b/l. - Neurological Exam Neurological Exam: Alert, Awake Assessment and Plan - Assessment and Plan (Free Text) Assessment: 66 year old female with painful cellulitis with ulceration to b/l LE Plan: Patient seen and evaluated at bedside with attending Dr. Marinelli Labs, charts and vitals reviewed (afebrile, WBC=5.6) LE cleansed with saline and dressed with adaptic, gauze, ABD, and kerlix. Wound cultures pending Continue with abx per ID Patient to be in multipodus boots at all times Lac-hydrin ordered; to be applied while daily dressing changes Continue with pain management per primary team Podiatry to continue to follow while in house <Ton Marinelli - Last Filed: 12/14/18 17:55> Objective - Vital Signs/Intake and Output Vital Signs (last 24 hours): Temp Pulse Resp BP Pulse Ox 98.3 F 67 20 124/67 96 12/14/18 07:00 12/14/18 07:00 12/14/18 07:00 12/14/18 07:00 12/14/18 07:00 Intake and Output: 12/14/18 12/14/18 06:59 18:59 Intake Total 480 Balance 480 - Medications Medications: Current Medications Diphenhydramine HCl (Benadryl) 25 mg PO Q6 PRN PRN Reason: Itching / Pruritus Gabapentin (Neurontin) 600 mg PO TID [facility]; Protocol Last Admin: 12/14/18 15:51 Dose: 600 mg Linezolid (Zyvox 600mg/300ml D5w) 600 mg in 300 mls @ 200 mls/hr IVPB Q12 [facility]; Protocol Stop: 12/20/18 22:01 Last Admin: 12/14/18 09:56 Dose: 200 mls/hr Lactic Acid (Lac-Hydrin 12% Cream (140 G)) 0 ea TOP Q1 [facility] Meclizine HCl (Antivert) 25 mg PO DAILY [facility] Last Admin: 12/14/18 09:56 Dose: 25 mg Morphine Sulfate (Morphine) 2 mg IVP Q3 PRN PRN Reason: Pain, severe (8-10) Last Admin: 12/14/18 12:58 Dose: 2 mg - Labs Labs: 12/14/18 07:00 12/14/18 07:00 Attending/Attestation - Attestation I have personally seen and examined this patient.: Yes I have fully participated in the care of the patient.: Yes I have reviewed all pertinent clinical information, including history, physical exam and plan: Yes
--- NOTE | 2018-12-14 12:51 | PN ---
DATE: 12/14/2018 SUBJECTIVE: She is resting is bed. She slept very well last night told me. She is in pain in her legs. OBJECTIVE VITAL SIGNS: She has 98.3 temperature, 67 pulse, 124/67 blood pressure, 20 respiratory rate, 96% O2 sat on room air. HEENT: Head is atraumatic, normocephalic. HEART: Regular rate. LUNGS: Decreased breath sounds but clear. ABDOMEN: Soft, obese, nontender. EXTREMITIES: Less edematous, less red. These are bandaged from ulcers. I think the medicines are starting to work. MEDICATIONS: She is on Antivert, Benadryl, Lac-Hydrin, morphine, Neurontin, and Zyvox IV. LABORATORY DATA: She has 138 sodium, potassium of 4, BUN is 20, creatinine 0.9, GFR is greater than 60, sugar is 99. Calcium is 8.4. Total bili is 0.2, AST is 16, ALT is 21, alkaline phosphatase total protein is 5.9. White count 5.6, 9.7 hemoglobin, 31.4 hematocrit with 321 platelets. ASSESSMENT AND PLAN: Waiting for Physical Therapy to see her. She is being seen by Infectious Diseases who has her on Zyvox. She has done this before numerous times. She is also being seen by Podiatry. She has painful cellulitis with ulcerations of bilateral lower extremities. She has been on anttibiotics. Waiting for Physical Therapy to let me know if she needs services, subacute rehabilitation, or possible Transitional Care Unit to finish this off. I would like to see her in Transitional Care Unit. I think that would be a good place for her to finish the antibiotics, skin care, and then home. We will see what they say, but she is here for bilateral cellulitis. We will check all labs tomorrow as per Infectious Diseases and Podiatry. Hung Wagner DO MTDYana
[2018-12-14] MEDS: Morphine 2 mg/ml ISec IVP PRN (12:58)
--- NOTE | 2018-12-14 13:33 | CP.PCM.PN ---
<Abhinav Todd - Last Filed: 12/14/18 13:30> Subjective - Date & Time of Evaluation Date of Evaluation: 12/14/18 Time of Evaluation: 09:45 - Subjective Subjective: ID progress note Patient seen and examined. No acute events overnight. Patient admits to pain in left lower leg. Denies chest pain, shortness of breath, fever, chills. Objective - Vital Signs/Intake and Output Vital Signs (last 24 hours): Temp Pulse Resp BP Pulse Ox 98.3 F 67 20 124/67 96 12/14/18 07:00 12/14/18 07:00 12/14/18 07:00 12/14/18 07:00 12/14/18 07:00 Intake and Output: 12/14/18 12/14/18 06:59 18:59 Intake Total 480 Balance 480 - Medications Medications: Current Medications Diphenhydramine HCl (Benadryl) 25 mg PO Q6 PRN PRN Reason: Itching / Pruritus Gabapentin (Neurontin) 600 mg PO TID [facility]; Protocol Last Admin: 12/14/18 09:56 Dose: 600 mg Linezolid (Zyvox 600mg/300ml D5w) 600 mg in 300 mls @ 200 mls/hr IVPB Q12 [facility]; Protocol Stop: 12/20/18 22:01 Last Admin: 12/14/18 09:56 Dose: 200 mls/hr Lactic Acid (Lac-Hydrin 12% Cream (140 G)) 0 ea TOP Q1 [facility] Meclizine HCl (Antivert) 25 mg PO DAILY [facility] Last Admin: 12/14/18 09:56 Dose: 25 mg Morphine Sulfate (Morphine) 2 mg IVP Q3 PRN PRN Reason: Pain, severe (8-10) Last Admin: 12/13/18 18:31 Dose: 2 mg - Labs Labs: 12/14/18 07:00 12/14/18 07:00 - Constitutional Appears: Non-toxic, No Acute Distress - Head Exam Head Exam: ATRAUMATIC, NORMAL INSPECTION, NORMOCEPHALIC - ENT Exam ENT Exam: Mucous Membranes Moist - Respiratory Exam Respiratory Exam: Clear to Ausculation Bilateral, NORMAL BREATHING PATTERN - Cardiovascular Exam Cardiovascular Exam: RRR, +S1, +S2 - GI/Abdominal Exam GI & Abdominal Exam: Soft, Normal Bowel Sounds. absent: Tenderness - Extremities Exam Additional comments: b/l lower extremities bandaged up to the knee. No drainage, erythema, or edema. - Neurological Exam Neurological Exam: Alert, Awake, Oriented x3 - Psychiatric Exam Psychiatric exam: Normal Affect, Normal Mood - Skin Skin Exam: Intact, Normal Color, Warm Assessment and Plan - Assessment and Plan (Free Text) Plan: B/l lower extremity cellulitis Hx of HTN Hx of CAD Hx of purulent cellulitis positive for Group G strep, Pseudomonas, and Pro videncia Hx of Morbid Obesity Hx of Peripheral vascular disease Plan: Afebrile, no leukocytosis Continue Zyvox at this time Follow up wound culture results Blood cultures negative at this time Local wound care [place], PGY-3 <Andrea Rizzo - Last Filed: 12/14/18 17:57> Objective - Vital Signs/Intake and Output Vital Signs (last 24 hours): Temp Pulse Resp BP Pulse Ox 98.3 F 67 20 124/67 96 12/14/18 07:00 12/14/18 07:00 12/14/18 07:00 12/14/18 07:00 12/14/18 07:00 Intake and Output: 12/14/18 12/14/18 06:59 18:59 Intake Total 480 Balance 480 - Medications Medications: Current Medications Diphenhydramine HCl (Benadryl) 25 mg PO Q6 PRN PRN Reason: Itching / Pruritus Gabapentin (Neurontin) 600 mg PO TID [facility]; Protocol Last Admin: 12/14/18 15:51 Dose: 600 mg Linezolid (Zyvox 600mg/300ml D5w) 600 mg in 300 mls @ 200 mls/hr IVPB Q12 [facility]; Protocol Stop: 12/20/18 22:01 Last Admin: 12/14/18 09:56 Dose: 200 mls/hr Lactic Acid (Lac-Hydrin 12% Cream (140 G)) 0 ea TOP Q1 [facility] Meclizine HCl (Antivert) 25 mg PO DAILY [facility] Last Admin: 12/14/18 09:56 Dose: 25 mg Morphine Sulfate (Morphine) 2 mg IVP Q3 PRN PRN Reason: Pain, severe (8-10) Last Admin: 12/14/18 12:58 Dose: 2 mg - Labs Labs: 12/14/18 07:00 12/14/18 07:00 Assessment and Plan - Assessment and Plan (Free Text) Plan: Infectious diseases Attending Physician Attestation Patient seen and examined, discussed with chief medical director. I have reviewed the patient's history of present illness, past medical, social, personal and family histories, pertinent physical exam findings, course so far in this hospital admission, pertinent laboratory and imaging results. I agree with the above findings, assessment and plan. In addition, continue Zyvox for patient with bilateral lower extremity cellulitis. Follow up wound cx.
[2018-12-15 07:29] LABS: MEAN CELL VOLUME 85.6 fl (80.0-105.0); MEAN CORPUSCULAR HEMOGLOBIN 26.2 pg (25.0-35.0); MEAN CORPUSCULAR HGB CONC 30.7 g/dl (31.0-37.0); MEAN PLATELET VOLUME 9.3 fl (7.0-11.0); RBC 3.81 10^6/uL (3.5-6.1); RED CELL DISTRIBUTION WIDTH 16.6 % (11.5-14.5); WHITE BLOOD COUNT 5.4 10^3/uL (4.5-11.0)
[2018-12-15 07:57] LABS: ALB/GLOB RATIO 0.9 (1.1-1.8); ALT/SGPT 23 U/L (7-56); AST/SGOT 16 U/L (14-36); BLOOD UREA NITROGEN 18 mg/dL (7-21); CALCIUM 8.6 mg/dL (8.4-10.5); GFR NON-AFRICAN AMERICAN > 60
--- NOTE | 2018-12-15 09:54 | CP.PCM.PN ---
<Abhinav Todd - Last Filed: 12/15/18 13:17> Subjective - Date & Time of Evaluation Date of Evaluation: 12/15/18 Time of Evaluation: 09:00 - Subjective Subjective: ID progress note Patient seen and examine. Patient admits to pain in her both of her legs. No acute events overnight. Denies chest pain, shortness of breath, fever, chills. Objective - Vital Signs/Intake and Output Vital Signs (last 24 hours): Temp Pulse Resp BP Pulse Ox 98.4 F 56 L 18 120/52 L 93 L 12/15/18 06:00 12/15/18 06:00 12/15/18 06:00 12/15/18 06:00 12/15/18 06:00 Intake and Output: 12/15/18 12/15/18 06:59 18:59 Intake Total 660 Output Total 200 Balance 460 - Medications Medications: Current Medications Diphenhydramine HCl (Benadryl) 25 mg PO Q6 PRN PRN Reason: Itching / Pruritus Enoxaparin Sodium (Lovenox) 40 mg SC DAILY [facility]; Protocol Gabapentin (Neurontin) 600 mg PO TID [facility]; Protocol Last Admin: 12/14/18 15:51 Dose: 600 mg Linezolid (Zyvox 600mg/300ml D5w) 600 mg in 300 mls @ 200 mls/hr IVPB Q12 [facility]; Protocol Stop: 12/20/18 22:01 Last Admin: 12/14/18 21:23 Dose: 200 mls/hr Lactic Acid (Lac-Hydrin 12% Cream (140 G)) 0 ea TOP Q1 [facility] Meclizine HCl (Antivert) 25 mg PO DAILY [facility] Last Admin: 12/14/18 09:56 Dose: 25 mg Morphine Sulfate (Morphine) 2 mg IVP Q3 PRN PRN Reason: Pain, severe (8-10) Last Admin: 12/14/18 12:58 Dose: 2 mg - Labs Labs: 12/15/18 07:00 12/15/18 07:00 - Constitutional Appears: Non-toxic, No Acute Distress - Head Exam Head Exam: ATRAUMATIC, NORMAL INSPECTION, NORMOCEPHALIC - ENT Exam ENT Exam: Mucous Membranes Dry - Respiratory Exam Respiratory Exam: Clear to Ausculation Bilateral, NORMAL BREATHING PATTERN. absent: Rales, Rhonchi, Wheezes - Cardiovascular Exam Cardiovascular Exam: RRR, +S1, +S2 - GI/Abdominal Exam GI & Abdominal Exam: Soft, Normal Bowel Sounds. absent: Tenderness - Extremities Exam Additional comments: Bandaged b/l, no draining or erythema - Neurological Exam Neurological Exam: Alert, Awake, Oriented x3 - Psychiatric Exam Psychiatric exam: Normal Affect, Normal Mood - Skin Skin Exam: Dry, Intact, Warm Assessment and Plan - Assessment and Plan (Free Text) Plan: B/l lower extremity MRSA cellulitis Hx of HTN Hx of CAD Hx of purulent cellulitis positive for Group G strep, Pseudomonas, and Providencia Hx of Morbid Obesity Hx of Peripheral vascular disease Plan: Wound culture shows MRSA and gram negative rods Continue Zyvox for 7-10 days Blood cultures negative x 48 hours Local wound care Peyton, PGY-3 <Andrea Rizzo - Last Filed: 12/15/18 21:10> Objective - Vital Signs/Intake and Output Vital Signs (last 24 hours): Temp Pulse Resp BP Pulse Ox 98.4 F 56 L 18 120/52 L 93 L 12/15/18 06:00 12/15/18 06:00 12/15/18 06:00 12/15/18 06:00 12/15/18 06:00 - Medications Medications: Current Medications Diphenhydramine HCl (Benadryl) 25 mg PO Q6 PRN PRN Reason: Itching / Pruritus Enoxaparin Sodium (Lovenox) 40 mg SC DAILY [facility]; Protocol Last Admin: 12/15/18 12:06 Dose: 40 mg Gabapentin (Neurontin) 600 mg PO TID [facility]; Protocol Last Admin: 12/15/18 18:22 Dose: 600 mg Linezolid (Zyvox 600mg/300ml D5w) 600 mg in 300 mls @ 200 mls/hr IVPB Q12 [facility]; Protocol Stop: 12/20/18 22:01 Last Admin: 12/15/18 12:06 Dose: 200 mls/hr Lactic Acid (Lac-Hydrin 12% Cream (140 G)) 0 ea TOP Q1 [facility] Meclizine HCl (Antivert) 25 mg PO DAILY [facility] Last Admin: 12/15/18 12:06 Dose: 25 mg Morphine Sulfate (Morphine) 2 mg IVP Q3 PRN PRN Reason: Pain, severe (8-10) Last Admin: 12/15/18 12:12 Dose: 2 mg - Labs Labs: 12/15/18 07:00 12/15/18 07:00 Assessment and Plan - Assessment and Plan (Free Text) Plan: Infectious diseases Attending Physician Attestation Patient seen and examined, discussed with medical dosimetrist. I have reviewed the patient's history of present illness, past medical, social, personal and family histories, pertinent physical exam findings, course so far in this hospital admission, pertinent laboratory and imaging results. I agree with the above findings, assessment and plan. In addition, continue Zyvox for patient with bilateral lower extremity skin and skin structure infection with MRSA. Will need continued local wound care. Follow up further plans of Podiatry.
--- NOTE | 2018-12-15 11:10 | CP.PCM.PN ---
Subjective - Date & Time of Evaluation Date of Evaluation: 12/15/18 Time of Evaluation: 11:08 - Subjective Subjective: Podiatry progress note for Dr. couch/ Hemanth marinelli 66 year old female with PMH of morbid obesity, chronic painful leg wounds/cellulitis, HTN, sciatica, and neuropathy seen at bedside for painful bilaterally wounds and cellulitis. She is seen at bedside alert and oriented. Denies acute overnight events. Denies any other pedal complains She denies n/v/sob/cp/chills or f. Objective - Vital Signs/Intake and Output Vital Signs (last 24 hours): Temp Pulse Resp BP Pulse Ox 98.4 F 56 L 18 120/52 L 93 L 12/15/18 06:00 12/15/18 06:00 12/15/18 06:00 12/15/18 06:00 12/15/18 06:00 Intake and Output: 12/15/18 12/15/18 06:59 18:59 Intake Total 660 Output Total 200 Balance 460 - Medications Medications: Current Medications Diphenhydramine HCl (Benadryl) 25 mg PO Q6 PRN PRN Reason: Itching / Pruritus Enoxaparin Sodium (Lovenox) 40 mg SC DAILY [facility]; Protocol Gabapentin (Neurontin) 600 mg PO TID [facility]; Protocol Last Admin: 12/14/18 15:51 Dose: 600 mg Linezolid (Zyvox 600mg/300ml D5w) 600 mg in 300 mls @ 200 mls/hr IVPB Q12 [facility]; Protocol Stop: 12/20/18 22:01 Last Admin: 12/14/18 21:23 Dose: 200 mls/hr Lactic Acid (Lac-Hydrin 12% Cream (140 G)) 0 ea TOP Q1 [facility] Meclizine HCl (Antivert) 25 mg PO DAILY [facility] Last Admin: 12/14/18 09:56 Dose: 25 mg Morphine Sulfate (Morphine) 2 mg IVP Q3 PRN PRN Reason: Pain, severe (8-10) Last Admin: 12/14/18 12:58 Dose: 2 mg - Labs Labs: 12/15/18 07:00 12/15/18 07:00 - Constitutional Appears: Well, Non-toxic, No Acute Distress - Head Exam Head Exam: ATRAUMATIC - Eye Exam Eye Exam: Normal appearance Pupil Exam: NORMAL ACCOMODATION - ENT Exam ENT Exam: Mucous Membranes Moist - Cardiovascular Exam Cardiovascular Exam: REGULAR RHYTHM - Extremities Exam Additional comments: Vasc: DP and PT pulses non-palpable due to LE edema. CFT < 3 seconds x10, temperature gradient WNL Neuro: Gross sensation diminished b/l Derm: Venous stasis changes noted to the lower extremity with lichenification of skin all noted extensively to the left foot and ankle. Serous drainage is noted to lower extremity from posterior aspect of b/l leg. Erythema noted extensively to both legs. Mild malodor present. No purulent drainage. Multiple superficial ulcerations noted to b/l legs Superficial ulceration noted to the left heel with fibrogranular base, no flaco neling or tracking noted, no probe tob one. Ortho: Severe pain on palpation to LE b/l. Assessment and Plan - Assessment and Plan (Free Text) Assessment: 66 year old female with painful cellulitis with ulceration to b/l LE Plan: Patient seen and evaluated at bedside with attending Dr. Marinelli Labs, charts and vitals reviewed (afebrile, WBC=5.6) LE cleansed with saline and dressed with adaptic, gauze, ABD, and kerlix. Wound cultures: MRSA and gram negative junior Continue with abx per ID Patient to be in multipodus boots at all times Lac-hydrin ordered; to be applied while daily dressing changes MRI w/o contrast of the left lower extremity(ankle) ordered. Continue with pain management per primary team Podiatry to continue to follow while in house
--- NOTE | 2018-12-15 11:17 | CP.PCM.PCO ---
Physician Communication Note - Physician Communication Note Physician Communication Note: Per MD, if pt remains medically stable will clear for DC to [facility] in AM
[2018-12-15] MEDS: Enoxaparin 40 mg Syringe SC SCH (12:06)
[2018-12-15] MEDS: Linezolid 600 mg in D5W 300 ml 600 MG/300 ML BAG IVPB SCH ×2 (12:06→21:46)
[2018-12-15] MEDS: Morphine 2 mg/ml ISec IVP PRN (12:12)
--- NOTE | 2018-12-15 12:28 | PN ---
DATE: 12/15/2018 SUBJECTIVE: She is resting comfortably in bed. She actually slept fairly well. She is on IV antibiotics. She is on Antivert, Benadryl, Lac-Hydrin, morphine, Neurontin and Zyvox. She is eating okay. I have asked her to get out of bed to chair today. PHYSICAL EXAMINATION: VITAL SIGNS: She has 98.4 temperature, 56 pulse, 120/52 blood pressure, 18 respiratory rate and 92% O2 sat on room air. HEENT: Head is atraumatic and normocephalic. HEART: Regular rate. LUNGS: With decreased breath sounds, but clear. ABDOMEN: Soft, obese and nontender. EXTREMITIES: Wrapped up. LABORATORY DATA: She has a 5.4 white count, 10 hemoglobin, 32.6 hematocrit with 337 platelets. An 140 sodium, potassium 4.2, BUN 18, creatinine 0.9, GFR is greater than 60, sugar is 110, calcium is 8.6, total bili is 0.1, AST is 16, ALT is 23, alk phos 95, total protein 6.3 and albumin is 3. She is being seen by Infectious Disease, Podiatry. She has bilateral lower extremity cellulitis, on Zyvox, wound care by Podiatry eventually. I will continue with aggressive treatment and care. for physical therapy, continued wound care and IV antibiotics. Hung Wagner DO MTDD
[2018-12-16 07:09] LABS: HEMOGLOBIN 10.2 g/dL (12.0-16.0); MEAN CELL VOLUME 86.1 fl (80.0-105.0); MEAN CORPUSCULAR HEMOGLOBIN 26.8 pg (25.0-35.0); MEAN CORPUSCULAR HGB CONC 31.1 g/dl (31.0-37.0); MEAN PLATELET VOLUME 9.4 fl (7.0-11.0); RBC 3.81 10^6/uL (3.5-6.1); RED CELL DISTRIBUTION WIDTH 16.6 % (11.5-14.5); WHITE BLOOD COUNT 4.8 10^3/uL (4.5-11.0)
[2018-12-16 07:11] LABS: ALB/GLOB RATIO 0.9 (1.1-1.8); ALT/SGPT 27 U/L (7-56); AST/SGOT 19 U/L (14-36); BLOOD UREA NITROGEN 17 mg/dL (7-21); CALCIUM 8.7 mg/dL (8.4-10.5); GFR NON-AFRICAN AMERICAN > 60
[2018-12-16 08:04] VITALS: RESP 20
[2018-12-16] MEDS: Morphine 2 mg/ml ISec IVP PRN (09:52)
[2018-12-16] MEDS: Enoxaparin 40 mg Syringe SC SCH (09:54)
[2018-12-16] MEDS: Linezolid 600 mg in D5W 300 ml 600 MG/300 ML BAG IVPB SCH (09:55)
--- NOTE | 2018-12-16 09:59 | CP.PCM.PN ---
<Abhinav Todd - Last Filed: 12/16/18 12:45> Subjective - Date & Time of Evaluation Date of Evaluation: 12/16/18 Time of Evaluation: 09:00 - Subjective Subjective: ID Progress Note Patient seen and examined. Patient admits to pain in her b/l legs. Patient with no acute evens overnight. Denies chest pain, shortness of breath, nausea, vomiting, diarrhea, fever, chills. Objective - Vital Signs/Intake and Output Vital Signs (last 24 hours): Temp Pulse Resp BP Pulse Ox 99.5 F 55 L 20 125/56 L 94 L 12/16/18 06:00 12/16/18 06:00 12/16/18 06:00 12/16/18 06:00 12/16/18 06:00 - Medications Medications: Current Medications Diphenhydramine HCl (Benadryl) 25 mg PO Q6 PRN PRN Reason: Itching / Pruritus Enoxaparin Sodium (Lovenox) 40 mg SC DAILY [facility]; Protocol Last Admin: 12/15/18 12:06 Dose: 40 mg Gabapentin (Neurontin) 600 mg PO TID [facility]; Protocol Last Admin: 12/15/18 18:22 Dose: 600 mg Linezolid (Zyvox 600mg/300ml D5w) 600 mg in 300 mls @ 200 mls/hr IVPB Q12 [facility]; Protocol Stop: 12/20/18 22:01 Last Admin: 12/15/18 21:46 Dose: 200 mls/hr Lactic Acid (Lac-Hydrin 12% Cream (140 G)) 0 ea TOP Q1 [facility] Meclizine HCl (Antivert) 25 mg PO DAILY [facility] Last Admin: 12/15/18 12:06 Dose: 25 mg Morphine Sulfate (Morphine) 2 mg IVP Q3 PRN PRN Reason: Pain, severe (8-10) Last Admin: 12/15/18 12:12 Dose: 2 mg - Labs Labs: 12/16/18 06:15 12/16/18 06:15 - Constitutional Appears: Non-toxic, No Acute Distress - Head Exam Head Exam: ATRAUMATIC, NORMAL INSPECTION, NORMOCEPHALIC - ENT Exam ENT Exam: Mucous Membranes Moist - Respiratory Exam Respiratory Exam: Clear to Ausculation Bilateral, NORMAL BREATHING PATTERN - Cardiovascular Exam Cardiovascular Exam: RRR, +S1, +S2 - GI/Abdominal Exam GI & Abdominal Exam: Soft, Normal Bowel Sounds. absent: Tenderness - Extremities Exam Additional comments: B/l lower extremities bandaged. Chronic wounds and scabs - Neurological Exam Neurological Exam: Alert, Awake, Oriented x3 - Psychiatric Exam Psychiatric exam: Normal Affect, Normal Mood - Skin Skin Exam: Dry, Intact, Warm Assessment and Plan - Assessment and Plan (Free Text) Plan: B/l lower extremity MRSA cellulitis Hx of HTN Hx of CAD Hx of purulent cellulitis positive for Group G strep, Pseudomonas, and Providencia Hx of Morbid Obesity Hx of Peripheral vascular disease Plan: Ankle MRI pending Wound culture shows MRSA and gram negative rods Continue Zyvox for 7-10 days Blood cultures negative Local wound care Follow up with Podiatry Peyton, PGY-3 <Andrea Rizzo - Last Filed: 12/16/18 17:11> Objective - Vital Signs/Intake and Output Vital Signs (last 24 hours): Temp Pulse Resp BP Pulse Ox 98.4 F 56 L 20 133/66 98 12/16/18 14:00 12/16/18 14:00 12/16/18 14:00 12/16/18 14:00 12/16/18 14:00 - Medications Medications: Current Medications Diphenhydramine HCl (Benadryl) 25 mg PO Q6 PRN PRN Reason: Itching / Pruritus Enoxaparin Sodium (Lovenox) 40 mg SC DAILY [facility]; Protocol Last Admin: 12/16/18 09:54 Dose: 40 mg Gabapentin (Neurontin) 600 mg PO TID [facility]; Protocol Last Admin: 12/16/18 14:45 Dose: 600 mg Linezolid (Zyvox 600mg/300ml D5w) 600 mg in 300 mls @ 200 mls/hr IVPB Q12 [facility]; Protocol Stop: 12/20/18 22:01 Last Admin: 12/16/18 09:55 Dose: 200 mls/hr Lactic Acid (Lac-Hydrin 12% Cream (140 G)) 0 ea TOP Q1 [facility] Meclizine HCl (Antivert) 25 mg PO DAILY [facility] Last Admin: 12/16/18 09:54 Dose: 25 mg Morphine Sulfate (Morphine) 2 mg IVP Q3 PRN PRN Reason: Pain, severe (8-10) Last Admin: 12/16/18 09:52 Dose: 2 mg - Labs Labs: 12/16/18 06:15 12/16/18 06:15 Assessment and Plan - Assessment and Plan (Free Text) Plan: Infectious diseases Attending Physician Attestation Patient seen and examined, discussed with director medical economics. I have reviewed the patient's history of present illness, past medical, social, personal and family histories, pertinent physical exam findings, course so far in this hospital admission, pertinent laboratory and imaging results. I agree with the above findings, assessment and plan. In addition, continue Zyvox for patient with bilateral lower extremity cellulitis.
--- NOTE | 2018-12-16 09:59 | PN ---
DATE: 12/16/2018 SUBJECTIVE: I saw her resting comfortably in bed. She slept well. She is getting IV antibiotics. She has MRSA in her lower extremities. She is on IV medications. She is being seen by Infectious Disease and Podiatry. She tells me that she feels a little bit better. There is an ankle MRI pending from Podiatry, they are looking for an osteo. PHYSICAL EXAMINATION: VITAL SIGNS: She has a 99.5 temperature, 55 pulse, 125/56 blood pressure, 20 respiratory rate and 94% O2 sat on room air. HEENT: Head is atraumatic and normocephalic. HEART: Regular rate. LUNGS: Clear to auscultation. ABDOMEN: Soft and nontender. Positive bowel sounds. Obese. EXTREMITIES: Wrapped up, but they are less swollen. LABORATORY DATA: She has a 139 sodium, potassium 4.4, BUN 70, creatinine 0.9, GFR greater than 60, sugar is 103, calcium is 8.7, total bili is 0.2, AST is 19, ALT is 27, alk phos 86 and total protein 6.3. White count is 4.8, hemoglobin 10.2, hematocrit 32.8 and platelets are 335. She has MRSA in the wounds. She is on Antivert, Benadryl, Lac-Hydrin, Lovenox, morphine, Neurontin and Zyvox IV. I am hoping to get her to TCU if possible or subacute rehab which she has been too many times before and a recommendation has not been done yet by physical therapy. We will continue with the IV antibiotics for the MRSA in lower extremities. Hugn Wagner DO
--- NOTE | 2018-12-16 10:20 | CP.PCM.PN ---
Subjective - Date & Time of Evaluation Date of Evaluation: 12/16/18 Time of Evaluation: 10:18 - Subjective Subjective: Podiatry progress note for Dr. Briones 66 year old female with PMH of morbid obesity, chronic painful leg wounds/cellulitis, HTN, sciatica, and neuropathy seen at bedside for painful bilaterally wounds and cellulitis. She is seen at bedside alert and oriented. Denies acute overnight events. Denies any other pedal complains She denies n/v/sob/cp/chills or f. Objective - Vital Signs/Intake and Output Vital Signs (last 24 hours): Temp Pulse Resp BP Pulse Ox 99.5 F 55 L 20 125/56 L 94 L 12/16/18 06:00 12/16/18 06:00 12/16/18 06:00 12/16/18 06:00 12/16/18 06:00 - Medications Medications: Current Medications Diphenhydramine HCl (Benadryl) 25 mg PO Q6 PRN PRN Reason: Itching / Pruritus Enoxaparin Sodium (Lovenox) 40 mg SC DAILY [facility] BEDS AT [facility]; Protocol Last Admin: 12/16/18 09:54 Dose: 40 mg Gabapentin (Neurontin) 600 mg PO TID [facility]; Protocol Last Admin: 12/16/18 09:54 Dose: 600 mg Linezolid (Zyvox 600mg/300ml D5w) 600 mg in 300 mls @ 200 mls/hr IVPB Q12 [facility]; Protocol Stop: 12/20/18 22:01 Last Admin: 12/16/18 09:55 Dose: 200 mls/hr Lactic Acid (Lac-Hydrin 12% Cream (140 G)) 0 ea TOP Q1 [facility] Meclizine HCl (Antivert) 25 mg PO DAILY [facility] 234 B[facility]S AT [facility] Last Admin: 12/16/18 09:54 Dose: 25 mg Morphine Sulfate (Morphine) 2 mg IVP Q3 PRN PRN Reason: Pain, severe (8-10) Last Admin: 12/16/18 09:52 Dose: 2 mg - Labs Labs: 12/16/18 06:15 12/16/18 06:15 - Constitutional Appears: Non-toxic, No Acute Distress - Head Exam Head Exam: ATRAUMATIC, NORMOCEPHALIC - Extremities Exam Additional comments: Vasc: DP and PT pulses non-palpable due to LE edema. CFT < 3 seconds x10, temperature gradient WNL Neuro: Gross sensation diminished b/l Derm: Venous stasis changes noted to the lower extremity with lichenification of skin all noted extensively to the left foot and ankle. Serous drainage is noted to lower extremity from posterior aspect of b/l leg. Erythema noted extensively to both legs. Mild malodor present. No purulent drainage. Multiple superficial ulcerations noted to b/l legs Superficial ulceration noted to the left heel with fibrogranular base, no tunneling or tracking noted, no probe tob one. Ortho: Severe pain on palpation to LE b/l. - Neurological Exam Neurological Exam: Alert, Awake, Oriented x3 - Psychiatric Exam Psychiatric exam: Normal Affect, Normal Mood Assessment and Plan - Assessment and Plan (Free Text) Assessment: 66 year old female with painful cellulitis with ulceration to b/l LE Plan: Patient seen and evaluated at bedside with attending Dr. Briones Labs, charts and vitals reviewed (afebrile, WBC=5.6) LE cleansed with saline and dressed with adaptic, gauze, ABD, and kerlix. Wound cultures: MRSA and gram negative junior Continue with abx per ID Patient to be in multipodus boots at all times Lac-hydrin ordered; to be applied while daily dressing changes MRI w/o contrast of the left lower extremity(ankle) ordered. Continue with pain management per primary team Podiatry to continue to follow while in house
--- NOTE | 2018-12-16 14:32 | MRI ---
Date of service: 12/15/2018 PROCEDURE: MRI Right Ankle HISTORY: Pain. COMPARISON: None available. TECHNIQUE: Multiecho multiplanar sequences were performed through the right ankle without the use of intravenous contrast. FINDINGS: ANTERIOR EXTENSOR TENDONS: No acute tear identified.. MEDIAL FLEXOR TENDONS: No definite acute tear appreciated.. PERONEAL TENDONS: No acute tear appreciated.. ANTERIOR INFERIOR TIBIOFIBULAR (SYNDESMOSIS): Intact without acute tear. POSTERIOR INFERIOR TIBIOFIBULAR (SYNDESMOSIS): Intact without acute tear. ANTERIOR TALOFIBULAR LIGAMENT: Heterogeneous signal with local fluid collection may indicate sprain or partial tear. POSTERIOR TALOFIBULAR LIGAMENT: Intact without acute tear. PLANTAR FASCIA: Plantar fascia appears mildly thickened posteriorly and there is fluid at the dependent heel soft tissues in a pattern that may indicate fasciitis. Clinically correlate further.. SINUS TARSI: Normal. ACHILLES TENDON: Normal. DELTOID LIGAMENT COMPLEX - DEEP: Intact without acute tear. CALCANEOFIBULAR LIGAMENT: Intact without tear. SPRING (PLANTAR CALCANEO-NAVICULAR) LIGAMENT: Intact without tear. BONES: There is heterogeneous signal identified within the calcaneus which is nonspecific appearing. Could reflect posttraumatic contusions. No fracture plane is identified. The possibility. No definitive ulcer is appreciated with osteomyelitis line not favored but clinical correlation is recommended here. CARTILAGE: Diffuse cortical sclerosis and cortical thickening is seen at the tibiotalar and subtalar joints compatible with osteoarthritis with similar changes present at the talonavicular and calcaneal cuboidal joints as well as incidental capture of the visualized tarsotarsal joints. JOINT FLUID: Trace tibiotalar joint effusion is identified.. MUSCLES: Normal. OTHER FINDINGS: None . IMPRESSION: Heterogeneous signal intensity in the calcaneus may reflect contusions or even reflex sympathetic dystrophy with osteomyelitis not favored. No definite fracture plane identified. Clinically correlate further. Moderate osteoarthritis with limited tibiotalar joint effusion identified. Sprain or partial tear anterior talofibular ligament. Posterior splenic tear fasciitis in question.
--- NOTE | 2018-12-16 14:50 | MRI ---
Date of service: 12/16/2018 PROCEDURE: MRI Left Ankle HISTORY: Pain. COMPARISON: Bilateral feet radiographs 06/07/2017. TECHNIQUE: Multiecho multiplanar sequences were performed through the left ankle without the use of intravenous contrast. FINDINGS: ANTERIOR EXTENSOR TENDONS: No acute tear identified.. MEDIAL FLEXOR TENDONS: No acute tear identified.. PERONEAL TENDONS: No acute tear identified.. ANTERIOR INFERIOR TIBIOFIBULAR (SYNDESMOSIS): No acute tear identified.. POSTERIOR INFERIOR TIBIOFIBULAR (SYNDESMOSIS): No acute tear identified.. ANTERIOR TALOFIBULAR LIGAMENT: No tear identified.. POSTERIOR TALOFIBULAR LIGAMENT: No tear identified.. PLANTAR FASCIA: Intact without definite tear/thickening. SINUS TARSI: Normal. ACHILLES TENDON: Unremarkable appearing.. DELTOID LIGAMENT COMPLEX - DEEP: No definitive acute tear appreciable.. CALCANEOFIBULAR LIGAMENT: No tear identified.. SPRING (PLANTAR CALCANEO-NAVICULAR) LIGAMENT: No definite acute tear appreciated.. BONES: Mildly heterogeneous signal changes are identified at the calcaneus as well as the talus. Minimal similar changes suspected at the navicular and cuboid bones without fracture plane associated. Consider potential contusions though this is a nonspecific finding. This could reflect heterogeneity related to reactivation of red marrow or potential myeloproliferative process. The findings are somewhat less apparent than that seen at the right calcaneus. Reflex sympathetic dystrophy is a limited possibility though this is not apparent in prior bone scan 12/11/2017.. CARTILAGE: Chondral is appreciate throughout the joints of the midfoot and hindfoot as well as joint space narrowing and cortical sclerosis compatible osteoarthritis.. JOINT FLUID: Trace joint effusion noted.. MUSCLES: Normal. OTHER FINDINGS: Edema at the medial ankle and dorsal greater than plantar foot soft tissues suggests cellulitis. IMPRESSION: No definitive acute ligament or tendon tear appreciated left ankle. No fracture, subluxation or dislocation. Medial plantar soft tissue (subcutaneous) edema is appreciated this may indicate limited cellulitis but without prominent ligament or tendon tear evident. Nonspecific subtle marrow signal changes are identified primarily at the calcaneus and talus as well as lateral cuneiform bones which is nonspecific and could reflect small contusions though reactivation of red marrow is a possibility potential myeloproliferative process. Osteomyelitis is not favored, is particularly as bone scan from 12/11/2017 fails demonstrate suspicious pattern of such. Limited cellulitis pattern seen affecting the medial left ankle and dorsal greater than plantar foot soft tissues.
[2018-12-16 15:11] VITALS: BP 133/66; PULSE 56; TEMP 98.4; O2SAT 98
== END 2018-12-16 21:40 | DRG 603 ==
LOC: ED 22:38 → ERH 12-13 01:37 → 5RSO 12-13 03:14 → OBSVTOIN 12-13 09:01
PROVIDERS: ADMIT Family Medicine; ATTEND Family Medicine
DX: L03.116 Cellulitis of left lower limb (principal); L97.919 Non-pressure chronic ulcer of unspecified part of right lower leg with unspecified severity; L97.229 Non-pressure chronic ulcer of left calf with unspecified severity; L97.429 Non-pressure chronic ulcer of left heel and midfoot with unspecified severity; Z68.41 Body mass index [BMI] 40.0-44.9, adult; L03.115 Cellulitis of right lower limb; B95.62 Methicillin resistant Staphylococcus aureus infection as the cause of diseases classified elsewhere; I12.9 Hypertensive chronic kidney disease with stage 1 through stage 4 chronic kidney disease, or unspecified chronic kidney disease; N18.9 Chronic kidney disease, unspecified; I73.9 Peripheral vascular disease, unspecified; I25.10 Atherosclerotic heart disease of native coronary artery without angina pectoris; F32.9 Major depressive disorder, single episode, unspecified; E03.9 Hypothyroidism, unspecified; M54.30 Sciatica, unspecified side; G62.9 Polyneuropathy, unspecified; I87.8 Other specified disorders of veins; E66.01 Morbid (severe) obesity due to excess calories; K21.9 Gastro-esophageal reflux disease without esophagitis; Z88.0 Allergy status to penicillin; Z88.2 Allergy status to sulfonamides; Z91.040 Latex allergy status

== ENCOUNTER 2019-03-18 13:38 | Inpatient (IN) | payer MEDICARE, OTHER ==
[2019-03-18 13:56] VITALS: BMI 74.2
--- NOTE | 2019-03-18 14:23 | ED PDOC ---
Arrival/HPI - General Chief Complaint: Lower Extremity Problem/Injury Historian: Patient - History of Present Illness Narrative History of Present Illness (Text): 03/18/19 14:20 A 68 year old female, whose past medical history includes bilateral lower ex tremity cellulitis with multiple debridements of the lower extremities, osteomyelitis, venous stasis, hypertension, depression, renal insufficiency, hypothyroidism, and obesity, presents to the emergency department for further evaluation of her lower extremity cellulitis. The patient notes worsening cellulitis on legs. As per the patient, home care nurse noted purulence and weeping of her wounds today and advised her to come into the emergency department for further evaluation. The patient denies fevers, chills, headache, dizziness, chest pain, shortness of breath, dyspnea on exertion, cough, abdominal pain, nausea, vomiting, diarrhea, back pain, neck pain, urinary/bowel changes, or any other complaint. PMD: Dr. Wagner Tour Driver: Dr. Marinelli Time/Duration: Other (Today) Symptom Onset: Sudden Symptom Course: Unchanged Activities at Onset: Rest, Light Context: Home Past Medical History - Provider Review Nursing Documentation Reviewed: Yes - Infectious Disease Hx of Infectious Diseases: None - Tetanus Immunization Tetanus Immunization: Unknown - Cardiac Hx Cardiac Disorders: Yes Hx Congestive Heart Failure: No Hx Hypertension: Yes - Pulmonary Hx Chronic Obstructive Pulmonary Disease (COPD): No - Neurological HX Cerebrovascular Accident: No - HEENT Hx HEENT Disorder: No Hx Blind: No Hx Cataracts: No Hx Deafness: No Hx Difficulty Chewing: No Hx Epistaxis: No Hx Glaucoma: No Hx Macular Degeneration: No - Renal Hx Renal Failure: No - Endocrine/Metabolic Hx Diabetes Mellitus Type 1: No Hx Diabetes Mellitus Type 2: No Hx Hypothyroidism: Yes - Hematological/Oncological Hx Blood Disorders: No Hx AIDS: No Hx Anemia: Yes Hx Cancer: No Hx Chemotherapy: No Hx Cirrhosis: No Hx Hemophilia: No Hx Hepatitis A: No Hx Hepatitis B: No Hx Hepatitis C: No Hx Metastasis: No Hx Shingles: No Hx Sickle Cell Disease: No Hx Unexplained Bleeding: No - Integumentary Hx Dermatological Disorder: Yes (cellulities to the bilateral lower extremities since 2010) Hx Basal Cell Carcinoma: No Hx Eczema: No Hx Melanoma: No Hx Psoriasis: No Hx Squamous Cell Carcinoma: No - Musculoskeletal/Rheumatological Hx Arthritis: Yes - Gastrointestinal Hx Gastrointestinal Disorders: Yes Hx Colostomy: No Hx Crohn's Disease: No Hx Diverticulitis: No Hx Gall Bladder Disease: Yes (gallstones) Hx Gastroesophageal Reflux: No Hx Ileostomy: No Hx Liver Failure: No Hx Pancreatitis: No HX Swallowing Problems: No - Genitourinary/Gynecological Hx Genitourinary Disorders: No Hx Hematuria: No Hx Incontinence: Yes Hx Sexually Transmitted Diseases: No Hx Urinary Tract Infection: No - Psychiatric Hx Psychophysiologic Disorder: Yes Hx Anxiety: Yes Hx Bipolar Disorder: No Hx Depression: Yes Hx Emotional Abuse: No Hx Hallucinations: No Hx Panic Disorder: No Hx Post Traumatic Stress Disorder: No Hx Psychosis: No Hx Physical Abuse: No Hx Schizophrenia: No Hx Sexual Abuse: No Hx Substance Use: No - Surgical History Hx Amputation: No Hx Appendectomy: No Hx Cardiac Catheterization: No Hx Cholecystectomy: Yes Hx Coronary Stent: No Hx Gastric Bypass Surgery: No Hx Hysterectomy: No Hx Joint Replacement: No Hx Kidney Transplant: No Hx Liver Transplant: No Hx Mastectomy: No Hx Musculoskeletal Surgery: No Hx Open Heart Surgery: No Hx Orthopedic Surgery: No Hx Splenectomy: No Hx Valve Replacement: No Other/Comment: hernia repair - Anesthesia Hx Anesthesia: Yes Hx Anesthesia Reactions: No Hx Malignant Hyperthermia: No - Suicidal Assessment Feels Threatened In Home Enviroment: No Family/Social History - Physician Review Nursing Documentation Reviewed: Yes Family/Social History: No Known Family HX Smoking Status: Never Smoked Hx Alcohol Use: No Hx Substance Use: No Hx Substance Use Treatment: No Allergies/Home Meds Allergies/Adverse Reactions: Allergies ciprofloxacin [From Cipro] Allergy (Verified 03/18/19 13:56) RASH nubia Allergy (Verified 03/18/19 13:56) RASH latex Allergy (Verified 03/18/19 13:56) RASH Penicillins Allergy (Verified 03/18/19 13:56) RASH Sulfa (Sulfonamide Antibiotics) Allergy (Verified 03/18/19 13:56) RASH vancomycin Allergy (Verified 03/18/19 13:56) RASH roses Allergy (Uncoded 03/18/19 13:56) RASH Home Medications: Home Meds Medication Instructions Recorded Confirmed Gabapentin [Neurontin] 600 mg PO TID 10/08/18 12/12/18 Meclizine [Meclizine*] 25 mg PO DAILY 10/08/18 12/12/18 Review of Systems - Physician Review All systems were reviewed & negative as marked: Yes - Review of Systems Constitutional: absent: Fevers Respiratory: absent: SOB, Cough Cardiovascular: absent: Chest Pain, HYDE Gastrointestinal: absent: Abdominal Pain, Stool Changes, Diarrhea, Nausea, Vomiting Genitourinary Female: absent: Urine Output Changes Musculoskeletal: absent: Back Pain, Neck Pain Skin: Cellulitis (lower extremity) Neurological: absent: Headache, Dizziness Physical Exam Vital Signs Reviewed: Yes Vital Signs Temp Pulse Resp BP Pulse Ox 03/18/19 14:09 97.6 F 64 18 109/74 98 Temperature: Afebrile Blood Pressure: Normal Pulse: Regular Respiratory Rate: Normal Appearance: Positive for: Well-Appearing, Non-Toxic, Other (Tearful) Pain Distress: None Mental Status: Positive for: Alert and Oriented X 3 - Systems Exam Head: Present: Atraumatic, Normocephalic Pupils: Present: PERRL Extroacular Muscles: Present: EOMI Conjunctiva: Present: Normal Mouth: Present: Dry Neck: Present: Normal Range of Motion Respiratory/Chest: Present: Clear to Auscultation, Good Air Exchange. No: Respiratory Distress, Accessory Muscle Use Cardiovascular: Present: Regular Rate and Rhythm, Normal S1, S2. No: Murmurs Abdomen: Present: Other (Obese). No: Tenderness, Distention, Peritoneal Signs Back: Present: Normal Inspection Upper Extremity: Present: Normal Inspection. No: Cyanosis, Edema Lower Extremity: Present: Other (Dried thickened skin noted on the shins down to the feet. No active bleeding. Purulent discharge noted toward the feet. Some erythema noted in the interwebbed spaces of her feet. ) Neurological: Present: GCS=15, CN II-XII Intact, Speech Normal Skin: Present: Warm, Dry, Normal Color. No: Rashes Psychiatric: Present: Alert, Oriented x 3, Normal Insight, Normal Concentration, Other (Tearful on examination.) Medical Decision Making ED Course and Treatment: 03/18/19 14:25 Impression: A 68 year old female presents to the emergency department with a complaint of purulence and weeping from her lower extremity wounds. Plan: -- EKG -- Chest X-ray -- Left/ Right Foot/ Tibia/ Fibula X- Ray -- Labs -- Wound/ Blood Culture -- Reassess and disposition Prior Visits: Notes and results from previous visits were reviewed. Progress Notes: 03/18/19 14:20: Case discussed with Dr. Wagner 03/18/19 14:33: Case discussed in detail with podiatry resident. - Lab Interpretations I have reviewed the lab results: Yes - RAD Interpretation Narrative RAD Interpretations (Text): PROCEDURE: Radiographs of the right tibia and fibula Signed By: Hung Bowles MD Dictated Date/Time: 03/18/19 1529 Impression: Soft tissue swelling without acute articular or osseous abnormality. PROCEDURE: Radiographs of the left tibia and fibula Signed By: Hung Bowles MD Dictated Date/Time: 03/18/19 1528 Impression: Soft tissue swelling without acute articular or osseous abnormality. PROCEDURE: Right Foot Radiographs Signed By: Hung Bowles MD Dictated Date/Time: 03/18/19 1521 Impression: Soft tissue swelling without acute articular or osseous abnormality. PROCEDURE: Left Foot Radiographs Signed By: Hung Bowles MD Dictated Date/Time: 03/18/19 1531 Impression: Soft tissue swelling without acute articular or osseous abnormality. Chest X-ray Signed By: Hung Bowles MD Dictated Date/Time: 03/18/19 1516 Impression:No active disease. No significant interval change compared to the prior examination(s). Radiology Orders: 03/18/19 14:00 CHEST PORTABLE [RAD] Stat 03/18/19 14:17 FOOT LEFT 3 VIEWS ROUTINE [RAD] Stat FOOT RIGHT 3 VIEWS ROUTINE [RAD] Stat TIBIA FIBULA LEFT [RAD] Stat TIBIA FIBULA RIGHT [RAD] Stat - EKG Interpretation EKG Interpretation (Text): 03/18/19 14:52: EKG shows NSR at [address] deviations. No T wave inversions. Interpreted by ED Physician: Yes Type: 12 lead EKG - Scribe Statement The provider has reviewed the documentation as recorded by the Dilmaibsteffi Swanson Provider Scribe Attestation: All medical record entries made by the Scribe were at my direction and personally dictated by me. I have reviewed the chart and agree that the record accurately reflects my personal performance of the history, physical exam, medical decision making, and the department course for this patient. I have also personally directed, reviewed, and agree with the discharge instructions and disposition. Disposition/Present on Arrival - Present on Arrival History of DVT/PE: No History of Uncontrolled Diabetes: No Urinary Catheter: No History of Decub. Ulcer: No History Surgical Site Infection Following: None - Disposition
[2019-03-18 14:32] LABS: BASO # 0.03 K/mm3 (0.0-2.0); BASO % 0.3 % (0.0-3.0); EOS # 0.2 (0.0-0.7); EOS % 1.7 % (1.5-5.0); HEMOGLOBIN 16.2 g/dL (12.0-16.0); LYMPH # 1.4 (1.2-3.4); MEAN CELL VOLUME 88.1 fl (80.0-105.0); MEAN CORPUSCULAR HEMOGLOBIN 28.8 pg (25.0-35.0); MEAN CORPUSCULAR HGB CONC 32.7 g/dl (31.0-37.0); MEAN PLATELET VOLUME 10.4 fl (7.0-11.0); MONO % 10.5 % (1.0-6.0); RBC 5.63 10^6/uL (3.5-6.1); RED CELL DISTRIBUTION WIDTH 14.8 % (11.5-14.5); WHITE BLOOD COUNT 9.2 10^3/uL (4.5-11.0)
[2019-03-18 14:33] LABS: ALB/GLOB RATIO 1.1 (1.1-1.8); ALBUMIN 4.1 g/dL (3.0-4.8); BLOOD UREA NITROGEN 34 mg/dL (7-21); CALCIUM 10.1 mg/dL (8.4-10.5); GFR NON-AFRICAN AMERICAN > 60
[2019-03-18] MEDS ORDERED: Clindamycin 600mg/50ml D5W 600 MG/50 ML VIAL IVPB STA (14:36)
[2019-03-18 14:38] LABS: ALT/SGPT 19 U/L (7-56); AST/SGOT 23 U/L (14-36)
--- NOTE | 2019-03-18 15:20 | RAD ---
Date of service: 03/18/2019 HISTORY: fever COMPARISON: 08/31/2017. FINDINGS: LUNGS: No active pulmonary disease. PLEURA: No significant pleural effusion identified, no pneumothorax apparent. CARDIOVASCULAR: No atherosclerotic calcification present Normal. OSSEOUS STRUCTURES: No significant abnormalities. VISUALIZED UPPER ABDOMEN: Normal. OTHER FINDINGS: None. IMPRESSION: No active disease. No significant interval change compared to the prior examination(s).
--- NOTE | 2019-03-18 15:24 | RAD ---
Date of service: 2019-03-18 14:16:37 PROCEDURE: Right Foot Radiographs. HISTORY: cellulitis COMPARISON: None. TECHNIQUE: 3 views obtained. FINDINGS: BONES: No radiographic manifestations of acute osteomyelitis. JOINTS: Degenerative changes. Hammertoe deformities. SOFT TISSUES: Soft tissue swelling about the calf ankle and foot. OTHER FINDINGS: None. IMPRESSION: Soft tissue swelling without acute articular or osseous abnormality.
[2019-03-18 15:25] LABS: VENOUS BLOOD GAS BASE EXCESS -1.7 mmol/L (0.0-2.0); VENOUS BLOOD GAS PO2 25 mm/Hg (30-55); VENOUS BLOOD PH 7.26 (7.32-7.43)
--- NOTE | 2019-03-18 15:31 | RAD ---
Date of service: Exam is a 03/18/2019 PROCEDURE: Radiographs of the left tibia and fibula. HISTORY: cellulitis COMPARISON: None available. TECHNIQUE: Frontal and lateral views obtained. 2 views obtained. FINDINGS: BONES: No visible, acute osteomyelitis. JOINT SPACES: Unremarkable. OTHER FINDINGS: Extensive soft tissue swelling and ulcerations consistent with clinically suspected cellulitis. IMPRESSION: Soft tissue swelling without acute articular or osseous abnormality.
--- NOTE | 2019-03-18 15:33 | RAD ---
Date of service: 03/18/2019 PROCEDURE: Radiographs of the right tibia and fibula. HISTORY: cellulitis COMPARISON: None available TECHNIQUE: Frontal and lateral views obtained. 2 views obtained. FINDINGS: BONES: No acute radiographic findings. No radiographic evidence of acute osteomyelitis. JOINT SPACES: Degenerative changes about the knee. OTHER FINDINGS: Soft tissue swelling/evidence of cellulitis and ulcerations noted. IMPRESSION: Soft tissue swelling without acute articular or osseous abnormality.
--- NOTE | 2019-03-18 15:34 | RAD ---
Date of service: 03/18/2019 PROCEDURE: Left Foot Radiographs. HISTORY: cellultitis COMPARISON: None. TECHNIQUE: 3 views obtained. FINDINGS: BONES: No evidence of acute osteomyelitis. JOINTS: Extensive degenerative changes noted. This includes talotibial, talofibular and talar calcaneal joints. SOFT TISSUES: Soft tissue swelling particularly about the calcaneus and posterior aspect of the ankle. Ulcerations are suggested at and above the level of the calcaneus. OTHER FINDINGS: None. IMPRESSION: Soft tissue swelling without acute articular or osseous abnormality.
--- NOTE | 2019-03-18 19:29 | CP.PCM.CON ---
<Joi Sumner - Last Filed: 03/18/19 19:26> History of Present Illness - History of Present Illness History of Present Illness: Podiatry consult note for Dr. Briones/Yves 66 year old female with PMH of morbid obesity, chronic painful leg wounds/cellulitis, HTN, sciatica, and neuropathy was consulted for painful bilaterally wounds and cellulitis. She is seen at bedside alert and oriented. She appears to be in distress secondary to the painful bilaterally lower extremities. She describes the pain in her bilaterally legs as a burning pain. She reports her left heels being sensitive as well. She denies n/v/sob/cp/chills or f. Review of Systems - Review of Systems All systems: reviewed and no additional remarkable complaints except Review of Systems: As per HPI Past Patient History - Infectious Disease Hx of Infectious Diseases: None - Tetanus Immunizations Tetanus Immunization: Unknown - Past Social History Smoking Status: Never Smoked - CARDIAC Hx Cardiac Disorders: Yes Hx Congestive Heart Failure: No Hx Hypertension: Yes - PULMONARY Hx Chronic Obstructive Pulmonary Disease (COPD): No - NEUROLOGICAL HX Cerebrovascular Accident: No - HEENT Hx HEENT Problems: No Hx Blind: No Hx Cataracts: No Hx Deafness: No Hx Difficulty Chewing: No Hx Epistaxis: No Hx Glaucoma: No Hx Macular Degeneration: No - RENAL Hx Renal Failure: No - ENDOCRINE/METABOLIC Hx Diabetes Mellitus Type 1: No Hx Diabetes Mellitus Type 2: No Hx Hypothyroidism: Yes - HEMATOLOGICAL/ONCOLOGICAL Hx Blood Disorders: No Hx AIDS: No Hx Anemia: Yes Hx Cancer: No Hx Chemotherapy: No Hx Cirrhosis: No Hx Hemophilia: No Hx Hepatitis A: No Hx Hepatitis B: No Hx Hepatitis C: No Hx Metastesis: No Hx Shingles: No Hx Sickle Cell Disease: No Hx Unexplained Bleeding: No - INTEGUMENTARY Hx Dermatological Problems: Yes (cellulities to the bilateral lower extremities since 2010) Hx Basil Cell: No Hx Eczema: No Hx Melanoma: No Hx Psoriasis: No Hx Squamous Cell: No - MUSCULOSKELETAL/RHEUMATOLOGICAL Hx Arthritis: Yes - GASTROINTESTINAL Hx Gastrointestinal Disorders: Yes Hx Colostomy: No Hx Crohn's Disease: No Hx Diverticulitis: No Hx Gall Bladder Disease: Yes (gallstones) Hx Gastroesophageal Reflux: No Hx Ileostomy: No Hx Liver Failure: No Hx Pancreatitis: No HX Swallowing Problems: No - GENITOURINARY/GYNECOLOGICAL Hx Genitourinary Disorders: No Hx Hematuria: No Hx Incontinence: Yes Hx Sexually Transmitted Disorders: No Hx Urinary Tract Infection: No - PSYCHIATRIC Hx Psychophysiologic Disorder: Yes Hx Anxiety: Yes Hx Bipolar Disorder: No Hx Depression: Yes Hx Emotional Abuse: No Hx Hallucinations: No Hx Panic Symptoms: No Hx Post Traumatic Stress Disorder: No Hx Psychosis: No Hx Physical Abuse: No Hx Schizophrenia: No Hx Sexual Abuse: No Hx Substance Use: No - SURGICAL HISTORY Hx Amputation: No Hx Appendectomy: No Hx Cardiac Catheterization: No Hx Cholecystectomy: Yes Hx Coronary Stent: No Hx Gastric Bypass Surgery: No Hx Hysterectomy: No Hx Joint Replacement: No Hx Kidney Transplant: No Hx Liver Transplant: No Hx Mastectomy: No Hx Musculoskeletal Surgery: No Hx Open Heart Surgery: No Hx Orthopedic Surgery: No Hx Splenectomy: No Hx Valve Replacement: No Other/Comment: hernia repair - ANESTHESIA Hx Anesthesia: Yes Hx Anesthesia Reactions: No Hx Malignant Hyperthermia: No Meds Allergies/Adverse Reactions: Allergies Allergy/AdvReac Type Severity Reaction Status Date / Time ciprofloxacin [From Cipro] Allergy RASH Verified 03/18/19 13:56 nubia Allergy RASH Verified 03/18/19 13:56 latex Allergy RASH Verified 03/18/19 13:56 Penicillins Allergy RASH Verified 03/18/19 13:56 Sulfa (Sulfonamide Allergy RASH Verified 03/18/19 13:56 Antibiotics) vancomycin Allergy RASH Verified 03/18/19 13:56 roses Allergy RASH Uncoded 03/18/19 13:56 - Medications Medications: Current Medications Enoxaparin Sodium (Lovenox) 40 mg SC DAILY [facility]; Protocol Gabapentin (Neurontin) 600 mg PO TID [facility]EM; Protocol Morphine Sulfate (Morphine) 2 mg IVP Q4H PRN PRN Reason: Pain, moderate (4-7) Physical Exam - Constitutional Appears: Well, Non-toxic, No Acute Distress - Head Exam Head Exam: ATRAUMATIC, NORMOCEPHALIC - Extremities Exam Additional comments: Vasc: DP and PT pulses non-palpable due to LE edema. CFT < 3 seconds x10, temperature gradient WNL Neuro: Gross sensation diminished b/l Derm: Venous stasis changes noted to the lower extremity with lichenification of skin all noted extensively to the left foot and ankle. Serous drainage is noted to lower extremity from posterior aspect of b/l leg. Erythema noted extensively to both legs. Mild malodor present. No purulent drainage. Multiple superficial ulcerations noted to b/l legs Superficial ulceration noted to the left heel with fibrogranular base, no tunneling or tracking noted, no probe tob one. Ortho: Severe pain on palpation to LE b/l. - Neurological Exam Neurological exam: Alert, Oriented x3 - Psychiatric Exam Psychiatric exam: Normal Affect, Normal Mood Results - Vital Signs Recent Vital Signs: Last Vital Signs Temp 97.6 F 03/18/19 14:09 Pulse 64 03/18/19 14:09 Resp 18 03/18/19 14:09 BP 109/74 03/18/19 14:09 Pulse Ox 98 03/18/19 14:09 - Labs Result Diagrams: 03/18/19 14:00 03/18/19 14:00 Labs: Laboratory Results - last 24 hr 03/18/19 03/18/19 03/18/19 14:00 14:00 15:12 WBC 9.2 D RBC 5.63 Hgb 16.2 H D Hct 49.6 H MCV 88.1 MCH 28.8 MCHC 32.7 RDW 14.8 H Plt Count 309 MPV 10.4 Neut % (Auto) 72.5 H Lymph % (Auto) 15.0 L Nolan % (Auto) 10.5 H Eos % (Auto) 1.7 Baso % (Auto) 0.3 Lymph # (Auto) 1.4 Nolan # (Auto) 1.0 H Eos # (Auto) 0.2 Baso # (Auto) 0.03 Absolute Neuts (auto) 6.65 H pO2 25 L VBG pH 7.26 L VBG pCO2 59.0 VBG HCO3 26.5 VBG O2 Sat (Calc) 41.6 VBG Base Excess -1.7 L Sodium 143 Potassium 4.4 Chloride 106 Carbon Dioxide 24 Anion Gap 17 BUN 34 H Creatinine 0.9 Est GFR ( Amer) > 60 Est GFR (Non-Af Amer) > 60 Random Glucose 113 H Calcium 10.1 Total Bilirubin 0.5 AST 23 ALT 19 Alkaline Phosphatase 88 Total Protein 7.9 Albumin 4.1 Globulin 3.8 Albumin/Globulin Ratio 1.1 Assessment & Plan - Assessment and Plan (Free Text) Assessment: 66 year old female with painful cellulitis with ulceration to b/l LE Plan: Patient seen and evaluated at bedside Labs, charts and vitals reviewed (afebrile, WBC=9.2) LE cleansed with saline and dressed with xeroform, gauze, ABD, and kerlix. Wound cultures pending Continue with abx per ID Patient to be in multipodus boots at all times Continue with pain management per primary team Podiatry to continue to follow while in house - Date & Time Date: 03/18/19 Time: 19:29 <Ton Marinelli - Last Filed: 03/22/19 08:31> Meds - Medications Medications: Current Medications Enoxaparin Sodium (Lovenox) 40 mg SC DAILY [facility]; Protocol Last Admin: 03/21/19 10:09 Dose: 40 mg Gabapentin (Neurontin) 600 mg PO TID [facility]EM; Protocol Last Admin: 03/21/19 17:33 Dose: 600 mg Meropenem (Merrem Iv 1 Gm Premix) 1 gm in 50 mls @ 100 mls/hr IVPB Q8 [facility]; Protocol Last Admin: 03/22/19 06:55 Dose: 100 mls/hr Linezolid (Zyvox) 600 mg PO BID [facility]EM; Protocol Stop: 03/30/19 18:01 Last Admin: 03/21/19 17:33 Dose: 600 mg Morphine Sulfate (Morphine) 2 mg IVP Q4H PRN PRN Reason: Pain, moderate (4-7) Last Admin: 03/21/19 21:32 Dose: 2 mg Results - Vital Signs Recent Vital Signs: Last Vital Signs Temp 98.2 F 03/22/19 06:00 Pulse 57 L 03/22/19 06:00 Resp 18 03/22/19 06:00 BP 119/59 L 03/22/19 06:00 Pulse Ox 98 03/22/19 06:00 - Labs Result Diagrams: 03/22/19 07:00 03/22/19 07:00 Labs: Laboratory Results - last 24 hr 03/21/19 03/22/19 03/22/19 13:53 07:00 07:00 WBC 5.4 RBC 4.10 Hgb 11.6 L Hct 36.5 MCV 89.0 MCH 28.3 MCHC 31.8 RDW 14.7 H Plt Count 223 MPV 9.6 Sodium 137 Potassium 4.5 Chloride 103 Carbon Dioxide 29 Anion Gap 10 BUN 19 Creatinine 0.8 Est GFR ( Amer) > 60 Est GFR (Non-Af Amer) > 60 Random Glucose 94 Calcium 9.1 Total Bilirubin 0.3 AST 19 ALT 27 Alkaline Phosphatase 83 Total Protein 5.8 Albumin 2.9 L Globulin 2.9 Albumin/Globulin Ratio 1.0 L Stool Occult Blood Negative Attending/Attestation - Attestation I have personally seen and examined this patient.: Yes I have fully participated in the care of the patient.: Yes I have reviewed all pertinent clinical information: Yes
[2019-03-18] MEDS: Morphine 2 mg/ml ISec IVP PRN (22:09)
--- NOTE | 2019-03-18 23:13 | HP ---
DATE OF EXAM: 03/18/2019 HISTORY OF PRESENT ILLNESS: I have known Luci for many years, I do house calls on her. Also I have seen her in multiple facilities, at multiple hospitals. She has had a longstanding bilateral lower extremity ulcers with venous stasis, severe crusting and skin issues for many years. She refused to get bilateral BKA's 8 years ago. PAST MEDICAL HISTORY: She is a 68-year-old white female with bilateral lower extremity cellulitis with multiple ulcers in the lower extremity, osteomyelitis, venous stasis, hypertension, depression, renal insufficiency, hypothyroidism, morbidly obese. She had cellulitis and purulent deep wounds with weeping with pus and bleeding. She has been doing this on and off for years. She has heart failure, CHF, COPD, hypothyroid, anemia, cellulitis of both lower extremities, arthritis, chronic pain to the lower extremities, gallstones, gastroesophageal reflux disease, incontinency of urine, anxiety, depression, cholecystectomy, hernia repair. FAMILY HISTORY: No known family history. SOCIAL HISTORY: A nonsmoker. No drinking. No drugs. ALLERGIES: TO CIPRO, ERNIE, LATEX, PENICILLIN, SULFA, VANCOMYCIN, AND ROSES. CURRENT MEDICATIONS: She is on Neurontin and meclizine. REVIEW OF SYSTEMS: No acute fevers. No shortness of breath or cough. No pain or dyspnea on exertion. No chest pain. No abdominal pain, nausea, vomiting, constipation, or diarrhea. No problems urinating, incontinent. No back pain. No neck pain. There is cellulitis, oozing, weeping ulcers of bilateral lower extremities with severe venous stasis and thickening of the skin. No headache or dizziness. PHYSICAL EXAMINATION VITAL SIGNS: She has a 97.6 temperature, 64 pulse, 18 respiratory rate, 109/74 blood pressure and 98% O2 saturation. GENERAL: She is well-appearing, nontoxic, tearful, upset she is back in the hospital. Alert and oriented x3. HEENT: Head; atraumatic, normocephalic. Eyes; extraocular muscles are intact. Pupils equally react to light and accommodation. Throat is moist. NECK: Supple. HEART: Regular rate. Normal S1, S2. LUNGS: Decreased breath sounds bilaterally but no wheezes, rhonchi or rales. Poor inspiration. ABDOMEN: Soft, morbidly obese, nontender. Positive bowel sounds. No guarding, rebound or CVA tenderness. EXTREMITIES: There is +1/4 pitting edema. SKIN: There is thickening of the skin. It is dry. There are multiple ulcers with bleeding. Purulent discharge. Very poor smelling, oozing both lower extremities. Poor skin on both lower extremities up to the knees, from the toes to the knees. NEUROLOGIC: GCS is 15. Cranial nerves II through XII grossly intact. Normal speech. Alert and oriented x3. LYMPHATICS: Thyroid midline. No palpable appreciable lymphadenopathy. LABORATORY DATA: She had multiple tests done. There is a tib-fib foot x-rays, chest x-ray, all pending. She has a 143 sodium, potassium 4.4, BUN 34, creatinine 0.9, GFR is greater than 60, sugar is 113, calcium is 10.1, total bilirubin is 0.5. AST is 23, ALT is 19, alkaline phosphatase 88. Total protein is 7.9, albumin is 4.1. She has a white count of 9.2, hemoglobin 60.2, hematocrit 49.6, platelets of 309. ASSESSMENT AND PLAN: She will have a consult with Infectious Disease for intravenous antibiotics and also Podiatry. She will be on clindamycin, Lovenox, morphine and Neurontin. She is definitely in deep trouble. We will watch her closely. Antibiotics and skin care for her severe bilateral lower extremity venous stasis ulcers, bleeding, bruising and cellulitis. Hung Wagner DO
--- NOTE | 2019-03-19 03:07 | CARD ---
APPROVED REPORT Date of service: 03/18/2019 EKG Measurement Heart [id number] <Conclusion> Normal sinus rhythm Possible Anterior infarct, age undetermined Abnormal ECG
[2019-03-19] MEDS: Morphine 2 mg/ml ISec IVP PRN ×4 (04:19→18:38)
[2019-03-19] MEDS ORDERED: Morphine 2 mg/ml ISec IVP ONE (08:27)
[2019-03-19] MEDS: Enoxaparin 40 mg Syringe SC SCH (09:19)
[2019-03-19] MEDS: Linezolid 600 mg in D5W 300 ml 600 MG/300 ML BAG IVPB SCH ×2 (09:52→21:43)
--- NOTE | 2019-03-19 11:01 | CP.PCM.CON ---
History of Present Illness - History of Present Illness History of Present Illness: 66 year old female with PMH of Morbid obesity with BMI 45, HTN, Hyperlipidemia, GERD, Depression, chronic lower extremity ulcerations and venous stasis is back in [facility] because of worsening pain again of both lower extremities. She has had the wounds for many months and has been in-and-out of the hospital several times. She states having burning pain in the legs. She denies soaking her legs in water, denies animal contacts. She also denies fever or chills, no nausea or vomiting, no chest pain, no SOB, no headache or dizziness, no abdominal pain, no sore throat, no cough or rhinorrhea, no diarrhea, no dysuria. Infectiosu Diseases consult is requested to further evaluate and manage. Review of Systems - Review of Systems All systems: reviewed and no additional remarkable complaints except (as per HPI) Past Patient History - Infectious Disease Hx of Infectious Diseases: None - Tetanus Immunizations Tetanus Immunization: Unknown - Past Social History Smoking Status: Never Smoked - CARDIAC Hx Cardiac Disorders: Yes Hx Congestive Heart Failure: No Hx Hypertension: Yes - PULMONARY Hx Chronic Obstructive Pulmonary Disease (COPD): No - NEUROLOGICAL HX Cerebrovascular Accident: No - HEENT Hx HEENT Problems: No Hx Blind: No Hx Cataracts: No Hx Deafness: No Hx Difficulty Chewing: No Hx Epistaxis: No Hx Glaucoma: No Hx Macular Degeneration: No - RENAL Hx Renal Failure: No - ENDOCRINE/METABOLIC Hx Diabetes Mellitus Type 1: No Hx Diabetes Mellitus Type 2: No Hx Hypothyroidism: Yes - HEMATOLOGICAL/ONCOLOGICAL Hx Blood Disorders: No Hx AIDS: No Hx Anemia: Yes Hx Cancer: No Hx Chemotherapy: No Hx Cirrhosis: No Hx Hemophilia: No Hx Hepatitis A: No Hx Hepatitis B: No Hx Hepatitis C: No Hx Metastesis: No Hx Shingles: No Hx Sickle Cell Disease: No Hx Unexplained Bleeding: No - INTEGUMENTARY Hx Dermatological Problems: Yes (cellulities to the bilateral lower extremities since 2010) Hx Basil Cell: No Hx Eczema: No Hx Melanoma: No Hx Psoriasis: No Hx Squamous Cell: No - MUSCULOSKELETAL/RHEUMATOLOGICAL Hx Arthritis: Yes - GASTROINTESTINAL Hx Gastrointestinal Disorders: Yes Hx Colostomy: No Hx Crohn's Disease: No Hx Diverticulitis: No Hx Gall Bladder Disease: Yes (gallstones) Hx Gastroesophageal Reflux: No Hx Ileostomy: No Hx Liver Failure: No Hx Pancreatitis: No HX Swallowing Problems: No - GENITOURINARY/GYNECOLOGICAL Hx Genitourinary Disorders: No Hx Hematuria: No Hx Incontinence: Yes Hx Sexually Transmitted Disorders: No Hx Urinary Tract Infection: No - PSYCHIATRIC Hx Psychophysiologic Disorder: Yes Hx Anxiety: Yes Hx Bipolar Disorder: No Hx Depression: Yes Hx Emotional Abuse: No Hx Hallucinations: No Hx Panic Symptoms: No Hx Post Traumatic Stress Disorder: No Hx Psychosis: No Hx Physical Abuse: No Hx Schizophrenia: No Hx Sexual Abuse: No Hx Substance Use: No - SURGICAL HISTORY Hx Amputation: No Hx Appendectomy: No Hx Cardiac Catheterization: No Hx Cholecystectomy: Yes Hx Coronary Stent: No Hx Gastric Bypass Surgery: No Hx Hysterectomy: No Hx Joint Replacement: No Hx Kidney Transplant: No Hx Liver Transplant: No Hx Mastectomy: No Hx Musculoskeletal Surgery: No Hx Open Heart Surgery: No Hx Orthopedic Surgery: No Hx Splenectomy: No Hx Valve Replacement: No Other/Comment: hernia repair - ANESTHESIA Hx Anesthesia: Yes Hx Anesthesia Reactions: No Hx Malignant Hyperthermia: No Meds Allergies/Adverse Reactions: Allergies Allergy/AdvReac Type Severity Reaction Status Date / Time ciprofloxacin [From Cipro] Allergy RASH Verified 03/18/19 13:56 nubia Allergy RASH Verified 03/18/19 13:56 latex Allergy RASH Verified 03/18/19 13:56 Penicillins Allergy RASH Verified 03/18/19 13:56 Sulfa (Sulfonamide Allergy RASH Verified 03/18/19 13:56 Antibiotics) vancomycin Allergy RASH Verified 03/18/19 13:56 roses Allergy RASH Uncoded 03/18/19 13:56 - Medications Medications: Current Medications Enoxaparin Sodium (Lovenox) 40 mg SC DAILY [facility]; Protocol Gabapentin (Neurontin) 600 mg PO TID [facility]; Protocol Last Admin: 03/18/19 20:23 Dose: 600 mg Morphine Sulfate (Morphine) 2 mg IVP Q4H PRN PRN Reason: Pain, moderate (4-7) Last Admin: 03/18/19 22:09 Dose: 2 mg Physical Exam - Constitutional Appears: Non-toxic, No Acute Distress, Chronically Ill - Head Exam Head Exam: NORMAL INSPECTION - Respiratory Exam Respiratory Exam: Decreased Breath Sounds - Cardiovascular Exam Cardiovascular Exam: +S1, +S2 - GI/Abdominal Exam GI & Abdominal Exam: Soft. absent: Tenderness - Extremities Exam Additional comments: both lower extremities with dressings in place Results - Vital Signs Recent Vital Signs: Last Vital Signs Temp 97.6 F 03/18/19 20:51 Pulse 64 03/18/19 20:51 Resp 18 03/18/19 20:51 BP 122/63 03/18/19 20:51 Pulse Ox 100 03/18/19 20:51 - Labs Result Diagrams: 03/18/19 14:00 03/18/19 14:00 Labs: Laboratory Results - last 24 hr 03/18/19 03/18/19 03/18/19 14:00 14:00 15:12 WBC 9.2 D RBC 5.63 Hgb 16.2 H D Hct 49.6 H MCV 88.1 MCH 28.8 MCHC 32.7 RDW 14.8 H Plt Count 309 MPV 10.4 Neut % (Auto) 72.5 H Lymph % (Auto) 15.0 L [place] % (Auto) 10.5 H Eos % (Auto) 1.7 Baso % (Auto) 0.3 Lymph # (Auto) 1.4 [place] # (Auto) 1.0 H Eos # (Auto) 0.2 Baso # (Auto) 0.03 Absolute Neuts (auto) 6.65 H pO2 25 L VBG pH 7.26 L VBG pCO2 59.0 VBG HCO3 26.5 VBG O2 Sat (Calc) 41.6 VBG Base Excess -1.7 L Sodium 143 Potassium 4.4 Chloride 106 Carbon Dioxide 24 Anion Gap 17 BUN 34 H Creatinine 0.9 Est GFR ( Amer) > 60 Est GFR (Non-Af Amer) > 60 Random Glucose 113 H Calcium 10.1 Total Bilirubin 0.5 AST 23 ALT 19 Alkaline Phosphatase 88 Total Protein 7.9 Albumin 4.1 Globulin 3.8 Albumin/Globulin Ratio 1.1 Assessment & Plan - Assessment and Plan (Free Text) Plan: Assessment lower extremity skin and skin structure infection with necrosis, previously grew but awaiting current cultures history of right leg skin and skin structure 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
--- NOTE | 2019-03-19 11:36 | PN ---
DATE: 03/19/2019 SUBJECTIVE: She is resting in bed this morning. She has a little bit of pain in her legs that bandaged. There are multiple ulcers in both legs with severe thickening of the skin with venous stasis. MEDICATIONS: She is on Lovenox, Merrem IV, morphine, Neurontin, and Zyvox IV. She has been dealing with this about 8 years on and off, today is one of the worst day I have seen it. OBJECTIVE: VITAL SIGNS: Temperature is 97.4, pulse is 59, 109/59 blood pressure, 18 respiratory rate, 95% O2 sat. HEENT: Head is atraumatic, normocephalic. HEART: Regular rate. LUNGS: Decreased breath sounds. ABDOMEN: Soft, obese, nontender. EXTREMITIES: Both legs were wrapped up with ulcers and oozing and thickening skin. LABORATORY DATA: She has a 9.2 white count, 16.2 hemoglobin, 49.6 hematocrit with a 309 platelets. She has a 143 sodium, potassium 4.4, BUN 34, creatinine 0.9, GFR is greater than 60, sugar is 113, calcium is 10.1, total bili is 0.5. AST is 23, ALT is 19, alk phos 88, total protein 7.9, albumin is 4.1. She is being seen by Dr. Marinelli, Podiatry for the bad ulcers. She had Infectious Disease consult for infection and hopefully she will improve. Hung Wagner DO
[2019-03-19] MEDS: Meropenem IV 1 gm in NS 1 GM/50 ML BAG IVPB SCH ×2 (13:04→21:43)
[2019-03-20] MEDS: Morphine 2 mg/ml ISec IVP PRN ×3 (06:01→22:29)
[2019-03-20] MEDS: Meropenem IV 1 gm in NS 1 GM/50 ML BAG IVPB SCH ×3 (06:01→22:09)
[2019-03-20 07:15] LABS: HEMOGLOBIN 12.3 g/dL (12.0-16.0); MEAN CELL VOLUME 88.8 fl (80.0-105.0); MEAN CORPUSCULAR HEMOGLOBIN 27.5 pg (25.0-35.0); MEAN PLATELET VOLUME 10.1 fl (7.0-11.0); RBC 4.47 10^6/uL (3.5-6.1); RED CELL DISTRIBUTION WIDTH 14.7 % (11.5-14.5); WHITE BLOOD COUNT 6.4 10^3/uL (4.5-11.0)
[2019-03-20 07:46] LABS: ALBUMIN 2.9 g/dL (3.0-4.8); ALT/SGPT 47 U/L (7-56); AST/SGOT 46 U/L (14-36); BLOOD UREA NITROGEN 28 mg/dL (7-21); CALCIUM 8.3 mg/dL (8.4-10.5); GFR NON-AFRICAN AMERICAN > 60
[2019-03-20] MEDS: Enoxaparin 40 mg Syringe SC SCH (09:34)
[2019-03-20] MEDS: Linezolid 600 mg in D5W 300 ml 600 MG/300 ML BAG IVPB SCH ×2 (09:34→22:10)
--- NOTE | 2019-03-20 12:02 | CP.PCM.PN ---
<Oz Berrios - Last Filed: 03/20/19 11:48> Subjective - Date & Time of Evaluation Date of Evaluation: 03/20/19 Time of Evaluation: 11:48 - Subjective Subjective: Podiatry Progress Note for Dr. Marinelli/Anselmo 68F seen at bedside for b/l LE wounds and lichenification of skin. Patient is AAO x 3 and NAD. States that dressing changes are painful. Denies any acute overnight events or new pedal complaints. Denies any recent N/V/F/C/CP/SOB/D Objective - Vital Signs/Intake and Output Vital Signs (last 24 hours): Temp Pulse Resp BP Pulse Ox 98.4 F 69 18 128/57 L 98 03/20/19 06:00 03/20/19 06:00 03/20/19 06:00 03/20/19 06:00 03/20/19 06:00 Intake and Output: 03/20/19 03/20/19 06:59 18:59 Output Total 200 Balance -200 - Medications Medications: Current Medications Enoxaparin Sodium (Lovenox) 40 mg SC DAILY [facility]; Protocol Last Admin: 03/20/19 09:34 Dose: 40 mg Gabapentin (Neurontin) 600 mg PO TID [facility]; Protocol Last Admin: 03/20/19 09:34 Dose: 600 mg Meropenem (Merrem Iv 1 Gm Premix) 1 gm in 50 mls @ 100 mls/hr IVPB Q8 [facility]; Protocol Last Admin: 03/20/19 06:01 Dose: 100 mls/hr Linezolid (Zyvox 600mg/300ml D5w) 600 mg in 300 mls @ 200 mls/hr IVPB Q12 [facility]; Protocol Stop: 03/26/19 10:01 Last Admin: 03/20/19 09:34 Dose: 200 mls/hr Morphine Sulfate (Morphine) 2 mg IVP Q4H PRN PRN Reason: Pain, moderate (4-7) Last Admin: 03/20/19 06:01 Dose: 2 mg - Labs Labs: 03/20/19 07:00 03/20/19 07:00 - Constitutional Appears: Well, Non-toxic, No Acute Distress - Extremities Exam Additional comments: Vasc: DP and PT pulses non-palpable due to LE edema. CFT < 3 seconds x10, temperature gradient warm to warm from proximal to distal WNL Neuro: Epicritic and protective sensation grossly diminished b/l Derm: Venous stasis changes noted to the lower extremity with lichenification of skin all noted extensively to the left foot and ankle. Serous drainage is noted to lower extremity from posterior aspect of b/l leg. Erythema noted extensively to both legs. No malodor present. No purulent drainage. Multiple superficial ulcerations noted to b/l legs underlying lichenification Superficial ulceration noted to the left heel with fibrogranular base, no t unneling or tracking noted, no probe to bone. Ortho: Severe pain on palpation to LE b/l. ROM and MMT deferred secondary to guarding - Neurological Exam Neurological Exam: Alert, Awake, Oriented x3 - Psychiatric Exam Psychiatric exam: Normal Affect, Normal Mood Assessment and Plan - Assessment and Plan (Free Text) Assessment: 68F seen at bedside for b/l LE wounds and lichenification of skin Plan: Patient seen and evaluated Plan discussed with Dr. Marinelli Afebrile, absent leukocytosis Continue abx Wound cx b/: Proteus Mirabilis and MRSA Foot and tib/fib xray: Soft tissue swelling without acute articular or osseous abnormality Wounds cleansed with saline and dressed with xeroform, ABD, DSD No plan for surgical intervention at this time Podiatry will continue to follow while patient in house <Ton Marinelli - Last Filed: 03/22/19 08:25> Objective - Vital Signs/Intake and Output Vital Signs (last 24 hours): Temp Pulse Resp BP Pulse Ox 98.2 F 57 L 18 119/59 L 98 03/22/19 06:00 03/22/19 06:00 03/22/19 06:00 03/22/19 06:00 03/22/19 06:00 Intake and Output: 03/22/19 03/22/19 06:59 18:59 Intake Total 620 Output Total 850 Balance -230 - Medications Medications: Current Medications Enoxaparin Sodium (Lovenox) 40 mg SC DAILY [facility]; Protocol Last Admin: 03/21/19 10:09 Dose: 40 mg Gabapentin (Neurontin) 600 mg PO TID [facility]; Protocol Last Admin: 03/21/19 17:33 Dose: 600 mg Meropenem (Merrem Iv 1 Gm Premix) 1 gm in 50 mls @ 100 mls/hr IVPB Q8 [facility]; Protocol Last Admin: 03/22/19 06:55 Dose: 100 mls/hr Linezolid (Zyvox) 600 mg PO BID [facility]; Protocol Stop: 03/30/19 18:01 Last Admin: 03/21/19 17:33 Dose: 600 mg Morphine Sulfate (Morphine) 2 mg IVP Q4H PRN PRN Reason: Pain, moderate (4-7) Last Admin: 03/21/19 21:32 Dose: 2 mg - Labs Labs: 03/22/19 07:00 03/22/19 07:00 Attending/Attestation - Attestation I have personally seen and examined this patient.: Yes I have fully participated in the care of the patient.: Yes I have reviewed all pertinent clinical information, including history, physical exam and plan: Yes
--- NOTE | 2019-03-20 17:03 | PN ---
DATE: 03/20/2019 SUBJECTIVE: She is resting in bed. Both her legs are wrapped up. She is on Lovenox, Merrem IV, morphine, Neurontin and Zyvox IV. She has very bad ulcers and oozing from both her legs with thickened skin. PHYSICAL EXAMINATION: VITAL SIGNS: She has a 98.4 temperature, 69 pulse, 120/57 blood pressure, 18 respiratory rate, 90% O2 sat on room air. GENERAL: She is not any pain at this time. She could have been already given morphine already. Head: Atraumatic, normocephalic. She is eating okay. No sore throat. HEART: Regular rate. LUNGS: Decreased breath sounds, but clear. ABDOMEN: Soft, obese, nontender. EXTREMITIES: Wrapped up. LABORATORY DATA: She has a 6.4 white count, 12.3 hemoglobin, 39.7 hematocrit, 227, platelets. 136 sodium, potassium 4.2, BUN is 28, creatinine 0.8, GFR is greater than 60, sugar is 97, calcium 8.3, total bili is 0.3. AST is 46, ALT is 47, alk phos 87, total protein is 5.7. Proteus mirabilis methicillin-resistant staph aureus in the Gram stains. She is being seen by Infectious Disease, Podiatry. She is on Zyvox and Merrem, watching wound cultures. She had multiple x-rays, shows soft tissue swelling. There is very severe cellulitis and ulcers of the lower extremity, no apparent osteomyelitis. We will continue aggressive treatment and care with IV antibiotics, Podiatry care. Hung Wagner DO
--- NOTE | 2019-03-21 01:02 | PN ---
DATE: 03/20/2019 SUBJECTIVE: The patient is seen earlier today, in no acute distress, nontoxic. PHYSICAL EXAMINATION: VITAL SIGNS: Temperature is 98, blood pressure is 114/60, respiratory rate of 18. HEENT: Unremarkable. NECK: Supple. LUNGS: Have decreased breath sounds. HEART: Normal S1, S2. ABDOMEN: Soft. LABORATORY EXAMINATION: Reveals a white count of 6.4, hemoglobin of 28, creatinine 0.8. Microbiology is noted. ASSESSMENT AND PLAN: This is a 68-year-old with lower extremity skin and skin structure infection, necrosis. Currently on Zyvox and meropenem. Tolerating her medications well. Did have Proteus and methicillin-resistant Staphylococcus aureus. The Proteus is pansensitive. THE PATIENT IS ALLERGIC TO PENICILLIN. We will follow with you. Giles Acosta MD
[2019-03-21] MEDS: Meropenem IV 1 gm in NS 1 GM/50 ML BAG IVPB SCH ×3 (05:17→21:32)
[2019-03-21 07:30] LABS: HEMOGLOBIN 10.8 g/dL (12.0-16.0); MEAN CELL VOLUME 88.4 fl (80.0-105.0); MEAN CORPUSCULAR HEMOGLOBIN 27.8 pg (25.0-35.0); MEAN CORPUSCULAR HGB CONC 31.4 g/dl (31.0-37.0); MEAN PLATELET VOLUME 9.8 fl (7.0-11.0); RBC 3.89 10^6/uL (3.5-6.1); RED CELL DISTRIBUTION WIDTH 14.7 % (11.5-14.5); WHITE BLOOD COUNT 4.8 10^3/uL (4.5-11.0)
[2019-03-21 08:11] LABS: ALBUMIN 2.6 g/dL (3.0-4.8); ALT/SGPT 34 U/L (7-56); AST/SGOT 31 U/L (14-36); BLOOD UREA NITROGEN 25 mg/dL (7-21); CALCIUM 8.1 mg/dL (8.4-10.5); GFR NON-AFRICAN AMERICAN > 60
[2019-03-21] MEDS: Enoxaparin 40 mg Syringe SC SCH (10:09)
[2019-03-21] MEDS: Linezolid 600 mg in D5W 300 ml 600 MG/300 ML BAG IVPB SCH (10:09)
--- NOTE | 2019-03-21 11:25 | CP.PCM.APN ---
Subjective - Date & Time of Evaluation Date of Evaluation: 03/21/19 Time of Evaluation: 09:40 - Subjective Subjective: Pt seen and examined at bedside. In no acute distress. Objective - Vital Signs/Intake and Output Vital Signs (last 24 hours): Temp Pulse Resp BP Pulse Ox 98.5 F 58 L 18 116/56 L 95 03/21/19 06:00 03/21/19 06:00 03/21/19 06:00 03/21/19 06:00 03/21/19 06:00 Intake and Output: 03/21/19 03/21/19 06:59 18:59 Intake Total 210 Balance 210 - Medications Medications: Current Medications Enoxaparin Sodium (Lovenox) 40 mg SC DAILY [facility]; Protocol Last Admin: 03/21/19 10:09 Dose: 40 mg Gabapentin (Neurontin) 600 mg PO TID [facility]; Protocol Last Admin: 03/21/19 10:09 Dose: 600 mg Meropenem (Merrem Iv 1 Gm Premix) 1 gm in 50 mls @ 100 mls/hr IVPB Q8 [facility]; Protocol Last Admin: 03/21/19 05:17 Dose: 100 mls/hr Linezolid (Zyvox 600mg/300ml D5w) 600 mg in 300 mls @ 200 mls/hr IVPB Q12 [facility]; Protocol Stop: 03/26/19 10:01 Last Admin: 03/21/19 10:09 Dose: 200 mls/hr Morphine Sulfate (Morphine) 2 mg IVP Q4H PRN PRN Reason: Pain, moderate (4-7) Last Admin: 03/20/19 22:29 Dose: 2 mg - Labs Labs: 03/21/19 06:15 03/21/19 06:15 - Constitutional Appears: Well, No Acute Distress - Respiratory Exam Respiratory Exam: Clear to Ausculation Bilateral, NORMAL BREATHING PATTERN - Cardiovascular Exam Cardiovascular Exam: REGULAR RHYTHM, +S1, +S2 - GI/Abdominal Exam GI & Abdominal Exam: Soft, Normal Bowel Sounds - Rectal Exam Rectal Exam: Deferred - Extremities Exam Additional comments: tommy lower ext w/ dressing, c/d/i Assessment and Plan - Assessment and Plan (Free Text) Assessment: pt is a 66 y.o. female with PMH of morbid obesity, chronic painful leg wounds/cellulitis, HTN, sciatica, and neuropathy who presented in ED for tommy lower ext cellulitis. ITS Impressions Chest X-Ray 03/18/19 14:00 IMPRESSION: No active disease. No significant interval change compared to the prior examination(s). Foot X-Ray 03/18/19 14:17 IMPRESSION: Soft tissue swelling without acute articular or osseous abnormality. Foot X-Ray 03/18/19 14:17 IMPRESSION: Soft tissue swelling without acute articular or osseous abnormality. Tibia/Fibula X-Ray 03/18/19 14:17 IMPRESSION: Soft tissue swelling without acute articular or osseous abnormality. Tibia/Fibula X-Ray 03/18/19 14:17 IMPRESSION: Soft tissue swelling without acute articular or osseous abnormality. Plan: On IV Merrem/Zyvox per ID recs ID and Podiatry on consult Pending occult blood - trend h/h Meds per MAR Physical therapy recommends [facility] Will continue to follow
--- NOTE | 2019-03-21 11:38 | PN ---
DATE: 03/21/2019 SUBJECTIVE: I saw her resting comfortably in bed. She slept fairly well last night, not much pain. She is getting IV antibiotics for the bilateral leg ulcers and cellulitis. MEDICATIONS: She is on Lovenox, Merrem, morphine, Neurontin, and Zyvox. PHYSICAL EXAMINATION: VITAL SIGNS: She has 98.5 temperature, 58 pulse, 116/56 blood pressure, 18 respiratory rate, 95% O2 sat on room air. HEENT: Head is atraumatic, normocephalic. HEART: Regular rate. LUNGS: Decreased breath sounds, but clear. ABDOMEN: Soft, morbidly obese, nontender. Positive bowel sounds. No guarding, no rebound, no CVA tenderness. EXTREMITIES: Both of them are bandaged in Nimesh bandage. She has multiple ulcers in both legs with thickening of the skin. LABORATORY DATA: A 4.8 white count, 10.8 hemoglobin, 34.8 hematocrit with 209 platelets. When she came in she had 16.2 hemoglobin, went to 12, now it is 10. I will check some stools for occult blood. She has sodium 136, potassium 4.5, BUN 25, creatinine 0.7, GFR is greater than 60, sugar is 94, calcium is 8.1. Total bili is 0.2, AST is 31, ALT is 34, alk phos 77, total protein is 5.2. ASSESSMENT AND PLAN: She is having some issues. Podiatry is also on the case. We will check for occult blood. She might need if the hemoglobin dropped any further. We will continue with intravenous antibiotics. Hung Wagner DO MTDYana
--- NOTE | 2019-03-21 21:05 | PN ---
DATE: 03/21/2019 SUBJECTIVE: The patient is seen earlier today in 571, bed 1. No fevers. No chills. No nausea. PHYSICAL EXAMINATION: VITAL SIGNS: Temperature is 98, blood pressure is 130/70, respiratory rate of 18, heart rate of 58. HEENT: Unremarkable. NECK: Supple. LUNGS: Have decreased breath sounds. HEART: Normal S1 and S2. ABDOMEN: Soft. LABORATORY EXAMINATION: Reveals a white count of 4.8, hemoglobin of 10, platelets of 209, BUN of 25, creatinine of 0.7. Stool for occult is negative. Microbiology reveals Proteus mirabilis and MRSA. ASSESSMENT AND PLAN: This is a 68-year-old female who is super morbid obese with a body mass index of 74 soft tissue cellulitis with methicillin-resistant Staphylococcus aureus and Proteus. SHE WAS ALLERGIC TO PENICILLIN, QUINOLONES, SULFA, AND VANCOMYCIN. Currently on Zyvox, we will change to oral, also on meropenem. We will discuss with Podiatry. Follow closely with you. Giles Acosta MD
[2019-03-21] MEDS: Morphine 2 mg/ml ISec IVP PRN (21:32)
[2019-03-22] MEDS: Meropenem IV 1 gm in NS 1 GM/50 ML BAG IVPB SCH (06:55)
[2019-03-22 07:32] LABS: HEMOGLOBIN 11.6 g/dL (12.0-16.0); MEAN CORPUSCULAR HEMOGLOBIN 28.3 pg (25.0-35.0); MEAN CORPUSCULAR HGB CONC 31.8 g/dl (31.0-37.0); MEAN PLATELET VOLUME 9.6 fl (7.0-11.0); RBC 4.1 10^6/uL (3.5-6.1); RED CELL DISTRIBUTION WIDTH 14.7 % (11.5-14.5); WHITE BLOOD COUNT 5.4 10^3/uL (4.5-11.0)
[2019-03-22 08:00] LABS: ALBUMIN 2.9 g/dL (3.0-4.8); ALT/SGPT 27 U/L (7-56); AST/SGOT 19 U/L (14-36); BLOOD UREA NITROGEN 19 mg/dL (7-21); CALCIUM 9.1 mg/dL (8.4-10.5); GFR NON-AFRICAN AMERICAN > 60
[2019-03-22] MEDS: Enoxaparin 40 mg Syringe SC SCH (09:21)
--- NOTE | 2019-03-22 10:49 | CP.PCM.PCO ---
Additional Comments - Additional Comments Additional Comments: D/W ID, can discontinue antibiotics today. Per Podiatry, pt is cleared for DC to [facility]. Discussed with PMD, ok to discharge today to [facility].
--- NOTE | 2019-03-22 11:34 | PN ---
DATE: 03/22/2019 SUBJECTIVE: She is resting comfortably in bed. She actually slept fairly well last night. She is in pretty good spirits. MEDICATIONS: She is on Lovenox, meropenem, morphine, Neurontin and Zyvox p.o. OBJECTIVE: GENERAL: No pain this morning, the legs are wrapped up. VITAL SIGNS: She has a 98.2 temperature, 57 pulse, 119/59 blood pressure, 18 respiratory rate, 98% O2 sat on room air. HEENT: Head is atraumatic, normocephalic. Throat is moist. NECK: Supple. HEART: Regular rate. LUNGS: Decreased breath sounds, but clear. No wheezes, no rhonchi, no rales. ABDOMEN: Soft, nontender, positive bowel sounds, morbidly obese. EXTREMITIES: All wrapped up by Podiatry with bandages and Nimesh bandages. She has severe ulcers in both legs with severe thickening of her skin. LABORATORY DATA: She has a white count 5.4, hemoglobin 11.6, hematocrit 36.5, platelets of 223. 137 sodium, potassium 4.5, BUN 19, creatinine 0.8, better. GFR is greater than 60, sugar is 94, calcium is 9.1, total bili is 0.3. AST is 19, ALT is 27, alk phos 83, total protein is 5.8. Stool occult blood was negative. She grew MRSA out of the skin. ASSESSMENT AND PLAN: She is being seen by Infectious Disease and Podiatry. The plan will be to go to for IV antibiotics and continued treatment. We will see when case management and social service can arrange that and we will discharge her to for IV antibiotics, skin care and physical therapy. severe cellulitis and ulcers of both lower extremities with methicillin-resistant Staphylococcus aureus. Hung Wagner DO MTD[facility]ana
--- NOTE | 2019-03-22 12:09 | CP.PCM.PN ---
<Joi Sumner - Last Filed: 03/22/19 12:07> Subjective - Date & Time of Evaluation Date of Evaluation: 03/22/19 Time of Evaluation: 12:07 - Subjective Subjective: Podiatry Progress Note for Dr. Marinelli/Anselmo 68F seen at bedside for b/l LE wounds and lichenification of skin. Patient is AAO x 3 and NAD. States that dressing changes are painful. Denies any acute overnight events or new pedal complaints. Denies any recent N/V/F/C/CP/SOB/D Objective - Vital Signs/Intake and Output Vital Signs (last 24 hours): Temp Pulse Resp BP Pulse Ox 98.2 F 57 L 18 119/59 L 98 03/22/19 06:00 03/22/19 06:00 03/22/19 06:00 03/22/19 06:00 03/22/19 06:00 Intake and Output: 03/22/19 03/22/19 06:59 18:59 Intake Total 620 Output Total 850 Balance -230 - Medications Medications: Current Medications Enoxaparin Sodium (Lovenox) 40 mg SC DAILY [facility]; Protocol Last Admin: 03/22/19 09:21 Dose: 40 mg Gabapentin (Neurontin) 600 mg PO TID [facility]; Protocol Last Admin: 03/22/19 09:21 Dose: 600 mg Morphine Sulfate (Morphine) 2 mg IVP Q4H PRN PRN Reason: Pain, moderate (4-7) Last Admin: 03/21/19 21:32 Dose: 2 mg - Labs Labs: 03/22/19 07:00 03/22/19 07:00 - Constitutional Appears: Well, Non-toxic, No Acute Distress - Head Exam Head Exam: ATRAUMATIC, NORMOCEPHALIC - Extremities Exam Additional comments: Vasc: DP and PT pulses non-palpable due to LE edema. CFT < 3 seconds x10, temperature gradient warm to warm from proximal to distal WNL Neuro: Epicritic and protective sensation grossly diminished b/l Derm: Venous stasis changes noted to the lower extremity with lichenification of skin all noted extensively to the left foot and ankle. Serous drainage is noted to lower extremity from posterior aspect of b/l leg. Erythema noted extensively to both legs. No malodor present. No purulent drainage. Multiple superficial ulcerations noted to b/l legs underlying lichenification Superficial ulceration noted to the left heel with fibrogranular base, no tunneling or tracking noted, no probe to bone. Ortho: Severe pain on palpation to LE b/l. ROM and MMT deferred secondary to guarding - Neurological Exam Neurological Exam: Alert, Awake, Oriented x3 - Psychiatric Exam Psychiatric exam: Normal Affect, Normal Mood Assessment and Plan - Assessment and Plan (Free Text) Assessment: 68F seen at bedside for b/l LE wounds and lichenification of skin Plan: Patient seen and evaluated Plan discussed with Dr. Marinelli Afebrile, absent leukocytosis Continue abx Wound cx b/: Proteus Mirabilis and MRSA Foot and tib/fib xray: Soft tissue swelling without acute articular or osseous abnormality Wounds cleansed with saline and dressed with xeroform, ABD, DSD No plan for surgical intervention at this time Patient stable for discharge from podiatric standpoint Podiatry will continue to follow while patient in house <Ton Marinelli - Last Filed: 03/22/19 17:33> Objective - Vital Signs/Intake and Output Vital Signs (last 24 hours): Temp Pulse Resp BP Pulse Ox 98.2 F 57 L 18 119/59 L 98 03/22/19 06:00 03/22/19 06:00 03/22/19 06:00 03/22/19 06:00 03/22/19 06:00 Intake and Output: 03/22/19 03/22/19 06:59 18:59 Intake Total 620 360 Output Total 850 Balance -230 360 - Medications Medications: Current Medications Enoxaparin Sodium (Lovenox) 40 mg SC DAILY [facility]; Protocol Last Admin: 03/22/19 09:21 Dose: 40 mg Gabapentin (Neurontin) 600 mg PO TID [facility]; Protocol Last Admin: 03/22/19 15:28 Dose: 600 mg Morphine Sulfate (Morphine) 2 mg IVP Q4H PRN PRN Reason: Pain, moderate (4-7) Last Admin: 03/22/19 15:30 Dose: 2 mg - Labs Labs: 03/22/19 07:00 03/22/19 07:00 Attending/Attestation - Attestation I have personally seen and examined this patient.: Yes I have fully participated in the care of the patient.: Yes I have reviewed all pertinent clinical information, including history, physical exam and plan: Yes
--- NOTE | 2019-03-22 14:53 | PN ---
DATE: 03/22/2019 SUBJECTIVE: The patient is in bed, in no acute distress, nontoxic. OBJECTIVE: VITAL SIGNS: On exam, temperature is 98, blood pressure is 119/50, respiratory of 18. HEENT: Unremarkable. NECK: Supple. LUNGS: Have decreased breath sounds. EXTREMITIES: Examination of the leg as per podiatry, chronic changes, no evidence of an active infection and is discussed with Dr. Briones ASSESSMENT AND PLAN: This is a 68-year-old female with super morbid obesity, BMI of 74 with soft tissue cellulitis,methicillin-resistant Staphylococcus aureus and Proteus, IS ALLERGIC TO PENICILLIN, QUINOLONES, SULFA AND VANCOMYCIN, can discontinue the antibiotics. No further antibiotics needed, soft tissue infection is resolved and we will follow with you. Giles Acosta MD
[2019-03-22] MEDS: Morphine 2 mg/ml ISec IVP PRN ×2 (15:30→22:53)
[2019-03-23] MEDS: Enoxaparin 40 mg Syringe SC SCH (10:50)
--- NOTE | 2019-03-23 13:03 | CP.PCM.PN ---
<Joi Sumner - Last Filed: 03/23/19 13:02> Subjective - Date & Time of Evaluation Date of Evaluation: 03/23/19 Time of Evaluation: 13:02 - Subjective Subjective: Podiatry Progress Note for Dr. Marinelli/Anselmo 68F seen at bedside for b/l LE wounds and lichenification of skin. Patient is AAO x 3 and NAD. States that dressing changes are painful. Denies any acute overnight events or new pedal complaints. Denies any recent N/V/F/C/CP/SOB/D Objective - Vital Signs/Intake and Output Vital Signs (last 24 hours): Temp Pulse Resp BP Pulse Ox 98.2 F 60 20 105/64 93 L 03/23/19 06:00 03/23/19 06:00 03/23/19 06:00 03/23/19 06:00 03/23/19 06:00 Intake and Output: 03/23/19 03/23/19 06:59 18:59 Intake Total 600 Output Total 750 Balance -150 - Medications Medications: Current Medications Enoxaparin Sodium (Lovenox) 40 mg SC DAILY [facility]; Protocol Last Admin: 03/23/19 10:50 Dose: 40 mg Gabapentin (Neurontin) 600 mg PO TID [facility]; Protocol Last Admin: 03/23/19 10:50 Dose: 600 mg Morphine Sulfate (Morphine) 2 mg IVP Q4H PRN PRN Reason: Pain, moderate (4-7) Last Admin: 03/22/19 22:53 Dose: 2 mg - Labs Labs: 03/22/19 07:00 03/22/19 07:00 - Constitutional Appears: Well, Non-toxic, No Acute Distress - Head Exam Head Exam: ATRAUMATIC, NORMOCEPHALIC - Extremities Exam Additional comments: Dressing clean dry and intact - Neurological Exam Neurological Exam: Alert, Awake, Oriented x3 - Psychiatric Exam Psychiatric exam: Normal Affect, Normal Mood Assessment and Plan - Assessment and Plan (Free Text) Assessment: 68F seen at bedside for b/l LE wounds and lichenification of skin Plan: Patient seen and evaluated with Dr. Marinelli Plan discussed with Dr. Marinelli Afebrile, absent leukocytosis Continue abx Wound cx b/: Proteus Mirabilis and MRSA Foot and tib/fib xray: Soft tissue swelling without acute articular or osseous abnormality No plan for surgical intervention at this time Patient stable for discharge from podiatric standpoint Podiatry will continue to follow while patient in house <Ton Marinelli - Last Filed: 03/23/19 18:21> Objective - Vital Signs/Intake and Output Vital Signs (last 24 hours): Temp Pulse Resp BP Pulse Ox 98.2 F 60 20 105/64 93 L 03/23/19 06:00 03/23/19 06:00 03/23/19 06:00 03/23/19 06:00 03/23/19 06:00 Intake and Output: 03/23/19 03/23/19 06:59 18:59 Intake Total 600 600 Output Total 750 Balance -150 600 - Medications Medications: Current Medications Ascorbic Acid (Vitamin C 500 Mg Tab) 500 mg PO DAILY [facility] Enoxaparin Sodium (Lovenox) 40 mg SC DAILY [facility]; Protocol Last Admin: 03/23/19 10:50 Dose: 40 mg Gabapentin (Neurontin) 600 mg PO TID [facility]; Protocol Last Admin: 03/23/19 17:10 Dose: 600 mg Morphine Sulfate (Morphine) 2 mg IVP Q4H PRN PRN Reason: Pain, moderate (4-7) Last Admin: 03/23/19 17:10 Dose: 2 mg Multivitamins (Thera Tab) 1 tab PO 0800 [facility] - Labs Labs: 03/22/19 07:00 03/22/19 07:00 Attending/Attestation - Attestation I have personally seen and examined this patient.: Yes I have fully participated in the care of the patient.: Yes I have reviewed all pertinent clinical information, including history, physical exam and plan: Yes
[2019-03-23] MEDS: Morphine 2 mg/ml ISec IVP PRN (17:10)
--- NOTE | 2019-03-24 03:29 | PN ---
DATE: 03/23/2019 SUBJECTIVE: The patient is in bed, in no acute distress, nontoxic. PHYSICAL EXAMINATION: VITAL SIGNS: Temperature is 98, blood pressure is 105/60, respiratory rate of 20. HEENT: Unremarkable. NECK: Supple. LUNGS: Decreased breath sounds. HEART: Normal S1 and S2. ABDOMEN: Soft, nontender. No rebound or guarding. LABORATORY EXAMINATION: Reveals a white count of 5.4, hemoglobin of 11, BUN of 19, creatinine of 0.8. Microbiology is noted. ASSESSMENT AND PLAN: A 68-year-old female with super-morbid obesity, body mass index of 74, with soft tissue cellulitis and methicillin-resistant Staphylococcus aureus and Proteus. ALLERGIC TO PENICILLIN, QUINOLONES, SULFA, AND VANCOMYCIN. Chronic changes of the lower extremities. No evidence of an active infection. Currently, the patient is off antibiotics. The patient was seen earlier this morning in room 571. Giles Acosta MD
--- NOTE | 2019-03-24 05:17 | DS ---
HISTORY OF PRESENT ILLNESS: I saw her resting comfortably in bed. She slept fairly well yesterday. Both lower extremities are wrapped up. She has bilateral leg ulcers and oozing and cellulitis with thickened skin. She is being seen by the heel scorer. The plan now is to go to a subacute rehab. She will go there on her Lovenox and Neurontin. She needs physical therapy. PHYSICAL EXAMINATION: VITAL SIGNS: She has 98.2 temperature, 60 pulse, 105/64 blood pressure, 20 respiratory rate, and 93% O2 sat. HEENT: Head is atraumatic and normocephalic. HEART: Regular rate. LUNGS: Decreased breath sounds, but clear. ABDOMEN: Soft, obese, and nontender. EXTREMITIES: +4/4 pitting edema. Multiple ulcers with oozing and cellulitis. She is off the [place]. LABORATORY DATA: She has a 5.4 white count, 11.6 hemoglobin, 36.5 hematocrit with 223 platelets. Sodium 137, potassium 4.5, BUN 90, creatinine 0.8, GFR is greater than 60, sugar is 94, calcium 9.1, and total bili is 0.3. AST is 19, ALT is 27, and alk phos 83. Total protein is 5.8, very good numbers. Occult blood was negative. Micro reveals Proteus mirabilis and methicillin-resistant Staph aureus in the legs. She is being seen by Podiatry and Infectious Disease. She need to have physical therapy and skin care. Hopefully, she will go to [facility] today. Hung Wagner DO
[2019-03-24] MEDS: Multivitamin Therapeutic Tab PO SCH (08:00)
[2019-03-24] MEDS: Enoxaparin 40 mg Syringe SC SCH (10:35)
--- NOTE | 2019-03-24 11:24 | CP.PCM.PCO ---
Additional Comments - Additional Comments Additional Comments: D/W SW, auth for kristie was denied. Dr. Wagner was made aware, ok to discharge home with services.
[2019-03-24] MEDS: Morphine 2 mg/ml ISec IVP PRN (13:19)
--- NOTE | 2019-03-24 21:22 | DS ---
HOSPITAL COURSE: I am trying to discharged her to [facility] at [place] for rehabilitation, waiting for insurance companies to come up to the page to let that happen. She is on Lovenox. She is getting morphine, which will stop when she goes, Neurontin, , and vitamins. PHYSICAL EXAMINATION: VITAL SIGNS: She has a 98 temperature, 64 pulse, 113/52 blood pressure, 18 respiratory rate, 94% O2 on room air. HEENT: Head is atraumatic and normocephalic. HEART: Regular rate. LUNGS: Decreased breath sounds, but clear. ABDOMEN: Soft, morbidly obese. EXTREMITIES: Wrapped up. She has multiple ulcers on the legs with oozing and cellulitis and thickened skin and she needs physical therapy and skin care. LABORATORY DATA: She has MRSA, proteus mirabilis in the gram stains, but ID as such does not want any antibiotics at this time. PLAN: I am hoping to discharge her to [facility] for subacute rehab, if she gets accepted, otherwise she will have to go home. She does not want to go home. She wants to try and walk. She is motivated and gets skin care. Hung Wagner DO MTDD
--- NOTE | 2019-03-24 21:54 | PN ---
DATE: 03/24/2019 SUBJECTIVE: Patient is in bed, in no acute distress, nontoxic. PHYSICAL EXAMINATION: VITAL SIGNS: Temperature is 98, blood pressure is 102/50, respiratory rate is 18. HEENT: Unremarkable. NECK: Supple. LUNGS: Decreased breath sounds. HEART: Normal S1 and S2. ABDOMEN: Soft and nontender. LABORATORY DATA: Noted. White count of 5.4. Chemistries are noted. Microbiology is reviewed. Patient has a proteus. MEDICATIONS: Review of orders reveals the patient to be off of antibiotics. ASSESSMENT AND PLAN: A 68-year-old female with super-morbid obesity, body mass index of 34, with soft tissue cellulitis. ALLERGIC TO PENICILLIN. Currently now off of antibiotics. She is afebrile. Local wound care. Giles Acosta MD
[2019-03-25 07:40] LABS: BASO # 0.03 K/mm3 (0.0-2.0); BASO % 0.5 % (0.0-3.0); EOS # 0.5 (0.0-0.7); EOS % 9.9 % (1.5-5.0); HEMOGLOBIN 10.4 g/dL (12.0-16.0); LYMPH # 1.4 (1.2-3.4); LYMPH % 26.1 % (22.0-35.0); MEAN CELL VOLUME 89.1 fl (80.0-105.0); MEAN CORPUSCULAR HEMOGLOBIN 27.7 pg (25.0-35.0); MEAN PLATELET VOLUME 8.7 fl (7.0-11.0); MONO # 0.6 (0.1-0.6); MONO % 11.5 % (1.0-6.0); RBC 3.76 10^6/uL (3.5-6.1); RED CELL DISTRIBUTION WIDTH 14.8 % (11.5-14.5); WHITE BLOOD COUNT 5.5 10^3/uL (4.5-11.0)
[2019-03-25 07:54] LABS: ALBUMIN 2.8 g/dL (3.0-4.8); ALT/SGPT 23 U/L (7-56); AST/SGOT 18 U/L (14-36); BLOOD UREA NITROGEN 19 mg/dL (7-21); CALCIUM 8.8 mg/dL (8.4-10.5); GFR NON-AFRICAN AMERICAN > 60
[2019-03-25 08:06] VITALS: RESP 18; O2SAT 96
[2019-03-25] MEDS: Multivitamin Therapeutic Tab PO SCH (08:53)
[2019-03-25] MEDS: Enoxaparin 40 mg Syringe SC SCH (09:52)
--- NOTE | 2019-03-25 11:49 | CP.PCM.PN ---
<Joi Sumner - Last Filed: 03/25/19 11:48> Subjective - Date & Time of Evaluation Date of Evaluation: 03/25/19 Time of Evaluation: 11:48 - Subjective Subjective: Podiatry Progress Note for Dr. Marinelli/Anselmo 68F seen at bedside for b/l LE wounds and lichenification of skin. Patient is AAO x 3 and NAD. States that dressing changes are painful. Denies any acute overnight events or new pedal complaints. Denies any recent N/V/F/C/CP/SOB/D Objective - Vital Signs/Intake and Output Vital Signs (last 24 hours): Temp Pulse Resp BP Pulse Ox 98.2 F 66 18 114/64 96 03/25/19 06:00 03/25/19 06:00 03/25/19 06:00 03/25/19 06:00 03/25/19 06:00 Intake and Output: 03/25/19 03/25/19 06:59 18:59 Intake Total 540 Balance 540 - Medications Medications: Current Medications Ascorbic Acid (Vitamin C 500 Mg Tab) 500 mg PO DAILY [facility] Last Admin: 03/25/19 09:52 Dose: 500 mg Enoxaparin Sodium (Lovenox) 40 mg SC DAILY [facility]; Protocol Last Admin: 03/25/19 09:52 Dose: 40 mg Gabapentin (Neurontin) 600 mg PO TID [facility]; Protocol Last Admin: 03/25/19 09:52 Dose: 600 mg Morphine Sulfate (Morphine) 2 mg IVP Q4H PRN PRN Reason: Pain, moderate (4-7) Last Admin: 03/24/19 13:19 Dose: 2 mg Multivitamins (Thera Tab) 1 tab PO 0800 [facility] Last Admin: 03/25/19 08:53 Dose: 1 tab - Labs Labs: 03/25/19 07:15 03/25/19 07:15 - Constitutional Appears: Well, Non-toxic, No Acute Distress - Head Exam Head Exam: ATRAUMATIC, NORMOCEPHALIC - Extremities Exam Additional comments: Vasc: DP and PT pulses non-palpable due to LE edema. CFT < 3 seconds x10, temperature gradient warm to warm from proximal to distal WNL Neuro: Epicritic and protective sensation grossly diminished b/l Derm: Venous stasis changes noted to the lower extremity with lichenification of skin all noted extensively to the left foot and ankle. Serous drainage is noted to lower extremity from posterior aspect of b/l leg. Erythema noted extensively to both legs. No malodor present. No purulent drainage. Multiple superficial ulcerations noted to b/l legs underlying lichenification Superficial ulceration noted to the left heel with fibrogranular base, no tunneling or tracking noted, no probe to bone. Ortho: Severe pain on palpation to LE b/l. ROM and MMT deferred secondary to guarding - Neurological Exam Neurological Exam: Alert, Awake, Oriented x3 - Psychiatric Exam Psychiatric exam: Normal Affect, Normal Mood Assessment and Plan - Assessment and Plan (Free Text) Assessment: 68F seen at bedside for b/l LE wounds and lichenification of skin Plan: Patient seen and evaluated with Dr. Marinelli Plan discussed with Dr. Marinelli Afebrile, absent leukocytosis Continue abx Wound cx b/: Proteus Mirabilis and MRSA Foot and tib/fib xray: Soft tissue swelling without acute articular or osseous abnormality Wounds cleansed with saline and dressed with xeroform, ABD, DSD No plan for surgical intervention at this time Patient stable for discharge from podiatric standpoint Podiatry will continue to follow while patient in house <Ton Marinelli - Last Filed: 03/26/19 08:38> Objective - Vital Signs/Intake and Output Vital Signs (last 24 hours): Temp Pulse Resp BP Pulse Ox 98 F 72 18 118/72 96 03/25/19 22:58 03/25/19 22:58 03/25/19 22:58 03/25/19 22:58 03/25/19 22:58 - Labs Labs: 03/25/19 07:15 03/25/19 07:15 Attending/Attestation - Attestation I have personally seen and examined this patient.: Yes I have fully participated in the care of the patient.: Yes I have reviewed all pertinent clinical information, including history, physical exam and plan: Yes
--- NOTE | 2019-03-25 12:59 | PN ---
DATE: 03/25/2019 SUBJECTIVE: She is resting comfortably in bed. Her legs are wrapped up. She is in pain, difficult for her to walk. She has bad ulcers of both her lower extremities. PHYSICAL EXAMINATION: VITAL SIGNS: She has a 98.2 temperature, 66 pulse, 114/64 blood pressure, 18 respiratory rate, 96% O2 sat on room air. HEENT: Head is atraumatic and normocephalic. HEART: Regular rate. LUNGS: Decreased breath sounds, but clear. ABDOMEN: Soft and obese. EXTREMITIES: Both wrapped up. She has multiple ulcers on the lower extremities and difficult for her to walk. LABORATORY DATA: She has a 5.5 white count, 10.4 hemoglobin, 32.5 hematocrit with 232 platelets. Sodium 138, potassium 4.4, BUN 19, creatinine 0.7, GFR is greater than 60, sugar is 86, calcium 8.8, phosphorus is 4.7, magnesium is 1.6 and total bili is 0.2. AST is 18, ALT is 23, and alk phos 73. Total protein is 5.7. ASSESSMENT AND PLAN: She was seen by Infectious Disease and Podiatry. I was told today I am supposed to speak to the insurance company about her. I will try and do that and will see which way she goes, [facility] or home. Hung Wagner DO
[2019-03-25] MEDS: Morphine 2 mg/ml ISec IVP PRN (15:45)
[2019-03-25 22:58] VITALS: BP 118/72; PULSE 72; TEMP 98
--- NOTE | 2019-03-26 00:18 | PN ---
DATE: 03/25/2019 SUBJECTIVE: The patient is in bed in no acute distress, nontoxic. PHYSICAL EXAMINATION VITAL SIGNS: Temperature is 98, blood pressure is 138/70, respiratory rate of 18. HEENT: Unremarkable. NECK: Supple. LUNGS: Have decreased breath sounds. HEART: Normal S1, S2. ABDOMEN: Soft. LABORATORY DATA: Reveals the white count is 55. Chemistries are noted. Microbiology is noted. ASSESSMENT AND PLAN: A 68-year-old female with super morbid obesity, body mass index of 34 and soft tissue cellulitis. ALLERGIC TO PENICILLIN. Currently off of antibiotics. Continue local wound care. The patient is at risk of developing nosocomial infections and has MULTIPLE ALLERGIES INCLUDING CIPRO, PENICILLIN, AND SULFA. Case was discussed with private medical doctor. Giles Acosta MD
== END 2019-03-25 22:50 | DRG 603 ==
LOC: ED 13:38 → ERH 14:40 → 5RSO 21:55
PROVIDERS: ADMIT Family Medicine; ATTEND Family Medicine
DX: L03.115 Cellulitis of right lower limb (principal); L97.919 Non-pressure chronic ulcer of unspecified part of right lower leg with unspecified severity; L97.929 Non-pressure chronic ulcer of unspecified part of left lower leg with unspecified severity; Z68.45 Body mass index [BMI] 70 or greater, adult; L03.116 Cellulitis of left lower limb; B95.62 Methicillin resistant Staphylococcus aureus infection as the cause of diseases classified elsewhere; B96.4 Proteus (mirabilis) (morganii) as the cause of diseases classified elsewhere; Z16.24 Resistance to multiple antibiotics; I11.0 Hypertensive heart disease with heart failure; I50.9 Heart failure, unspecified; L28.0 Lichen simplex chronicus; F32.9 Major depressive disorder, single episode, unspecified; F41.9 Anxiety disorder, unspecified; E03.9 Hypothyroidism, unspecified; E66.01 Morbid (severe) obesity due to excess calories; M54.30 Sciatica, unspecified side; G62.9 Polyneuropathy, unspecified; J44.9 Chronic obstructive pulmonary disease, unspecified; I87.8 Other specified disorders of veins; I87.2 Venous insufficiency (chronic) (peripheral); E78.5 Hyperlipidemia, unspecified; K21.9 Gastro-esophageal reflux disease without esophagitis; Z79.01 Long term (current) use of anticoagulants; Z88.0 Allergy status to penicillin; Z88.2 Allergy status to sulfonamides; Z91.040 Latex allergy status